=== PATIENT | female | born 1970 | race Caucasian/White ===

== ENCOUNTER 2019-08-27 12:24 | Inpatient (IN) | payer OTHER ==
[2019-08-27] MEDS ORDERED: ASPIRIN 81 MG PO STA (12:53)
[2019-08-27] MEDS ORDERED: IPRATROPIUM-ALBUTEROL 3 ML NEB INHALATION STA (13:04)
[2019-08-27] MEDS ORDERED: methylPREDNISolone SOD SUCCI 125 MG/2 ML VIAL IV STA (13:04)
--- NOTE | 2019-08-27 13:12 | ED ---
Chest Pain HPI - General Source: patient Mode of arrival: ambulatory Limitations: no limitations <Levi Escalante - Last Filed: 08/27/19 17:47> <Sara Perez - Last Filed: 08/30/19 23:26> - General Chief Complaint: Chest Pain Stated Complaint: SOB Time Seen by Provider: 08/27/19 12:46 - History of Present Illness Initial Comments: Patient is a 49-year-old female with history of hypertension, hyperlipidemia and COPD presenting to the emergency department with a chief complaint of shortness of breath and chest pain. She states that she has been gradually out of her inhalers and heart medication over the last week. She does report increased shortness of breath over the last week along with increasing bilateral lower extremity edema. She does report taking a "water pill". Patient reports an onset of squeezing pain on the right side of the chest without any radiation. Denies any diaphoretic episodes, lightheadedness or dizziness. She reports this typically occurs whenever she is out of her steroid inhalers. She is currently a smoker. Does have a family history of cardiovascular disease. Denies coughing or hemoptysis. (Levi Escalante) - Related Data Home Medications Medication Instructions Recorded Confirmed Loratadine [Claritin] 10 mg PO DAILY 01/24/14 08/27/19 Omeprazole [PriLOSEC] 20 mg PO BID 01/24/14 08/27/19 Oxybutynin Chloride [Ditropan] 5 mg PO BID 01/24/14 08/27/19 Verapamil HCl [Verapamil ER] 240 mg PO DAILY 01/24/14 08/27/19 Albuterol Sulfate [Ventolin HFA] 2 puff INHALATION RT-Q4H PRN 08/27/19 08/27/19 Bifidobacterium Infantis [Align] 4 mg PO DAILY 08/27/19 08/27/19 Budesonide/Formoterol Fumarate 2 puff INHALATION RT-BID 08/27/19 08/27/19 [Symbicort 160-4.5 Mcg Inhaler] Chlorthalidone 25 mg PO DAILY 08/27/19 08/27/19 Diclofenac Sodium Gel [Voltaren 2 gm TOPICAL QID 08/27/19 08/27/19 Gel] Gabapentin 1,800 mg PO TID 08/27/19 08/27/19 Ipratropium-Albuterol Nebulize 3 ml INHALATION RT-QID PRN 08/27/19 08/27/19 [Duoneb 0.5 mg-3 mg/3 ml Soln] Levothyroxine Sodium [Synthroid] 75 mcg PO DAILY 08/27/19 08/27/19 Lisinopril 40 mg PO DAILY 08/27/19 08/27/19 Meloxicam [Mobic] 7.5 mg PO BID 08/27/19 08/27/19 Methocarbamol [Robaxin] 750 mg PO TID 08/27/19 08/27/19 PARoxetine HCL [PARoxetine HCL ER] 37.5 mg PO DAILY 08/27/19 08/27/19 Prazosin [Minipress] 1 mg PO QAM 08/27/19 08/27/19 Prazosin [Minipress] 2 mg PO HS 08/27/19 08/27/19 Tiotropium [place] [Spiriva] 1 cap INHALATION RT-DAILY 08/27/19 08/27/19 busPIRone HCL 10 mg PO TID PRN 08/27/19 08/27/19 traZODone HCL 200 mg PO HS 08/27/19 08/27/19 traZODone HCL [Desyrel] 25 mg PO BID@0800,1200 PRN 08/27/19 08/27/19 Previous Rx's Medication Instructions Recorded Fluticasone Propion/Salmeterol 1 inhalation PO BID 30 Days #1 08/30/19 [Wixela 500-50 Inhub] device Allergies Allergy/AdvReac Type Severity Reaction Status Date / Time No Known Allergies Allergy Verified 08/27/19 14:30 Review of Systems ROS Other: All systems not noted in ROS Statement are negative. <Levi Escalante - Last Filed: 08/27/19 17:47> ROS Other: All systems not noted in ROS Statement are negative. <Sara Perez - Last Filed: 08/30/19 23:26> ROS Statement: Those systems with pertinent positive or pertinent negative responses have been documented in the HPI. EKG Findings - EKG Comments: EKG Findings:: Normal sinus rhythm, no ST changes or nonspecific T-wave inversions in lead 3. Ventricular rate 79, MO interval 120, QRS duration 86, QTC 433. <Levi Escalante Last Filed: 08/27/19 17:47> Past Medical History Past Medical History: Asthma, GERD/Reflux, Hypertension, Liver Disease, Osteoarthritis (OA), Thyroid Disorder Additional Past Medical History / Comment(s): CHRONIC BRONCHITIS, HEPATITIS C, CHRONIC BACK PAIN, OVER-ACTIVE BLADDER, FREQUENT LENGTHY MENSTRUAL PERIODS History of Any Multi-Drug Resistant Organisms: None Reported Past Surgical History: Section, Orthopedic Surgery, Tubal Ligation Additional Past Surgical History / Comment(s): ARTHROSCOPY LEFT KNEE, METAL PLATE AND SCREWS RT TIBIA Past Anesthesia/Blood Transfusion Reactions: No Reported Reaction Past Psychological History: Anxiety, Bipolar, Depression, Panic Disorder, PTSD Smoking Status: Current every day smoker Past Alcohol Use History: None Reported Past Drug Use History: None Reported - Past Family History Sister(s) Family Medical History: Cancer <Levi Escalante Last Filed: 08/27/19 17:47> General Exam Limitations: no limitations General appearance: alert, in no apparent distress, obese Head exam: Present: atraumatic, normocephalic, normal inspection Eye exam: Present: normal appearance, PERRL, EOMI Pupils: Present: normal accommodation ENT exam: Present: normal exam, normal oropharynx, mucous membranes moist, normal external ear exam Neck exam: Present: normal inspection Respiratory exam: Present: wheezes (Bilateral wheezing). Absent: respiratory distress Cardiovascular Exam: Present: regular rate, normal rhythm, normal heart sounds Extremities exam: Present: normal inspection, full ROM, normal capillary refill Back exam: Present: normal inspection, full ROM Neurological exam: Present: alert, oriented X3 Psychiatric exam: Present: normal affect, normal mood Skin exam: Present: warm, dry, intact, normal color <Levi Escalante Last Filed: 08/27/19 17:47> Course Vital Signs 08/27/19 08/27/19 08/27/19 12:34 12:37 12:46 Temperature 98.0 F Pulse Rate 78 65 Respiratory 21 20 Rate Blood Pressure 160/82 O2 Sat by Pulse 96 98 Oximetry 08/27/19 08/27/19 08/27/19 12:50 13:00 13:10 Temperature Pulse Rate 78 89 91 Respiratory Rate Blood Pressure 171/93 164/90 O2 Sat by Pulse 96 97 97 Oximetry 08/27/19 08/27/19 08/27/19 13:20 13:30 13:37 Temperature Pulse Rate 86 88 68 Respiratory 20 Rate Blood Pressure 164/90 164/90 155/78 O2 Sat by Pulse 98 97 96 Oximetry 08/27/19 08/27/19 08/27/19 13:40 13:50 14:00 Temperature Pulse Rate 80 72 Respiratory 20 Rate Blood Pressure 153/93 153/93 153/93 O2 Sat by Pulse 98 96 Oximetry 08/27/19 08/27/19 08/27/19 14:10 14:11 14:20 Temperature Pulse Rate 80 65 75 Respiratory Rate Blood Pressure O2 Sat by Pulse 98 99 Oximetry 08/27/19 08/27/19 08/27/19 14:23 14:40 14:50 Temperature Pulse Rate 68 81 Respiratory Rate Blood Pressure 157/98 O2 Sat by Pulse 98 97 Oximetry 08/27/19 08/27/19 08/27/19 15:00 15:10 15:20 Temperature Pulse Rate 75 Respiratory 20 Rate Blood Pressure 157/98 158/97 158/97 O2 Sat by Pulse 98 Oximetry 08/27/19 08/27/19 08/27/19 15:30 15:40 15:50 Temperature Pulse Rate Respiratory Rate Blood Pressure 158/97 158/97 158/97 O2 Sat by Pulse Oximetry 08/27/19 08/27/19 08/27/19 16:00 17:00 18:00 Temperature Pulse Rate 69 65 79 Respiratory 20 20 20 Rate Blood Pressure 148/89 156/97 147/84 O2 Sat by Pulse 98 98 Oximetry 08/27/19 18:48 Temperature Pulse Rate Respiratory 20 Rate Blood Pressure O2 Sat by Pulse Oximetry Chest Pain MDM - Differential Diagnosis ACS, Pleurisy-Other <Levi Escalante - Last Filed: 08/27/19 17:47> <Sara Perez - Last Filed: 08/30/19 23:26> - MDM (-year-old female with history of hypertension hyperlipidemia, COPD presenting to emergency Department with a chief complaint of shortness of breath and chest pain. Patient presented with right-sided chest pain without any radiation. The diaphoretic episode like headedness or dizziness. Patient has not been taking her antihypertensive medication, as well as her inhalers for about a week. Patient reports increased shortness of breath with dyspnea on exertion. On eye exam patient also has a pitting edema bilaterally. Patient reports she has been out of her diuretic which is causing her to be fluid overloaded. On exam patient does have bilateral wheezing. Patient given a breathing treatment and 100 mg of sudden [place] for COPD exacerbation. Patient also given aspirin and morphine for pain. EKG shows a normal sinus rhythm with no ST changes. Patient is d-dimer positive. CT of chest shows no signs for a PE. Patient will be admitted for OR rule out with serial troponins. (Levi Escalante) I was available for consultation in the emergency department. The history and physical exam were done by the midlevel provider. I was consulted for this patients care. I reviewed the case with the midlevel provider and based on their presentation of the patient, I agree with the assessment, medical decision making and plan of care as documented. Chart was dictated using Alek[employer] dictation software. Attempts were made to correct any dictation errors however some typographical errors may persist. (Sara Perez) Disposition Is patient prescribed a controlled substance at d/c from ED?: No Time of Disposition: 17:55 <Levi Escalante - Last Filed: 08/27/19 17:47> <Sara Perez - Last Filed: 08/30/19 23:26> Clinical Impression: Chest pain, COPD exacerbation Disposition: ADMITTED IP TO THIS HOSP Condition: Good
[2019-08-27 13:17] LABS: Basophils # (A) 0.1 k/uL (0-0.2); Basophils % (A) 1 %; Eosinophils # (A) 0.1 k/uL (0-0.7); Eosinophils % (A) 1 %; HCT 35.3 % (34.0-46.0); HGB 11.6 gm/dL (11.4-16.0); Lymphocytes # (A) 1.6 k/uL (1.0-4.8); Lymphocytes % (A) 23 %; MCH 32.5 pg (25.0-35.0); MCV 98.4 fL (80.0-100.0); Mean Platelet Volume 7.2; Monocytes # (A) 0.4 k/uL (0-1.0); Monocytes % (A) 5 %; Neutrophils # (A) 4.6 k/uL (1.3-7.7); Neutrophils % (A) 68 %; Platelet Count 259 k/uL (150-450); RBC 3.58 m/uL (3.80-5.40); RDW 13.9 % (11.5-15.5); WBC 6.8 k/uL (3.8-10.6)
[2019-08-27 13:26] LABS: ALT 13 U/L (4-34); AST 25 U/L (14-36); African American GFR (CKD) >90 (>60 ml/min/1.73 sqM); Albumin 3.7 g/dL (3.5-5.0); Alkaline Phosphatase 28 U/L (38-126); Anion Gap 10 mmol/L; Blood Urea Nitrogen 9 mg/dL (7-17); Carbon Dioxide 24 mmol/L (22-30); Chloride 106 mmol/L (98-107); Glucose 118 mg/dL (74-99); Magnesium 1.8 mg/dL (1.6-2.3); Non-African American GFR(CKD) >90 (>60 ml/min/1.73 sqM); Potassium 3.8 mmol/L (3.5-5.1); Sodium 140 mmol/L (137-145); Total Bilirubin 0.5 mg/dL (0.2-1.3); Total Protein 6.7 g/dL (6.3-8.2)
[2019-08-27 13:33] LABS: INR 0.9 (<1.2); Partial Thromboplastin Time 23.3 sec (22.0-30.0); Prothrombin Time 9.9 sec (9.0-12.0)
--- NOTE | 2019-08-27 14:38 | XR ---
EXAMINATION TYPE: XR chest 2V DATE OF EXAM: 08/27/2019 COMPARISON: None INDICATION: Chest pain TECHNIQUE: Frontal and lateral views of the chest are obtained. FINDINGS: The heart size is normal. The pulmonary vasculature is normal. The lungs are clear. IMPRESSION: 1. No acute pulmonary process.
--- NOTE | 2019-08-27 15:42 | CT ---
CT CHEST FOR PULMONARY EMBOLISM. EXAMINATION TYPE: CT chest angio for PE DATE OF EXAM: 08/27/2019 INDICATION: Shortness of breath and chest pain CT DLP: 673.4 mGycm, Automated exposure control for dose reduction was used. CONTRAST: Patient injected with 100 mL of Isovue 370. COMPARISON: None TECHNIQUE: CT of the chest is performed on a spiral scan at 2 mm thick sections. Study is performed with intravenous contrast timed for evaluation for pulmonary embolism. This will limit additional po rtions of the evaluation. 3-D MIP images reconstructed by the technologist are reviewed on the compu ter in the coronal and sagittal planes. FINDINGS: No persistent filling defects are evident to suggest an acute pulmonary embolism. No mediastinal or hilar adenopathy enlarged by CT criteria is evident. The ascending aorta diameter at the level of the main pulmonary artery is 3.1 cm. The main pulmonary artery diameter at the bifur cation is 2.4 cm. There is a small right pleural effusion. There is some thickening along the lateral right lung base w ith a depth of 1.1 cm. Consider atelectasis. Follow-up is recommended to reevaluate this finding. Limited CT section through the upper abdomen are unremarkable. IMPRESSIONS: 1. No acute pulmonary embolism. 2. Small right pleural effusion. 3. Some pleural-based thickening up to 1.1 cm lateral right lung base. Recommend follow-up of this fi nding with follow-up CT in 3 months.
[2019-08-27] MEDS ORDERED: MORPHINE SULFATE 4 MG/ML SYRINGE IVP STA (15:52)
--- NOTE | 2019-08-27 18:05 | P.HPIM ---
History of Present Illness H&P Date: 08/27/19 The patient is a 49 yo F with a PMH of COPD, HTN, and HLD who presented to the ED with chief complaint of shortness of breath. The patient notes that she has been on her COPD medications for several years though she lost her insurance and was thereby unable to get her medications for the last 4-5 months. She notes that she has not been taking her Symbicort, and has gradually had worsening of her COPD with wheezing and persistent nonproductive cough. She also reports that for the past few weeks to months, she has noticed gradually worsening lower extremity edema which she attributes to not being aware to take her "water pill"over the last 3-4 months as well. She also reports of a pressure-like substernal chest discomfort, nonradiating, possibly with some associated shortness of breath, with no associated diaphoresis, dizziness, palpitations, nausea. She denied fever, chills, recent travel, sick contacts, leg pain. The patient underwent an extensive evaluation in the emergency room with troponin less than 0.012, BNP is 545, d-dimer 1.53, WBC count 6.8, hemoglobin 11.6, platelets 259, sodium 140, potassium 3.8, BUN 9, creatinine 0.75, glucose 118. EKG revealed a normal sinus rhythm at [address]/T-wave changes. Chest CT revealed no acute PE with small right-sided pleural effusion along with some pleural-based thickening up to 1.1 cm lateral right lung base. Review of Systems Pertinent positives and negatives as discussed in HPI, a complete review of systems was performed and all other systems are negative. Past Medical History Past Medical History: Asthma, GERD/Reflux, Hypertension, Liver Disease, Osteoarthritis (OA), Thyroid Disorder Additional Past Medical History / Comment(s): CHRONIC BRONCHITIS, HEPATITIS C, CHRONIC BACK PAIN, OVER-ACTIVE BLADDER, FREQUENT LENGTHY MENSTRUAL PERIODS History of Any Multi-Drug Resistant Organisms: None Reported Past Surgical History: Section, Orthopedic Surgery, Tubal Ligation Additional Past Surgical History / Comment(s): ARTHROSCOPY LEFT KNEE, METAL PLATE AND SCREWS RT TIBIA Past Anesthesia/Blood Transfusion Reactions: No Reported Reaction Past Psychological History: Anxiety, Bipolar, Depression, Panic Disorder, PTSD Smoking Status: Current every day smoker Past Alcohol Use History: None Reported Past Drug Use History: None Reported - Past Family History Sister(s) Family Medical History: Cancer Medications and Allergies Home Medications Medication Instructions Recorded Confirmed Type Loratadine [Claritin] 10 mg PO DAILY 01/24/14 08/27/19 History Omeprazole [PriLOSEC] 20 mg PO BID 01/24/14 08/27/19 History Oxybutynin Chloride [Ditropan] 5 mg PO BID 01/24/14 08/27/19 History Verapamil HCl [Verapamil ER] 240 mg PO DAILY 01/24/14 08/27/19 History Albuterol Sulfate [Ventolin HFA] 2 puff INHALATION RT-Q4H PRN 08/27/19 08/27/19 History Bifidobacterium Infantis [Align] 4 mg PO DAILY 08/27/19 08/27/19 History Budesonide/Formoterol Fumarate 2 puff INHALATION RT-BID 08/27/19 08/27/19 Hist ory [Symbicort 160-4.5 Mcg Inhaler] Chlorthalidone 25 mg PO DAILY 08/27/19 08/27/19 History Diclofenac Sodium Gel [Voltaren 2 gm TOPICAL QID 08/27/19 08/27/19 History Gel] Gabapentin 1,800 mg PO TID 08/27/19 08/27/19 History Ipratropium-Albuterol Nebulize 3 ml INHALATION RT-QID PRN 08/27/19 08/27/19 History [Duoneb 0.5 mg-3 mg/3 ml Soln] Levothyroxine Sodium [Synthroid] 75 mcg PO DAILY 08/27/19 08/27/19 History Lisinopril 40 mg PO DAILY 08/27/19 08/27/19 History Meloxicam [Mobic] 7.5 mg PO BID 08/27/19 08/27/19 History Methocarbamol [Robaxin] 750 mg PO TID 08/27/19 08/27/19 History PARoxetine HCL [PARoxetine HCL ER] 37.5 mg PO DAILY 08/27/19 08/27/19 History Prazosin [Minipress] 1 mg PO QAM 08/27/19 08/27/19 History Prazosin [Minipress] 2 mg PO HS 08/27/19 08/27/19 History Tiotropium [place] [Spiriva] 1 cap INHALATION RT-DAILY 01/10/20 01/10/20 History busPIRone HCL 10 mg PO TID PRN 08/27/19 08/27/19 History traZODone HCL 200 mg PO HS 08/27/19 08/27/19 History traZODone HCL [Desyrel] 25 mg PO BID@0800,1200 PRN 08/27/19 08/27/19 History Allergies Allergy/AdvReac Type Severity Reaction Status Date / Time No Known Allergies Allergy Verified 08/27/19 14:30 Physical Exam Vitals: Vital Signs Temp Pulse Resp BP Pulse Ox 08/27/19 17:00 65 20 156/97 98 08/27/19 16:00 69 20 148/89 08/27/19 15:50 158/97 08/27/19 15:40 158/97 08/27/19 15:30 158/97 08/27/19 15:20 158/97 08/27/19 15:10 158/97 08/27/19 15:00 75 20 157/98 98 08/27/19 14:50 81 157/98 97 08/27/19 14:40 98 08/27/19 14:23 68 08/27/19 14:20 75 99 08/27/19 14:11 65 08/27/19 14:10 80 98 08/27/19 14:00 72 20 153/93 96 08/27/19 13:50 153/93 08/27/19 13:40 80 153/93 98 08/27/19 13:37 68 20 155/78 96 08/27/19 13:30 88 164/90 97 08/27/19 13:20 86 164/90 98 08/27/19 13:10 91 164/90 97 08/27/19 13:00 89 171/93 97 08/27/19 12:50 78 96 08/27/19 12:46 98 08/27/19 12:37 65 20 08/27/19 12:34 98.0 F 78 21 160/82 96 Intake and Output 08/27/19 08/27/19 08/27/19 06:59 14:59 22:59 Other: Weight 88.451 kg General: non toxic, no distress, appears at stated age, morbidly obese Derm: no unusual rashes/lesions no unusual ecchymoses, warm, dry Head: atraumatic, normocephalic, symmetric Eyes: EOMI, no lid lag, anicteric sclera, pupils equal round reactive to light ENT: Nose and ears atraumatic, no thrush, no pharyngeal erythema Neck: No thyromegaly, no cervical lymphadenopathy, trachea midline, supple Mouth: no lip lesion, mucus membranes moist Cardiovascular: S1S2 reg, no murmur, positive posterior tibial pulse bilateral, 1+ bilateral lower extremity edema, capillary refill less than 2 seconds Lungs: Poor air entry bilaterally with expiratory wheezing, minimal bibasilar rales, no rhonchi, no accessory muscle use Abdominal: soft, nontender to palpation, no guarding, no appreciable organomegaly, normal bowel sounds Ext: no gross muscle atrophy, muscle strength 5 out of 5 in all 4 extremities grossly, no contractures, Neuro: CN II-XI grossly intact, light touch intact all 4 extremities, finger to nose within normal limits, Psych: Alert, oriented, appropriate affect Results CBC & Chem 7: 08/27/19 12:57 08/27/19 12:57 Labs: Abnormal Lab Results - Last 24 Hours (Table) 08/27/19 08/27/19 08/27/19 Range/Units 12:57 12:57 12:57 RBC 3.58 L (3.80-5.40) m/uL D-Dimer 1.53 H (<0.60) mg/L FEU Glucose 118 H (74-99) mg/dL Alkaline Phosphatase 28 L (38-126) U/L Assessment and Plan Plan: Acute COPD exacerbation -Continue with DuoNeb's -Continue with Solu-Medrol 60 mg every 6 hourly -Supplemental oxygen -Symbicort Chest pain, rule out ACS -Cardiac monitoring -Trend troponin -Cardiology consult Chronic conditions: HTN, HLD, Depression -C/w home meds DVT prophylaxis -Heparin subq The patient is admitted with an anticipated less than 2 midnight stay for evaluation of acute COPD exacerbation CODE STATUS: Full Code Discussed with: Patient Anticipated discharge date: 1-[address]: Home A total of 40 minutes was spent on the care of this complex patient more than 50% of the time was spent in counseling and care coordination.
[2019-08-27] MEDS: GABAPENTIN 300 MG CAP PO SCH (19:47)
[2019-08-27] MEDS: OXYBUTYNIN CHLORIDE 5 MG TAB PO SCH (19:47)
[2019-08-27] MEDS: NITROGLYCERIN SL TABS 0.4 MG TAB SUBLINGUAL PRN (19:48)
[2019-08-27] MEDS: ACETAMINOPHEN TAB 325 MG TAB PO PRN (20:01)
[2019-08-27 20:19] LABS: Glucose,Whole Blood 185 mg/dL (75-99)
[2019-08-27] MEDS: SYMBICORT 160-4.5 MCG INHALER INHALATION SCH (20:44)
[2019-08-27] MEDS: IPRATROPIUM-ALBUTEROL 3 ML NEB INHALATION SCH (20:44)
[2019-08-27] MEDS: methylPREDNISolone SOD SUCCI 125 MG/2 ML VIAL IV SCH (23:27)
[2019-08-28] MEDS: IPRATROPIUM-ALBUTEROL 3 ML NEB INHALATION PRN (01:13)
[2019-08-28] MEDS: NITROGLYCERIN SL TABS 0.4 MG TAB SUBLINGUAL PRN (01:29)
[2019-08-28] MEDS: ACETAMINOPHEN TAB 325 MG TAB PO PRN ×4 (01:36→18:49)
[2019-08-28 01:44] LABS: Cholesterol 204 mg/dL (<200); HDL Cholesterol 65 mg/dL (40-60); LDL Cholesterol,Calculated 125 mg/dL (0-99); Triglycerides 68 mg/dL (<150)
[2019-08-28] MEDS: busPIRone HCl 10 MG TAB PO PRN ×2 (01:45→20:50)
[2019-08-28] MEDS: LEVOTHYROXINE 75 MCG TAB PO SCH (05:30)
[2019-08-28] MEDS: BENZONATATE 100 MG CAP PO PRN ×3 (05:36→17:16)
[2019-08-28 07:18] LABS: Glucose,Whole Blood 128 mg/dL (75-99)
[2019-08-28] MEDS: IPRATROPIUM-ALBUTEROL 3 ML NEB INHALATION SCH ×4 (07:38→18:57)
[2019-08-28] MEDS: GABAPENTIN 300 MG CAP PO SCH ×3 (07:51→20:51)
[2019-08-28] MEDS: amLODIPine 5 MG TAB PO SCH (07:54)
[2019-08-28] MEDS: LORATADINE 10 MG TAB PO SCH (07:54)
[2019-08-28] MEDS: OXYBUTYNIN CHLORIDE 5 MG TAB PO SCH ×2 (07:54→20:50)
[2019-08-28] MEDS: methylPREDNISolone SOD SUCCI 125 MG/2 ML VIAL IV SCH ×3 (07:55→23:18)
[2019-08-28] MEDS: LISINOPRIL 20 MG TAB PO SCH (07:55)
[2019-08-28] MEDS: METOPROLOL TARTRATE 25 MG TAB PO SCH ×2 (08:07→20:50)
[2019-08-28] MEDS: ASPIRIN 81 MG PO SCH (08:07)
[2019-08-28] MEDS ORDERED: LISINOPRIL 20 MG TAB PO SCH (09:00)
[2019-08-28] MEDS ORDERED: ASPIRIN 325 MG TAB PO SCH (09:00)
[2019-08-28] MEDS: PARoxetine 10 MG TAB PO SCH (09:26)
[2019-08-28] MEDS: CHLORTHALIDONE 25 MG TAB PO SCH (09:26)
--- NOTE | 2019-08-28 10:07 | P.CNPUL ---
History of Present Illness Consult date: 08/28/19 Reason for consult: dyspnea, chest pain, COPD History of present illness: 49-year-old female patient, known history of COPD hypertension hyperlipidemia who came into the ED because of shortness of breath. She was maintained on Symbicort on outpatient basis. Based on lack of coverage, she had with her medications. She has also developed some increased lower extremity edema over the past few months because of inability to take her diuretics. She reported pressure-like chest discomfort in addition to some shortness of breath, palpitations and dizziness. She denied having any fever chills or night sweats. No hemoptysis. No pleurisy. EKG showing a normal sinus rhythm without any acute abnormalities. Patient already had 3 sets of cardiac enzymes that came back negative. D-dimer was at 1.53 and based on that the patient underwent a CT angiogram that showed no evidence of any pulmonary embolism. There is some atelectatic changes in lung bases bilaterally. She has seen a braille teacher in [place] and she was demented on a combination of Spiriva and Symbicort and she has home oxygen and she has a nebulizer at home. Note that her maintenance inhalers are not available and she was mainly relying on her albuterol nebulizer doing it frequently without much help. She became more progressively bronchospastic and wheezy. No fever. No chills. She has obstructive sleep apnea and she does not know where her CPAP machine is. She has gained some weight over the years. She has hypothyroidism and she is on thyroid hormone [facility]. She has been admitted times for COPD exacerbation in [place]. She has also required a lot of redness on burst taper over the years regarding her recurrent COPD exacerbations. Currently she is living with her sister. Her sister is a smoker and there are other family members a total of 6 of them all of them they smoke cigarettes in the house. Most of bronchial asthma. Most of any environmental ALLERGIES. This patient also has the typical features of obstructive sleep apnea. She has lost only with the 70s and chronic hypersomnia and sleepiness. She used to work in a [employer] Constitutional: Reports daytime sleepiness, Reports fatigue, Reports weight gain Eyes: denies as per HPI, denies blurred vision, denies bulging eye, denies decreased vision, denies diplopia, denies discharge, denies dry eye, denies irritation, denies itching, denies pain, denies photophobia, denies loss of peripheral vision, denies loss of vision, denies tunnel vision/blind spots Ears: deny: decreased hearing, ear discharge, earache, tinnitus Ears, nose, mouth and throat: Reports as per HPI Breasts: absent: as per HPI, change in shape, gynecomastia, masses, nipple discharge, pain, skin changes, swelling Cardiovascular: Reports decreased exercise tolerance, Reports dyspnea on exertion Respiratory: Reports cough, Reports dyspnea, Reports sleep apnea, Reports snoring, Reports wheezing Gastrointestinal: Reports as per HPI Genitourinary: Reports as per HPI Menstruation: Reports as per HPI Musculoskeletal: Reports as per HPI Musculoskeletal: bilateral: ankle swelling, absent: ankle pain, ankle stiffness Integumentary: Reports as per HPI Neurological: Reports as per HPI Psychiatric: Reports as per HPI Endocrine: Reports fatigue Hematologic/Lymphatic: Reports as per HPI Allergic/Immunologic: Reports as per HPI Past Medical History Past Medical History: COPD, GERD/Reflux, Hypertension, Liver Disease, Osteoarthritis (OA), Pneumonia, Sleep Apnea/CPAP/BIPAP, Thyroid Disorder Additional Past Medical History / Comment(s): CHRONIC BRONCHITIS, HEPATITIS C- cured, CHRONIC BACK PAIN, OVER-ACTIVE BLADDER History of Any Multi-Drug Resistant Organisms: None Reported Past Surgical History: Section, Orthopedic Surgery, Tubal Ligation Additional Past Surgical History / Comment(s): ARTHROSCOPY LEFT KNEE, METAL PLATE AND SCREWS RT TIBIA, uterine ablation, right shoulder surgery, liver biopsies x2-3, carpel tunnel release x2 Past Anesthesia/Blood Transfusion Reactions: No Reported Reaction Past Psychological History: Anxiety, Bipolar, Depression, Panic Disorder, PTSD Smoking Status: Current every day smoker (since the age of 13) Past Alcohol Use History: None Reported Past Drug Use History: None Reported - Past Family History Sister(s) Family Medical History: Cancer (Grandmothers have skin cancer, uncle has brain cancer and another uncle with COPD) Medications and Allergies Home Medications Medication Instructions Recorded Confirmed Type Loratadine [Claritin] 10 mg PO DAILY 01/24/14 08/27/19 History Omeprazole [PriLOSEC] 20 mg PO BID 01/24/14 08/27/19 History Oxybutynin Chloride [Ditropan] 5 mg PO BID 01/24/14 08/27/19 History Verapamil HCl [Verapamil ER] 240 mg PO DAILY 01/24/14 08/27/19 History Albuterol Sulfate [Ventolin HFA] 2 puff INHALATION RT-Q4H PRN 08/27/19 08/27/19 History Bifidobacterium Infantis [Align] 4 mg PO DAILY 08/27/19 08/27/19 History Budesonide/Formoterol Fumarate 2 puff INHALATION RT-BID 08/27/19 08/27/19 History [Symbicort 160-4.5 Mcg Inhaler] Chlorthalidone 25 mg PO DAILY 08/27/19 08/27/19 History Diclofenac Sodium Gel [Voltaren 2 gm TOPICAL QID 08/27/19 08/27/19 History Gel] Gabapentin 1,800 mg PO TID 08/27/19 08/27/19 History Ipratropium-Albuterol Nebulize 3 ml INHALATION RT-QID PRN 08/27/19 08/27/19 History [Duoneb 0.5 mg-3 mg/3 ml Soln] Levothyroxine Sodium [Synthroid] 75 mcg PO DAILY 08/27/19 08/27/19 History Lisinopril 40 mg PO DAILY 08/27/19 08/27/19 History Meloxicam [Mobic] 7.5 mg PO BID 08/27/19 08/27/19 History Methocarbamol [Robaxin] 750 mg PO TID 08/27/19 08/27/19 History PARoxetine HCL [PARoxetine HCL ER] 37.5 mg PO DAILY 08/27/19 08/27/19 History Prazosin [Minipress] 1 mg PO QAM 08/27/19 08/27/19 History Prazosin [Minipress] 2 mg PO HS 08/27/19 08/27/19 History Tiotropium Ironside [Spiriva] 1 cap INHALATION RT-DAILY 08/27/19 08/27/19 History busPIRone HCL 10 mg PO TID PRN 08/27/19 08/27/19 History traZODone HCL 200 mg PO HS 08/27/19 08/27/19 History traZODone HCL [Desyrel] 25 mg PO BID@0800,1200 PRN 08/27/19 08/27/19 History Allergies Allergy/AdvReac Type Severity Reaction Status Date / Time No Known Allergies Allergy Verified 08/27/19 14:30 Physical Exam Vitals: Vital Signs Temp Pulse Pulse Resp BP BP Pulse Ox 08/28/19 07:46 98.1 F 69 19 170/78 97 08/28/19 05:00 98.0 F 72 18 166/85 97 08/28/19 01:38 80 08/28/19 01:29 80 08/27/19 23:36 98.3 F 85 18 136/91 99 08/27/19 20:57 78 08/27/19 20:46 76 08/27/19 19:14 98.3 F 69 20 168/82 97 08/27/19 18:48 20 08/27/19 18:00 79 20 147/84 98 08/27/19 17:00 65 20 156/97 98 08/27/19 16:00 69 20 148/89 08/27/19 15:50 158/97 08/27/19 15:40 158/97 08/27/19 15:30 158/97 08/27/19 15:20 158/97 08/27/19 15:10 158/97 08/27/19 15:00 75 20 157/98 98 08/27/19 14:50 81 157/98 97 08/27/19 14:40 98 08/27/19 14:23 68 08/27/19 14:20 75 99 08/27/19 14:11 65 08/27/19 14:10 80 98 08/27/19 14:00 72 20 153/93 96 08/27/19 13:50 153/93 08/27/19 13:40 80 153/93 98 08/27/19 13:37 68 20 155/78 96 08/27/19 13:30 88 164/90 97 08/27/19 13:20 86 164/90 98 08/27/19 13:10 91 164/90 97 08/27/19 13:00 89 171/93 97 08/27/19 12:50 78 96 08/27/19 12:46 98 08/27/19 12:37 65 20 08/27/19 12:34 98.0 F 78 21 160/82 96 Intake and Output 08/27/19 08/28/19 08/28/19 22:59 06:59 14:59 Other: # Voids 1 Weight 88.451 kg Calm and comfortable and the patient is in mild degree of respiratory distress at rest. Not using excessive muscle breathing. Head exam was generally normal. There was no scleral icterus or corneal arcus. Mucous membranes were moist. Neck was supple and without jugular venous distension, thyromegaly, or carotid bruits. Carotids were easily palpable bilaterally. There was no adenopathy. The patient has a slight enlargement of the thyroid gland/goiter without evidence of any lesions or masses. She has significant crowding of the posterior oropharynx with a Mallampati class IV and the uvula is not seen. Lungs are diminished and the patient had diffuse expiratory wheezes throughout the lung morel bilaterally and prolongation of expiration phase of breathing Cardiac exam revealed the PMI to be normally situated and sized. The rhythm was regular and no extrasystoles were noted during several minutes of auscultation. The first and second heart sounds were normal and physiologic splitting of the second heart sound was noted. There were no murmurs, rubs, clicks, or gallops. Abdomen is obese soft nontender. Organs cannot be accurately palpated. There is no direct tenderness or rebound tensile guarding. Extremities reveal trace edema and there is no cyanosis or clubbing. Neurologically the patient is awake and alert and is no focal neurological defic it. Examination of the skin revealed no evidence of significant rashes, suspicious appearing nevi or other concerning lesions. Results - Laboratory Findings CBC and BMP: 08/27/19 12:57 08/27/19 12:57 ABG WBC 6.8 k/uL (3.8-10.6) 08/27/19 12:57 RBC 3.58 m/uL (3.80-5.40) L 08/27/19 12:57 Hgb 11.6 gm/dL (11.4-16.0) 08/27/19 12:57 Hct 35.3 % (34.0-46.0) 08/27/19 12:57 MCV 98.4 fL (80.0-100.0) 08/27/19 12:57 MCH 32.5 pg (25.0-35.0) 08/27/19 12:57 MCHC 33.0 g/dL (31.0-37.0) 08/27/19 12:57 RDW 13.9 % (11.5-15.5) 08/27/19 12:57 Plt Count 259 k/uL (150-450) 08/27/19 12:57 Neutrophils % 68 % 08/27/19 12:57 Lymphocytes % 23 % 08/27/19 12:57 Monocytes % 5 % 08/27/19 12:57 Eosinophils % 1 % 08/27/19 12:57 Basophils % 1 % 08/27/19 12:57 Neutrophils # 4.6 k/uL (1.3-7.7) 08/27/19 12:57 Lymphocytes # 1.6 k/uL (1.0-4.8) 08/27/19 12:57 Monocytes # 0.4 k/uL (0-1.0) 08/27/19 12:57 Eosinophils # 0.1 k/uL (0-0.7) 08/27/19 12:57 Basophils # 0.1 k/uL (0-0.2) 08/27/19 12:57 PT 9.9 sec (9.0-12.0) 08/27/19 12:57 INR 0.9 (<1.2) 08/27/19 12:57 APTT 23.3 sec (22.0-30.0) 08/27/19 12:57 D-Dimer 1.53 mg/L FEU (<0.60) H 08/27/19 12:57 Sodium 140 mmol/L (137-145) 08/27/19 12:57 Potassium 3.8 mmol/L (3.5-5.1) 08/27/19 12:57 Chloride 106 mmol/L (98-107) 08/27/19 12:57 Carbon Dioxide 24 mmol/L (22-30) 08/27/19 12:57 Anion Gap 10 mmol/L 08/27/19 12:57 BUN 9 mg/dL (7-17) 08/27/19 12:57 Creatinine 0.75 mg/dL (0.52-1.04) 08/27/19 12:57 Est GFR (CKD-EPI)AfAm >90 (>60 ml/min/1.73 sqM) 08/27/19 12:57 Est GFR (CKD-EPI)NonAf >90 (>60 ml/min/1.73 sqM) 08/27/19 12:57 Glucose 118 mg/dL (74-99) H 08/27/19 12:57 POC Glucose (mg/dL) 128 mg/dL (75-99) H 08/28/19 07:17 POC Glu [employer] V[employer]as Portillo 08/28/19 07:17 Calcium 9.0 mg/dL (8.4-10.2) 08/27/19 12:57 Magnesium 1.8 mg/dL (1.6-2.3) 08/27/19 12:57 Total Bilirubin 0.5 mg/dL (0.2-1.3) 08/27/19 12:57 AST 25 U/L (14-36) 08/27/19 12:57 ALT 13 U/L (4-34) 08/27/19 12:57 Alkaline Phosphatase 28 U/L (38-126) L 08/27/19 12:57 Troponin I <0.012 ng/mL (0.000-0.034) 08/28/19 01:01 NT-Pro-B Natriuret Pep 545 pg/mL 08/27/19 12:57 Total Protein 6.7 g/dL (6.3-8.2) 08/27/19 12:57 Albumin 3.7 g/dL (3.5-5.0) 08/27/19 12:57 Triglycerides 68 mg/dL (<150) 08/28/19 01:01 Cholesterol 204 mg/dL (<200) H 08/28/19 01:01 LDL Cholesterol, Calc 125 mg/dL (0-99) H 08/28/19 01:01 HDL Cholesterol 65 mg/dL (40-60) H 08/28/19 01:01 PT/INR, D-dimer PT 9.9 sec (9.0-12.0) 08/27/19 12:57 INR 0.9 (<1.2) 08/27/19 12:57 D-Dimer 1.53 mg/L FEU (<0.60) H 08/27/19 12:57 Abnormal lab findings: Abnormal Labs 08/27/19 08/27/19 08/27/19 12:57 12:57 12:57 RBC 3.58 L D-Dimer 1.53 H Glucose 118 H POC Glucose (mg/dL) Alkaline Phosphatase 28 L Cholesterol LDL Cholesterol, Calc HDL Cholesterol 08/27/19 08/28/19 08/28/19 20:16 01:01 07:17 RBC D-Dimer Glucose POC Glucose (mg/dL) 185 H 128 H Alkaline Phosphatase Cholesterol 204 H LDL Cholesterol, Calc 125 H HDL Cholesterol 65 H - Diagnostic Findings Chest x-ray: image reviewed Assessment and Plan Plan: 1 acute COPD exacerbation with shortness of breath. CT angiogram was reviewed. No evidence of pneumonia. Limited atelectatic changes in lung bases bilaterally. 2 advanced COPD with chronic hypoxic respiratory failure and the patient has oxygen at home. During her management and another state, the patient was seen by braille teacher and she was placed on a combination of Spiriva and Symbicort and she is off his medications for now. She has also a albuterol nebulizer that she uses [id number] as needed. 3 chronic smoker 4 obesity 5 obstructive sleep apnea currently on no treatment 6 History of hepatitis C, the patient has recovered 7 goiter with a history of hypothyroidism currently on Synthroid 8 hypertension 9 chronic anxiety 10 chronic lower extremity edema Plan We'll treat the patient for her COPD exacerbation. I reviewed the records and review the chest x-ray and a CAT scan of the chest and the patient was also evaluated and examined. She will benefit from a combination of bronchodilators and steroids. Ultimately she will need outpatient follow-up and care regarding her COPD. I like her maintenance inhalational regimen that she was on in the past and this needs to be restarted. Sleep apnea evaluation outpatient. Smoking cessation counseling.. We'll continue to follow. We'll check her TSH free T4 level. Echocardiogram to assess her LV function and pulmonary hypertension.
--- NOTE | 2019-08-28 10:51 | P.PN ---
Subjective Progress Note Date: 08/28/19 The patient is a 49 yo F with a PMH of COPD, HTN, and HLD who presented to the ED with chief complaint of shortness of breath. The patient noted that she had been on her COPD medications for several years though she lost her insurance and was thereby unable to get her medications for 4-5 months. She noted that she had not been taking her Symbicort, and had gradual worsening of her COPD with wheezing and persistent nonproductive cough. She also reported that for the past few weeks to months, she had noticed gradually worsening lower extremity edema which she attributed to not being able to take her "water pill" over for 3-4 months as well. She also reported pressure-like substernal chest discomf ort, nonradiating, possibly with some associated shortness of breath, with no associated diaphoresis, dizziness, palpitations, nausea. She denied fever, chills, recent travel, sick contacts, leg pain. The patient underwent an extensive evaluation in the emergency room with troponin less than 0.012, BNP is 545, d-dimer 1.53, WBC count 6.8, hemoglobin 11.6, platelets 259, sodium 140, potassium 3.8, BUN 9, creatinine 0.75, glucose 118. EKG revealed a normal sinus rhythm at [address]/T-wave changes. Chest CT revealed no acute PE with small right-sided pleural effusion along with some pleural-based thickening up to 1.1 cm lateral right lung base. The patient was admitted for acute COPD exacerbation and was started on IV solumedrol, duonebs, and symbicort along with a cardiology consult for chest pain, to r/o ACS. She was seen and examined at the bedside on 08/28. She reported continued wheezing and SOB with a non-productive cough. Denied fever, chills, dizziness, nausea, vomiting, or abdominal pain. Noted that her LE edema had somewhat improved since admission. Objective - Vital Signs Vital signs: Vital Signs Temp 98.1 F 08/28/19 07:46 Pulse 69 08/28/19 07:46 Resp 19 08/28/19 07:46 BP 170/78 08/28/19 07:46 Pulse Ox 97 08/28/19 07:46 Intake & Output 08/27/19 08/28/19 08/28/19 18:59 06:59 18:59 Weight 88.451 kg 88.451 kg Other: # Voids 1 1 - Exam General: Non-toxic, in no acute distress, appears stated age, obese HEENT: NC/AT, anicteric sclerae, moist conjunctiva, no lid-lag, PERRLA Cardiovascular: S1/S2 wnl, no murmurs, rubs, or gallops Lungs: Poor air entry alicia with diffuse expiratorh wheezing in all lung morel, no ronchi or rales appreciated, normal respiratory effort, no accessory muscle use Abdominal: Soft, non-tender, non-distended, no guarding, rebound, or rigidity Skin: Warm, dry Extremities: Minimal LE edema alicia, no contractures Psychiatric: Alert and oriented to person, place and time, appropriate affect Neuro: CN II-XII grossly intact, Strength 5/5 in all 4 extremities, Speech intact, no focal neuro deficits noted - Labs CBC & Chem 7: 08/27/19 12:57 08/27/19 12:57 Labs: Abnormal Lab Results - Last 24 Hours (Table) 08/27/19 08/27/19 08/27/19 Range/Units 12:57 12:57 12:57 RBC 3.58 L (3.80-5.40) m/uL D-Dimer 1.53 H (<0.60) mg/L FEU Glucose 118 H (74-99) mg/dL POC Glucose (mg/dL) (75-99) mg/dL Alkaline Phosphatase 28 L (38-126) U/L Cholesterol (<200) mg/dL LDL Cholesterol, Calc (0-99) mg/dL HDL Cholesterol (40-60) mg/dL 08/27/19 08/28/19 08/28/19 Range/Units 20:16 01:01 07:17 RBC (3.80-5.40) m/uL D-Dimer (<0.60) mg/L FEU Glucose (74-99) mg/dL POC Glucose (mg/dL) 185 H 128 H (75-99) mg/dL Alkaline Phosphatase (38-126) U/L Cholesterol 204 H (<200) mg/dL LDL Cholesterol, Calc 125 H (0-99) mg/dL HDL Cholesterol 65 H (40-60) mg/dL Assessment and Plan Plan: Acute COPD exacerbation -Continue with DuoNeb's -Continue with Solu-Medrol 60 mg every 8 hourly -Supplemental oxygen -Symbicort -Pulmonary recs appreciated Chronic hypoxic respiratory failure -On home O2 -C/w supplemental oxygen Chest pain, rule out ACS -Cardiac monitoring -Trend troponin -Cardiology consult Trace LE edema alicia, improved -F/u Echo -C/w Chlorthalidone DOROTHY -Patient will need outpatient f/u with sleep/pulm medicine Chronic conditions: HTN, HLD, Depression -C/w home meds DVT prophylaxis -Heparin subq Discussed with: Patient Anticipated discharge date: 1-[address]: Home
[2019-08-28] MEDS: SYMBICORT 160-4.5 MCG INHALER INHALATION SCH ×2 (10:56→18:57)
[2019-08-28 11:31] LABS: Glucose,Whole Blood 133 mg/dL (75-99)
--- NOTE | 2019-08-28 12:30 | CONS ---
CONSULTATION This patient is a 49-year-old lady who smokes about a pack a day and also has moved to this area recently. She carries a diagnosis of hypothyroidism, hypertension, smoking, COPD, bronchial asthma. She came into the hospital complaining of chest discomfort. Apparently she moved here and currently lives with her sister and carries the above diagnoses. She came in complaining of shortness of breath, coughing and discomfort in the chest. Quality of the discomfort seems musculoskeletal. It occurs with coughing and does not occur with physical activity. She stopped taking her medications for 3 days. The patient is insistent that her chest pain is not coming from the heart, and it is all her lung problem, and I explained to her that I agree with her but suggested that she should probably consider quitting smoking. Her 3 sets of troponins are normal. EKG revealed sinus mechanism without acute changes. PAST MEDICAL HISTORY: Past medical history is remarkable for bronchial asthma, COPD, hypertension, hypothyroidism. She is status post some and orthopedic surgery, tubal ligation, left knee arthroscopic surgery. ALLERGIES: NONE. MEDICATIONS: Medications include antihypertensives in the form of lisinopril, prazosin. She takes trazodone. She also takes multiple inhalers, gabapentin and omeprazole. She takes verapamil 240 mg long-acting preparation. PHYSICAL EXAMINATION: Blood pressure is 160/80. Pulse rate is 70 per minute. HEENT unremarkable. Fundus was not examined by me. Neck is short and thick. I cannot appreciate JVD. There is no carotid bruit. Heart exam reveals S1, S2. No significant murmurs. Lungs reveal bilateral scattered rhonchi suggestive of exacerbation of COPD and probably some bronchial asthma. Abdomen is distended, nontender. Lower extremities reveal normal pulses. No edema. Central nervous system is normal. EKG revealed a sinus mechanism without any significant ST-T changes. LABORATORY DATA: Laboratory data revealed that 3 sets of troponins are normal. She had a D-dimer that was 1.53. CT angio revealed no evidence of pulmonary embolism or any aortic pathology. Information regarding aortic pathology was not mentioned, but verbal report from Dr. Santoro suggested that aorta was normal. IMPRESSION: 1. Atypical musculoskeletal chest pain. 2. Exacerbation of bronchial asthma and chronic obstructive pulmonary disease. 3. Hypertension. 4. Hyperlipidemia. 5. Hypothyroidism, on replacement therapy. RECOMMENDATIONS: I am recommending that we will obtain an echocardiogram, consult Pulmonary, decrease the lisinopril to 20 mg daily, add amlodipine 5 mg daily, discontinue verapamil and place her on a small dose of metoprolol tartrate 25 mg daily. When she is stable and her pulmonary issues have resolved, I will see her in the office and consider outpatient stress testing. I discussed this in detail with the patient, but she was upset and a little bit unreasonable and wanted some medication for her pain. Discussed my thoughts in detail with the patient. Thank you very much for the consult. MMODL / IJN: [id number] /
[2019-08-28 16:32] LABS: Glucose,Whole Blood 151 mg/dL (75-99)
--- NOTE | 2019-08-28 16:32 | ECHOF ---
Referral Reason:chest pain MEASUREMENTS -------- HEIGHT: 147.3 cm WEIGHT: 88.5 kg BP: 166/85 RVIDd: 2.9 cm (< 3.3) IVSd: 1.1 cm (0.6 - 1.1) LVIDd: 4.7 cm (3.9 - 5.3) LVPWd: 1.1 cm (0.6 - 1.1) IVSs: 1.6 cm LVIDs: 3.3 cm LVPWs: 1.7 cm LA Diam: 3.2 cm (2.7 - 3.8) LAESV Index (A-L): 26.50 ml/m Ao Diam: 2.8 cm (2.0 - 3.7) AV Cusp: 1.7 cm (1.5 - 2.6) MV EXCURSION: 17.896 mm (> 18.000) MV EF SLOPE: 62 mm/s (70 - 150) EPSS: 0.8 cm MV E Hung: 1.47 m/s MV DecT: 204 ms MV A Hung: 1.23 m/s MV E/A Ratio: 1.19 RAP: 5.00 mmHg RVSP: 35.69 mmHg FINDINGS -------- Sinus rhythm. This was a technically adequate study. The left ventricular size is normal. There is borderline concentric left ventricular hypertrophy. Overall left ventricular systolic function is normal with, an EF between 60 - 65 %. The right ventricle is normal in size. Normal LA size by volume 22+/-6 ml/m2. The right atrium is normal in size. Interatrial and interventricular septum intact. The aortic valve is trileaflet and appears structurally normal. Mild mitral regurgitation is present. Mild tricuspid regurgitation present. There is mild pulmonary hypertension. The right ventricular systolic pressure, as measured by Doppler, is 35.69mmHg. The pulmonic valve was not well visualized. The aortic root size is normal. Normal inferior vena cava with normal inspiratory collapse consistent with estimated right atrial pre ssure of 5 mmHg. There is no pericardial effusion. CONCLUSIONS -------- 1. Sinus rhythm. 2. This was a technically adequate study. 3. The left ventricular size is normal. 4. There is borderline concentric left ventricular hypertrophy. 5. Overall left ventricular systolic function is normal with, an EF between 60 - 65 %. 6. The right ventricle is normal in size. 7. Normal LA size by volume 22+/-6 ml/m2. 8. The right atrium is normal in size. 9. Interatrial and interventricular septum intact. 10. The aortic valve is trileaflet and appears structurally normal. 11. Mild mitral regurgitation is present. 12. Mild tricuspid regurgitation present. 13. There is mild pulmonary hypertension. 14. The right ventricular systolic pressure, as measured by Doppler, is 35.69mmHg. 15. The pulmonic valve was not well visualized. 16. The aortic root size is normal. 17. Normal inferior vena cava with normal inspiratory collapse consistent with estimated right atrial pressure of 5 mmHg. 18. There is no pericardial effusion. [employer] SAL[employer] ASSOCIATE: Rosa Maria Jones RDCS
[2019-08-28 20:36] LABS: Glucose,Whole Blood 126 mg/dL (75-99)
[2019-08-29] MEDS: IPRATROPIUM-ALBUTEROL 3 ML NEB INHALATION PRN (02:30)
[2019-08-29] MEDS: BENZONATATE 100 MG CAP PO PRN ×2 (02:50→17:46)
[2019-08-29] MEDS: busPIRone HCl 10 MG TAB PO PRN (04:07)
[2019-08-29] MEDS: LEVOTHYROXINE 75 MCG TAB PO SCH (05:42)
[2019-08-29 07:01] LABS: Glucose,Whole Blood 142 mg/dL (75-99)
[2019-08-29] MEDS: SYMBICORT 160-4.5 MCG INHALER INHALATION SCH ×2 (07:09→19:25)
[2019-08-29] MEDS: IPRATROPIUM-ALBUTEROL 3 ML NEB INHALATION SCH ×4 (07:09→19:25)
[2019-08-29] MEDS: methylPREDNISolone SOD SUCCI 125 MG/2 ML VIAL IV SCH ×3 (08:21→23:25)
[2019-08-29] MEDS: amLODIPine 5 MG TAB PO SCH (08:21)
[2019-08-29] MEDS: LISINOPRIL 20 MG TAB PO SCH (08:21)
[2019-08-29] MEDS: LORATADINE 10 MG TAB PO SCH (08:21)
[2019-08-29] MEDS: OXYBUTYNIN CHLORIDE 5 MG TAB PO SCH ×2 (08:21→20:23)
[2019-08-29] MEDS: GABAPENTIN 300 MG CAP PO SCH ×3 (08:21→21:22)
[2019-08-29] MEDS: ASPIRIN 81 MG PO SCH (08:22)
[2019-08-29] MEDS: METOPROLOL TARTRATE 25 MG TAB PO SCH ×2 (08:24→20:23)
[2019-08-29] MEDS: PARoxetine 10 MG TAB PO SCH (09:12)
[2019-08-29] MEDS: CHLORTHALIDONE 25 MG TAB PO SCH (09:12)
--- NOTE | 2019-08-29 10:31 | PN ---
PROGRESS NOTE Mrs. Pendleton is comfortable resting. She has no further chest pain. Her breathing has also improved. Vitals signs are stable. There is JVD of 1 cm. No carotid bruit. S1-S2 heard normally. No significant murmurs. Lungs reveal improved air entry. Abdomen and lower extremity exam unchanged. She is doing better from a pulmonary standpoint. No further chest pain. I will see her p.r.n. MMODL / IJN: [id number] /
[2019-08-29 11:46] LABS: Glucose,Whole Blood 113 mg/dL (75-99)
--- NOTE | 2019-08-29 13:29 | P.PN ---
Subjective Progress Note Date: 08/29/19 49-year-old female patient, known history of COPD hypertension hyperlipidemia who came into the ED because of shortness of breath. She was maintained on Symbicort on outpatient basis. Based on lack of coverage, she had with her medications. She has also developed some increased lower extremity edema over the past few months because of inability to take her diuretics. She reported pressure-like chest discomfort in addition to some shortness of breath, palpitations and dizziness. She denied having any fever chills or night sweats. No hemoptysis. No pleurisy. EKG showing a normal sinus rhythm without any acute abnormalities. Patient already had 3 sets of cardiac enzymes that came back negative. D-dimer was at 1.53 and based on that the patient underwent a CT angiogram that showed no evidence of any pulmonary embolism. There is some atelectatic changes in lung bases bilaterally. 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 Note that her maintenance inhalers are not available and she was mainly relying on her albuterol nebulizer doing it frequently without much help. She became more progressively bronchospastic and wheezy. No fever. No chills. She has obstructive sleep apnea and she does not know where her CPAP machine is. She has gained some weight over the years. She has hypothyroidism and she is on thyroid hormone replacement. She has been admitted times for COPD exacerbation in [place]. She has also required a lot of redness on burst taper over the years regarding her recurrent COPD exacerbations. Currently she is living with her sister. Her s ister is a smoker and there are other family members a total of 6 of them all of them they smoke cigarettes in the house. Most of bronchial asthma. Most of any environmental ALLERGIES. This patient also has the typical features of obstructive sleep apnea. She has lost only with the 70s and chronic hypersomnia and sleepiness. She used to work in a [employer] On 08/29/2019 the patient is feeling slightly better compared to yesterday. Less bronchospastic and wheezy. Not fully recovered. She is still struggling with her breathing. No nausea. No vomiting. No abdominal pain. No chest pain . She is resting comfortably in bed. Objective - Vital Signs Vital signs: Vital Signs Temp 98.2 F 08/29/19 07:51 Pulse 86 08/29/19 11:50 Resp 19 08/29/19 11:50 BP 165/93 08/29/19 07:51 Pulse Ox 97 08/29/19 07:51 Intake & Output 08/28/19 08/29/19 08/29/19 18:59 06:59 18:59 Intake Total 300 Balance 300 Intake: Oral 300 Other: Voiding Method Toilet Toilet Toilet # Voids 1 1 2 - Exam Calm and comfortable and the patient is in mild degree of respiratory distress at rest. Not using excessive muscle breathing. Head exam was generally normal. There was no scleral icterus or corneal arcus. Mucous membranes were moist. Neck was supple and without jugular venous distension, thyromegaly, or carotid bruits. Carotids were easily palpable bilaterally. There was no adenopathy. The patient has a slight enlargement of the thyroid gland/goiter without evidence of any lesions or masses. She has significant crowding of the posterior oropharynx with a Mallampati class IV and the uvula is not seen. Lungs are diminished and the patient had diffuse expiratory wheezes throughout the lung morel bilaterally and prolongation of expiration phase of breathing Cardiac exam revealed the PMI to be normally situated and sized. The rhythm was regular and no extrasystoles were noted during several minutes of auscultation. The first and second heart sounds were normal and physiologic splitting of the second heart sound was noted. There were no murmurs, rubs, clicks, or gallops. Abdomen is obese soft nontender. Organs cannot be accurately palpated. There is no direct tenderness or rebound tensile guarding. Extremities reveal trace edema and there is no cyanosis or clubbing. Neurologically the patient is awake and alert and is no focal neurological deficit. Examination of the skin revealed no evidence of significant rashes, suspicious appearing nevi or other concerning lesions. - Labs CBC & Chem 7: 08/27/19 12:57 08/27/19 12:57 Labs: Abnormal Lab Results - Last 24 Hours (Table) 08/28/19 08/28/19 08/29/19 Range/Units 16:31 20:34 07:00 POC Glucose (mg/dL) 151 H 126 H 142 H (75-99) mg/dL 08/29/19 Range/Units 11:44 POC Glucose (mg/dL) 113 H (75-99) mg/dL Assessment and Plan Plan: 1 acute COPD exacerbation with shortness of breath. CT angiogram was reviewed. No evidence of pneumonia. Limited atelectatic changes in lung bases bilaterally. 2 advanced COPD with chronic hypoxic respiratory failure and the patient has oxygen at home. During her management and another state, the patient was seen by computer drafter and she was placed on a combination of Spiriva and Symbicort and she is off his medications for now. She has also a albuterol nebulizer that she uses [id number] as needed. 3 chronic smoker 4 obesity 5 obstructive sleep apnea currently on no treatment 6 History of hepatitis C, the patient has recovered 7 goiter with a history of hypothyroidism currently on Synthroid 8 hypertension 9 chronic anxiety 10 chronic lower extremity edema Plan Improving slowly. Continue same treatment.
--- NOTE | 2019-08-29 14:02 | P.PN ---
Subjective Progress Note Date: 08/29/19 The patient is a 49 yo F with a PMH of COPD, HTN, and HLD who presented to the ED with chief complaint of shortness of breath. The patient noted that she had been on her COPD medications for several years though she lost her insurance and was thereby unable to get her medications for 4-5 months. She noted that she had not been taking her Symbicort, and had gradual worsening of her COPD with wheezing and persistent nonproductive cough. She also reported that for the past few weeks to months, she had noticed gradually worsening lower extremity edema which she attributed to not being able to take her "water pill" over for 3-4 months as well. She also reported pressure-like substernal chest discomf ort, nonradiating, possibly with some associated shortness of breath, with no associated diaphoresis, dizziness, palpitations, nausea. She denied fever, chills, recent travel, sick contacts, leg pain. The patient underwent an extensive evaluation in the emergency room with troponin less than 0.012, BNP is 545, d-dimer 1.53, WBC count 6.8, hemoglobin 11.6, platelets 259, sodium 140, potassium 3.8, BUN 9, creatinine 0.75, glucose 118. EKG revealed a normal sinus rhythm at [address]/T-wave changes. Chest CT revealed no acute PE with small right-sided pleural effusion along with some pleural-based thickening up to 1.1 cm lateral right lung base. The patient was admitted for acute COPD exacerbation and was started on IV solumedrol, duonebs, and symbicort along with a cardiology consult for chest pain, to r/o ACS. Pulmonary evaluated the patient and recommended continuing with her home meds along with IV steroids. Cardiology noted that the patient's chest pain is likely musculoskeletal in origin and recommended a pulmonary consult along with switching her verapamil to metoprolo l. Cardiology further recommended possible outpatient stress testing. She was seen and examined at the bedside on 08/29. The patient reported some improvements in her breathing. Though continues to have wheezing and chest tightness with non-productive coughing. Denied fever, chills, nausea, vomiting, dizziness, or abdominal pain. Objective - Vital Signs Vital signs: Vital Signs Temp 98.2 F 08/29/19 07:51 Pulse 86 08/29/19 11:50 Resp 19 08/29/19 11:50 BP 165/93 08/29/19 07:51 Pulse Ox 97 08/29/19 07:51 Intake & Output 08/28/19 08/29/19 08/29/19 18:59 06:59 18:59 Intake Total 300 Balance 300 Intake: Oral 300 Other: Voiding Method Toilet Toilet Toilet # Voids 1 1 2 - Exam General: Non-toxic, in no acute distress, appears stated age, obese HEENT: NC/AT, anicteric sclerae, moist conjunctiva, no lid-lag, PERRLA Cardiovascular: S1/S2 wnl, no murmurs, rubs, or gallops Lungs:Improved air entry, expiratory wheezing in all lung morel, no ronchi or rales appreciated, normal respiratory effort, no accessory muscle use Abdominal: Soft, non-tender, non-distended, no guarding, rebound, or rigidity Skin: Warm, dry Extremities: Minimal LE edema alicia, no contractures Psychiatric: Alert and oriented to person, place and time, appropriate affect Neuro: CN II-XII grossly intact, Strength 5/5 in all 4 extremities, Speech intact, no focal neuro deficits noted - Labs CBC & Chem 7: 08/27/19 12:57 08/27/19 12:57 Labs: Abnormal Lab Results - Last 24 Hours (Table) 08/28/19 08/28/19 08/29/19 Range/Units 16:31 20:34 07:00 POC Glucose (mg/dL) 151 H 126 H 142 H (75-99) mg/dL 08/29/19 Range/Units 11:44 POC Glucose (mg/dL) 113 H (75-99) mg/dL Assessment and Plan Plan: Acute COPD exacerbation, improving -Continue with DuoNeb's -Continue with Solu-Medrol 60 mg every 8 hourly -Supplemental oxygen -Symbicort -Pulmonary recs appreciated Chronic hypoxic respiratory failure -On home O2 -C/w supplemental oxygen Chest pain -ACS ruled out -Cardiology recs appreciated -Outpatient f/u with Cardio for possible stress test Trace LE edema alicia, improved -Echo reviewed -C/w Chlorthalidone DOROTHY -Patient will need outpatient f/u with sleep/pulm medicine Chronic conditions: HTN, HLD, Depression -C/w home meds DVT prophylaxis -Heparin subq Discussed with: Patient Anticipated discharge date: 08/30/[address]: Home
[2019-08-29] MEDS: guaiFENesin SYRUP 100MG/5ML 200 MG/10 ML CUP PO PRN (16:34)
[2019-08-29 16:44] LABS: Glucose,Whole Blood 116 mg/dL (75-99)
[2019-08-29 20:00] LABS: Glucose,Whole Blood 113 mg/dL (75-99)
[2019-08-30] MEDS: guaiFENesin SYRUP 100MG/5ML 200 MG/10 ML CUP PO PRN ×2 (02:07→09:56)
[2019-08-30] MEDS: BENZONATATE 100 MG CAP PO PRN ×2 (02:44→16:37)
[2019-08-30] MEDS: IPRATROPIUM-ALBUTEROL 3 ML NEB INHALATION PRN (04:23)
[2019-08-30] MEDS: LEVOTHYROXINE 75 MCG TAB PO SCH (05:30)
[2019-08-30 06:33] LABS: Glucose,Whole Blood 157 mg/dL (75-99)
[2019-08-30] MEDS: IPRATROPIUM-ALBUTEROL 3 ML NEB INHALATION SCH ×4 (07:22→19:43)
[2019-08-30] MEDS: SYMBICORT 160-4.5 MCG INHALER INHALATION SCH ×2 (07:22→19:43)
[2019-08-30] MEDS: methylPREDNISolone SOD SUCCI 125 MG/2 ML VIAL IV SCH ×3 (07:53→23:45)
[2019-08-30] MEDS: METOPROLOL TARTRATE 25 MG TAB PO SCH ×2 (07:54→20:22)
[2019-08-30] MEDS: GABAPENTIN 300 MG CAP PO SCH ×3 (07:54→21:34)
[2019-08-30] MEDS: LORATADINE 10 MG TAB PO SCH (07:54)
[2019-08-30] MEDS: ASPIRIN 81 MG PO SCH (07:54)
[2019-08-30] MEDS: LISINOPRIL 20 MG TAB PO SCH (07:54)
[2019-08-30] MEDS: OXYBUTYNIN CHLORIDE 5 MG TAB PO SCH ×2 (07:54→20:22)
[2019-08-30] MEDS: amLODIPine 5 MG TAB PO SCH (07:54)
[2019-08-30] MEDS: PARoxetine 10 MG TAB PO SCH (07:55)
[2019-08-30] MEDS: CHLORTHALIDONE 25 MG TAB PO SCH (07:55)
[2019-08-30] MEDS ORDERED: ALBUTEROL NEBULIZED 2.5 MG/3 ML INHALATION PRN (10:35)
--- NOTE | 2019-08-30 11:16 | P.PN ---
Subjective Progress Note Date: 08/30/19 Principal diagnosis: Acute COPD exacerbation On 08/30/2019 patient seen in follow-up in the observation unit, still quiet bronchospastic, and dyspneic. some improvement, maintained on oxygen, at 2 L, with a pulse ox of 94%, she is afebrile, hemodynamically patient is stable. Continues on IV steroids, nebulized bronchodilators, Symbicort, cough medications. Patient recently moved from [place], and has not applied for [place] health insurance. Patient has been out of her Symbicort and Spiriva for a month. She states that she still has a nebulizer machine and medications for it, she has home oxygen. She still states she has been coughing a lot, not bringing up much phlegm. Chest x-ray was negative for any acute pulmonary process. Objective - Vital Signs Vital signs: Vital Signs Temp 98.3 F 08/30/19 07:23 Pulse 62 08/30/19 11:02 Resp 18 08/30/19 08:00 BP 156/77 08/30/19 07:23 Pulse Ox 98 08/30/19 04:00 Intake & Output 08/29/19 08/30/19 08/30/19 18:59 06:59 18:59 Intake Total 300 240 Balance 300 240 Intake: Oral 300 240 Other: Voiding Method Toilet Toilet Toilet # Voids 1 1 - Exam GENERAL EXAM: Alert, very pleasant, 49-year-old white female, 2 L of oxygen pulse ox of 94% comfortable in no apparent distress. HEAD: Normocephalic/atraumatic. EYES: Normal reaction of pupils, equal size. Conjunctiva pink, sclera white. NOSE: Clear with pink turbinates. THROAT: No erythema or exudates. NECK: No masses, no JVD, no thyroid enlargement, no adenopathy. CHEST: No chest wall deformity. Symmetrical expansion. LUNGS: Equal air entry with diffuse wheezes throughout the lung morel CVS: Regular rate and rhythm, normal S1 and S2, no gallops, no murmurs, no rubs ABDOMEN: Soft, nontender. No hepatosplenomegaly, normal bowel sounds, no guarding or rigidity. EXTREMITIES: No clubbing, no edema, no cyanosis, 2+ pulses and upper and lower extremities. MUSCULOSKELETAL: Muscle strength and tone normal. SPINE: No scoliosis or deformity SKIN: No rashes CENTRAL NERVOUS SYSTEM: Alert and oriented -3. No focal deficits, tone is normal in all 4 extremities. PSYCHIATRIC: Alert and oriented -3. Appropriate affect. Intact judgment and insight. - Labs CBC & Chem 7: 08/27/19 12:57 08/27/19 12:57 Labs: Abnormal Lab Results - Last 24 Hours (Table) 08/29/19 08/29/19 08/29/19 Range/Units 11:44 16:42 19:58 POC Glucose (mg/dL) 113 H 116 H 113 H (75-99) mg/dL 08/30/19 Range/Units 06:32 POC Glucose (mg/dL) 157 H (75-99) mg/dL Assessment and Plan Plan: 1 acute COPD exacerbation with shortness of breath. CT angiogram was reviewed. No evidence of pneumonia. Limited atelectatic changes in lung bases bilaterally. 2 advanced COPD with chronic hypoxic respiratory failure and the patient has oxygen at home. During her management and another state, the patient was seen by manager golf and she was placed on a combination of Spiriva and Symbicort and she is off his medications for now. She has also a albuterol nebulizer that she uses [id number] as needed. 3 chronic smoker 4 obesity 5 obstructive sleep apnea currently on no treatment 6 History of hepatitis C, the patient has recovered 7 goiter with a history of hypothyroidism currently on Synthroid 8 hypertension 9 chronic anxiety 10 chronic lower extremity edema Plan: Continue current medical treatment, continue IV steroids, nebulized bronchodilators. Still dyspneic and bronchospastic, not quite back to baseline. Will speak to discharge planning as the patient currently has no [place] based health insurance. She has been out of her medications for a month, including Symbicort and Spiriva. Does have oxygen and nebulizer machine at home with nebulized medications. Discharge planning is following, will try to apply [employer]ig[employer]oxilizer funds to help her with the first month's medications I performed a history & physical examination of the patient and discussed their management with my nurse practitioner, Thais Neumann. I reviewed the nurse practitioner's note and agree with the documented findings and plan of care. Lung sounds are positive for diffuse wheezes throughout the lung morel. The findings and the impression was discussed with the patient. I attest to the documentation by the nurse practitioner. Time with Patient: Less than 30
[2019-08-30 11:37] LABS: Glucose,Whole Blood 129 mg/dL (75-99)
--- NOTE | 2019-08-30 14:48 | P.PN ---
Subjective Progress Note Date: 08/30/19 Principal diagnosis: COPD exacerbation Patient was seen and examined. No acute events overnight. Patient continues to complain of shortness of breath especially with exertion. States that she has difficulty walking to the washroom due to her breathing. Patient continues to c omplain of cough, unable to bring up sputum. She denies any chest pain or palpitations. No nausea or vomiting. No fever or chills. Objective - Vital Signs Vital signs: Vital Signs Temp 98.3 F 08/30/19 07:23 Pulse 60 08/30/19 12:00 Resp 18 08/30/19 12:00 BP 156/77 08/30/19 07:23 Pulse Ox 98 08/30/19 04:00 Intake & Output 08/29/19 08/30/19 08/30/19 18:59 06:59 18:59 Intake Total 300 240 440 Balance 300 240 440 Intake: Oral 300 240 240 Other 200 Other: Voiding Method Toilet Toilet Toilet # Voids 1 1 - Exam General: [non toxic], [morbid obesity with minimal distress speaking 2-3 word sentences], [appears at stated age] Derm: [warm], [dry] Head: [atraumatic], [normocephalic], [symmetric] Eyes: [EOMI], [no lid lag], [anicteric sclera] Mouth: [no lip lesion], [mucus membranes moist] Cardiovascular: [S1S2 reg], [no murmur], [positive DP pulse bilateral], Lungs: [Diffuse wheezing bilateral], [no rhonchi, no rales] , [no accessory muscle use] Abdominal: [soft], [ nontender to palpation], [no guarding], [no appreciable organomegaly] Ext: [no gross muscle atrophy], [no edema], [no contractures] Neuro: [no focal neuro deficits] Psych: [Alert], [oriented], [appropriate affect] - Labs CBC & Chem 7: 08/27/19 12:57 08/27/19 12:57 Labs: Abnormal Lab Results - Last 24 Hours (Table) 08/29/19 08/29/19 08/30/19 Range/Units 16:42 19:58 06:32 POC Glucose (mg/dL) 116 H 113 H 157 H (75-99) mg/dL 08/30/19 Range/Units 11:36 POC Glucose (mg/dL) 129 H (75-99) mg/dL Assessment and Plan Assessment: Acute COPD exacerbation Chronic hypoxic respiratory failure Chest pain DOROTHY Patient has minimally improved with regard to her breathing since admission. She'll be continued on DuoNeb treatments scheduled and as needed [id number]. We have reordered her Symbicort inhaler. She has Mucinex on board as needed for cough. She is currently on 2 L home O2. Pulmonology is on board. Acute coronary syndrome and PE has been ruled out. Echocardiogram has b een reviewed and patient has normal EF with borderline concentric LVH. Patient will likely be discharged tomorrow, pending improvement.
[2019-08-30 16:27] LABS: Glucose,Whole Blood 127 mg/dL (75-99)
[2019-08-30] MEDS: ACETAMINOPHEN TAB 325 MG TAB PO PRN (16:36)
--- NOTE | 2019-08-30 17:21 | CDI ---
Documentation Clarification Form Date: 08/30/2019 05:03:36 PM From: Gwen Go RN, CCDS Phone: [phone] Admit Date: 08/29/2019 08:49:00 AM Patient Name: Abena Pendleton Visit Number: [id number] Discharge Date: ATTENTION: The Clinical Documentation Specialists (CDI) and [facility] Coding Staff appreciate your assistance in clarifying documentation. Please respond to the clarification below the line at the bottom and electronically sign. The CDI & [facility] Coding staff will review the response and follow-up if needed. Please note: Queries are made part of the Legal Health Record. If you have any questions, please contact the author of this message via ITS. Dr. Diana Floyd Asthma is documented in the past medical history and consult by Dr. Clayton Carpenter on 08/28/19 as exacerbation of bronchial asthma and chronic obstructive pulmonary disease. History/risk factors: COPD, Bronchial asthma, Hypertension, Obstructive sleep apnea, current smoker Clinical Indicators: 49-year-old female present complaining of shortness of breath, cough and discomfort in the chest, palpitations and dizziness. Vital signs on 08/29/19: 165/93 65 19 97 $ 2/L NC EKG: showing a normal sinus rhythm without any cute abnormalities. Lungs: Bronchospastic and wheezy with mild degree of respiratory distress at rest. Not using excessive muscle breathing. Lungs are diminished with diffuse expiratory wheezes throughout the lung morel. Treatment: Spiriva and Symbicort Home oxygen, Monitor O2 sat's (titrate) Nubulizers per orders Benzonatate PO PRN Solu-Medrol IV (taper) In your professional opinion, can you please further specify Asthma the following, if known? With Acute Exacerbation Or ruled out COPD (specify with or without exacerbation) Chronic obstructive bronchitis Other, please specify Unable to determine Severity Mild intermittent Mild persistent Moderate persistent Severe persistent Other, please specify ____ Unable to determine Form or Type Cough variant Childhood Exercise induced bronchospasm Extrinsic allergic Idiosyncratic Intrinsic nonallergic Late-onset Mixed Other, please specify____ Unable to determine (Last Revision: November 2017) Acute Exacerbation of COPD MTDD
[2019-08-30] MEDS: METHOCARBAMOL 750 MG TAB PO SCH ×2 (18:22→21:34)
[2019-08-30 20:11] LABS: Glucose,Whole Blood 213 mg/dL (75-99)
[2019-08-30] MEDS: INSULIN ASPART (NovoLOG) 100 UNIT/ML VIAL SQ SCH (20:37)
[2019-08-31] MEDS: guaiFENesin SYRUP 100MG/5ML 200 MG/10 ML CUP PO PRN (04:48)
[2019-08-31] MEDS: BENZONATATE 100 MG CAP PO PRN (04:48)
[2019-08-31 06:00] VITALS: TEMP 98.4
[2019-08-31] MEDS: LEVOTHYROXINE 75 MCG TAB PO SCH (06:03)
[2019-08-31 07:06] LABS: Glucose,Whole Blood 147 mg/dL (75-99)
[2019-08-31 07:54] VITALS: BP 168/83; RESP 19
[2019-08-31] MEDS: GABAPENTIN 300 MG CAP PO SCH (08:10)
[2019-08-31] MEDS: INSULIN ASPART (NovoLOG) 100 UNIT/ML VIAL SQ SCH ×2 (08:10→11:49)
[2019-08-31] MEDS: methylPREDNISolone SOD SUCCI 125 MG/2 ML VIAL IV SCH (08:10)
[2019-08-31] MEDS: METHOCARBAMOL 750 MG TAB PO SCH (08:11)
[2019-08-31] MEDS: ASPIRIN 81 MG PO SCH (08:11)
[2019-08-31] MEDS: CHLORTHALIDONE 25 MG TAB PO SCH (08:11)
[2019-08-31] MEDS: LISINOPRIL 20 MG TAB PO SCH (08:11)
[2019-08-31] MEDS: amLODIPine 5 MG TAB PO SCH (08:11)
[2019-08-31] MEDS: METOPROLOL TARTRATE 25 MG TAB PO SCH (08:11)
[2019-08-31] MEDS: LORATADINE 10 MG TAB PO SCH (08:11)
[2019-08-31] MEDS: PARoxetine 10 MG TAB PO SCH (08:11)
[2019-08-31] MEDS: OXYBUTYNIN CHLORIDE 5 MG TAB PO SCH (08:11)
[2019-08-31] MEDS: SYMBICORT 160-4.5 MCG INHALER INHALATION SCH (08:56)
[2019-08-31] MEDS: IPRATROPIUM-ALBUTEROL 3 ML NEB INHALATION SCH ×2 (08:56→12:14)
--- NOTE | 2019-08-31 11:35 | P.PN ---
Subjective Progress Note Date: 08/31/19 Principal diagnosis: Acute COPD exacerbation On 08/30/2019 patient seen in follow-up in the observation unit, still quiet bronchospastic, and dyspneic. some improvement, maintained on oxygen, at 2 L, with a pulse ox of 94%, she is afebrile, hemodynamically patient is stable. Continues on IV steroids, nebulized bronchodilators, Symbicort, cough medications. Patient recently moved from [place], and has not applied for [place] [employer] insurance. Patient has been out of her Symbicort and Spiriva for a month. She states that she still has a nebulizer machine and medications for it, she has home oxygen. She still states she has been coughing a lot, not bringing up much phlegm. Chest x-ray was negative for any acute pulmonary process. On 08/31/2019 patient seen in follow-up in the observation unit, she is reading easier, still coughing, but improving, less bronchospastic on today's exam, patient is on 2 L of oxygen per pulse ox of 98%, her vitals are stable, hemo dynamically patient is stable as well. Patient has been treated with a combination of steroids, nebulized bronchodilators and antibiotics, doing better, she is hoping to be able to go home today, discharge planning is following with the patient, and unfortunately we could not cover her maintenance inhalers Symbicort, Spiriva or Wixela due to extremely high cost. At this time patient is clinically improving, she can continue on her home nebulized treatments, does have oxygen at home, and she was advised to have scripts mail to her from [place] she gets at a very low cost. No other acute events overnight, the discharge home today Objective - Vital Signs Vital signs: Vital Signs Temp 98.4 F 08/31/19 07:53 Pulse 68 08/31/19 09:06 Resp 19 08/31/19 08:00 BP 168/83 08/31/19 07:53 Pulse Ox 98 08/31/19 07:53 Intake & Output 08/30/19 08/31/19 08/31/19 18:59 06:59 18:59 Intake Total 680 720 Balance 680 720 Intake: Oral 480 720 Other 200 Other: Voiding Method Toilet Toilet Toilet # Voids 4 1 2 - Exam GENERAL EXAM: Alert, very pleasant, 49-year-old white female, 2 L of oxygen pulse ox of 94% comfortable in no apparent distress. HEAD: Normocephalic/atraumatic. EYES: Normal reaction of pupils, equal size. Conjunctiva pink, sclera white. NOSE: Clear with pink turbinates. THROAT: No erythema or exudates. NECK: No masses, no JVD, no thyroid enlargement, no adenopathy. CHEST: No chest wall deformity. Symmetrical expansion. LUNGS: Equal air entry with diffuse wheezes throughout the lung morel CVS: Regular rate and rhythm, normal S1 and S2, no gallops, no murmurs, no rubs ABDOMEN: Soft, nontender. No hepatosplenomegaly, normal bowel sounds, no guarding or rigidity. EXTREMITIES: No clubbing, no edema, no cyanosis, 2+ pulses and upper and lower extremities. MUSCULOSKELETAL: Muscle strength and tone normal. SPINE: No scoliosis or deformity SKIN: No rashes CENTRAL NERVOUS SYSTEM: Alert and oriented -3. No focal deficits, tone is normal in all 4 extremities. PSYCHIATRIC: Alert and oriented -3. Appropriate affect. Intact judgment and insight. - Labs CBC & Chem 7: 08/27/19 12:57 08/27/19 12:57 Labs: Abnormal Lab Results - Last 24 Hours (Table) 08/30/19 08/30/19 08/30/19 Range/Units 11:36 16:26 20:08 POC Glucose (mg/dL) 129 H 127 H 213 H (75-99) mg/dL 08/31/19 Range/Units 07:05 POC Glucose (mg/dL) 147 H (75-99) mg/dL Assessment and Plan Plan: 1 acute COPD exacerbation with shortness of breath. CT angiogram was reviewed. No evidence of pneumonia. Limited atelectatic changes in lung bases bilaterally. 2 advanced COPD with chronic hypoxic respiratory failure and the patient has oxygen at home. During her management and another state, the patient was seen by chainman and she was placed on a combination of Spiriva and Symbicort and she is off his medications for now. She has also a albuterol nebulizer that she uses [id number] as needed. 3 chronic smoker 4 obesity 5 obstructive sleep apnea currently on no treatment 6 History of hepatitis C, the patient has recovered 7 goiter with a history of hypothyroidism currently on Synthroid 8 hypertension 9 chronic anxiety 10 chronic lower extremity edema Plan: From pulmonary perspective patient is improving, less dyspneic, less bronchospastic, still has a residual cough, which also seems to be improving, increase activity as tolerated, patient can be considered for discharge home today on prednisone taper, she can continue on DuoNeb nebulized treatments, he has oxygen at home, supposed to have her prescription medications including her Symbicort and Spiriva shipped to her from [place] for a low-cost. Indigent funds are being applied to help her with new prescription medications after discharge. She also received assistance with application process for health insurance. She'll need a follow-up appointment in the office with Dr. Chaparro in 1-2 weeks I performed a history & physical examination of the patient and discussed their management with my nurse practitioner, Thais Neumann. I reviewed the nurse practitioner's note and agree with the documented findings and plan of care. Lung sounds are positive for diffuse wheezes throughout the lung morel. The findings and the impression was discussed with the patient. I attest to the documentation by the nurse practitioner. Time with Patient: Less than 30
[2019-08-31 11:48] LABS: Glucose,Whole Blood 110 mg/dL (75-99)
[2019-08-31 12:17] VITALS: PULSE 72
--- NOTE | 2019-08-31 12:35 | P.DS ---
Providers Date of admission: 08/29/19 08:49 Expected date of discharge: 08/31/19 Attending physician: Damaris Ramachandran MD Consults: 08/27/19 17:46 Consult Physician Urgent Consulting Provider: Sudheer De La Torre Consult Reason/Comments: Chest pain, shortness of breath, serial troponins. Do you want consulting provider notified?: Yes 08/28/19 07:05 Consult Physician Urgent Consulting Provider: Diana Floyd Consult Reason/Comments: copd exac Do you want consulting provider notified?: Yes Primary care physician: Stated None Hospital Course: The patient is a 49 yo F with a PMH of COPD, HTN, and HLD who presented to the ED with chief complaint of shortness of breath. The patient noted that she had been on her COPD medications for several years though she lost her insurance and was thereby unable to get her medications for 4-5 months. She noted that she had not been taking her Symbicort, and had gradual worsening of her COPD with wheezing and persistent nonproductive cough. She also reported that for the past few weeks to months, she had noticed gradually worsening lower extremity edema which she attributed to not being able to take her "water pill" over for 3-4 months as well. She also reported pressure-like substernal chest discomfort, nonradiating, possibly with some associated shortness of breath, with no associated diaphoresis, dizziness, palpitations, nausea. She denied fever, chills, recent travel, sick contacts, leg pain. The patient underwent an extensive evaluation in the emergency room with troponin less than 0.012, BNP is 545, d-dimer 1.53, WBC count 6.8, hemoglobin 11.6, platelets 259, sodium 140, potassium 3.8, BUN 9, creatinine 0.75, glucose 118. EKG revealed a normal sinus rhythm at [address]/T-wave changes. Chest CT revealed no acute PE with small right-sided pleural effusion along with some pleural-based thickening up to 1.1 cm lateral right lung base. The patient was admitted for acute COPD exacerbation and was started on IV solumedrol, duonebs, and symbicort along with a cardiology consult for chest pain, to r/o ACS. Pulmonary evaluated the patient and recommended continuing with her home meds along with IV steroids. Cardiology noted that the patient's chest pain is likely musculoskeletal in origin and recommended a pulmonary consult along with switching her verapamil to metoprolol. Cardiology further recommended possible outpatient stress testing. Pulmonology was consulted and recommended DuoNeb's around the clock along with resuming her home COPD medications. Echocardiogram showed EF 60-65% with bor derline concentric LVH. Patient was seen and examined. No acute events overnight. Patient reports considerable improvement in her breathing since admission. States that she is back at baseline. She denies any chest pain, shortness of breath or palpitations. No nausea or vomiting. No fever or chills. General: [non toxic], [morbid obesity with no distress speaking 2-3 word sentences], [appears at stated age] Derm: [warm], [dry] Head: [atraumatic], [normocephalic], [symmetric] Eyes: [EOMI], [no lid lag], [anicteric sclera] Mouth: [no lip lesion], [mucus membranes moist] Cardiovascular: [S1S2 reg], [no murmur], [positive DP pulse bilateral], Lungs: [Decreased breath sounds bilaterally], [no rhonchi, no rales] , [no accessory muscle use] Abdominal: [soft], [ nontender to palpation], [no guarding], [no appreciable organomegaly] Ext: [no gross muscle atrophy], [no edema], [no contractures] Neuro: [no focal neuro deficits] Psych: [Alert], [oriented], [appropriate affect] Acute COPD exacerbation Chronic hypoxic respiratory failure Chest pain DOROTHY Patient is back at baseline. She has a nebulizer machine at home. We will refill her medications prior to discharge. She is on 2 L home O2. Pulmonology has cleared the patient for discharge. Plan is to discharge the patient home today. With regard to her chest pain which is now resolved, echocardiogram was relatively benign without any regional wall motion abnormalities. She will need to follow-up with cardiology for possible outpatient stress test. She will need to follow-up with her PCP within 3 days and pulmonology within 1 week of discharge. This complex discharge took about 35 minutes to complete. Pertinent Studies: Chest x-ray, chest CTA, echocardiogram Patient Condition at Discharge: Good Plan - Discharge Summary Discharge Rx Participant: Yes New Discharge Prescriptions: New Aspirin 81 mg PO DAILY #30 chew Metoprolol Tartrate [Lopressor] 25 mg PO BID #60 tab amLODIPine [Norvasc] 5 mg PO DAILY #30 tab Continue Oxybutynin Chloride [Ditropan] 5 mg PO BID Loratadine [Claritin] 10 mg PO DAILY Omeprazole [PriLOSEC] 20 mg PO BID busPIRone HCL 10 mg PO TID PRN PRN Reason: Anxiety PARoxetine HCL [PARoxetine HCL ER] 37.5 mg PO DAILY Meloxicam [Mobic] 7.5 mg PO BID Gabapentin 1,800 mg PO TID traZODone HCL [Desyrel] 25 mg PO BID@0800,1200 PRN PRN Reason: Anxiety traZODone HCL 200 mg PO HS Chlorthalidone 25 mg PO DAILY Prazosin [Minipress] 2 mg PO HS Lisinopril 40 mg PO DAILY Prazosin [Minipress] 1 mg PO QAM Methocarbamol [Robaxin] 750 mg PO TID Levothyroxine Sodium [Synthroid] 75 mcg PO DAILY Diclofenac Sodium Gel [Voltaren Gel] 2 gm TOPICAL QID Bifidobacterium [place] [Align] 4 mg PO DAILY Ipratropium-Albuterol Nebulize [Duoneb 0.5 mg-3 mg/3 ml Soln] 3 ml INHALATION RT-QID PRN #90 neb PRN Reason: Shortness Of Breath Tiotropium [place] [Spiriva] 1 cap INHALATION RT-DAILY #30 cap Budesonide/Formoterol Fumarate [Symbicort 160-4.5 Mcg Inhaler] 2 puff INHALATION RT-BID #1 inhaler Albuterol Sulfate [Ventolin HFA] 2 puff INHALATION RT-Q4H PRN #1 inhaler PRN Reason: Shortness Of Breath Discontinued Verapamil HCl [Verapamil ER] 240 mg PO DAILY Discharge Medication List Loratadine [Claritin] 10 mg PO DAILY 01/24/14 [History] Omeprazole [PriLOSEC] 20 mg PO BID 01/24/14 [History] Oxybutynin Chloride [Ditropan] 5 mg PO BID 01/24/14 [History] Bifidobacterium [place] [Align] 4 mg PO DAILY 08/27/19 [History] Chlorthalidone 25 mg PO DAILY 08/27/19 [History] Diclofenac Sodium Gel [Voltaren Gel] 2 gm TOPICAL QID 08/27/19 [History] Gabapentin 1,800 mg PO TID 08/27/19 [History] Levothyroxine Sodium [Synthroid] 75 mcg PO DAILY 08/27/19 [History] Lisinopril 40 mg PO DAILY 08/27/19 [History] Meloxicam [Mobic] 7.5 mg PO BID 08/27/19 [History] Methocarbamol [Robaxin] 750 mg PO TID 08/27/19 [History] PARoxetine HCL [PARoxetine HCL ER] 37.5 mg PO DAILY 08/27/19 [History] Prazosin [Minipress] 1 mg PO QAM 08/27/19 [History] Prazosin [Minipress] 2 mg PO HS 08/27/19 [History] busPIRone HCL 10 mg PO TID PRN 08/27/19 [History] traZODone HCL 200 mg PO HS 08/27/19 [History] traZODone HCL [Desyrel] 25 mg PO BID@0800,1200 PRN 08/27/19 [History] Albuterol Sulfate [Ventolin HFA] 2 puff INHALATION RT-Q4H PRN #1 inhaler 08/31/19 [Rx] Aspirin 81 mg PO DAILY #30 chew 08/31/19 [Rx] Budesonide/Formoterol Fumarate [Symbicort 160-4.5 Mcg Inhaler] 2 puff INHALATION RT-BID #1 inhaler 08/31/19 [Rx] Ipratropium-Albuterol Nebulize [Duoneb 0.5 mg-3 mg/3 ml Soln] 3 ml INHALATION RT-QID PRN #90 neb 08/31/19 [Rx] Metoprolol Tartrate [Lopressor] 25 mg PO BID #60 tab 08/31/19 [Rx] Tiotropium [place] [Spiriva] 1 cap INHALATION RT-DAILY #30 cap 08/31/19 [Rx] amLODIPine [Norvasc] 5 mg PO DAILY #30 tab 08/31/19 [Rx] Follow up Appointment(s)/Referral(s): Mario Schultz MD [STAFF PHYSICIAN] - 1 Week None,Stated [Primary Care Provider] - 1-2 days Sudheer De La Torre MD [STAFF PHYSICIAN] - 1 Week Patient Instructions/Handouts: Chest Pain (ED) Activity/Diet/Wound Care/Special Instructions: Diet: Cardiac Follow-up PCP within 3 days of discharge. Follow-up cardiology within 1 week of discharge. Take all medications as advised. Discharge Disposition: HOME SELF-CARE
== END 2019-08-31 14:40 | disposition home or self-care (01) | DRG 191 ==
LOC: EC 12:24 → 1SOBS 17:29 → OBSVTOIN 08-29 08:49
PROVIDERS: ADMIT Internal Medicine; ATTEND Internal Medicine
DX: J44.1 Chronic obstructive pulmonary disease with (acute) exacerbation (principal); J96.11 Chronic respiratory failure with hypoxia; J45.901 Unspecified asthma with (acute) exacerbation; Z68.41 Body mass index [BMI] 40.0-44.9, adult; E03.9 Hypothyroidism, unspecified; E78.5 Hyperlipidemia, unspecified; Z71.6 Tobacco abuse counseling; F17.210 Nicotine dependence, cigarettes, uncomplicated; F31.9 Bipolar disorder, unspecified; F41.0 Panic disorder [episodic paroxysmal anxiety]; F43.10 Post-traumatic stress disorder, unspecified; G47.10 Hypersomnia, unspecified; G47.33 Obstructive sleep apnea (adult) (pediatric); Z99.89 Dependence on other enabling machines and devices; I10 Essential (primary) hypertension; N32.81 Overactive bladder; M54.9 Dorsalgia, unspecified; G89.29 Other chronic pain; Z79.1 Long term (current) use of non-steroidal anti-inflammatories (NSAID); Z79.51 Long term (current) use of inhaled steroids; Z79.890 Hormone replacement therapy; E04.9 Nontoxic goiter, unspecified; Z79.899 Other long term (current) drug therapy; Z80.8 Family history of malignant neoplasm of other organs or systems; Z82.49 Family history of ischemic heart disease and other diseases of the circulatory system; Z82.5 Family history of asthma and other chronic lower respiratory diseases; Z99.81 Dependence on supplemental oxygen; Z86.19 Personal history of other infectious and parasitic diseases; Z98.51 Tubal ligation status; E66.01 Morbid (severe) obesity due to excess calories
CPT/HCPCS: 36415; 71046; 71275; 80053; 80061; 83735; 83880; 84443; 84484; 85025; 85379; 85610; 85730; 93005; 93306; 94640; 94760; 96374; 96375; 99285

== ENCOUNTER → 2020-03-07 | Outpatient (CLI) | payer OTHER ==
--- NOTE | 2020-03-07 16:46 | CT ---
CT left hip with and without contrast HISTORY: Left hip pain, abnormal MRI Helical acquisition obtained pre and postcontrast to the left hip, patient received 100 cc Isovue-300 IV. Automated exposure control for dose reduction, DLP 1429.9 mGycm centimeters. Osteoarthritic changes are present. There is vacuum phenomenon at the left hip joint. Subchondral flaco de formation, remodeling of the femoral head and acetabulum present with marginal spurring and joint space loss. Bone mineralization is maintained. Possible chronic labral tear, ossific density present lateral to the acetabulum. No evident fracture or dislocation. No abnormal enhancement following cont rast administration. Ossific densities at the level of the origin of the hamstring musculature is likely due to remote el or trauma. impression: Severe osteoarthritis.
== END | disposition home or self-care (01) ==
LOC: RADCTMAIN 15:17
PROVIDERS: ATTEND Psychiatry & Neurology Neurology
DX: M16.12 Unilateral primary osteoarthritis, left hip (principal)
CPT/HCPCS: 73702; Q9967

== ENCOUNTER → 2020-05-03 | Outpatient (CLI) | payer OTHER ==
[2020-05-03 11:50] LABS: Appearance,Urine Clear (Clear); Bilirubin,Urine Negative (Negative); Blood,Urine Negative (Negative); Color,Urine Colorless; Glucose,Urine (UA) Negative (Negative); Ketones,Urine Negative (Negative); Leukocyte Esterase,Urine Negative (Negative); Nitrite,Urine Negative (Negative); Protein,Urine Negative (Negative); Specific Gravity,Urine 1.005 (1.001-1.035); Urobilinogen,Urine <2.0 mg/dL (<2.0)
[2020-05-03 12:01] LABS: ALT 11 U/L (4-34); AST 17 U/L (14-36); African American GFR (CKD) >90 (>60 ml/min/1.73 sqM); Albumin 4.1 g/dL (3.5-5.0); Alkaline Phosphatase 32 U/L (38-126); Anion Gap 6 mmol/L; Blood Urea Nitrogen 9 mg/dL (7-17); Calcium 9.2 mg/dL (8.4-10.2); Carbon Dioxide 25 mmol/L (22-30); Chloride 105 mmol/L (98-107); Glucose 100 mg/dL (74-99); Non-African American GFR(CKD) >90 (>60 ml/min/1.73 sqM); Potassium 4.2 mmol/L (3.5-5.1); Sodium 136 mmol/L (137-145); Total Bilirubin 0.2 mg/dL (0.2-1.3); Total Protein 6.8 g/dL (6.3-8.2)
[2020-05-03 12:08] LABS: HCT 40.7 % (34.0-46.0); HGB 12.7 gm/dL (11.4-16.0); MCH 31.4 pg (25.0-35.0); MCHC 31.3 g/dL (31.0-37.0); MCV 100.5 fL (80.0-100.0); Mean Platelet Volume 7.2; Platelet Count 287 k/uL (150-450); RBC 4.05 m/uL (3.80-5.40); RDW 13.2 % (11.5-15.5); WBC 9.4 k/uL (3.8-10.6)
[2020-05-03 12:25] LABS: INR 0.9 (<1.2); Partial Thromboplastin Time 22.9 sec (22.0-30.0); Prothrombin Time 9.5 sec (9.0-12.0)
== END | disposition home or self-care (01) ==
LOC: LABPAT 10:13
PROVIDERS: ATTEND Orthopaedic Surgery
DX: Z01.818 Encounter for other preprocedural examination (principal); Z01.812 Encounter for preprocedural laboratory examination
CPT/HCPCS: 80053; 81003; 85027; 85610; 85730; 87070

== ENCOUNTER → 2020-05-03 | Outpatient (CLI) | payer OTHER ==
[2020-05-03 22:23] LABS: Hepatitis A Antibody IgM Non-Reactive (Non-Reactive); Hepatitis B Core IgM Non-Reactive (Non-Reactive); Hepatitis B Surface Antigen Non-Reactive (Non-Reactive); Hepatitis C IgG Antibody Reactive (Non-Reactive)
== END | disposition home or self-care (01) ==
LOC: LABWHC1 10:16
PROVIDERS: ATTEND Internal Medicine
DX: B18.2 Chronic viral hepatitis C (principal)
CPT/HCPCS: 36415; 80074

== ENCOUNTER → 2020-05-05 | Outpatient (CLI) | payer OTHER | END | disposition home or self-care (01) | LOC: LABPAT 15:15 | PROVIDERS: ATTEND Orthopaedic Surgery | DX: Z01.818 Encounter for other preprocedural examination (principal) | CPT/HCPCS: 36415; 86850; 86900; 86901 ==

== ENCOUNTER 2020-05-16 05:44 | Observation (INO) | payer OTHER ==
[2020-05-15 13:15] VITALS: BMI 43.7
[~2020-05-16 05:44] MED LIST: ACETAMINOPHEN TAB 500 MG TAB PO ONE; DEXAMETHASONE SOD PHOSPHATE 10 MG/ML 1 ML VIAL IV ONE; GABAPENTIN 300 MG CAP PO ONE; HYDROmorphone 0.5 MG/0.5 ML SYRINGE IVP PRN; LIDOCAINE 1% (10MG/ML) FOR IV START INTRADERMA PRN; MELOXICAM 7.5 MG TAB PO ONE; MIDAZOLAM 2 MG/2 ML VIAL IV PRN; ONDANSETRON 4 MG/2 ML VIAL IVP ONE; TRANEXAMIC ACID 1,000 MG in SODIUM CHLORIDE 0.9% 100 ML IVPB ONE
[2020-05-16] MEDS ORDERED: ROPIVACAINE 246.25 MG, EPINEPHrine 0.5 MG, KETOROLAC 30 MG, cloNIDine HCL/PF 80 MCG, WA... MISCELLANE ONE ×5 (06:00)
[2020-05-16 06:17] LABS: Glucose,Whole Blood 125 mg/dL (75-99)
[2020-05-16] MEDS: LACTATED RINGERS 1,000 ML IV SCH (06:20)
[2020-05-16] MEDS ORDERED: MIDAZOLAM 2 MG/2 ML VIAL ONE (07:11)
[2020-05-16] MEDS ORDERED: MIDAZOLAM 2 MG/2 ML VIAL IVP ONE (07:11)
[2020-05-16] MEDS ORDERED: diphenhydrAMINE 50 MG/ML 1 ML VIAL IVP ONE (07:11)
[2020-05-16] MEDS ORDERED: diphenhydrAMINE 50 MG/ML 1 ML VIAL ONE (07:11)
[2020-05-16] MEDS ORDERED: HEPARIN SODIUM,PORCINE 10,000 UNIT/ML 1 ML VIAL ONE (07:11)
[2020-05-16] MEDS ORDERED: TRANEXAMIC ACID 1,000 MG/10 ML VIAL ONE (07:11)
[2020-05-16] MEDS ORDERED: GLYCOPYRROLATE 0.2 MG/ML 2 ML VIAL ONE (07:11)
[2020-05-16] MEDS ORDERED: SODIUM CHLORIDE 0.9% 250 ML BAG ONE (07:11)
[2020-05-16] MEDS ORDERED: SODIUM CHLORIDE 0.9% IRRIG 1,000 ML BTL IRRIGATION ONE (07:11)
[2020-05-16] MEDS ORDERED: KETAMINE 10 MG/ML 20 ML VIAL ONE (07:11)
[2020-05-16] MEDS ORDERED: hydrOXYzine pamoate 25 MG CAP PO PRN (07:12)
[2020-05-16] MEDS ORDERED: HYDROmorphone 0.5 MG/0.5 ML SYRINGE IVP PRN ×2 (07:12)
[2020-05-16] MEDS ORDERED: ONDANSETRON 4 MG/2 ML VIAL IVP PRN (07:12)
[2020-05-16] MEDS ORDERED: NALOXONE 0.4 MG/ML 1 ML VIAL IV PRN (07:12)
[2020-05-16] MEDS ORDERED: diazePAM 5 MG TAB PO PRN (07:12)
[2020-05-16] MEDS ORDERED: HYDROmorphone 1 MG/ML 1 ML SYRINGE IVP PRN (07:12)
[2020-05-16] MEDS ORDERED: MAGNESIUM HYDROXIDE 2,400 MG/10 ML CUP PO PRN (07:12)
[2020-05-16] MEDS ORDERED: HYDROcodone/APAP 5-325MG 1 EACH TAB PO PRN ×2 (07:12)
[2020-05-16] MEDS ORDERED: ceFAZolin 3,000 MG in SODIUM CHLORIDE 0.9% IRRIGATIO 3,000 ML IRRIGATION ONE (07:13)
[2020-05-16] MEDS ORDERED: HYDROcodone/APAP 7.5-325MG 1 EACH TAB PO PRN (07:15)
--- NOTE | 2020-05-16 08:35 | P.OP ---
Date of Procedure: 05/16/20 Preoperative Diagnosis: Severe osteoarthritis left hip Postoperative Diagnosis: Severe osteoarthritis left hip Procedure(s) Performed: Left total hip arthroplasty with a direct anterior approach Implants: Mclean [employer] nephew Polarstem size 1 standard Mclean [employer]hew R3, 3 hole acetabular shell, 48 mm [employer]cl[employer]en [employer]hew reflection 6.5 mm cancellus screw, 20 mm 2 [employer]clean [employer]hew R3, XLPE 20 acetabular liner [employer]clean [employer]hew Oxinium femoral head 32 m, +0 All components were press-fit. The articulation is Oxinium on polyethylene. Anesthesia: spinal Surgeon: Rock Miles Vessel Specialist #1: Marian Casey Estimated Blood Loss (ml): 200 Pathology: other (Femoral head) Condition: stable Disposition: PACU Indications for Procedure: After failure of conservative treatment we discussed the surgical and nonsurgical treatment options at length. Patient wishes to proceed with a total hip arthroplasty with a direct anterior approach. Complications specific to this procedure were discussed at length, including but not limited to infection, leg length discrepancy, dislocation, and nerve injury. Covid-19 was also discussed at length with the patient, and they are aware of the current policies and procedures. The patient was given the option of delaying surgery, but they elect to proceed knowing these risks. Patient is aware of all these complications and informed consent was obtained Operative Findings: The operative findings are consistent with severe osteoarthritis the left hip Description of Procedure: Patient was seen and evaluated in the preoperative area, consent was reviewed, and the surgical site was marked with a skin marker. Patient was then brought to the operating room and given prophylactic antibiotics intravenously. 1 g of Tranexamic acid was also given. A spinal anesthetic was administered by the anesthesia department. The patient was then placed on the [place] table with the bony prominences well-padded. The hip area was then prepped and draped in usual sterile fashion. A universal timeout was then performed, which confirmed the patient's name, surgical site, ALLERGIES, and procedure being performed. Next the incision site was located at 1 cm distal and 1 cm lateral to the anterior superior iliac spine. The skin and subcutaneous tissues were sharply incised. Incision was carefully dissected down to the fascia overlying the tensor fascia pelon muscle. This fascia was then incised in line with the incision. Next, using blunt finger dissection, the tensor fascia pelon muscle was dissected off its investing fascia. The muscle was then carefully retracted laterally with a cobra retractor over the lateral neck of the femur. Next, the circumflex vessels were identified and cauterized using the AquaMantis device. The anterior hip capsule was then exposed. The capsule was then opened and an inverted T fashion. Cobra retractors were then placed intracapsularly. The proximal femur was then visualized. The femoral neck was then osteotomized appropriate level above the lesser trochanter. Small amount of traction was placed with the [place] table. A small wedge of bone was then removed from the remaining femoral head. Next, using a corkscrew femoral head was easily removed from the acetabulum. On gross visual inspection, the femoral head had complete loss of articular cartilage in multiple periarticular osteophytes. Attention was then turned to the acetabulum. the acetabulum was exposed and any remaining labrum was excised. Sequential reaming of the acetabulum was performed using fluoroscopic guidance. When the appropriate size was reached, a trial was then placed. The position and fit of the trial was checked with fluoroscopy. The trial was then removed. Then, using fluoroscopic guidance, the final implant was impacted at 20 of anteversion and 40 of abduction, and fully seated in the acetabulum. 2 screws were then placed in the acetabulum. Again fluoroscopy was used to check positi on of the screws. Next, the liner was then impacted, with a 20 elevated liner located in the anterior superior quadrant. Component locking was confirmed. Attention was then directed to the femur. With the aid of the [place] table, the femur was externally rotated to approximately 130, extended, and abducted under the opposite leg. A side hook was then placed under the proximal femur, and the side hook elevator was used to elevate the proximal femur. Retractors were then placed. A capsular release was performed, as well as a release of the conjoined tendon, which afforded excellent visualization of the proximal femur. Next, a box osteotome was used to lateralize the proximal femur. A press hand was then used to locate the femoral canal. Sequential broaching was then performed with appropriate size which afforded excellent fixation in the proximal femur. A trial was then placed with appropriate head and neck, and the hip was gently reduced with the aid of the [place] table. Fluoroscopy was then used to check position of the components, as well as to ensure equal leg lengths. The hip was then gently dislocated and the trials were then removed. Final implants were then impacted and the hip was again reduced. Final fluoroscopic x-rays confirmed that the components were in anatomic position, as well as equal leg lengths. The hip was also taken through range of motion, and found to be stable. The hip was then copiously irrigated with antibiotic solution with pulsatile lavage. The hip was then irrigated with Irrisept solution. The soft tissues were then injected with a ropivacaine solution, which consisted of 246.25 mg of ropivacaine, 0.5 mg of epinephrine, 30 mg of Toradol, 80 g of clonidine, and 48.45 mL of sterile water, for a total of 100 mL of fluid injected. A second dose of 1 g of Tranexamic acid was also given. the fascia was then closed with 2-0 strata fix suture. The subcutaneous tissue was closed with 3-0 Vicryl. The subcuticular tissue was closed with 3-0 strata fix suture. The skin was then closed with Dermabond glue and a sterile silver dressing. The patient was then transferred to the recovery room in stable condition. The assistant community director TAMELA Islas was required due to the complexity of surgery, and the need for skilled hand frame surgical elastic knitter for positioning, draping, exposure, retraction, and closure of the wound.
--- NOTE | 2020-05-16 08:41 | FL ---
Fluoroscopy HISTORY: Anterior hip replacement 35 seconds fluoroscopy time supplied to the referring clinician. 2 intraoperative C-arm images docum ent the procedure. See dictated report from orthopedic surgery.
--- NOTE | 2020-05-16 08:41 | XR ---
Left hip Limited HISTORY: Anterior hip replacement 2 intraoperative C-arm images document the procedure.
--- NOTE | 2020-05-16 09:14 | XR ---
EXAMINATION TYPE: XR Hip Limited LT DATE OF EXAM: 05/16/2020 COMPARISON: None HISTORY: Post left hip replacement TECHNIQUE: AP left hip FINDINGS: Femoral and acetabular components of in place. No acute fractures are evident. Mild soft ti ssue postsurgical changes noted. IMPRESSION: 1. No acute fractures post left hip replacement
[2020-05-16] MEDS: SODIUM CHLORIDE 0.9% 1,000 ML IV SCH ×2 (11:17→20:44)
[2020-05-16] MEDS ORDERED: ALBUTEROL HFA INHALER INHALATION PRN (13:35)
[2020-05-16] MEDS ORDERED: TEMAZEPAM 15 MG CAP PO PRN (13:36)
[2020-05-16] MEDS: HYDROcodone/APAP 7.5-325MG 1 EACH TAB PO PRN (15:29)
[2020-05-16] MEDS: IPRATROPIUM-ALBUTEROL 3 ML NEB INHALATION PRN (15:33)
[2020-05-16] MEDS: busPIRone HCl 10 MG TAB PO SCH ×2 (16:04→20:26)
[2020-05-16] MEDS: GABAPENTIN 300 MG CAP PO SCH ×2 (16:04→20:26)
[2020-05-16] MEDS: NICOTINE 14MG/24HR PATCH TRANSDERM SCH (16:04)
--- NOTE | 2020-05-16 19:02 | CONS ---
CONSULTATION REASON FOR CONSULTATION: Advice regarding COPD, asthma and multiple medical issues, requested by Dr. Miles. HISTORY OF PRESENT ILLNESS: This 49-year-old woman with a past medical history of asthma, COPD, GERD, hypertension, liver disease, DJD, pneumonia, sleep apnea, chronic bronchitis, being followed by Dr. Feldman in the outpatient setting, was admitted after left hip arthroplasty. There is no history of any fever, rigor or chills. No history of headache, loss of consciousness, seizures. No chest pain or palpitations at this time. PAST MEDICAL HISTORY: History of asthma, COPD, GERD, hypertension, chronic liver disease. HOME MEDICATIONS: Gabapentin, Verapamil, montelukast, [place], Lasix, fluticasone, trazodone, Robaxin, Ditropan, Prilosec, lisinopril, Claritin, Synthroid, DuoNeb, buspirone, albuterol p.r.n. ALLERGIES: NONE. FAMILY HISTORY: History of cancer. SOCIAL HISTORY: History of smoking, ongoing. History of THC. REVIEW OF SYSTEMS: ENT: No diminished hearing. No diminished vision. CARDIOVASCULAR SYSTEM: No angina, palpitations. RESPIRATORY SYSTEM: As mentioned earlier. GI: No nausea, vomiting. : No dysuria or retention. NERVOUS SYSTEM: No numbness, weakness. ALLERGY/IMMUNOLOGY: As mentioned earlier. HEMATOLOGY/ONCOLOGY: No history of anemia. ENDOCRINE: As mentioned earlier. CONSTITUTIONAL: As mentioned earlier. DERMATOLOGY: Negative. RHEUMATOLOGY: Negative. PSYCHIATRY: As mentioned earlier. PHYSICAL EXAMINATION: Patient alert and oriented x3. Pulse 73, blood pressure is 115/60, respirations 16, temperature normal, pulse ox 99% on 2 L. HEENT: Conjunctivae normal. NECK: No jugular venous distention. CARDIOVASCULAR SYSTEM: S1, S2 muffled. RESPIRATORY SYSTEM: Breath sounds diminished at the bases. A few scattered rhonchi and crackles. ABDOMEN: Soft, obese, non-tender. LEGS: Status post surgery. NERVOUS SYSTEM: No focal deficit. LABS: Glucose 125. Coags are within normal limits. Preop labs showed MCV 100.5. Chemistry within normal limits. ASSESSMENT: 1. Status post left hip total arthroplasty. 2. History of asthma, chronic obstructive pulmonary disease. 3. History of gastroesophageal reflux disease. 4. Hypertension. 5. History of chronic liver disease. 6. History of degenerative joint disease. 7. History of pneumonia. 8. Sleep apnea. 9. Hypothyroidism. 10.History of chronic bronchitis. 11.History of overactive bladder. 12.History of fungal pneumonia several years ago. 13.Chronic hypoxic respiratory failure. 14.Sleep apnea. 15.Anxiety, bipolar depression, panic disorder, post-traumatic stress disorder. 16.Continued ongoing dependence. 17.History of tetrahydrocannabinol. 18.Obesity with body mass index of 44.1. 19.FULL CODE. RECOMMENDATIONS AND DISCUSSION: In this 49-year-old woman who presented with multiple medical issues, at this time I recommend to continue the current medications, continue with symptomatic treatment. I recommend resuming the home medications. Monitor blood sugars closely. I would also recommend incentive spirometry, DVT prophylaxis. Will follow the patient closely. Patient may be asked to follow up with Dr. Feldman closely after discharge. Thank you, Dr. Miles, for letting us participate in the care of this patient. MMVINNYL / MARTITAN: [id number] /
[2020-05-16] MEDS: traZODone HCL 100 MG TAB PO SCH (20:25)
[2020-05-16] MEDS: VERAPAMIL SR 240 MG TABLET.ER PO SCH (20:25)
[2020-05-16] MEDS: methocarbamoL 750 MG TAB PO SCH (20:26)
[2020-05-16] MEDS: MONTELUKAST 10 MG TAB PO SCH (20:27)
[2020-05-16] MEDS: PANTOPRAZOLE 40 MG TABLET PO SCH (20:27)
[2020-05-16] MEDS: SYMBICORT 80-4.5 MCG INHALER INHALATION SCH (20:27)
[2020-05-16] MEDS: SENNOSIDES-DOCUSATE SODIUM 1 EACH TAB PO SCH (20:27)
[2020-05-17] MEDS: HYDROcodone/APAP 7.5-325MG 1 EACH TAB PO PRN ×4 (02:47→20:10)
[2020-05-17] MEDS: LACTATED RINGERS 1,000 ML IV SCH (04:13)
[2020-05-17] MEDS ORDERED: LEVOTHYROXINE 75 MCG TAB PO SCH (06:30)
[2020-05-17 07:15] LABS: Basophils % (A) 0 %; Eosinophils # (A) 0.1 k/uL (0-0.7); Eosinophils % (A) 1 %; HCT 32.7 % (34.0-46.0); HGB 10.5 gm/dL (11.4-16.0); Lymphocytes # (A) 1.9 k/uL (1.0-4.8); Lymphocytes % (A) 11 %; MCHC 32.1 g/dL (31.0-37.0); MCV 99.5 fL (80.0-100.0); Mean Platelet Volume 7.4; Monocytes # (A) 0.9 k/uL (0-1.0); Monocytes % (A) 6 %; Neutrophils # (A) 13.2 k/uL (1.3-7.7); Neutrophils % (A) 81 %; Platelet Count 237 k/uL (150-450); RBC 3.29 m/uL (3.80-5.40); WBC 16.3 k/uL (3.8-10.6)
[2020-05-17] MEDS ORDERED: PANTOPRAZOLE 40 MG TABLET PO SCH (07:30)
[2020-05-17] MEDS: methocarbamoL 750 MG TAB PO SCH ×2 (08:20→20:10)
[2020-05-17] MEDS: GABAPENTIN 300 MG CAP PO SCH ×3 (08:21→20:09)
[2020-05-17] MEDS: NICOTINE 14MG/24HR PATCH TRANSDERM SCH (08:21)
[2020-05-17] MEDS: PANTOPRAZOLE 40 MG TABLET PO SCH ×2 (08:21→20:09)
[2020-05-17] MEDS: busPIRone HCl 10 MG TAB PO SCH ×3 (08:21→20:09)
--- NOTE | 2020-05-17 08:26 | P.DS ---
Providers Date of admission: 05/17/20 05:52 Expected date of discharge: 05/17/20 Attending physician: Rock Miles Consults: 05/16/20 07:12 Consult Physician Routine Consulting Provider: Kaia Martinez Consult Reason/Comments: medical management Do you want consulting provider notified?: Yes Primary care physician: Gaston Carpio Charbal - Discharge Diagnosis(es) (1) S/P total hip arthroplasty Current Visit: Yes Status: Acute (2) Osteoarthritis of left hip Current Visit: Yes Status: Acute Hospital Course: This is a 49-year-old female with known history of degenerative arthritis of the left hip. The patient presents for evaluation. After discussion and consideration patient elects to proceed with total hip arthroplasty. The patient is seen preoperatively by Dr. Miles and medically cleared for surgery by their primary care physician. Patient is admitted to [facility] on 05/16/2020 for total hip arthroplasty. The procedures performed without complication or sequelae. The patient is doing well postoperatively. Labs and vital signs are stable on day of discharge. On day of discharge patient's hip incision is healing well. There is minimal erythema. There is no drainage noted at this time. There is minimal soft tissue swelling to the hip and thigh. Patient has full foot and ankle motion without difficulty or pain. Calf is soft and nontender to palpation. Neurovascular status to the left lower extremity is intact. Patient is discharged home in good condition. Patient is prescribed pain medication from another physician who will manage postoperative pain medication. Please see [facility] rec for accurate list of home medications. Plan - Discharge Summary Discharge Rx Participant: Yes New Discharge Prescriptions: New Apixaban [Eliquis] 2.5 mg PO BID 35 Days #70 tab No Action Oxybutynin Chloride [Ditropan] 5 mg PO DAILY Loratadine [Claritin] 10 mg PO DAILY Omeprazole [PriLOSEC] 20 mg PO BID busPIRone HCL 10 mg PO TID Gabapentin 300 mg PO TID traZODone HCL 300 mg PO HS lisinopriL 40 mg PO DAILY methocarbamoL [Robaxin] 500 mg PO BID Levothyroxine Sodium [Synthroid] 75 mcg PO DAILY Ipratropium-Albuterol Nebulize [Duoneb 0.5 mg-3 mg/3 ml Soln] 3 ml INHALATION RT-QID PRN #90 neb PRN Reason: Shortness Of Breath Montelukast [Singulair] 10 mg PO HS HYDROcodone/APAP 10-325MG [[place] 10-325] 1 tab PO TID Verapamil HCl [Verapamil ER] 240 mg PO HS Furosemide [Lasix] 20 mg PO DAILY Albuterol Sulfate [Ventolin HFA] 2 puff INHALATION Q6H PRN PRN Reason: Shortness Of Breath Fluticasone Propion/Salmeterol [[place] 100-50 [place]] 1 inhalation PO BID Discharge Medication List Loratadine [Claritin] 10 mg PO DAILY 01/24/14 [History] Omeprazole [PriLOSEC] 20 mg PO BID 01/24/14 [History] Oxybutynin Chloride [Ditropan] 5 mg PO DAILY 01/24/14 [History] Gabapentin 300 mg PO TID 08/27/19 [History] Levothyroxine Sodium [Synthroid] 75 mcg PO DAILY 08/27/19 [History] busPIRone HCL 10 mg PO TID 08/27/19 [History] lisinopriL 40 mg PO DAILY 08/27/19 [History] methocarbamoL [Robaxin] 500 mg PO BID 08/27/19 [History] traZODone HCL 300 mg PO HS 08/27/19 [History] Ipratropium-Albuterol Nebulize [Duoneb 0.5 mg-3 mg/3 ml Soln] 3 ml INHALATION RT-QID PRN #90 neb 08/31/19 [Rx] Albuterol Sulfate [Ventolin HFA] 2 puff INHALATION Q6H PRN 05/15/20 [History] Fluticasone Propion/Salmeterol [[place] 100-50 Inhub] 1 inhalation PO BID 05/15/20 [History] Furosemide [Lasix] 20 mg PO DAILY 05/15/20 [History] HYDROcodone/APAP 10-325MG [[place] 10-325] 1 tab PO TID 05/15/20 [History] Montelukast [Singulair] 10 mg PO HS 05/15/20 [History] Verapamil HCl [Verapamil ER] 240 mg PO HS 05/15/20 [History] Apixaban [Eliquis] 2.5 mg PO BID 35 Days #70 tab 05/17/20 [Rx] Follow up Appointment(s)/Referral(s): Rock Miles DO [Doctor of Osteopathic Medicine] - 2 Weeks Activity/Diet/Wound Care/Special Instructions: Weightbearing as tolerated with walker. Leave dressing intact. Dressing may be removed by home care nurse or by patient in 10 days. May shower with dressing on. Please take Eliquis twice daily for 35 days to prevent blood clots. Recommend use of compression stockings daily until follow up to help prevent swelling and blood clots. May remove at night before sleeping. Please follow-up with [facility] in 2 weeks and call with any questions or concerns, . Discharge Disposition: HOME WITH HOME HEALTH SERVICES
[2020-05-17] MEDS: APIXABAN 2.5 MG TABLET PO SCH ×2 (08:30→20:10)
[2020-05-17] MEDS: IPRATROPIUM-ALBUTEROL 3 ML NEB INHALATION PRN ×2 (08:46→15:41)
[2020-05-17] MEDS ORDERED: LORATADINE 10 MG TAB PO SCH (09:00)
[2020-05-17] MEDS ORDERED: lisinopriL 20 MG TAB PO SCH (09:00)
[2020-05-17] MEDS ORDERED: RIVAROXABAN 10 MG TAB PO SCH (09:00)
[2020-05-17] MEDS: SYMBICORT 80-4.5 MCG INHALER INHALATION SCH ×2 (09:00→21:06)
[2020-05-17] MEDS ORDERED: OXYBUTYNIN CHLORIDE 5 MG TAB PO SCH (09:00)
[2020-05-17] MEDS ORDERED: FUROSEMIDE 20 MG TAB PO SCH (09:00)
[2020-05-17 11:57] LABS: Appearance,Urine Clear (Clear); Bilirubin,Urine Negative (Negative); Blood,Urine Negative (Negative); Color,Urine Light Yellow; Glucose,Urine (UA) Negative (Negative); Ketones,Urine Negative (Negative); Leukocyte Esterase,Urine Negative (Negative); Nitrite,Urine Negative (Negative); PH, Urine 5.5 (5.0-8.0); Protein,Urine Negative (Negative); Specific Gravity,Urine 1.015 (1.001-1.035); Urobilinogen,Urine <2.0 mg/dL (<2.0)
[2020-05-17] MEDS: SODIUM CHLORIDE 0.9% 1,000 ML IV SCH (12:00)
[2020-05-17] MEDS: MONTELUKAST 10 MG TAB PO SCH (20:09)
[2020-05-17] MEDS: traZODone HCL 100 MG TAB PO SCH (20:09)
[2020-05-17] MEDS: VERAPAMIL SR 240 MG TABLET.ER PO SCH (20:10)
[2020-05-17] MEDS: SENNOSIDES-DOCUSATE SODIUM 1 EACH TAB PO SCH (20:11)
[2020-05-17 20:51] VITALS: BP 144/87; PULSE 89; RESP 17; TEMP 98.1
--- NOTE | 2020-05-17 22:50 | PN ---
PROGRESS NOTE DATE OF SERVICE: 05/17/2020 This 49-year-old woman who was admitted after left hip arthroplasty is being closely monitored. The patient is still complaining of some persistent pain. The patient has slightly elevated WBC, but UA appears to be benign. No chest pain. No palpitations. No fever. PHYSICAL EXAMINATION: Alert and oriented x3. Pulse 75, blood pressure 120/80, respiration 18, temperature 98.4, pulse ox 97% on room air. HEENT: Conjunctivae normal. NECK: No jugular venous distention. CARDIOVASCULAR SYSTEM: S1, S2 muffled. RESPIRATORY SYSTEM: Breath sounds diminished at the bases. No rhonchi. No crackles. ABDOMEN: Soft, non-tender. LEGS: Status post surgery. NERVOUS SYSTEM: No focal deficit. LABS: WBC 15.3, hemoglobin 13.5. UA noted. ASSESSMENT: 1. Status post left total hip joint arthroplasty. 2. History of asthma, chronic obstructive pulmonary disease. 3. History of gastroesophageal reflux disease. 4. Hypertension. 5. Chronic liver disease. 6. Degenerative joint disease. 7. History of pneumonia. 8. History of sleep apnea. 9. Hypothyroidism. 10.History of chronic bronchitis. 11.History of overactive bladder. 12.History of fungal pneumonia several years ago. 13.History of chronic hypoxic respiratory failure. 14.Sleep apnea. 15.Anxiety, bipolar, depression, panic disorder, post-traumatic stress disorder. 16.Continued ongoing nicotine dependence. 17.History of tetrahydrocannabinol. 18.Obesity with body mass index of 44.1. 19.FULL CODE. RECOMMENDATIONS AND DISCUSSION: I recommend to continue current medications, continue with the monitoring, symptomatic treatment. Otherwise, as mentioned earlier, WBC is slightly elevated, possibly reactive. I recommend repeat CBC in the morning. Otherwise, UA is unremarkable. Continue the pain management. Closely follow with Orthopedic Surgery. DVT prophylaxis. Incentive spirometry. Further recommendations to follow. MMODL / IJN: [id number] /
== END 2020-05-17 22:13 | disposition home health service (06) ==
LOC: OR 05:44 → 4SSUR 08:43 → OR 05-17 05:52 → 4SSUR 05-17 05:52
PROVIDERS: ADMIT Orthopaedic Surgery; ATTEND Orthopaedic Surgery
DX: M16.12 Unilateral primary osteoarthritis, left hip (principal); M25.752 Osteophyte, left hip; G56.00 Carpal tunnel syndrome, unspecified upper limb; F41.9 Anxiety disorder, unspecified; I10 Essential (primary) hypertension; E78.5 Hyperlipidemia, unspecified; E03.9 Hypothyroidism, unspecified; K21.9 Gastro-esophageal reflux disease without esophagitis; J44.9 Chronic obstructive pulmonary disease, unspecified; K76.9 Liver disease, unspecified; N32.81 Overactive bladder; J96.11 Chronic respiratory failure with hypoxia; F31.9 Bipolar disorder, unspecified; F41.0 Panic disorder [episodic paroxysmal anxiety]; F43.10 Post-traumatic stress disorder, unspecified; E66.9 Obesity, unspecified; D72.829 Elevated white blood cell count, unspecified; K04.8 Radicular cyst; G47.33 Obstructive sleep apnea (adult) (pediatric); M25.559 Pain in unspecified hip; M25.519 Pain in unspecified shoulder; M54.9 Dorsalgia, unspecified; F17.200 Nicotine dependence, unspecified, uncomplicated; Z79.891 Long term (current) use of opiate analgesic; Z79.899 Other long term (current) drug therapy; Z79.51 Long term (current) use of inhaled steroids; Z79.890 Hormone replacement therapy; Z86.19 Personal history of other infectious and parasitic diseases; Z97.3 Presence of spectacles and contact lenses; Z87.11 Personal history of peptic ulcer disease; Z86.718 Personal history of other venous thrombosis and embolism; Z98.890 Other specified postprocedural states; Z79.1 Long term (current) use of non-steroidal anti-inflammatories (NSAID); Z87.01 Personal history of pneumonia (recurrent); Z68.41 Body mass index [BMI] 40.0-44.9, adult; Z97.2 Presence of dental prosthetic device (complete) (partial); Z80.9 Family history of malignant neoplasm, unspecified
CPT/HCPCS: 27130; 94640 ×4; 97116; 97110; 97161; 97535; 97165; 86891; 81025; 86900; 86901; 85025; 86850; 81003; 88300; 73501; 36415; G0378; C1776; S4990 ×2; J0171; J1644; J1100; J0690 ×2; J2405; J1885; J1170 ×3; J2795; J0735

== ENCOUNTER 2020-05-24 18:52 | Inpatient (IN) | payer OTHER ==
[2020-05-24] MEDS ORDERED: ACETAMINOPHEN TAB 500 MG TAB PO STA (19:31)
--- NOTE | 2020-05-24 19:32 | ED ---
Fever HPI - General Chief Complaint: Shortness of Breath Stated Complaint: SOB, poss blood clot in lung Time Seen by Provider: 05/24/20 19:31 Source: patient, RN notes reviewed, old records reviewed Mode of arrival: wheelchair Limitations: no limitations - History of Present Illness Initial Comments: This is a 41-year-old female DF for evaluation patient coming in for severe shortness with fever not feeling well weakness, severe left hip pain. Persis tent left hip pain. Mild nausea no vomiting recent postop of left hip replacement. Symptoms of been progressively worsening patient is also having chest pressure and shortness of breath MD Complaint: fever, weakness -: days(s) Temperature Source: subjective Context: sick contacts, multiple patients with similar symptoms Associated Symptoms: chills, rigors, myalgias, sore throat, cough, chest pain, shortness of breath Treatments Prior to Arrival: none - Related Data Home Medications Medication Instructions Recorded Confirmed Loratadine [Claritin] 10 mg PO DAILY 01/24/14 05/24/20 Oxybutynin Chloride [Ditropan] 5 mg PO DAILY 01/24/14 05/24/20 Gabapentin 300 mg PO TID 08/27/19 05/24/20 Levothyroxine Sodium [Synthroid] 75 mcg PO DAILY 08/27/19 05/24/20 lisinopriL 40 mg PO DAILY 08/27/19 05/24/20 methocarbamoL [Robaxin] 500 mg PO BID 08/27/19 05/24/20 traZODone HCL 300 mg PO HS 08/27/19 05/24/20 Albuterol Sulfate [Ventolin HFA] 2 puff INHALATION RT-QID PRN 05/15/20 05/24/20 HYDROcodone/APAP 10-325MG [[place] 1 tab PO TID 05/15/20 05/24/20 10-325] Montelukast [Singulair] 10 mg PO HS 05/15/20 05/24/20 Verapamil HCl [Verapamil ER] 240 mg PO HS 05/15/20 05/24/20 Albuterol Nebulized (Conc) 2.5 mg INHALATION RT-QID PRN 05/24/20 05/24/20 [Ventolin Nebulized (Conc)] Fluticasone Propion/Salmeterol 1 puff INHALATION RT-BID 05/24/20 05/24/20 [Wixela 250-50 Inhub] Montelukast [Singulair] 10 mg PO HS 05/24/20 05/24/20 Omeprazole 40 mg PO DAILY 05/24/20 05/24/20 Previous Rx's Medication Instructions Recorded Ipratropium-Albuterol Nebulize 3 ml INHALATION RT-QID PRN #90 neb 08/31/19 [Duoneb 0.5 mg-3 mg/3 ml Soln] Apixaban [Eliquis] 2.5 mg PO BID 35 Days #70 tab 05/17/20 Allergies Allergy/AdvReac Type Severity Reaction Status Date / Time No Known Allergies Allergy Verified 05/24/20 20:37 Review of Systems ROS Statement: Those systems with pertinent positive or pertinent negative responses have been documented in the HPI. ROS Other: All systems not noted in ROS Statement are negative. Past Medical History Past Medical History: Asthma, COPD, GERD/Reflux, Hypertension, Liver Disease, Osteoarthritis (OA), Pneumonia, Sleep Apnea/CPAP/BIPAP, Thyroid Disorder Additional Past Medical History / Comment(s): CHRONIC BRONCHITIS, HEPATITIS C-in remission currently, CHRONIC BACK PAIN & NECK PAIN-painful to turn head to right, OVER-ACTIVE BLADDER, fungal pneumonia 10 yrs. ago, oxygen @[facility] 2l, unable to use CPAP, blood clot 6 yrs. ago in arm related to having PICC line-was on blood thinner for a while, steroid dose pack last week, leg & ankle swelling History of Any Multi-Drug Resistant Organisms: None Reported Past Surgical History: Section, Orthopedic Surgery, Tubal Ligation, Uterine Ablation Additional Past Surgical History / Comment(s): ARTHROSCOPY LEFT KNEE, METAL PLATE AND SCREWS RT TIBIA, liver biopsies, right rotator cuff repair, pain procedures Past Anesthesia/Blood Transfusion Reactions: No Reported Reaction Past Psychological History: Anxiety, Bipolar, Depression, Panic Disorder, PTSD Smoking Status: Current every day smoker Past Alcohol Use History: None Reported Past Drug Use History: Marijuana - Past Family History Sister(s) Family Medical History: Cancer General Exam Limitations: no limitations General appearance: alert, in no apparent distress, anxious, in distress Head exam: Present: atraumatic, normocephalic, normal inspection Eye exam: Present: normal appearance, PERRL, EOMI. Absent: scleral icterus, conjunctival injection, periorbital swelling ENT exam: Present: normal exam, mucous membranes moist Neck exam: Present: normal inspection. Absent: tenderness, meningismus, lymphadenopathy Respiratory exam: Present: respiratory distress, wheezes, rhonchi, accessory muscle use, decreased breath sounds, prolonged expiratory. Absent: rales, stridor Cardiovascular Exam: Present: normal rhythm, tachycardia, normal heart sounds. Absent: systolic murmur, diastolic murmur, rubs, gallop, clicks GI/Abdominal exam: Present: soft, normal bowel sounds. Absent: distended, tenderness, guarding, rebound, rigid Rectal exam: Present: deferred Extremities exam: Present: normal inspection, full ROM, normal capillary refill. Absent: tenderness, pedal edema, joint swelling, calf tenderness Back exam: Present: normal inspection Neurological exam: Present: alert, altered, oriented X3, CN II-XII intact Psychiatric exam: Present: normal affect, normal mood Skin exam: Present: warm, dry, intact, normal color. Absent: rash Course Vital Signs 05/24/20 05/24/20 05/24/20 19:13 20:00 20:07 Temperature 102.3 F H Pulse Rate 121 H 103 H 73 Respiratory 28 H 24 16 Rate Blood Pressure 129/74 134/85 O2 Sat by Pulse 86 L 97 Oximetry 05/24/20 05/24/20 05/24/20 20:22 20:30 21:00 Temperature 101.3 F H Pulse Rate 76 107 H Respiratory 16 24 24 Rate Blood Pressure 138/80 O2 Sat by Pulse 97 Oximetry Medical Decision Making - Medical Decision Making 49 female DEL with fever shortness of breath COPD exacerbation hypoxia pulmonary embolism, this is postop as well as diagnosis of coronavirus highly likely. Patient is tested for Crohn and will be admitted to the hospital - Lab Data Result diagrams: 05/24/20 19:37 05/24/20 19:37 Lab Results 05/24/20 05/24/20 05/24/20 Range/Units 19:37 19:37 19:37 WBC 12.1 H (3.8-10.6) k/uL RBC 3.09 L (3.80-5.40) m/uL Hgb 9.8 L (11.4-16.0) gm/dL Hct 29.7 L (34.0-46.0) % MCV 96.2 (80.0-100.0) fL MCH 31.6 (25.0-35.0) pg MCHC 32.8 (31.0-37.0) g/dL RDW 12.8 (11.5-15.5) % Plt Count 396 (150-450) k/uL Neutrophils % 81 % Lymphocytes % 11 % Monocytes % 5 % Eosinophils % 2 % Basophils % 0 % Neutrophils # 9.8 H (1.3-7.7) k/uL Lymphocytes # 1.3 (1.0-4.8) k/uL Monocytes # 0.6 (0-1.0) k/uL Eosinophils # 0.2 (0-0.7) k/uL Basophils # 0.0 (0-0.2) k/uL PT 10.1 (9.0-12.0) sec INR 1.0 (<1.2) APTT 23.7 (22.0-30.0) sec D-Dimer 3.07 H (<0.60) mg/L FEU Sodium 135 L (137-145) mmol/L Potassium 4.0 (3.5-5.1) mmol/L Chloride 104 (98-107) mmol/L Carbon Dioxide 25 (22-30) mmol/L Anion Gap 6 mmol/L BUN 10 (7-17) mg/dL Creatinine 0.74 (0.52-1.04) mg/dL Est GFR (CKD-EPI)AfAm >90 (>60 ml/min/1.73 sqM) Est GFR (CKD-EPI)NonAf >90 (>60 ml/min/1.73 sqM) Glucose 112 H (74-99) mg/dL Plasma Lactic Acid Tobin (0.7-2.0) mmol/L Calcium 8.6 (8.4-10.2) mg/dL Magnesium 2.1 (1.6-2.3) mg/dL Total Bilirubin 0.5 (0.2-1.3) mg/dL AST 28 (14-36) U/L ALT 11 (4-34) U/L Alkaline Phosphatase 33 L (38-126) U/L Lactate Dehydrogenase 1296 H (313-618) U/L C-Reactive Protein 225.5 H (<10.0) mg/L Total Protein 6.2 L (6.3-8.2) g/dL Albumin 3.3 L (3.5-5.0) g/dL Urine Color Urine Appearance (Clear) Urine pH (5.0-8.0) Ur Specific [place] (1.001-1.035) Urine Protein (Negative) Urine Glucose (UA) (Negative) Urine Ketones (Negative) Urine Blood (Negative) Urine Nitrite (Negative) Urine Bilirubin (Negative) Urine Urobilinogen (<2.0) mg/dL Ur Leukocyte Esterase (Negative) Influenza Type A RNA (Not Detectd) Influenza Type B (PCR) (Not Detectd) 05/24/20 05/24/20 05/24/20 Range/Units 19:37 19:37 21:50 WBC (3.8-10.6) k/uL RBC (3.80-5.40) m/uL Hgb (11.4-16.0) gm/dL Hct (34.0-46.0) % MCV (80.0-100.0) fL MCH (25.0-35.0) pg MCHC (31.0-37.0) g/dL RDW (11.5-15.5) % Plt Count (150-450) k/uL Neutrophils % % Lymphocytes % % Monocytes % % Eosinophils % % Basophils % % Neutrophils # (1.3-7.7) k/uL Lymphocytes # (1.0-4.8) k/uL Monocytes # (0-1.0) k/uL Eosinophils # (0-0.7) k/uL Basophils # (0-0.2) k/uL PT (9.0-12.0) sec INR (<1.2) APTT (22.0-30.0) sec D-Dimer (<0.60) mg/L FEU Sodium (137-145) mmol/L Potassium (3.5-5.1) mmol/L Chloride (98-107) mmol/L Carbon Dioxide (22-30) mmol/L Anion Gap mmol/L BUN (7-17) mg/dL Creatinine (0.52-1.04) mg/dL Est GFR (CKD-EPI)AfAm (>60 ml/min/1.73 sqM) Est GFR (CKD-EPI)NonAf (>60 ml/min/1.73 sqM) Glucose (74-99) mg/dL Plasma Lactic Acid Tobin 1.6 (0.7-2.0) mmol/L Calcium (8.4-10.2) mg/dL Magnesium (1.6-2.3) mg/dL Total Bilirubin (0.2-1.3) mg/dL AST (14-36) U/L ALT (4-34) U/L Alkaline Phosphatase (38-126) U/L Lactate Dehydrogenase (313-618) U/L C-Reactive Protein (<10.0) mg/L Total Protein (6.3-8.2) g/dL Albumin (3.5-5.0) g/dL Urine Color Yellow Urine Appearance Clear (Clear) Urine pH 6.5 (5.0-8.0) Ur Specific [place] >1.050 H (1.001-1.035) Urine Protein Trace H (Negative) Urine Glucose (UA) Negative (Negative) Urine Ketones 1+ H (Negative) Urine Blood Negative (Negative) Urine Nitrite Negative (Negative) Urine Bilirubin Negative (Negative) Urine Urobilinogen 3.0 (<2.0) mg/dL Ur Leukocyte Esterase Negative (Negative) Influenza Type A RNA Not Detected (Not Detectd) Influenza Type B (PCR) Not Detected (Not Detectd) - EKG Data -: EKG Interpreted by Me (EKG is tachycardia 104 HI 124 QRS 84 QTC 418) Critical Care Time Critical Care Time: Yes Total Critical Care Time: 31 Disposition Clinical Impression: COPD exacerbation, Community acquired pneumonia, S/P total hip arthroplasty, Fever, Hypoxia, Pulmonary embolism Narrative: ro COVID Disposition: ADMITTED IP TO THIS HOSP Condition: Fair Is patient prescribed a controlled substance at d/c from ED?: No Referrals: Jamee Feldman MD [Primary Care Provider] - 1-2 days
[2020-05-24] MEDS ORDERED: ALBUTEROL NEBULIZED 2.5 MG/3 ML INHALATION STA (19:43)
[2020-05-24] MEDS ORDERED: SODIUM CHLORIDE 0.9% 500 ML 500 ML IV STA ×2 (19:43→20:29)
[2020-05-24] MEDS ORDERED: SODIUM CHLORIDE 0.9% 1,000 ML IV STA ×2 (19:43)
[2020-05-24 19:54] LABS: Basophils % (A) 0 %; Eosinophils # (A) 0.2 k/uL (0-0.7); Eosinophils % (A) 2 %; HCT 29.7 % (34.0-46.0); HGB 9.8 gm/dL (11.4-16.0); Lymphocytes # (A) 1.3 k/uL (1.0-4.8); Lymphocytes % (A) 11 %; MCH 31.6 pg (25.0-35.0); MCHC 32.8 g/dL (31.0-37.0); MCV 96.2 fL (80.0-100.0); Mean Platelet Volume 6.9; Monocytes # (A) 0.6 k/uL (0-1.0); Monocytes % (A) 5 %; Neutrophils # (A) 9.8 k/uL (1.3-7.7); Neutrophils % (A) 81 %; Platelet Count 396 k/uL (150-450); RBC 3.09 m/uL (3.80-5.40); RDW 12.8 % (11.5-15.5); WBC 12.1 k/uL (3.8-10.6)
[2020-05-24] MEDS: IPRATROPIUM 0.5 MG/2.5 ML NEBU INHALATION STA (20:04)
[2020-05-24 20:08] LABS: ALT 11 U/L (4-34); AST 28 U/L (14-36); African American GFR (CKD) >90 (>60 ml/min/1.73 sqM); Albumin 3.3 g/dL (3.5-5.0); Alkaline Phosphatase 33 U/L (38-126); Anion Gap 6 mmol/L; Blood Urea Nitrogen 10 mg/dL (7-17); Calcium 8.6 mg/dL (8.4-10.2); Carbon Dioxide 25 mmol/L (22-30); Chloride 104 mmol/L (98-107); Glucose 112 mg/dL (74-99); LDH 1296 U/L (313-618); Magnesium 2.1 mg/dL (1.6-2.3); Non-African American GFR(CKD) >90 (>60 ml/min/1.73 sqM); Sodium 135 mmol/L (137-145); Total Bilirubin 0.5 mg/dL (0.2-1.3); Total Protein 6.2 g/dL (6.3-8.2)
[2020-05-24 20:20] LABS: C Reactive Protein 225.5 mg/L (<10.0)
[2020-05-24 20:26] LABS: Partial Thromboplastin Time 23.7 sec (22.0-30.0); Prothrombin Time 10.1 sec (9.0-12.0)
[2020-05-24] MEDS ORDERED: KETOROLAC 15 MG/ML 1 ML VIAL IVP STA (20:29)
[2020-05-24] MEDS ORDERED: HYDROmorphone 1 MG/ML 1 ML SYRINGE IVP STA (20:29)
[2020-05-24 20:33] LABS: D-Dimer 3.07 mg/L FEU (<0.60)
--- NOTE | 2020-05-24 20:47 | XR ---
EXAMINATION TYPE: XR chest 1V portable DATE OF EXAM: 05/24/2020 CLINICAL HISTORY: Cough, fever, shortness of breath. Concern for Covid 19 pneumonia. TECHNIQUE: Portable upright view of the chest obtained COMPARISON: 08/27/2019 chest radiograph FINDINGS: The cardiomediastinal silhouette is within normal limits for size. Pulmonary vasculature i s normal. Opacities over the lung bases may be due to overlapping soft tissue. No pneumothorax or ple ural effusion. The osseous structures are intact. IMPRESSION: Opacities of the lung bases may be due to significant overlapping soft tissue. If there i s continued clinical concern, consider lateral radiograph or CT examination of the chest.
--- NOTE | 2020-05-24 22:07 | CT ---
EXAMINATION TYPE: CT angio chest DATE OF EXAM: 05/24/2020 9:22 PM COMPARISON: Chest radiograph 05/24/2020 HISTORY: Shortness of breath possible clot CT DLP: 687 mGycm Automated exposure control for dose reduction was used. CONTRAST: CTA scan of the thorax is performed with IV Contrast, patient injected with 100 mL of Isovue 370, pul monary embolism protocol. MIP images are created and reviewed. FINDINGS: LUNGS: There are patchy multifocal, multilobar groundglass airspace opacities bilaterally, predominan tly with subpleural sparing. Trace bilateral pleural effusions. No pneumothorax. The tracheobronchial tree is patent. MEDIASTINUM: There is somewhat suboptimal enhancement of the pulmonary artery and its branches. There are filling defects of the left lower lobe subsegmental pulmonary arteries. Questionable filling def ects of the left upper lobe subsegmental pulmonary arteries. 11 mm right hilar lymphadenopathy. Cardi ac size normal. No pericardial effusion is seen. No thoracic aortic aneurysm. OTHER: Degenerative changes of the spine. IMPRESSION: 1. Somewhat suboptimal enhancement of the pulmonary arteries, likely with subsegmental pulmonary embo li of the left lower and left upper lobes. 2. Multifocal groundglass opacities bilaterally and trace bilateral pleural effusions. Differential i ncludes infectious pneumonitis including Covid [address] Angela Quijano discussed findings with Dr. Serjio Young via the phone on today at 10:00 P M, and results were acknowledged.
--- NOTE | 2020-05-24 22:08 | XR ---
EXAMINATION TYPE: XR Hip Complete LT DATE OF EXAM: 05/24/2020 COMPARISON: 05/16/2020 HISTORY: Hip pain TECHNIQUE: 2 views FINDINGS: There is a left hip prosthesis. Components appear in anatomic position. There is contrast i n the urinary bladder. There is no evidence of a fracture. IMPRESSION: Negative exam. No change compared to old exam.
[2020-05-24 22:14] LABS: Appearance,Urine Clear (Clear); Bilirubin,Urine Negative (Negative); Blood,Urine Negative (Negative); Color,Urine Yellow; Glucose,Urine (UA) Negative (Negative); Ketones,Urine 1+ (Negative); Leukocyte Esterase,Urine Negative (Negative); Nitrite,Urine Negative (Negative); PH, Urine 6.5 (5.0-8.0); Protein,Urine Trace (Negative)
[2020-05-24 22:15] LABS: Specific Gravity,Urine >1.050 (1.001-1.035)
[2020-05-24] MEDS ORDERED: HEPARIN SODIUM,PORCINE 5,000 UNIT/ML 1 ML VIAL IV PRN (22:21)
[2020-05-24] MEDS ORDERED: MORPHINE SULFATE 4 MG/ML SYRINGE IV PRN (22:21)
[2020-05-24] MEDS ORDERED: AZITHROMYCIN 500 MG in SODIUM CHLORIDE 0.9% 250 ML IVPB STA (22:21)
[2020-05-24] MEDS ORDERED: IPRATROPIUM-ALBUTEROL 3 ML NEB INHALATION STA (22:21)
[2020-05-24] MEDS ORDERED: PNEUMONIA PROTOCOL UTILIZED 1 EACH MISC PO PRN (22:21)
[2020-05-24] MEDS ORDERED: HEPARIN SODIUM,PORCINE 10,000 UNIT/ML 1 ML VIAL IV ONE (22:21)
[2020-05-24] MEDS ORDERED: NITROGLYCERIN SL TABS 0.4 MG TAB SUBLINGUAL PRN (22:21)
[2020-05-24] MEDS ORDERED: HEPARIN SOD,PORK IN 0.45% NACL 25,000 UNIT in 0.45% NACL 1 250ML.BAG IV SCH (22:30)
[2020-05-25] MEDS: HYDROmorphone 1 MG/ML 1 ML SYRINGE IVP PRN ×3 (00:31→20:31)
[2020-05-25 05:06] LABS: Basophils % (A) 0 %; Eosinophils # (A) 0.3 k/uL (0-0.7); Eosinophils % (A) 3 %; HCT 27.8 % (34.0-46.0); HGB 8.7 gm/dL (11.4-16.0); Lymphocytes # (A) 2.5 k/uL (1.0-4.8); Lymphocytes % (A) 26 %; MCH 31.2 pg (25.0-35.0); MCHC 31.4 g/dL (31.0-37.0); MCV 99.5 fL (80.0-100.0); Mean Platelet Volume 6.8; Monocytes # (A) 0.5 k/uL (0-1.0); Monocytes % (A) 5 %; Neutrophils # (A) 6.4 k/uL (1.3-7.7); Neutrophils % (A) 65 %; Platelet Count 365 k/uL (150-450); RBC 2.79 m/uL (3.80-5.40); RDW 13.1 % (11.5-15.5); WBC 9.8 k/uL (3.8-10.6)
[2020-05-25 05:30] LABS: Partial Thromboplastin Time 74.8 sec (22.0-30.0); Prothrombin Time 10.7 sec (9.0-12.0)
[2020-05-25 05:42] LABS: Cholesterol 140 mg/dL (<200); HDL Cholesterol 27 mg/dL (40-60); LDL Cholesterol,Calculated 89 mg/dL (0-99); Triglycerides 119 mg/dL (<150)
[2020-05-25 07:22] LABS: Ferritin 139.9 ng/mL (10.0-291.0)
[2020-05-25] MEDS ORDERED: IPRATROPIUM-ALBUTEROL 3 ML NEB INHALATION PRN (07:40)
[2020-05-25] MEDS ORDERED: ALBUTEROL NEBULIZED 2.5 MG/3 ML INHALATION SCH (08:00)
[2020-05-25] MEDS: IPRATROPIUM-ALBUTEROL 3 ML NEB INHALATION SCH ×4 (08:13→19:21)
--- NOTE | 2020-05-25 08:34 | P.HPIM ---
History of Present Illness pleasant 43-year-old female came in with compensative fever shortness of breath generalized weakness body aches and a severe left hip pain. Patient had a recent hip replacement. Patient did have fever, patient has all the lab abnor malities consistent with Covid 19. Patient has elevated LDH lymphopenia mildly elevated pro calcitonin and elevated d-dimer patient had a CT angios the chest chest CT in your the chest is findings are consistent with the diffuse groundglass a paced is an interstitial infiltrates consistent with the Covid 19 pneumonitis. Patient was started on antibiotics for the committee acquired pneumonia with Rocephin and azithromycin which will be continued for now probably these can be discontinue once we get the Covid 19 test if it's positive. Patient is comparing of shortness but does have history of COPD uses 2 L of Cardizem presently on [address] of angios the chest was read as possibility of for subsegmental PE. Pulmonary was consulted patient is already on Eliquis 2.5 mg twice a day which will be changed to 5 mg twice a day patient was started on IV heparin which will be discontinued. Patient is presently in COPD exacerbation as well with significant wheezing on exam. Review of Systems REVIEW OF SYSTEMS: CONSTITUTIONAL: No fever, no malaise, no fatigue. HEENT: No recent visual problems or hearing problems. Denied any sore throat. CARDIOVASCULAR: No chest pain, orthopnea, PND, no palpitations, no syncope. PULMONARY:, no hemoptysis. GASTROINTESTINAL: No diarrhea, no nausea, no vomiting, no abdominal pain. NEUROLOGICAL: No headaches, no weakness, no numbness. HEMATOLOGICAL: Denies any bleeding or petechiae. GENITOURINARY: Denies any burning micturition, frequency, or urgency. MUSCULOSKELETAL/RHEUMATOLOGICAL: Denies any joint pain, swelling, or any muscle pain. ENDOCRINE: Denies any polyuria or polydipsia. The rest of the 14-point review of systems is negative. Past Medical History Past Medical History: Asthma, COPD, GERD/Reflux, Hypertension, Liver Disease, Osteoarthritis (OA), Pneumonia, Sleep Apnea/CPAP/BIPAP, Thyroid Disorder Additional Past Medical History / Comment(s): CHRONIC BRONCHITIS, HEPATITIS C-in remission currently, CHRONIC BACK PAIN & NECK PAIN-painful to turn head to right, OVER-ACTIVE BLADDER, fungal pneumonia 10 yrs. ago, oxygen @[facility] 2l, unable to use CPAP, blood clot 6 yrs. ago in arm related to having PICC line-was on blood thinner for a while, steroid dose pack last week, leg & ankle swelling History of Any Multi-Drug Resistant Organisms: None Reported Past Surgical History: Section, Orthopedic Surgery, Tubal Ligation, Uterine Ablation Additional Past Surgical History / Comment(s): ARTHROSCOPY LEFT KNEE, METAL PLATE AND SCREWS RT TIBIA, liver biopsies, right rotator cuff repair, pain procedures, LEFT HIP Past Anesthesia/Blood Transfusion Reactions: No Reported Reaction Past Psychological History: Anxiety, Bipolar, Depression, Panic Disorder, PTSD Smoking Status: Current every day smoker Past Alcohol Use History: None Reported Additional Past Alcohol Use History / Comment(s): 1/2ppd since age of 14 Past Drug Use History: Marijuana Additional Drug Use History / Comment(s): uses @HS to help sleep - Past Family History Sister(s) Family Medical History: Cancer Medications and Allergies Home Medications Medication Instructions Recorded Confirmed Type Loratadine [Claritin] 10 mg PO DAILY 01/24/14 05/24/20 History Oxybutynin Chloride [Ditropan] 5 mg PO DAILY 01/24/14 05/24/20 History Gabapentin 300 mg PO TID 08/27/19 05/24/20 History Levothyroxine Sodium [Synthroid] 75 mcg PO DAILY 08/27/19 05/24/20 History lisinopriL 40 mg PO DAILY 08/27/19 05/24/20 History methocarbamoL [Robaxin] 500 mg PO BID 08/27/19 05/24/20 History traZODone HCL 300 mg PO HS 08/27/19 05/24/20 History Ipratropium-Albuterol Nebulize 3 ml INHALATION RT-QID PRN #90 neb 08/31/19 05/24/20 Rx [Duoneb 0.5 mg-3 mg/3 ml Soln] Albuterol Sulfate [Ventolin HFA] 2 puff INHALATION RT-QID PRN 05/15/20 05/24/20 History HYDROcodone/APAP 10-325MG [[place] 1 tab PO TID 05/15/20 05/24/20 History 10-325] Montelukast [Singulair] 10 mg PO HS 05/15/20 05/24/20 History Verapamil HCl [Verapamil ER] 240 mg PO HS 05/15/20 05/24/20 History Apixaban [Eliquis] 2.5 mg PO BID 35 Days #70 tab 05/17/20 05/24/20 Rx Albuterol Nebulized (Conc) 2.5 mg INHALATION RT-QID PRN 05/24/20 05/24/20 History [Ventolin Nebulized (Conc)] Fluticasone Propion/Salmeterol 1 puff INHALATION RT-BID 05/24/20 05/24/20 History [Wixela 250-50 Inhub] Montelukast [Singulair] 10 mg PO HS 05/24/20 05/24/20 History Omeprazole 40 mg PO DAILY 05/24/20 05/24/20 History Allergies Allergy/AdvReac Type Severity Reaction Status Date / Time No Known Allergies Allergy Verified 05/24/20 20:37 Physical Exam Vitals: Vital Signs Temp Pulse Pulse Resp BP BP Pulse Ox 05/25/20 08:13 80 05/25/20 04:00 98.0 F 67 22 149/69 96 05/25/20 00:00 88 18 05/24/20 23:23 99.9 F H 88 24 114/71 97 05/24/20 23:16 98.0 F 88 18 109/55 97 05/24/20 21:00 24 05/24/20 20:30 101.3 F H 107 H 24 138/80 97 05/24/20 20:22 76 16 05/24/20 20:07 73 16 05/24/20 20:00 103 H 24 134/85 97 05/24/20 19:13 102.3 F H 121 H 28 H 129/74 86 L Intake and Output 05/24/20 05/25/20 05/25/20 22:59 06:59 14:59 Intake Total 106.154 Balance 106.154 Intake: Intake, IV Titration 106.154 Amount Heparin Sod,Pork in 0.45% 106.154 NaCl 25,000 unit In 0.45 % NaCl 1 250ml.bag @ 18 UNITS/KG/HR 16.084 mls/hr IV .[id number] [facility] Rx#: [id number] Other: Voiding Method Toilet # Voids 2 1 Weight 89.358 kg 91.6 kg PHYSICAL EXAMINATION: GENERAL: The patient is alert and oriented x3, patient is in mild respiratory distress. Well developed, well nourished. HEENT: Pupils are round and equally reacting to light. EOMI. No scleral icterus. No conjunctival pallor. Normocephalic, atraumatic. No pharyngeal erythema. No thyromegaly. CARDIOVASCULAR: S1 and S2 present. No murmurs, rubs, or gallops. PULMONARY: Significant expiratory wheezing but presented bilateral lung morel. ABDOMEN: Soft, nontender, nondistended, normoactive bowel sounds. No palpable organomegaly. MUSCULOSKELETAL: No joint swelling or deformity. EXTREMITIES: No cyanosis, clubbing, or pedal edema. NEUROLOGICAL: Gross neurological examination did not reveal any focal deficits. SKIN: No rashes. Results CBC & Chem 7: 05/25/20 04:30 05/24/20 19:37 Labs: Abnormal Lab Results - Last 24 Hours (Table) 05/24/20 05/24/20 05/24/20 Range/Units 19:37 19:37 19:37 WBC 12.1 H (3.8-10.6) k/uL RBC 3.09 L (3.80-5.40) m/uL Hgb 9.8 L (11.4-16.0) gm/dL Hct 29.7 L (34.0-46.0) % Neutrophils # 9.8 H (1.3-7.7) k/uL APTT (22.0-30.0) sec D-Dimer 3.07 H (<0.60) mg/L FEU Sodium 135 L (137-145) mmol/L Glucose 112 H (74-99) mg/dL Alkaline Phosphatase 33 L (38-126) U/L Lactate Dehydrogenase 1296 H (313-618) U/L C-Reactive Protein 225.5 H (<10.0) mg/L Total Protein 6.2 L (6.3-8.2) g/dL Albumin 3.3 L (3.5-5.0) g/dL HDL Cholesterol (40-60) mg/dL Procalcitonin (0.02-0.09) ng/mL Ur Specific [place] (1.001-1.035) Urine Protein (Negative) Urine Ketones (Negative) 05/24/20 05/24/20 05/25/20 Range/Units 19:37 21:50 04:30 WBC (3.8-10.6) k/uL RBC 2.79 L (3.80-5.40) m/uL Hgb 8.7 L (11.4-16.0) gm/dL Hct 27.8 L (34.0-46.0) % Neutrophils # (1.3-7.7) k/uL APTT (22.0-30.0) sec D-Dimer (<0.60) mg/L FEU Sodium (137-145) mmol/L Glucose (74-99) mg/dL Alkaline Phosphatase (38-126) U/L Lactate Dehydrogenase (313-618) U/L C-Reactive Protein (<10.0) mg/L Total Protein (6.3-8.2) g/dL Albumin (3.5-5.0) g/dL HDL Cholesterol (40-60) mg/dL Procalcitonin 0.13 H (0.02-0.09) ng/mL Ur Specific [place] >1.050 H (1.001-1.035) Urine Protein Trace H (Negative) Urine Ketones 1+ H (Negative) 05/25/20 05/25/20 Range/Units 04:37 04:37 WBC (3.8-10.6) k/uL RBC (3.80-5.40) m/uL Hgb (11.4-16.0) gm/dL Hct (34.0-46.0) % Neutrophils # (1.3-7.7) k/uL APTT 74.8 H (22.0-30.0) sec D-Dimer (<0.60) mg/L FEU Sodium (137-145) mmol/L Glucose (74-99) mg/dL Alkaline Phosphatase (38-126) U/L Lactate Dehydrogenase (313-618) U/L C-Reactive Protein (<10.0) mg/L Total Protein (6.3-8.2) g/dL Albumin (3.5-5.0) g/dL HDL Cholesterol 27 L (40-60) mg/dL Procalcitonin (0.02-0.09) ng/mL Ur Specific [place] (1.001-1.035) Urine Protein (Negative) Urine Ketones (Negative) Thrombosis Risk Factor Assmnt - Choose All That Apply Each Factor Represents 1 point: Abnormal pulmonary function (COPD), Age 41-60 years Thrombosis Risk Factor Assessment Total Risk Factor Score: 2 Thrombosis Risk Factor Assessment Level: Low Risk Assessment and Plan Plan: -Sepsis most probably secondary to Covid 19 pneumonitis for now the patient will be continued on present antibiotics until we get the Covid 19 testing. We'll repeat LDH magnesium in the d-dimer tomorrow patient's d-dimer is elevated to -Acute on chronic hypercapnic and hypoxic respiratory failure secondary to COPD exacerbation and severe interstitial pneumonia from Covid 19. Continue with the breathing treatments patient will be started on Decadron 4 mg twice a day. Patient may be a candidate for Remdesevir -Subsegmental PE cannot be ruled out: Patient is factors include recent hip surgery and Covid 19 pneumonia. Patient's anti-correlation will be changed to 5 mg twice a day of Eliquis. I do not believe patient will need a loading dose she is already on Eliquis 2.5 mg twice a day at home. -Gastroesophageal reflux disease -Osteoarthritis -Sleep apnea -Hypothyroidism -Depression DVT prophylaxis: Patient is already in anticoagulation GI prophylaxis Pepcid
[2020-05-25] MEDS ORDERED: APIXABAN 5 MG TAB PO SCH (09:00)
[2020-05-25] MEDS ORDERED: ASPIRIN 325 MG TAB PO SCH (09:00)
[2020-05-25] MEDS ORDERED: APIXABAN 2.5 MG TABLET PO SCH (09:00)
[2020-05-25] MEDS: LEVOTHYROXINE 75 MCG TAB PO SCH (10:05)
[2020-05-25] MEDS: HYDROcodone/APAP 10-325MG 1 EACH TAB PO SCH ×3 (10:10→16:57)
[2020-05-25] MEDS: GABAPENTIN 300 MG CAP PO SCH ×3 (10:10→20:28)
[2020-05-25] MEDS: OXYBUTYNIN CHLORIDE 5 MG TAB PO SCH (10:10)
[2020-05-25] MEDS: PANTOPRAZOLE 40 MG TABLET PO SCH (10:11)
[2020-05-25] MEDS: dexAMETHasone 4 MG TAB PO SCH ×2 (10:11→20:28)
[2020-05-25] MEDS: methocarbamoL 500 MG TAB PO SCH ×2 (10:11→20:28)
[2020-05-25] MEDS: APIXABAN 5 MG TAB PO SCH ×2 (10:14→20:28)
--- NOTE | 2020-05-25 11:00 | ECHOF ---
Referral Reason:PE MEASUREMENTS -------- HEIGHT: 147.3 cm WEIGHT: 91.2 kg BP: 149/69 RVIDd: 2.5 cm (< 3.3) IVSd: 1.5 cm (0.6 - 1.1) LVIDd: 3.7 cm (3.9 - 5.3) LVPWd: 1.3 cm (0.6 - 1.1) IVSs: 1.8 cm LVIDs: 3.0 cm LVPWs: 1.8 cm LA Diam: 3.2 cm (2.7 - 3.8) LAESV Index (A-L): 21.14 ml/m Ao Diam: 2.8 cm (2.0 - 3.7) AV Cusp: 2.2 cm (1.5 - 2.6) MV EXCURSION: 14.967 mm (> 18.000) MV EF SLOPE: 112 mm/s (70 - 150) EPSS: 0.8 cm MV E Hung: 1.65 m/s MV DecT: 275 ms MV A Hung: 1.14 m/s MV E/A Ratio: 1.44 AV maxP.55 mmHg AV meanP.88 mmHg RAP: 5.00 mmHg RVSP: 49.45 mmHg FINDINGS -------- Sinus rhythm. This was a technically adequate study. The left ventricular size is normal. There is moderate concentric left ventricular hypertrophy. O verall left ventricular systolic function is low-normal with, an EF between 50 - 55 %. The right ventricle is normal in size. Normal LA size by volume 22+/-6 ml/m2. The right atrium is normal in size. Interatrial and interventricular septum intact. There is mild aortic valve sclerosis. There is mild aortic stenosis present. Peak/mean gradient a cross the Aortic Valve is 16.55mmHg / 7.88mmHg. Mild mitral annular calcification present. Mild mitral regurgitation is present. Mild tricuspid regurgitation present. There is moderate pulmonary hypertension. The right ventric ular systolic pressure, as measured by Doppler, is 49.45mmHg. The pulmonic valve was not well visualized. The aortic root size is normal. IVC Not well visulized. There is no pericardial effusion. CONCLUSIONS -------- 1. The left ventricular size is normal. 2. There is moderate concentric left ventricular hypertrophy. 3. Overall left ventricular systolic function is low-normal with, an EF between 50 - 55 %. 4. There is mild aortic valve sclerosis. 5. There is mild aortic stenosis present. 6. Peak/mean gradient across the Aortic Valve is 16.55mmHg / 7.88mmHg. 7. Mild mitral annular calcification present. 8. Mild mitral regurgitation is present. 9. Mild tricuspid regurgitation present. 10. There is moderate pulmonary hypertension. 11. The right ventricular systolic pressure, as measured by Doppler, is 49.45mmHg. 12. There is no pericardial effusion. NEUROPHYSIOLOGICAL TECHNICIAN: Rosa Maria Jones RDCS
[2020-05-25] MEDS: SYMBICORT 80-4.5 MCG INHALER INHALATION SCH ×2 (11:28→19:21)
--- NOTE | 2020-05-25 11:59 | P.CRDCN ---
History of Present Illness Consult date: 05/25/20 History of present illness: CHIEF COMPLAINT: PE HISTORY OF PRESENT ILLNESS: This is a 49-year old female with a past medical h istory significant for COPD, hypertension, hypothyroidism, and recent left total hip replacement. Patient does not follow up outpatient with the mask inspector. We have been asked to see the patient in consultation for PE. Patient examined this morning at the bedside. Patient reports she has been feeling weak, short of breath, feverish, and having body aches for the past few days. She reports swelling in her legs and states she usually takes a water pill that was prescribed by her PCP. She reports orthopnea and states she sleeps with 2-3 pillows. Patient reports she feels like she is unable to take a deep breath and feels chest discomfort with deep inspiration. DIAGNOSTICS: EKG reveals sinus tachycardia Chest xray opacities of the lung bases may be significant overlapping soft tissue. Pulmonary vasculature is normal. Laboratory data: WBC 9.8. Hemoglobin 8.7. Platelet count 365. D-dimer 3.07. Sodium 135. Potassium 4.0. BUN 10. Creatinine 0.70. LDH 1296. C-reactive protein to 25. Pro-calcitonin 0.13. Troponins negative 2. CTA: Likely PE left lower and upper lobe. Current home cardiac medications include verapamil 240 mg daily, Eliquis 2.5 mg twice a day, and lisinopril 40 mg daily. Patient reports that she takes a diuretic at home however this is not listed on her home medication list. REVIEW OF SYSTEMS: At the time of my exam: CONSTITUTIONAL: Denies fever or chills. HEENT: Denies blurred vision, vision changes, or eye pain. Denies hemoptysis CARDIOVASCULAR: Denies chest pain, orthopnea, PND or palpitations RESPIRATORY: Reports shortness of breath. GASTROINTESTINAL: Denies abdominal pain. Denies nausea or vomiting. HEMATOLOGIC: Denies bleeding disorders. GENITOURINARY: Denies any blood in urine. SKIN: Denies pruitis. Denies rash. PHYSICAL EXAM: VITAL SIGNS: Reviewed. GENERAL: Well-developed in no acute distress. HEENT: Head is normocephalic. Pupils are equal, round. Sclerae anicteric. Mucous membranes of the mouth are moist. Neck supple. No JVD or thyromegaly LUNGS: Respirations even and unlabored. Lungs with expiratory wheezing and fine rales to the bases. HEART: Regular rate and rhythm. S1 and S2 heard. ABDOMEN: Soft. Nondistended. Nontender. EXTREMITIES: Normal range of motion. No clubbing or cyanosis. Peripheral pulses intact. Trace bilateral lower extremity edema NEUROLOGIC: Awake and alert. Oriented x 3. ASSESSMENT: Sepsis, likely secondary to COVID 19 pneumonitis Acute left pulmonary embolus Possible mild diastolic heart failure, EF 50-55% Acute exacerbation of COPD Moderate pulmonary hypertension Hypertension Obesity: BMI 45.3 Nicotine Dependence PLAN: Await results of covid testing. Further management per internal medicine Increase Eliquis to 10mg BID secondary to acute PE Begin small dose of oral lasix 20mg PO daily Smoking cessation encouraged Further recommendations pending patient course Nurse practitioner note has been reviewed by physician. Signing provider agrees with the documented findings, assessment, and plan of care. Past Medical History Past Medical History: Asthma, COPD, GERD/Reflux, Hypertension, Liver Disease, Osteoarthritis (OA), Pneumonia, Sleep Apnea/CPAP/BIPAP, Thyroid Disorder Additional Past Medical History / Comment(s): CHRONIC BRONCHITIS, HEPATITIS C-in remission currently, CHRONIC BACK PAIN & NECK PAIN-painful to turn head to right, OVER-ACTIVE BLADDER, fungal pneumonia 10 yrs. ago, oxygen @[facility] 2l, unable to use CPAP, blood clot 6 yrs. ago in arm related to having PICC line-was on blood thinner for a while, steroid dose pack last week, leg & ankle swelling History of Any Multi-Drug Resistant Organisms: None Reported Past Surgical History: Section, Orthopedic Surgery, Tubal Ligation, Uterine Ablation Additional Past Surgical History / Comment(s): ARTHROSCOPY LEFT KNEE, METAL PLATE AND SCREWS RT TIBIA, liver biopsies, right rotator cuff repair, pain procedures, LEFT HIP Past Anesthesia/Blood Transfusion Reactions: No Reported Reaction Past Psychological History: Anxiety, Bipolar, Depression, Panic Disorder, PTSD Smoking Status: Current every day smoker Past Alcohol Use History: None Reported Additional Past Alcohol Use History / Comment(s): 1/2ppd since age of 14 Past Drug Use History: Marijuana Additional Drug Use History / Comment(s): uses @[facility] to help sleep - Past Family History Sister(s) Family Medical History: Cancer Medications and Allergies Home Medications Medication Instructions Recorded Confirmed Type Loratadine [Claritin] 10 mg PO DAILY 01/24/14 05/24/20 History Oxybutynin Chloride [Ditropan] 5 mg PO DAILY 01/24/14 05/24/20 History Gabapentin 300 mg PO TID 08/27/19 05/24/20 History Levothyroxine Sodium [Synthroid] 75 mcg PO DAILY 08/27/19 05/24/20 History lisinopriL 40 mg PO DAILY 08/27/19 05/24/20 History methocarbamoL [Robaxin] 500 mg PO BID 08/27/19 05/24/20 History traZODone HCL 300 mg PO HS 08/27/19 05/24/20 History Ipratropium-Albuterol Nebulize 3 ml INHALATION RT-QID PRN #90 neb 08/31/19 05/24/20 Rx [Duoneb 0.5 mg-3 mg/3 ml Soln] Albuterol Sulfate [Ventolin HFA] 2 puff INHALATION RT-QID PRN 05/15/20 05/24/20 History HYDROcodone/APAP 10-325MG [Irving 1 tab PO TID 05/15/20 05/24/20 History 10-325] Montelukast [Singulair] 10 mg PO HS 05/15/20 05/24/20 History Verapamil HCl [Verapamil ER] 240 mg PO HS 05/15/20 05/24/20 History Apixaban [Eliquis] 2.5 mg PO BID 35 Days #70 tab 05/17/20 05/24/20 Rx Albuterol Nebulized (Conc) 2.5 mg INHALATION RT-QID PRN 05/24/20 05/24/20 History [Ventolin Nebulized (Conc)] Fluticasone Propion/Salmeterol 1 puff INHALATION RT-BID 05/24/20 05/24/20 History [Wixela 250-50 Inhub] Montelukast [Singulair] 10 mg PO HS 05/24/20 05/24/20 History Omeprazole 40 mg PO DAILY 05/24/20 05/24/20 History Allergies Allergy/AdvReac Type Severity Reaction Status Date / Time No Known Allergies Allergy Verified 05/24/20 20:37 Physical Exam Vitals: Vital Signs Temp Pulse Pulse Resp BP BP Pulse Ox 05/25/20 11:42 88 05/25/20 11:29 84 05/25/20 08:29 84 05/25/20 08:13 80 05/25/20 08:00 98.2 F 81 22 142/72 97 05/25/20 04:00 98.0 F 67 22 149/69 96 05/25/20 00:00 88 18 05/24/20 23:23 99.9 F H 88 24 114/71 97 05/24/20 23:16 98.0 F 88 18 109/55 97 05/24/20 21:00 24 05/24/20 20:30 101.3 F H 107 H 24 138/80 97 05/24/20 20:22 76 16 05/24/20 20:07 73 16 05/24/20 20:00 103 H 24 134/85 97 05/24/20 19:13 102.3 F H 121 H 28 H 129/74 86 L Intake and Output 05/24/20 05/25/20 05/25/20 22:59 06:59 14:59 Intake Total 106.154 Balance 106.154 Intake: Intake, IV Titration 106.154 Amount Heparin Sod,Pork in 0.45% 106.154 NaCl 25,000 unit In 0.45 % NaCl 1 250ml.bag @ 18 UNITS/KG/HR 16.084 mls/hr IV .[id number] [facility] Rx#: [id number] Other: Voiding Method Toilet # Voids 2 1 Weight 89.358 kg 91.6 kg Results 05/25/20 04:30 05/24/20 19:37 Cardiac Enzymes 05/24/20 05/24/20 05/25/20 Range/Units 19:37 23:32 02:33 AST 28 (14-36) U/L Lactate Dehydrogenase 1296 H (313-618) U/L Troponin I <0.012 <0.012 (0.000-0.034) ng/mL Coagulation 05/24/20 05/25/20 Range/Units 19:37 04:37 PT 10.1 10.7 (9.0-12.0) sec APTT 23.7 74.8 H (22.0-30.0) sec Lipids 05/25/20 Range/Units 04:37 Triglycerides 119 (<150) mg/dL Cholesterol 140 (<200) mg/dL HDL Cholesterol 27 L (40-60) mg/dL CBC 05/24/20 05/25/20 Range/Units 19:37 04:30 WBC 12.1 H 9.8 (3.8-10.6) k/uL RBC 3.09 L 2.79 L (3.80-5.40) m/uL Hgb 9.8 L 8.7 L (11.4-16.0) gm/dL Hct 29.7 L 27.8 L (34.0-46.0) % Plt Count 396 365 (150-450) k/uL Comprehensive Metabolic Panel 05/24/20 Range/Units 19:37 Sodium 135 L (137-145) mmol/L Potassium 4.0 (3.5-5.1) mmol/L Chloride 104 (98-107) mmol/L Carbon Dioxide 25 (22-30) mmol/L BUN 10 (7-17) mg/dL Creatinine 0.74 (0.52-1.04) mg/dL Glucose 112 H (74-99) mg/dL Calcium 8.6 (8.4-10.2) mg/dL AST 28 (14-36) U/L ALT 11 (4-34) U/L Alkaline Phosphatase 33 L (38-126) U/L Total Protein 6.2 L (6.3-8.2) g/dL Albumin 3.3 L (3.5-5.0) g/dL Current Medications Generic Name Dose Route Start Last Admin Trade Name Freq PRN Reason Stop Dose Admin Hydrocodone Bitart/Acetaminophen 1 each 05/25/20 09:00 05/25/20 10:10 Hydrocodone/Apap 10-325mg 1 Each Tab PO 1 each TID AMINATA Administration Albuterol/Ipratropium 3 ml 05/25/20 07:40 Ipratropium-Albuterol 3 Ml Neb INHALATION RT-QID PRN Shortness Of Breath Or Wheezing Albuterol/Ipratropium 3 ml 05/25/20 08:00 05/25/20 11:28 Ipratropium-Albuterol 3 Ml Neb INHALATION 3 ml RT-QID AMINATA Administration Apixaban 10 mg 05/25/20 10:00 05/25/20 10:14 Apixaban 5 Mg Tab PO 10 mg BID AMINATA Administration Azithromycin 500 mg 05/25/20 22:25 Azithromycin 500 Mg Tab PO Q24H [facility] Budesonide/Formoterol Fumarate 2 puff 05/25/20 08:00 05/25/20 11:28 Symbicort 80-4.5 Mcg Inhaler INHALATION 2 puff RT-BID AMINATA Administration Dexamethasone 4 mg 05/25/20 09:00 05/25/20 10:11 Dexamethasone 4 Mg Tab PO 4 mg BID AMINATA Administration Gabapentin 300 mg 05/25/20 09:00 05/25/20 10:10 Gabapentin 300 Mg Cap PO 300 mg TID AMINATA Administration Hydromorphone HCl 1 mg 05/24/20 20:29 05/25/20 05:02 Hydromorphone 1 Mg/Ml 1 Ml Syringe IVP 1 mg Q4HR PRN Administration Pain Ceftriaxone Sodium 2 gm/ 50 mls @ 100 mls/hr 05/25/20 22:25 Sodium Chloride IVPB Q24H AMINATA Levothyroxine Sodium 75 mcg 05/25/20 08:00 05/25/20 10:05 Levothyroxine 75 Mcg Tab PO Not Given 0630 AMINATA Methocarbamol 500 mg 05/25/20 09:00 05/25/20 10:11 Methocarbamol 500 Mg Tab PO 500 mg BID AMINATA Administration Miscellaneous Information 1 each 05/24/20 22:21 Pneumonia Protocol Utilized 1 Each Misc PO ONCE PRN Per Protocol Montelukast Sodium 10 mg 05/25/20 21:00 Montelukast 10 Mg Tab PO HS AMINATA Morphine Sulfate 4 mg 05/24/20 22:21 Morphine Sulfate 4 Mg/Ml Syringe IV Q4HR PRN Chest Pain Nitroglycerin 0.4 mg 05/24/20 22:21 Nitroglycerin Sl Tabs 0.4 Mg Tab SUBLINGUAL Q5M PRN Chest Pain Oxybutynin Chloride 5 mg 05/25/20 09:00 05/25/20 10:10 Oxybutynin Chloride 5 Mg Tab PO 5 mg DAILY AMINATA Administration Pantoprazole Sodium 40 mg 05/25/20 09:00 05/25/20 10:11 Pantoprazole 40 Mg Tablet PO 40 mg DAILY AMINATA Administration Trazodone HCl 300 mg 05/25/20 21:00 Trazodone Hcl 100 Mg Tab PO HS AMINATA Verapamil HCl 240 mg 05/25/20 21:00 Verapamil Sr 240 Mg Tablet.Er PO HS AMINATA Intake and Output 05/24/20 05/25/20 05/25/20 22:59 06:59 14:59 Intake Total 106.154 Balance 106.154 Intake: Intake, IV Titration 106.154 Amount Heparin Sod,Pork in 0.45% 106.154 NaCl 25,000 unit In 0.45 % NaCl 1 250ml.bag @ 18 UNITS/KG/HR 16.084 mls/hr IV .[id number] [facility] Rx#: [id number] Other: Voiding Method Toilet # Voids 2 1 Weight 89.358 kg 91.6 kg 05/25/20 04:30 05/24/20 19:37
[2020-05-25 13:12] LABS: Appearance,Urine Cloudy (Clear); Bilirubin,Urine Negative (Negative); Blood,Urine Small (Negative); Color,Urine Yellow; Glucose,Urine (UA) Negative (Negative); Ketones,Urine 1+ (Negative); Leukocyte Esterase,Urine Negative (Negative); Mucus,Urine Rare /hpf; Nitrite,Urine Negative (Negative); Protein,Urine Trace (Negative); RBC,Urine 15 /hpf (0-5); Specific Gravity,Urine 1.041 (1.001-1.035); Squamous Epithelial Cell,Urine 3 /hpf (0-4); WBC,Urine 1 /hpf (0-5)
--- NOTE | 2020-05-25 14:06 | P.CNPUL ---
History of Present Illness Consult date: 05/25/20 Reason for consult: dyspnea Chief complaint: Dyspnea, weakness, chills History of present illness: This is a 49-year-old with past medical history of COPD on home oxygen at 2 L/min, hypertension, hyperlipidemia, history of hepatitis C treated, osteoarthritis, sleep apnea on CPAP, hypothyroidism, anxiety, depression, ex tensive history of smoking, who presented to emergency department on 05/24/2020 for evaluation of severe shortness of breath, fever, not feeling well, weakness, severe left hip pain. Patient had a recent history of left hip replacement about a week ago. In addition patient was experiencing mild nausea, but no vomiting. Her symptoms have been progressively worsening, over period of the last 4 days. She was experiencing some chest pain and shortness of breath. Chest x-ray shows opacities at the lung bases, and due to significant overlapping of soft tissue CT chest was recommended. CTA chest showed somewhat suboptimal enhancement in the pulmonary arteries, likely subsegmental pulmonary emboli of the left lower and left upper lobe, and multifocal ground glass opacities bilaterally and trace bilateral pleural effusions, suspicious for COVID 19 pneumonia. Hip x-ray showed left hip prosthesis, no evidence of a fracture. Patient was febrile on presentation with temp of 102.3F. She was only satting 86% on presentation on 3 L of oxygen, was tachycardic with a rate of 121, EKG showed sinus tachycardia. Labs showed a white blood cell count of 12.1, hemoglobin of 9.8, d-dimer was 3.07, sodium was 135, the rest of electrolytes and renal profile were within normal limits, plasma lactic acid was 1.6, LDH was 1296, CRP was 225, 2 sets of troponins were less than 0.012, pro calcitonin level was in intermediate range at 0.13, urinalysis showed trace protein and ketones, but negative for signs of infection, influenza screen was negative. COVID 19 PCR is pending. Patient was started on azithromycin and Rocephin, she is on oral Decadron 4 mg twice daily, patient is on Eliquis for a nticoagulation. Patient is being seen by cardiology for evaluation of chest pain Review of Systems All systems: negative Constitutional: Reports malaise, Reports weakness, Denies chills, Denies fever Eyes: denies blurred vision, denies pain Ears, nose, mouth and throat: Denies headache, Denies sore throat Cardiovascular: Reports chest pain, Reports shortness of breath Respiratory: Reports congestion, Reports dyspnea, Reports home oxygen, Denies cough Gastrointestinal: Denies abdominal pain, Denies diarrhea, Denies nausea, Denies vomiting Genitourinary: Denies dysuria, Denies hematuria Musculoskeletal: Denies myalgias Integumentary: Denies pruritus, Denies rash Neurological: Denies numbness, Denies weakness Psychiatric: Denies anxiety, Denies depression Endocrine: Denies fatigue, Denies weight change Past Medical History Past Medical History: Asthma, COPD, GERD/Reflux, Hypertension, Liver Disease, Osteoarthritis (OA), Pneumonia, Sleep Apnea/CPAP/BIPAP, Thyroid Disorder Additional Past Medical History / Comment(s): CHRONIC BRONCHITIS, HEPATITIS C-in remission currently, CHRONIC BACK PAIN & NECK PAIN-painful to turn head to right, OVER-ACTIVE BLADDER, fungal pneumonia 10 yrs. ago, oxygen @[facility] 2l, unable to use CPAP, blood clot 6 yrs. ago in arm related to having PICC line-was on blood thinner for a while, steroid dose pack last week, leg & ankle swelling History of Any Multi-Drug Resistant Organisms: None Reported Past Surgical History: Section, Orthopedic Surgery, Tubal Ligation, Uterine Ablation Additional Past Surgical History / Comment(s): ARTHROSCOPY LEFT KNEE, METAL PLATE AND SCREWS RT TIBIA, liver biopsies, right rotator cuff repair, pain procedures, LEFT HIP Past Anesthesia/Blood Transfusion Reactions: No Reported Reaction Past Psychological History: Anxiety, Bipolar, Depression, Panic Disorder, PTSD Smoking Status: Current every day smoker Past Alcohol Use History: None Reported Additional Past Alcohol Use History / Comment(s): 1/2ppd since age of 14 Past Drug Use History: Marijuana Additional Drug Use History / Comment(s): uses @[facility] to help sleep - Past Family History Sister(s) Family Medical History: Cancer Medications and Allergies Home Medications Medication Instructions Recorded Confirmed Type Loratadine [Claritin] 10 mg PO DAILY 01/24/14 05/24/20 History Oxybutynin Chloride [Ditropan] 5 mg PO DAILY 01/24/14 05/24/20 History Gabapentin 300 mg PO TID 08/27/19 05/24/20 History Levothyroxine Sodium [Synthroid] 75 mcg PO DAILY 08/27/19 05/24/20 History lisinopriL 40 mg PO DAILY 08/27/19 05/24/20 History methocarbamoL [Robaxin] 500 mg PO BID 08/27/19 05/24/20 History traZODone HCL 300 mg PO HS 08/27/19 05/24/20 History Ipratropium-Albuterol Nebulize 3 ml INHALATION RT-QID PRN #90 neb 08/31/19 05/24/20 Rx [Duoneb 0.5 mg-3 mg/3 ml Soln] Albuterol Sulfate [Ventolin HFA] 2 puff INHALATION RT-QID PRN 05/15/20 05/24/20 History HYDROcodone/APAP 10-325MG [[place] 1 tab PO TID 05/15/20 05/24/20 History 10-325] Montelukast [Singulair] 10 mg PO HS 05/15/20 05/24/20 History Verapamil HCl [Verapamil ER] 240 mg PO HS 05/15/20 05/24/20 History Apixaban [Eliquis] 2.5 mg PO BID 35 Days #70 tab 05/17/20 05/24/20 Rx Albuterol Nebulized (Conc) 2.5 mg INHALATION RT-QID PRN 05/24/20 05/24/20 History [Ventolin Nebulized (Conc)] Fluticasone Propion/Salmeterol 1 puff INHALATION RT-BID 05/24/20 05/24/20 History [Wixela 250-50 Inhub] Montelukast [Singulair] 10 mg PO HS 05/24/20 05/24/20 History Omeprazole 40 mg PO DAILY 05/24/20 05/24/20 History Allergies Allergy/AdvReac Type Severity Reaction Status Date / Time No Known Allergies Allergy Verified 05/24/20 20:37 Physical Exam Vitals: Vital Signs Temp Pulse Pulse Resp BP BP Pulse Ox 05/25/20 11:42 88 05/25/20 11:29 84 05/25/20 08:29 84 05/25/20 08:13 80 05/25/20 08:00 98.2 F 81 22 142/72 97 05/25/20 04:00 98.0 F 67 22 149/69 96 05/25/20 00:00 88 18 05/24/20 23:23 99.9 F H 88 24 114/71 97 05/24/20 23:16 98.0 F 88 18 109/55 97 05/24/20 21:00 24 05/24/20 20:30 101.3 F H 107 H 24 138/80 97 05/24/20 20:22 76 16 05/24/20 20:07 73 16 05/24/20 20:00 103 H 24 134/85 97 05/24/20 19:13 102.3 F H 121 H 28 H 129/74 86 L Intake and Output 05/24/20 05/25/20 05/25/20 22:59 06:59 14:59 Intake Total 106.154 Balance 106.154 Intake: Intake, IV Titration 106.154 Amount Heparin Sod,Pork in 0.45% 106.154 NaCl 25,000 unit In 0.45 % NaCl 1 250ml.bag @ 18 UNITS/KG/HR 16.084 mls/hr IV .[id number] [facility] Rx#: [id number] Other: Voiding Method Toilet # Voids 2 1 Weight 89.358 kg 91.6 kg GENERAL EXAM: Alert, very pleasant, 49-year-old obese white female, resting comfortably in bed, on 3 L of oxygen pulse ox of 96-97%, comfortable in no apparent distress. HEAD: Normocephalic/atraumatic. EYES: Normal reaction of pupils, equal size. Conjunctiva pink, sclera white. NOSE: Clear with pink turbinates. THROAT: No erythema or exudates. NECK: No masses, no JVD, no thyroid enlargement, no adenopathy. CHEST: No chest wall deformity. Symmetrical expansion. LUNGS: Equal air entry with scattered wheezes CVS: Regular rate and rhythm, normal S1 and S2, no gallops, no murmurs, no rubs ABDOMEN: Soft, nontender. No hepatosplenomegaly, normal bowel sounds, no guarding or rigidity. EXTREMITIES: No clubbing, no edema, no cyanosis, 2+ pulses and upper and lower extremities. MUSCULOSKELETAL: Muscle strength and tone normal. SPINE: No scoliosis or deformity SKIN: No rashes CENTRAL NERVOUS SYSTEM: Alert and oriented -3. No focal deficits, tone is normal in all 4 extremities. PSYCHIATRIC: Alert and oriented -3. Appropriate affect. Intact judgment and insight. Results - Laboratory Findings CBC and BMP: 05/25/20 04:30 05/24/20 19:37 PT/INR, D-dimer PT 10.7 sec (9.0-12.0) 05/25/20 04:37 INR 1.0 (<1.2) 05/25/20 04:37 D-Dimer 3.07 mg/L FEU (<0.60) H 05/24/20 19:37 Abnormal lab findings: Abnormal Labs 05/24/20 05/24/20 05/24/20 19:37 19:37 19:37 WBC 12.1 H RBC 3.09 L Hgb 9.8 L Hct 29.7 L Neutrophils # 9.8 H APTT D-Dimer 3.07 H Sodium 135 L Glucose 112 H Alkaline Phosphatase 33 L Lactate Dehydrogenase 1296 H C-Reactive Protein 225.5 H Total Protein 6.2 L Albumin 3.3 L HDL Cholesterol Procalcitonin Urine Appearance Ur Specific [place] Urine Protein Urine Ketones Urine Blood Urine RBC Urine Mucus 05/24/20 05/24/20 05/25/20 19:37 21:50 04:30 WBC RBC 2.79 L Hgb 8.7 L Hct 27.8 L Neutrophils # APTT D-Dimer Sodium Glucose Alkaline Phosphatase Lactate Dehydrogenase C-Reactive Protein Total Protein Albumin HDL Cholesterol Procalcitonin 0.13 H Urine Appearance Ur Specific [place] >1.050 H Urine Protein Trace H Urine Ketones 1+ H Urine Blood Urine RBC Urine Mucus 05/25/20 05/25/20 05/25/20 04:37 04:37 12:12 WBC RBC Hgb Hct Neutrophils # APTT 74.8 H D-Dimer Sodium Glucose Alkaline Phosphatase Lactate Dehydrogenase C-Reactive Protein Total Protein Albumin HDL Cholesterol 27 L Procalcitonin Urine Appearance Cloudy H Ur Specific [place] 1.041 H Urine Protein Trace H Urine Ketones 1+ H Urine Blood Small H Urine RBC 15 H Urine Mucus Rare H - Diagnostic Findings Chest x-ray: report reviewed, image reviewed CT scan - chest: report reviewed, image reviewed Additional studies: EKG reviewed, echocardiogram reviewed Assessment and Plan Plan: Assessment: #1. Acute on chronic hypoxic respiratory failure related to possibility of COVID 19 related pneumonia, or community acquired pneumonia, and possibility of subsegmental PEs in the left lung, influenza screen was negative. CTA chest showed possible subsegmental pulmonary emboli in the left lower and left upper l obes, and multifocal groundglass opacities bilaterally and trace bilateral pleural effusions, suspicious for COVID 19 pneumonitis #2. Fever, malaise, shortness of breath, chills, with onset of symptoms 4 days ago #3. Elevated inflammatory markers possibly related to Covid 19 pneumonitis #4. Chest discomfort with 2 sets of negative troponins, EKG showing sinus tachycardia, no acute ischemic changes, cardiology is following, echocardiogram showed moderate concentric LVH, preserved LV function with an EF of 50-55%, mild aortic stenosis, mild mitral regurg, mild tricuspid regurg, moderate pulmonary hypertension with PA pressure 49.4 mmHg #5. Chronic hypoxic respiratory failure related to COPD, patient usually wears 2 L of oxygen #6. Hypothyroidism #7. Hypertension #8. Past medical history of hepatitis C, treated, currently in remission #9. Chronic back pain #10. History of overactive bladder #11. GERD/reflux #12. Osteoarthritis #13. Sleep apnea on CPAP Plan: Continue current medical treatment, awaiting results of the COVID 19 PCR, continue with oral anticoagulation, echocardiogram reviewed, continue managing febrile pattern, continue current antibiotic coverage. We'll follow inflammatory markers, We'll continue to follow I performed a history & physical examination of the patient and discussed their management with my nurse practitioner, Thais Neumann. I reviewed the nurse practitioner's note and agree with the documented findings and plan of care. Lung sounds are positive for diminished, with a few scattered wheezes The findings and the impression was discussed with the patient. I attest to the documentation by the nurse practitioner. Time with Patient: Greater than 30
[2020-05-25] MEDS: MONTELUKAST 10 MG TAB PO SCH (20:28)
[2020-05-25] MEDS: traZODone HCL 100 MG TAB PO SCH (20:28)
[2020-05-25] MEDS: VERAPAMIL SR 240 MG TABLET.ER PO SCH (20:28)
[2020-05-25] MEDS ORDERED: AZITHROMYCIN 500 MG TAB PO SCH (22:25)
--- NOTE | 2020-05-25 22:43 | P.CONS ---
History of Present Illness - Reason for Consult Consult date: 05/25/20 Fever Requesting physician: Naresh Nieto - Chief Complaint Fever and shortness of breath x few days - History of Present Illness Patient is 49 year female with past medical history significant for COPD on home oxygen 2 L nasal cannula and history of sleep apnea recent left hip replacement presenting to the ER at [facility] with increasing shortness of breath cough and not feeling well for some of his going on for the last few days before presentation to the hospital patient also complaining of cough which has been motivated density mostly dry in nature denies any pruritic chest pain and nausea but no vomiting denies any abdominal pain and no diarrhea with the symptoms the patient was evaluated at the ER physician on arrival to the ER the patient did have a fever of 102F the patient was tachycardic did have normal kidney function white count was elevated at 12,000 with a left shift patient had did have normal liver enzymes and the CRP elevated as well as pro- calcitonin patient did have a chest x-ray which was suggestive opacity is of the lung bases may be due to significant overlapping soft tissue patient did have subsequently CT angiogram of the chest, we did show some marked some abnormal enhancement of the pulmonary arteries was suspicious for subsegmental pulmonary emboli and evidence of multifocal groundglass opacities and sulfa possible covid 19, patient has been admitted to the hospital patient was started on Rocephin 200 condition to the Zithromax steroids and bronchodilator infectious disease was consulted for further management of fever and antibiotic therapy Review of Systems Positive point has been mentioned in the HPI rest of the systems are negative Past Medical History Past Medical History: Asthma, COPD, GERD/Reflux, Hypertension, Liver Disease, Osteoarthritis (OA), Pneumonia, Sleep Apnea/CPAP/BIPAP, Thyroid Disorder Additional Past Medical History / Comment(s): CHRONIC BRONCHITIS, HEPATITIS C-in remission currently, CHRONIC BACK PAIN & NECK PAIN-painful to turn head to right, OVER-ACTIVE BLADDER, fungal pneumonia 10 yrs. ago, oxygen @[facility] 2l, unable to use CPAP, blood clot 6 yrs. ago in arm related to having PICC line-was on blood thinner for a while, steroid dose pack last week, leg & ankle swelling History of Any Multi-Drug Resistant Organisms: None Reported Past Surgical History: Section, Orthopedic Surgery, Tubal Ligation, Uterine Ablation Additional Past Surgical History / Comment(s): ARTHROSCOPY LEFT KNEE, METAL PLATE AND SCREWS RT TIBIA, liver biopsies, right rotator cuff repair, pain procedures, LEFT HIP Past Anesthesia/Blood Transfusion Reactions: No Reported Reaction Past Psychological History: Anxiety, Bipolar, Depression, Panic Disorder, PTSD Smoking Status: Current every day smoker Past Alcohol Use History: None Reported Additional Past Alcohol Use History / Comment(s): 1/2ppd since age of 14 Past Drug Use History: Marijuana Additional Drug Use History / Comment(s): uses @[facility] to help sleep - Past Family History Sister(s) Family Medical History: Cancer Medications and Allergies Home Medications Medication Instructions Recorded Confirmed Type Loratadine [Claritin] 10 mg PO DAILY 01/24/14 05/24/20 History Oxybutynin Chloride [Ditropan] 5 mg PO DAILY 01/24/14 05/24/20 History Gabapentin 300 mg PO TID 08/27/19 05/24/20 History Levothyroxine Sodium [Synthroid] 75 mcg PO DAILY 08/27/19 05/24/20 History lisinopriL 40 mg PO DAILY 08/27/19 05/24/20 History methocarbamoL [Robaxin] 500 mg PO BID 08/27/19 05/24/20 History traZODone HCL 300 mg PO HS 08/27/19 05/24/20 History Ipratropium-Albuterol Nebulize 3 ml INHALATION RT-QID PRN #90 neb 08/31/19 05/24/20 Rx [Duoneb 0.5 mg-3 mg/3 ml Soln] Albuterol Sulfate [Ventolin HFA] 2 puff INHALATION RT-QID PRN 05/15/20 05/24/20 History HYDROcodone/APAP 10-325MG [[place] 1 tab PO TID 05/15/20 05/24/20 History 10-325] Montelukast [Singulair] 10 mg PO HS 05/15/20 05/24/20 History Verapamil HCl [Verapamil ER] 240 mg PO HS 05/15/20 05/24/20 History Apixaban [Eliquis] 2.5 mg PO BID 35 Days #70 tab 05/17/20 05/24/20 Rx Albuterol Nebulized (Conc) 2.5 mg INHALATION RT-QID PRN 05/24/20 05/24/20 History [Ventolin Nebulized (Conc)] Fluticasone Propion/Salmeterol 1 puff INHALATION RT-BID 05/24/20 05/24/20 History [Wixela 250-50 Inhub] Montelukast [Singulair] 10 mg PO HS 05/24/20 05/24/20 History Omeprazole 40 mg PO DAILY 05/24/20 05/24/20 History Allergies Allergy/AdvReac Type Severity Reaction Status Date / Time No Known Allergies Allergy Verified 05/24/20 20:37 Physical Exam Vitals: Vital Signs Temp Pulse Pulse Resp BP BP Pulse Ox 05/25/20 15:15 76 05/25/20 15:04 72 05/25/20 12:00 98.2 F 82 18 120/68 97 05/25/20 11:42 88 05/25/20 11:29 84 05/25/20 08:29 84 05/25/20 08:13 80 05/25/20 08:00 98.2 F 81 22 142/72 97 05/25/20 04:00 98.0 F 67 22 149/69 96 05/25/20 00:00 88 18 05/24/20 23:23 99.9 F H 88 24 114/71 97 05/24/20 23:16 98.0 F 88 18 109/55 97 05/24/20 21:00 24 05/24/20 20:30 101.3 F H 107 H 24 138/80 97 05/24/20 20:22 76 16 05/24/20 20:07 73 16 05/24/20 20:00 103 H 24 134/85 97 05/24/20 19:13 102.3 F H 121 H 28 H 129/74 86 L Intake and Output 05/25/20 05/25/20 05/25/20 06:59 14:59 22:59 Intake Total 106.154 0 Output Total 200 Balance 106.154 0 -200 Intake: Intake, IV Titration 106.154 Amount Heparin Sod,Pork in 0.45% 106.154 NaCl 25,000 unit In 0.45 % NaCl 1 250ml.bag @ 18 UNITS/KG/HR 16.084 mls/hr IV .[id number] [facility] Rx#: [id number] Oral 0 Output: Urine 200 Other: Voiding Method Toilet # Voids 2 1 1 # Bowel Movements 1 Weight 91.6 kg GENERAL DESCRIPTION: Middle-aged female lying in bed, no distress. No tachypnea or accessory muscle of respiration use. HEENT: Shows Pallor , no scleral icterus. Oral mucous membrane is dry. No pharyngeal erythema or thrush NECK: Trachea central, no thyromegaly. LUNGS: Unlabored breathing. Coarse breath sounds bilaterally. No wheeze or crackle. HEART: S1, S2, regular rate and rhythm. No loud murmur ABDOMEN: Soft, no tenderness , guarding or rigidity, no organomegaly EXTREMITIES: No edema of feet. SKIN: No rash, no masses palpable. NEUROLOGICAL: The patient is awake, alert, oriented x3, mood and affect normal. Results CBC & Chem 7: 05/25/20 04:30 05/24/20 19:37 Labs: Abnormal Lab Results - Last 24 Hours (Table) 05/24/20 05/24/20 05/24/20 Range/Units 19:37 19:37 19:37 WBC 12.1 H (3.8-10.6) k/uL RBC 3.09 L (3.80-5.40) m/uL Hgb 9.8 L (11.4-16.0) gm/dL Hct 29.7 L (34.0-46.0) % Neutrophils # 9.8 H (1.3-7.7) k/uL APTT (22.0-30.0) sec D-Dimer 3.07 H (<0.60) mg/L FEU Sodium 135 L (137-145) mmol/L Glucose 112 H (74-99) mg/dL Alkaline Phosphatase 33 L (38-126) U/L Lactate Dehydrogenase 1296 H (313-618) U/L C-Reactive Protein 225.5 H (<10.0) mg/L Total Protein 6.2 L (6.3-8.2) g/dL Albumin 3.3 L (3.5-5.0) g/dL HDL Cholesterol (40-60) mg/dL Procalcitonin (0.02-0.09) ng/mL Urine Appearance (Clear) Ur Specific [place] (1.001-1.035) Urine Protein (Negative) Urine Ketones (Negative) Urine Blood (Negative) Urine RBC (0-5) /hpf Urine Mucus (None) /hpf 05/24/20 05/24/20 05/25/20 Range/Units 19:37 21:50 04:30 WBC (3.8-10.6) k/uL RBC 2.79 L (3.80-5.40) m/uL Hgb 8.7 L (11.4-16.0) gm/dL Hct 27.8 L (34.0-46.0) % Neutrophils # (1.3-7.7) k/uL APTT (22.0-30.0) sec D-Dimer (<0.60) mg/L FEU Sodium (137-145) mmol/L Glucose (74-99) mg/dL Alkaline Phosphatase (38-126) U/L Lactate Dehydrogenase (313-618) U/L C-Reactive Protein (<10.0) mg/L Total Protein (6.3-8.2) g/dL Albumin (3.5-5.0) g/dL HDL Cholesterol (40-60) mg/dL Procalcitonin 0.13 H (0.02-0.09) ng/mL Urine Appearance (Clear) Ur Specific [place] >1.050 H (1.001-1.035) Urine Protein Trace H (Negative) Urine Ketones 1+ H (Negative) Urine Blood (Negative) Urine RBC (0-5) /hpf Urine Mucus (None) /hpf 05/25/20 05/25/20 05/25/20 Range/Units 04:37 04:37 12:12 WBC (3.8-10.6) k/uL RBC (3.80-5.40) m/uL Hgb (11.4-16.0) gm/dL Hct (34.0-46.0) % Neutrophils # (1.3-7.7) k/uL APTT 74.8 H (22.0-30.0) sec D-Dimer (<0.60) mg/L FEU Sodium (137-145) mmol/L Glucose (74-99) mg/dL Alkaline Phosphatase (38-126) U/L Lactate Dehydrogenase (313-618) U/L C-Reactive Protein (<10.0) mg/L Total Protein (6.3-8.2) g/dL Albumin (3.5-5.0) g/dL HDL Cholesterol 27 L (40-60) mg/dL Procalcitonin (0.02-0.09) ng/mL Urine Appearance Cloudy H (Clear) Ur Specific [place] 1.041 H (1.001-1.035) Urine Protein Trace H (Negative) Urine Ketones 1+ H (Negative) Urine Blood Small H (Negative) Urine RBC 15 H (0-5) /hpf Urine Mucus Rare H (None) /hpf Assessment and Plan Assessment: 1-patient presented to the hospital with sepsis in this patient who did have a fever these are elevated white count with evidence of pneumonia concern for possible atypical viral or bacterial pneumonia, which is mostly of a bacterial pneumonia than a viral pneumonia such as covid 19 (1) Sepsis Current Visit: Yes Status: Acute Code(s): A41.9 - SEPSIS, UNSPECIFIED ORGANISM SNOMED Code(s): 24198724 (2) Pneumonia Current Visit: Yes Status: Acute Code(s): J18.9 - PNEUMONIA, UNSPECIFIED ORGANISM SNOMED Code(s): 643131109 Plan: 1-we will try to obtain sputum for Gram stain and culture 2-check urine for Legionella antigen 3- Rocephin 2 g daily and Zithromax to continue We will follow on clinical condition and cultures to further adjust medication if needed Thank you for this consultation will follow this patient with you Time with Patient: Greater than 30
[2020-05-26] MEDS: HYDROcodone/APAP 10-325MG 1 EACH TAB PO SCH ×4 (00:11→20:31)
[2020-05-26] MEDS: HYDROmorphone 1 MG/ML 1 ML SYRINGE IVP PRN (03:53)
[2020-05-26] MEDS: ALBUTEROL HFA INHALER INHALATION PRN (04:29)
[2020-05-26] MEDS: LEVOTHYROXINE 75 MCG TAB PO SCH (06:39)
[2020-05-26] MEDS ORDERED: ALBUTEROL HFA INHALER INHALATION STA (07:00)
[2020-05-26] MEDS: SYMBICORT 80-4.5 MCG INHALER INHALATION SCH (07:10)
[2020-05-26 07:56] LABS: Basophils % (A) 0 %; Eosinophils % (A) 0 %; HCT 28.6 % (34.0-46.0); HGB 8.8 gm/dL (11.4-16.0); Hypochromasia Slight; Lymphocytes % (A) 10 %; MCH 30.6 pg (25.0-35.0); MCHC 30.7 g/dL (31.0-37.0); MCV 99.8 fL (80.0-100.0); Mean Platelet Volume 7.5; Monocytes # (A) 0.2 k/uL (0-1.0); Monocytes % (A) 2 %; Neutrophils # (A) 8.7 k/uL (1.3-7.7); Neutrophils % (A) 88 %; Platelet Count 407 k/uL (150-450); RBC 2.87 m/uL (3.80-5.40)
[2020-05-26] MEDS ORDERED: ALBUTEROL HFA INHALER INHALATION SCH (08:00)
[2020-05-26 08:15] LABS: African American GFR (CKD) >90 (>60 ml/min/1.73 sqM); Anion Gap 7 mmol/L; Blood Urea Nitrogen 12 mg/dL (7-17); Calcium 8.9 mg/dL (8.4-10.2); Carbon Dioxide 23 mmol/L (22-30); Chloride 106 mmol/L (98-107); D-Dimer 1.63 mg/L FEU (<0.60); Glucose 154 mg/dL (74-99); LDH 961 U/L (313-618); Magnesium 2.2 mg/dL (1.6-2.3); Non-African American GFR(CKD) >90 (>60 ml/min/1.73 sqM); Potassium 4.8 mmol/L (3.5-5.1); Prothrombin Time 10.4 sec (9.0-12.0); Sodium 136 mmol/L (137-145)
[2020-05-26] MEDS: PANTOPRAZOLE 40 MG TABLET PO SCH (08:19)
[2020-05-26] MEDS: methocarbamoL 500 MG TAB PO SCH ×2 (08:19→20:31)
[2020-05-26] MEDS: OXYBUTYNIN CHLORIDE 5 MG TAB PO SCH (08:19)
[2020-05-26] MEDS: APIXABAN 5 MG TAB PO SCH ×2 (08:19→20:32)
[2020-05-26] MEDS: dexAMETHasone 4 MG TAB PO SCH (08:21)
[2020-05-26] MEDS: GABAPENTIN 300 MG CAP PO SCH ×3 (08:22→20:30)
[2020-05-26] MEDS ORDERED: FUROSEMIDE 20 MG TAB PO SCH (09:00)
--- NOTE | 2020-05-26 10:10 | P.PN ---
Subjective 43-year-old female came in with compensative fever shortness of breath generalized weakness body aches and a severe left hip pain. Patient had a re cent hip replacement. Patient did have fever, patient has all the lab abnormalities consistent with Covid 19. Patient has elevated LDH lymphopenia mildly elevated pro calcitonin and elevated d-dimer patient had a CT angios the chest chest CT in your the chest is findings are consistent with the diffuse groundglass a paced is an interstitial infiltrates consistent with the Covid 19 pneumonitis. Patient was started on antibiotics for the committee acquired pneumonia with Rocephin and azithromycin which will be continued for now probably these can be discontinue once we get the Covid 19 test if it's positive. Patient is comparing of shortness but does have history of COPD uses 2 L of Cardizem presently on [address] of angios the chest was read as possibility of for subsegmental PE. Pulmonary was consulted patient is already on Eliquis 2.5 mg twice a day which will be changed to 5 mg twice a day patient was started on IV heparin which will be discontinued. Patient is presently in COPD exacerbation as well with significant wheezing on exam. 05/26/2020 Patient's Covid 19 is negative. Patient probably has Legionella pneumonia Legionella urinary antigen is pending patient will be switched to levofloxacin at this can you Rocephin and azithromycin. Patient is still wheezing patient feels she is the same and she is requesting nebulization treatments rather than inhaled albuterol. Patient the wheezing is bit better in my opinion compared to yesterday. Not sure why patient was started on Lasix as will be discontinued. Constitutional: Denied any fatigue denied any fever. Cardio vascular: denied any chest pain, palpitations Gastrointestinal denied any nausea vomiting Pulmonary: Continuous to have shortness of breath Neurologic denied any new focal deficits All inpatient medications were reviewed and appropriate changes in these medications as dictated in the interval history and assessment and plan. Objective - Vital Signs Vital signs: Vital Signs Temp 97.5 F L 05/26/20 08:00 Pulse 58 L 05/26/20 08:00 Resp 18 05/26/20 08:00 BP 119/57 05/26/20 08:00 Pulse Ox 98 05/26/20 08:00 Intake & Output 05/25/20 05/26/20 05/26/20 18:59 06:59 18:59 Intake Total 240 Output Total 200 200 Balance 40 -200 Weight 90.5 kg Intake: Oral 240 Output: Urine 200 200 Other: Voiding Method Toilet # Voids 1 2 2 # Bowel Movements 1 - Exam PHYSICAL EXAMINATION: GENERAL: The patient is alert and oriented x3, patient is in mild respiratory distress. Well developed, well nourished. HEENT: Pupils are round and equally reacting to light. EOMI. No scleral icterus. No conjunctival pallor. Normocephalic, atraumatic. No pharyngeal erythema. No thyromegaly. CARDIOVASCULAR: S1 and S2 present. No murmurs, rubs, or gallops. PULMONARY: Significant expiratory wheezing but presented bilateral lung morel. ABDOMEN: Soft, nontender, nondistended, normoactive bowel sounds. No palpable organomegaly. MUSCULOSKELETAL: No joint swelling or deformity. EXTREMITIES: No cyanosis, clubbing, or pedal edema. NEUROLOGICAL: Gross neurological examination did not reveal any focal deficits. SKIN: No rashes. - Labs CBC & Chem 7: 05/26/20 07:42 05/26/20 07:42 Labs: Abnormal Lab Results - Last 24 Hours (Table) 05/25/20 05/26/20 05/26/20 Range/Units 12:12 07:42 07:42 RBC 2.87 L (3.80-5.40) m/uL Hgb 8.8 L (11.4-16.0) gm/dL Hct 28.6 L (34.0-46.0) % MCHC 30.7 L (31.0-37.0) g/dL Neutrophils # 8.7 H (1.3-7.7) k/uL D-Dimer 1.63 H (<0.60) mg/L FEU Sodium (137-145) mmol/L Glucose (74-99) mg/dL Lactate Dehydrogenase (313-618) U/L Urine Appearance Cloudy H (Clear) Ur Specific [place] 1.041 H (1.001-1.035) Urine Protein Trace H (Negative) Urine Ketones 1+ H (Negative) Urine Blood Small H (Negative) Urine RBC 15 H (0-5) /hpf Urine Mucus Rare H (None) /hpf 05/26/20 Range/Units 07:42 RBC (3.80-5.40) m/uL Hgb (11.4-16.0) gm/dL Hct (34.0-46.0) % MCHC (31.0-37.0) g/dL Neutrophils # (1.3-7.7) k/uL D-Dimer (<0.60) mg/L FEU Sodium 136 L (137-145) mmol/L Glucose 154 H (74-99) mg/dL Lactate Dehydrogenase 961 H (313-618) U/L Urine Appearance (Clear) Ur Specific [place] (1.001-1.035) Urine Protein (Negative) Urine Ketones (Negative) Urine Blood (Negative) Urine RBC (0-5) /hpf Urine Mucus (None) /hpf Microbiology - Last 24 Hours (Table) 05/25/20 04:37 Blood Culture - Preliminary Blood No Growth after 24 hours 05/25/20 04:45 Blood Culture - Preliminary Blood No Growth after 24 hours 05/24/20 19:37 Blood Culture - Preliminary Blood No Growth after 24 hours Assessment and Plan Plan: -Sepsis most Covid 19 pneumonitis was ruled out patient most probably has Legionella pneumonia, antibiotic in the form of Levaquin -Acute on chronic hypercapnic and hypoxic respiratory failure secondary to COPD exacerbation and severe interstitial pneumonia from Covid 19. Continue with the breathing treatments patient will be started on Decadron 4 mg twice a day. Patient may be a candidate for Remdesevir -Subsegmental PE possible, patient the is on Eliquis at this time. Patient probably will not need 10 mg twice a day as patient was already on Eliquis in that scenario we don't use loading doses. I'll switch her to 5 mg twice a day from tomorrow -Gastroesophageal reflux disease -Osteoarthritis -Sleep apnea -Hypothyroidism -Depression -History of hepatitis C follow-up as an outpatient. DVT prophylaxis: Patient is already in anticoagulation GI prophylaxis Pepcid
[2020-05-26] MEDS: IPRATROPIUM-ALBUTEROL 3 ML NEB INHALATION SCH ×3 (10:57→20:47)
[2020-05-26] MEDS: NICOTINE 14MG/24HR PATCH TRANSDERM SCH (11:15)
[2020-05-26] MEDS: LEVOFLOXACIN 500MG-D5W PMX 500 MG in DEXTROSE/WATER 1 100ML.BAG IVPB SCH (11:15)
[2020-05-26] MEDS: methylPREDNISolone SOD SUCCI 125 MG/2 ML VIAL IV SCH ×3 (11:15→23:58)
--- NOTE | 2020-05-26 12:54 | P.PN ---
Subjective Progress Note Date: 05/26/20 Principal diagnosis: Dyspnea, weakness, chills This is a 49-year-old with past medical history of COPD on home oxygen at 2 L/min, hypertension, hyperlipidemia, history of hepatitis C treated, osteoarthritis, sleep apnea on CPAP, hypothyroidism, anxiety, depression, extensive history of smoking, who presented to emergency department on 05/24/2020 for evaluation of severe shortness of breath, fever, not feeling well, weakness, severe left hip pain. Patient had a recent history of left hip replacement about a week ago. In addition patient was experiencing mild nausea, but no vomiting. Her symptoms have been progressively worsening, over period of the last 4 days. She was experiencing some chest pain and shortness of breath. Chest x-ray shows opacities at the lung bases, and due to significant overlapping of soft tissue CT chest was recommended. CTA chest showed somewhat suboptimal enhancement in the pulmonary arteries, likely subsegmental pulmonary emboli of the left lower and left upper lobe, and multifocal ground glass opacities bilaterally and trace bilateral pleural effusions, suspicious for COVID 19 pneumonia. Hip x-ray showed left hip prosthesis, no evidence of a fracture. Patient was febrile on presentation with temp of 102.3F. She was only satting 86% on presentation on 3 L of oxygen, was tachycardic with a rate of 121, EKG showed sinus tachycardia. Labs showed a white blood cell count of 12.1, hemoglobin of 9.8, d-dimer was 3.07, sodium was 135, the rest of electrolytes and renal profile were within normal limits, plasma lactic acid was 1.6, LDH was 1296, CRP was 225, 2 sets of troponins were less than 0.012, pro calcitonin level was in intermediate range at 0.13, urinalysis showed trace protein and ketones, but negative for signs of infection, influenza screen was negative. COVID 19 PCR is pending. Patient was started on azithromycin and Rocephin, she is on oral Decadron 4 mg twice daily, patient is on Eliquis for anticoagulation. Patient is being seen by cardiology for evaluation of chest pain On 05/26/20 patient seen in follow-up on selective care unit, last night she had episodes of increased dyspnea, and coughing, patient is on 2 L of oxygen per pulse ox of 99%, this morning she is very dyspneic with any exertion but she has been able to ambulate to the bathroom, recovers somewhat with rest, medicines have been stable, she has been afebrile, COVID 19 was ruled out, influenza was ruled out. Febrile pattern has improved. Blood and sputum cultures have shown no growth. Today's labs have been reviewed, with blood cell count is 10.0, hemoglobin is 8.8, INR is 1.0, d-dimer is 1.63, electrolytes and renal profile were unremarkable, troponins were less than 0.012, urinalysis was without any sign of infection. Objective - Vital Signs Vital signs: Vital Signs Temp 97.5 F L 05/26/20 08:00 Pulse 70 05/26/20 12:32 Resp 17 05/26/20 12:32 BP 121/71 05/26/20 12:32 Pulse Ox 99 05/26/20 12:32 Intake & Output 05/25/20 05/26/20 05/26/20 18:59 06:59 18:59 Intake Total 240 Output Total 200 200 Balance 40 -200 Weight 90.5 kg Intake: Oral 240 Output: Urine 200 200 Other: Voiding Method Toilet # Voids 1 2 2 # Bowel Movements 1 - Exam GENERAL EXAM: Alert, very pleasant, 41-year-old obese white female, on 2 L of oxygen with pulse ox 99% comfortable in no apparent distress. HEAD: Normocephalic/atraumatic. EYES: Normal reaction of pupils, equal size. Conjunctiva pink, sclera white. NOSE: Clear with pink turbinates. THROAT: No erythema or exudates. NECK: No masses, no JVD, no thyroid enlargement, no adenopathy. CHEST: No chest wall deformity. Symmetrical expansion. LUNGS: Equal air entry with scattered wheezes CVS: Regular rate and rhythm, normal S1 and S2, no gallops, no murmurs, no rubs ABDOMEN: Soft, nontender. No hepatosplenomegaly, normal bowel sounds, no guarding or rigidity. EXTREMITIES: No clubbing, no edema, no cyanosis, 2+ pulses and upper and lower extremities. MUSCULOSKELETAL: Muscle strength and tone normal. SPINE: No scoliosis or deformity SKIN: No rashes CENTRAL NERVOUS SYSTEM: Alert and oriented -3. No focal deficits, tone is normal in all 4 extremities. PSYCHIATRIC: Alert and oriented -3. Appropriate affect. Intact judgment and insight. - Labs CBC & Chem 7: 10/09/20 07:42 05/26/20 07:42 Labs: Abnormal Lab Results - Last 24 Hours (Table) 05/25/20 05/26/20 05/26/20 Range/Units 12:12 07:42 07:42 RBC 2.87 L (3.80-5.40) m/uL Hgb 8.8 L (11.4-16.0) gm/dL Hct 28.6 L (34.0-46.0) % MCHC 30.7 L (31.0-37.0) g/dL Neutrophils # 8.7 H (1.3-7.7) k/uL D-Dimer 1.63 H (<0.60) mg/L FEU Sodium (137-145) mmol/L Glucose (74-99) mg/dL Lactate Dehydrogenase (313-618) U/L Urine Appearance Cloudy H (Clear) Ur Specific [place] 1.041 H (1.001-1.035) Urine Protein Trace H (Negative) Urine Ketones 1+ H (Negative) Urine Blood Small H (Negative) Urine RBC 15 H (0-5) /hpf Urine Mucus Rare H (None) /hpf 05/26/20 Range/Units 07:42 RBC (3.80-5.40) m/uL Hgb (11.4-16.0) gm/dL Hct (34.0-46.0) % MCHC (31.0-37.0) g/dL Neutrophils # (1.3-7.7) k/uL D-Dimer (<0.60) mg/L FEU Sodium 136 L (137-145) mmol/L Glucose 154 H (74-99) mg/dL Lactate Dehydrogenase 961 H (313-618) U/L Urine Appearance (Clear) Ur Specific [place] (1.001-1.035) Urine Protein (Negative) Urine Ketones (Negative) Urine Blood (Negative) Urine RBC (0-5) /hpf Urine Mucus (None) /hpf Microbiology - Last 24 Hours (Table) 05/25/20 23:51 Sputum Culture - Preliminary Sputum 05/25/20 04:37 Blood Culture - Preliminary Blood No Growth after 24 hours 05/25/20 04:45 Blood Culture - Preliminary Blood No Growth after 24 hours 05/24/20 19:37 Blood Culture - Preliminary Blood No Growth after 24 hours Assessment and Plan Plan: Assessment: #1. Acute on chronic hypoxic respiratory failure related to possibility of COVID 19 related pneumonia, or community acquired pneumonia, and possibility of subsegmental PEs in the left lung, influenza screen was negative. CTA chest showed possible subsegmental pulmonary emboli in the left lower and left upper lobes, and multifocal groundglass opacities bilaterally and trace bilateral pleural effusions, COVID 19 negative #2. Fever, malaise, shortness of breath, chills, with onset of symptoms 4 days ago, febrile pattern has improved #3. Elevated inflammatory markers possibly related to Covid 19 pneumonitis #4. Chest discomfort with 2 sets of negative troponins, EKG showing sinus tachycardia, no acute ischemic changes, cardiology is following, echocardiogram showed moderate concentric LVH, preserved LV function with an EF of 50-55%, mild aortic stenosis, mild mitral regurg, mild tricuspid regurg, moderate pulmonary hypertension with PA pressure 49.4 mmHg #5. Chronic hypoxic respiratory failure related to COPD, patient usually wears 2 L of oxygen #6. Hypothyroidism #7. Hypertension #8. Past medical history of hepatitis C, treated, currently in remission #9. Chronic back pain #10. History of overactive bladder #11. GERD/reflux #12. Osteoarthritis #13. Sleep apnea on CPAP Plan: Continue with current medical treatment, nebulized bronchodilators, antibiotics, will switch to oral Decadron to IV Solu-Medrol, continue with cough syrup. I performed a history & physical examination of the patient and discussed their management with my nurse practitioner, Thais Neumann. I reviewed the nurse practitioner's note and agree with the documented findings and plan of care. Lung sounds are positive for diminished, with a few scattered wheezes The findings and the impression was discussed with the patient. I attest to the documentation by the nurse practitioner. Time with Patient: Less than 30
--- NOTE | 2020-05-26 17:24 | PN ---
PROGRESS NOTE DATE OF SERVICE: 05/26/2020 REASON FOR FOLLOWUP: Pneumonia. INTERVAL HISTORY: The patient is currently afebrile, patient is breathing comfortably. The patient denies having any chest pain. Her breathing has improved. No nausea, vomiting. Did have more cough. No sputum. No nausea, no vomiting. No abdominal pain no diarrhea. PHYSICAL EXAMINATION: Blood pressure 152/62 with a pulse of 82, temperature 97.5. She is 98% on 2 L nasal cannula. General description is a middle-aged female, lying in bed in no distress. RESPIRATORY SYSTEM: Unlabored breathing. Occasional wheeze. HEART: S1, S2. Regular rate and rhythm. ABDOMEN: Soft, no tenderness. LABS: Hemoglobin 8.1, white count 10.0, creatinine 0.68. Urine for Legionella antigen is negative. Sputum culture currently pending, blood culture so far negative. IMPRESSION/PLAN: Patient admitted to the hospital with shortness of breath and cough with concern for pneumonia, likely community-acquired. Patient seemed to have shown improvement to current antibiotic therapy, has been switched to Levaquin. Continue follow sputum culture and adjust antibiotic further if needed. Continue supportive care. MMODL / IJN: [id number] /
[2020-05-26] MEDS: VERAPAMIL SR 240 MG TABLET.ER PO SCH (20:30)
[2020-05-26] MEDS: MONTELUKAST 10 MG TAB PO SCH (20:32)
[2020-05-26] MEDS: traZODone HCL 100 MG TAB PO SCH (20:32)
[2020-05-26] MEDS: BUDESONIDE 1 MG/2 ML NEBU INHALATION SCH (20:47)
[2020-05-26] MEDS: FORMOTEROL FUMARATE 20 MCG/2 ML NEBU INHALATION SCH (20:47)
[2020-05-27] MEDS: ALBUTEROL HFA INHALER INHALATION PRN (05:50)
[2020-05-27] MEDS: LEVOTHYROXINE 75 MCG TAB PO SCH (06:43)
[2020-05-27] MEDS: methylPREDNISolone SOD SUCCI 125 MG/2 ML VIAL IV SCH ×3 (06:43→17:33)
--- NOTE | 2020-05-27 07:48 | XR ---
EXAMINATION TYPE: XR chest 1V portable DATE OF EXAM: 05/27/2020 COMPARISON: [id number] HISTORY: Pneumonia TECHNIQUE: Single frontal view of the chest is obtained. FINDINGS: Diffuse interstitial pattern with more patchy infiltrate in the upper lobe. Joint. Heart e nlarged. No obvious pleural effusion. No pneumothorax. Findings are stable given differences in techn ique. IMPRESSION: 1. Interstitial pneumonitis versus venous congestion suspected left upper lobe. Perihilar patchy infi ltrate similar in appearance to the prior exam given differences in technique. Infectious etiology fa vored over venous congestion.
[2020-05-27] MEDS: IPRATROPIUM-ALBUTEROL 3 ML NEB INHALATION SCH ×4 (08:23→20:08)
[2020-05-27] MEDS: FORMOTEROL FUMARATE 20 MCG/2 ML NEBU INHALATION SCH ×2 (08:23→20:08)
[2020-05-27] MEDS: BUDESONIDE 1 MG/2 ML NEBU INHALATION SCH ×2 (08:23→20:08)
[2020-05-27 08:31] LABS: African American GFR (CKD) >90 (>60 ml/min/1.73 sqM); Anion Gap 5 mmol/L; Blood Urea Nitrogen 17 mg/dL (7-17); Calcium 9.1 mg/dL (8.4-10.2); Carbon Dioxide 27 mmol/L (22-30); Chloride 106 mmol/L (98-107); Glucose 193 mg/dL (74-99); Non-African American GFR(CKD) >90 (>60 ml/min/1.73 sqM); Potassium 4.7 mmol/L (3.5-5.1); Sodium 138 mmol/L (137-145)
[2020-05-27 08:32] LABS: INR 1.1 (<1.2); Prothrombin Time 10.9 sec (9.0-12.0)
[2020-05-27 08:39] LABS: Basophils % (A) 0 %; Eosinophils % (A) 0 %; HCT 28.1 % (34.0-46.0); HGB 9.1 gm/dL (11.4-16.0); Hypochromasia Slight; Lymphocytes # (A) 0.8 k/uL (1.0-4.8); Lymphocytes % (A) 6 %; MCH 32.7 pg (25.0-35.0); MCHC 32.4 g/dL (31.0-37.0); MCV 100.8 fL (80.0-100.0); Mean Platelet Volume 7.3; Monocytes # (A) 0.4 k/uL (0-1.0); Monocytes % (A) 3 %; Neutrophils # (A) 11.7 k/uL (1.3-7.7); Neutrophils % (A) 90 %; Platelet Count 454 k/uL (150-450); RBC 2.79 m/uL (3.80-5.40); RDW 12.9 % (11.5-15.5)
[2020-05-27] MEDS: PANTOPRAZOLE 40 MG TABLET PO SCH (09:43)
[2020-05-27] MEDS: HYDROcodone/APAP 10-325MG 1 EACH TAB PO SCH ×3 (09:43→21:11)
[2020-05-27] MEDS: GABAPENTIN 300 MG CAP PO SCH ×3 (09:43→21:11)
[2020-05-27] MEDS: OXYBUTYNIN CHLORIDE 5 MG TAB PO SCH (09:43)
[2020-05-27] MEDS: APIXABAN 5 MG TAB PO SCH ×2 (09:44→21:12)
[2020-05-27] MEDS: LEVOFLOXACIN 500MG-D5W PMX 500 MG in DEXTROSE/WATER 1 100ML.BAG IVPB SCH (09:44)
[2020-05-27] MEDS: methocarbamoL 500 MG TAB PO SCH ×2 (09:44→21:11)
[2020-05-27] MEDS: NICOTINE 14MG/24HR PATCH TRANSDERM SCH ×2 (09:44→21:12)
--- NOTE | 2020-05-27 11:53 | P.PN ---
Subjective 43-year-old female came in with compensative fever shortness of breath generalized weakness body aches and a severe left hip pain. Patient had a re cent hip replacement. Patient did have fever, patient has all the lab abnormalities consistent with Covid 19. Patient has elevated LDH lymphopenia mildly elevated pro calcitonin and elevated d-dimer patient had a CT angios the chest chest CT in your the chest is findings are consistent with the diffuse groundglass a paced is an interstitial infiltrates consistent with the Covid 19 pneumonitis. Patient was started on antibiotics for the committee acquired pneumonia with Rocephin and azithromycin which will be continued for now probably these can be discontinue once we get the Covid 19 test if it's positive. Patient is comparing of shortness but does have history of COPD uses 2 L of Cardizem presently on [address] of angios the chest was read as possibility of for subsegmental PE. Pulmonary was consulted patient is already on Eliquis 2.5 mg twice a day which will be changed to 5 mg twice a day patient was started on IV heparin which will be discontinued. Patient is presently in COPD exacerbation as well with significant wheezing on exam. 05/26/2020 Patient's Covid 19 is negative. Patient probably has Legionella pneumonia Legionella urinary antigen is pending patient will be switched to levofloxacin at this can you Rocephin and azithromycin. Patient is still wheezing patient feels she is the same and she is requesting nebulization treatments rather than inhaled albuterol. Patient the wheezing is bit better in my opinion compared to yesterday. Not sure why patient was started on Lasix as will be discontinued. 05/27/2020 Patient is feeling much better today patienthas significant improvement in wheezing patient clinically appears to have atypical pneumonia although her urinary Legionella antigen is negative patient will be continued on levofloxacin. Constitutional: Denied any fatigue denied any fever. Cardio vascular: denied any chest pain, palpitations Gastrointestinal denied any nausea vomiting Pulmonary: Continuous to have shortness of breath Neurologic denied any new focal deficits All inpatient medications were reviewed and appropriate changes in these medications as dictated in the interval history and assessment and plan. Objective - Vital Signs Vital signs: Vital Signs Temp 97.8 F 05/27/20 09:38 Pulse 72 05/27/20 11:31 Resp 18 05/27/20 09:38 BP 119/58 10/10/20 09:38 Pulse Ox 98 05/27/20 09:38 Intake & Output 05/26/20 05/27/20 05/27/20 18:59 06:59 18:59 Intake Total 240 200 90 Balance 240 200 90 Weight 91.4 kg Intake: Oral 240 200 90 Other: Voiding Method Toilet Toilet # Voids 2 3 - Exam PHYSICAL EXAMINATION: GENERAL: The patient is alert and oriented x3, patient is in mild respiratory distress. Well developed, well nourished. HEENT: Pupils are round and equally reacting to light. EOMI. No scleral icterus. No conjunctival pallor. Normocephalic, atraumatic. No pharyngeal erythema. No thyromegaly. CARDIOVASCULAR: S1 and S2 present. No murmurs, rubs, or gallops. PULMONARY: significant improvement in wheezing but presented bilateral lung morel ABDOMEN: Soft, nontender, nondistended, normoactive bowel sounds. No palpable organomegaly. MUSCULOSKELETAL: No joint swelling or deformity. EXTREMITIES: No cyanosis, clubbing, or pedal edema. NEUROLOGICAL: Gross neurological examination did not reveal any focal deficits. SKIN: No rashes. - Labs CBC & Chem 7: 05/27/20 08:01 05/27/20 08:01 Labs: Abnormal Lab Results - Last 24 Hours (Table) 05/27/20 05/27/20 Range/Units 08:01 08:01 WBC 13.0 H (3.8-10.6) k/uL RBC 2.79 L (3.80-5.40) m/uL Hgb 9.1 L (11.4-16.0) gm/dL Hct 28.1 L (34.0-46.0) % MCV 100.8 H (80.0-100.0) fL Plt Count 454 H (150-450) k/uL Neutrophils # 11.7 H (1.3-7.7) k/uL Lymphocytes # 0.8 L (1.0-4.8) k/uL Glucose 193 H (74-99) mg/dL Microbiology - Last 24 Hours (Table) 05/25/20 04:45 Blood Culture - Preliminary Blood No Growth after 48 hours 05/25/20 04:37 Blood Culture - Preliminary Blood No Growth after 48 hours 05/24/20 19:37 Blood Culture - Preliminary Blood No Growth after 48 hours 05/25/20 23:51 Gram Stain - Preliminary Sputum Sputum Culture - Preliminary 05/25/20 23:51 Legionella Culture - Preliminary Sputum Assessment and Plan Plan: -Sepsis most Covid 19 pneumonitis was ruled out urinaryLegionella region is negative although patient appears to have atypical pneumonia, antibiotic in the form of Levaquin -Acute on chronic hypercapnic and hypoxic respiratory failure secondary to COPD exacerbation and severe interstitial pneumonia from Covid 19. Continue with the breathing treatments steroids -Subsegmental PE possible, patient the is on Eliquis at this time. Patient probably will not need 10 mg twice a day as patient was already on Eliquis in that scenario we don't use loading doses. -Gastroesophageal reflux disease -Osteoarthritis -Sleep apnea -Hypothyroidism -Depression -History of hepatitis C follow-up as an outpatient. DVT prophylaxis: Patient is already in anticoagulation GI prophylaxis Pepcid
--- NOTE | 2020-05-27 12:49 | P.PN ---
Subjective Progress Note Date: 05/27/20 Principal diagnosis: Dyspnea, weakness, chills This is a 49-year-old with past medical history of COPD on home oxygen at 2 L/min, hypertension, hyperlipidemia, history of hepatitis C treated, osteoarthritis, sleep apnea on CPAP, hypothyroidism, anxiety, depression, extensive history of smoking, who presented to emergency department on 05/24/2020 for evaluation of severe shortness of breath, fever, not feeling well, weakness, severe left hip pain. Patient had a recent history of left hip replacement about a week ago. In addition patient was experiencing mild nausea, but no vomiting. Her symptoms have been progressively worsening, over period of the last 4 days. She was experiencing some chest pain and shortness of breath. Chest x-ray shows opacities at the lung bases, and due to significant overlapping of soft tissue CT chest was recommended. CTA chest showed somewhat suboptimal enhancement in the pulmonary arteries, likely subsegmental pulmonary emboli of the left lower and left upper lobe, and multifocal ground glass opacities bilaterally and trace bilateral pleural effusions, suspicious for COVID 19 pneumonia. Hip x-ray showed left hip prosthesis, no evidence of a fracture. Patient was febrile on presentation with temp of 102.3F. She was only satting 86% on presentation on 3 L of oxygen, was tachycardic with a rate of 121, EKG showed sinus tachycardia. Labs showed a white blood cell count of 12.1, hemoglobin of 9.8, d-dimer was 3.07, sodium was 135, the rest of electrolytes and renal profile were within normal limits, plasma lactic acid was 1.6, LDH was 1296, CRP was 225, 2 sets of troponins were less than 0.012, pro calcitonin level was in intermediate range at 0.13, urinalysis showed trace protein and ketones, but negative for signs of infection, influenza screen was negative. COVID 19 PCR is pending. Patient was started on azithromycin and Rocephin, she is on oral Decadron 4 mg twice daily, patient is on Eliquis for anticoagulation. Patient is being seen by cardiology for evaluation of chest pain On 05/26/20 patient seen in follow-up on selective care unit, last night she had episodes of increased dyspnea, and coughing, patient is on 2 L of oxygen per pulse ox of 99%, this morning she is very dyspneic with any exertion but she has been able to ambulate to the bathroom, recovers somewhat with rest, medicines have been stable, she has been afebrile, COVID 19 was ruled out, influenza was ruled out. Febrile pattern has improved. Blood and sputum cultures have shown no growth. Today's labs have been reviewed, with blood cell count is 10.0, hemoglobin is 8.8, INR is 1.0, d-dimer is 1.63, electrolytes and renal profile were unremarkable, troponins were less than 0.012, urinalysis was without any sign of infection. The patient is seen today 05/27/2020 follow-up on the selective care unit. She is doing quite a bit better. Less short of breath. Less cough and congestion. Covid screen was negative. She is currently on 2 L/m per nasal cannula. She does have home oxygen. She's been afebrile. Hemodynamically stable. Sputum culture reveals no growth to date. Blood cultures reveal no growth. White count 13.0. Hemoglobin 9.1. Sodium 138. Potassium 4.7. Creatinine 0.70. Urine legionella antigen negative. Remains on DuoNeb inhalations, Pulmicort and Perforomist inhalations, Singulair, IV Solu-Medrol. Antibiotics in the form of Levaquin. Anticoagulated with Eliquis. NicoDerm patch in place. Objective - Vital Signs Vital signs: Vital Signs Temp 98.8 F 05/27/20 12:15 Pulse 64 05/27/20 12:15 Resp 18 05/27/20 12:15 BP 155/81 05/27/20 12:15 Pulse Ox 97 05/27/20 12:15 Intake & Output 05/26/20 05/27/20 05/27/20 18:59 06:59 18:59 Intake Total 240 200 90 Balance 240 200 90 Weight 91.4 kg Intake: Oral 240 200 90 Other: Voiding Method Toilet Toilet # Voids 2 3 - Exam GENERAL EXAM: Alert, very pleasant, 41-year-old obese white female, on 2 L of oxygen with pulse ox 97% comfortable in no apparent distress. HEAD: Normocephalic/atraumatic. EYES: Normal reaction of pupils, equal size. Conjunctiva pink, sclera white. NOSE: Clear with pink turbinates. THROAT: No erythema or exudates. NECK: No masses, no JVD, no thyroid enlargement, no adenopathy. CHEST: No chest wall deformity. Symmetrical expansion. LUNGS: Equal air entry with scattered wheezes CVS: Regular rate and rhythm, normal S1 and S2, no gallops, no murmurs, no rubs ABDOMEN: Soft, nontender. No hepatosplenomegaly, normal bowel sounds, no guarding or rigidity. EXTREMITIES: No clubbing, no edema, no cyanosis, 2+ pulses and upper and lower extremities. MUSCULOSKELETAL: Muscle strength and tone normal. SPINE: No scoliosis or deformity SKIN: No rashes CENTRAL NERVOUS SYSTEM: Alert and oriented -3. No focal deficits, tone is normal in all 4 extremities. PSYCHIATRIC: Alert and oriented -3. Appropriate affect. Intact judgment and insight. - Labs CBC & Chem 7: 05/27/20 08:01 05/27/20 08:01 Labs: Abnormal Lab Results - Last 24 Hours (Table) 05/27/20 05/27/20 Range/Units 08:01 08:01 WBC 13.0 H (3.8-10.6) k/uL RBC 2.79 L (3.80-5.40) m/uL Hgb 9.1 L (11.4-16.0) gm/dL Hct 28.1 L (34.0-46.0) % MCV 100.8 H (80.0-100.0) fL Plt Count 454 H (150-450) k/uL Neutrophils # 11.7 H (1.3-7.7) k/uL Lymphocytes # 0.8 L (1.0-4.8) k/uL Glucose 193 H (74-99) mg/dL Microbiology - Last 24 Hours (Table) 05/25/20 04:45 Blood Culture - Preliminary Blood No Growth after 48 hours 05/25/20 04:37 Blood Culture - Preliminary Blood No Growth after 48 hours 05/24/20 19:37 Blood Culture - Preliminary Blood No Growth after 48 hours 05/25/20 23:51 Gram Stain - Preliminary Sputum Sputum Culture - Preliminary 05/25/20 23:51 Legionella Culture - Preliminary Sputum Assessment and Plan Assessment: #1. Acute on chronic hypoxic respiratory failure related to community acquired pneumonia, and possibility of subsegmental PEs in the left lung, influenza screen was negative. CTA chest showed possible subsegmental pulmonary emboli in the left lower and left upper lobes, and multifocal groundglass opacities bilaterally and trace bilateral pleural effusions, COVID 19 negative , legionella screen negative #2. Fever, malaise, shortness of breath, chills, with onset of symptoms 4 days ago, febrile pattern has improved #3. Elevated inflammatory markers possibly related to Covid 19 pneumonitis #4. Chest discomfort with 2 sets of negative troponins, EKG showing sinus tachycardia, no acute ischemic changes, cardiology is following, echocardiogram showed moderate concentric LVH, preserved LV function with an EF of 50-55%, mild aortic stenosis, mild mitral regurg, mild tricuspid regurg, moderate pulmonary hypertension with PA pressure 49.4 mmHg #5. Chronic hypoxic respiratory failure related to COPD, patient usually wears 2 L of oxygen #6. Hypothyroidism #7. Hypertension #8. Past medical history of hepatitis C, treated, currently in remission #9. Chronic back pain #10. History of overactive bladder #11. GERD/reflux #12. Osteoarthritis #13. Sleep apnea on CPAP Plan: The patient was seen and evaluated by Dr. Mariel Cain from the pulmonary standpoint Transitioned to oral prednisone To her home pulmonary medications. Complete course of antibiotics follow up in the office in 1-2 weeks' time I, the cosigning physician, performed a history & physical examination of the patient. Lungs sounds with faint bilateral end expiratory wheeze, diminished. Maintaining good O2 saturations in the 90s on 2 L/m per nasal cannula. I discussed the assessment and plan of care with my nurse practitioner, Zeynep Grier. I attest to the above note as dictated by her.
[2020-05-27] MEDS ORDERED: VANCOMYCIN IV PER PHARMACY 1 EACH MISC MISCELLANE PRN (19:37)
[2020-05-27] MEDS ORDERED: VANCOMYCIN 1,500 MG in SODIUM CHLORIDE 0.9% 250 ML IVPB ONE (20:30)
--- NOTE | 2020-05-27 20:43 | PN ---
PROGRESS NOTE DATE OF SERVICE: 05/27/2020 REASON FOR FOLLOWUP: Pneumonia. INTERVAL HISTORY: Patient is currently afebrile. The patient is breathing more comfortably. The patient did have a cough and is bringing up some sputum. No hemoptysis. No chest pain. No abdominal pain. No diarrhea. PHYSICAL EXAMINATION: Blood pressure 140/78 with a pulse of 73, temperature 98.4. She is 93% on 2 L nasal cannula. General description is a middle-aged female up in the bed in no distress. Respiratory system: Unlabored breathing. Occasional wheeze. Heart S1, S2. Regular rate and rhythm. ABDOMEN: Soft, no tenderness. LABS: Hemoglobin 9.1. White count 13,000. BUN of 13, creatinine 0.70. Sputum now showing presumptive Staph aureus. DIAGNOSTIC IMPRESSION AND PLAN: Patient admitted to the hospital with acute pneumonia. Sputum is showing Staph aureus with question of possible MRSA. We will add vancomycin while waiting for the culture to finalize and continue supportive care. MMODL / IJN: [id number] /
[2020-05-27] MEDS: traZODone HCL 100 MG TAB PO SCH (21:11)
[2020-05-27] MEDS: VERAPAMIL SR 240 MG TABLET.ER PO SCH (21:11)
[2020-05-27] MEDS: MONTELUKAST 10 MG TAB PO SCH (21:11)
[2020-05-28] MEDS: methylPREDNISolone SOD SUCCI 125 MG/2 ML VIAL IV SCH ×5 (01:04→23:16)
[2020-05-28] MEDS: IPRATROPIUM-ALBUTEROL 3 ML NEB INHALATION PRN (02:02)
[2020-05-28] MEDS: LEVOTHYROXINE 75 MCG TAB PO SCH (06:02)
[2020-05-28] MEDS ORDERED: VANCOMYCIN 1,500 MG in SODIUM CHLORIDE 0.9% 250 ML IVPB SCH (07:00)
[2020-05-28] MEDS: IPRATROPIUM-ALBUTEROL 3 ML NEB INHALATION SCH ×4 (07:18→19:53)
[2020-05-28] MEDS: FORMOTEROL FUMARATE 20 MCG/2 ML NEBU INHALATION SCH ×2 (07:18→19:53)
[2020-05-28] MEDS: BUDESONIDE 1 MG/2 ML NEBU INHALATION SCH ×2 (07:18→19:53)
[2020-05-28] MEDS: GABAPENTIN 300 MG CAP PO SCH ×3 (08:24→21:50)
[2020-05-28] MEDS: NICOTINE 14MG/24HR PATCH TRANSDERM SCH (08:24)
[2020-05-28] MEDS: HYDROcodone/APAP 10-325MG 1 EACH TAB PO SCH ×3 (08:24→21:49)
[2020-05-28] MEDS: OXYBUTYNIN CHLORIDE 5 MG TAB PO SCH (08:24)
[2020-05-28] MEDS: APIXABAN 5 MG TAB PO SCH ×2 (08:24→21:49)
[2020-05-28] MEDS: methocarbamoL 500 MG TAB PO SCH ×2 (08:24→21:48)
[2020-05-28] MEDS: PANTOPRAZOLE 40 MG TABLET PO SCH (08:24)
[2020-05-28] MEDS: LEVOFLOXACIN 500MG-D5W PMX 500 MG in DEXTROSE/WATER 1 100ML.BAG IVPB SCH (09:22)
[2020-05-28 09:29] LABS: Non-African American GFR(CKD) 87.2 (60.0-200.0)
--- NOTE | 2020-05-28 11:09 | P.PN ---
Subjective Progress Note Date: 05/28/20 Principal diagnosis: Dyspnea, weakness, chills This is a 49-year-old with past medical history of COPD on home oxygen at 2 L/min, hypertension, hyperlipidemia, history of hepatitis C treated, osteoarthritis, sleep apnea on CPAP, hypothyroidism, anxiety, depression, extensive history of smoking, who presented to emergency department on 05/24/2020 for evaluation of severe shortness of breath, fever, not feeling well, weakness, severe left hip pain. Patient had a recent history of left hip replacement about a week ago. In addition patient was experiencing mild nausea, but no vomiting. Her symptoms have been progressively worsening, over period of the last 4 days. She was experiencing some chest pain and shortness of breath. Chest x-ray shows opacities at the lung bases, and due to significant overlapping of soft tissue CT chest was recommended. CTA chest showed somewhat suboptimal enhancement in the pulmonary arteries, likely subsegmental pulmonary emboli of the left lower and left upper lobe, and multifocal ground glass opacities bilaterally and trace bilateral pleural effusions, suspicious for COVID 19 pneumonia. Hip x-ray showed left hip prosthesis, no evidence of a fracture. Patient was febrile on presentation with temp of 102.3F. She was only satting 86% on presentation on 3 L of oxygen, was tachycardic with a rate of 121, EKG showed sinus tachycardia. Labs showed a white blood cell count of 12.1, hemoglobin of 9.8, d-dimer was 3.07, sodium was 135, the rest of electrolytes and renal profile were within normal limits, plasma lactic acid was 1.6, LDH was 1296, CRP was 225, 2 sets of troponins were less than 0.012, pro calcitonin level was in intermediate range at 0.13, urinalysis showed trace protein and ketones, but negative for signs of infection, influenza screen was negative. COVID 19 PCR is pending. Patient was started on azithromycin and Rocephin, she is on oral Decadron 4 mg twice daily, patient is on Eliquis for anticoagulation. Patient is being seen by cardiology for evaluation of chest pain On 05/26/20 patient seen in follow-up on selective care unit, last night she had episodes of increased dyspnea, and coughing, patient is on 2 L of oxygen per pulse ox of 99%, this morning she is very dyspneic with any exertion but she has been able to ambulate to the bathroom, recovers somewhat with rest, medicines have been stable, she has been afebrile, COVID 19 was ruled out, influenza was ruled out. Febrile pattern has improved. Blood and sputum cultures have shown no growth. Today's labs have been reviewed, with blood cell count is 10.0, hemoglobin is 8.8, INR is 1.0, d-dimer is 1.63, electrolytes and renal profile were unremarkable, troponins were less than 0.012, urinalysis was without any sign of infection. The patient is seen today 05/27/2020 follow-up on the selective care unit. She is doing quite a bit better. Less short of breath. Less cough and congestion. Covid screen was negative. She is currently on 2 L/m per nasal cannula. She does have home oxygen. She's been afebrile. Hemodynamically stable. Sputum culture reveals no growth to date. Blood cultures reveal no growth. White count 13.0. Hemoglobin 9.1. Sodium 138. Potassium 4.7. Creatinine 0.70. Urine legionella antigen negative. Remains on DuoNeb inhalations, Pulmicort and Perforomist inhalations, Singulair, IV Solu-Medrol. Antibiotics in the form of Levaquin. Anticoagulated with Eliquis. NicoDerm patch in place. The patient is seen today 05/28/2020 follow-up on the regular medical floor. She is awake and alert in no acute distress. Resting comfortably in bed. Continues with a loose nonproductive cough. No fever chills or night sweats. Continue good O2 saturations in the 90s on 2 L/m per nasal cannula. Sputum culture positive for presumptive staph aureus. Legionella culture pending, Legionella urine antigen negative. Creatinine 0.8. Initiated on vancomycin. Continued on Levaquin. Remains on bronchodilators and IV Solu-Medrol. NicoDerm patch is in place. Objective - Vital Signs Vital signs: Vital Signs Temp 98.2 F 05/28/20 06:51 Pulse 72 05/28/20 07:40 Resp 16 05/28/20 06:51 BP 143/77 05/28/20 06:51 Pulse Ox 97 05/28/20 06:51 Intake & Output 05/27/20 05/28/20 05/28/20 18:59 06:59 18:59 Intake Total 1170 Balance 1170 Intake: Oral 1170 Other: Voiding Method Toilet Toilet # Voids 1 3 - Exam GENERAL EXAM: Alert, very pleasant, 41-year-old obese white female, on 2 L of oxygen with pulse ox 97% comfortable in no apparent distress. HEAD: Normocephalic/atraumatic. EYES: Normal reaction of pupils, equal size. Conjunctiva pink, sclera white. NOSE: Clear with pink turbinates. THROAT: No erythema or exudates. NECK: No masses, no JVD, no thyroid enlargement, no adenopathy. CHEST: No chest wall deformity. Symmetrical expansion. LUNGS: Equal air entry with scattered wheezes CVS: Regular rate and rhythm, normal S1 and S2, no gallops, no murmurs, no rubs ABDOMEN: Soft, nontender. No hepatosplenomegaly, normal bowel sounds, no guarding or rigidity. EXTREMITIES: No clubbing, no edema, no cyanosis, 2+ pulses and upper and lower extremities. MUSCULOSKELETAL: Muscle strength and tone normal. SPINE: No scoliosis or deformity SKIN: No rashes CENTRAL NERVOUS SYSTEM: Alert and oriented -3. No focal deficits, tone is nor mal in all 4 extremities. PSYCHIATRIC: Alert and oriented -3. Appropriate affect. Intact judgment and insight. - Labs CBC & Chem 7: 05/27/20 08:01 05/28/20 05:36 Labs: Microbiology - Last 24 Hours (Table) 05/25/20 04:37 Blood Culture - Preliminary Blood No Growth after 72 hours 05/25/20 04:45 Blood Culture - Preliminary Blood No Growth after 72 hours 05/24/20 19:37 Blood Culture - Preliminary Blood No Growth after 72 hours 05/25/20 23:51 Gram Stain - Preliminary Sputum Sputum Culture - Preliminary Presumptive Staph aureus Assessment and Plan Assessment: #1. Acute on chronic hypoxic respiratory failure related to community acquired pneumonia, and possibility of subsegmental PEs in the left lung, influenza screen was negative. CTA chest showed possible subsegmental pulmonary emboli in the left lower and left upper lobes, and multifocal groundglass opacities bilaterally and trace bilateral pleural effusions, COVID 19 negative , legion murali screen negative. Sputum culture with presumptive staph aureus. Vancomycin initiated #2. Fever, malaise, shortness of breath, chills, with onset of symptoms 4 days ago, febrile pattern has improved #3. Elevated inflammatory markers possibly related to Covid 19 pneumonitis #4. Chest discomfort with 2 sets of negative troponins, EKG showing sinus tachycardia, no acute ischemic changes, cardiology is following, echocardiogram showed moderate concentric LVH, preserved LV function with an EF of 50-55%, mild aortic stenosis, mild mitral regurg, mild tricuspid regurg, moderate pulmonary h ypertension with PA pressure 49.4 mmHg #5. Chronic hypoxic respiratory failure related to COPD, patient usually wears 2 L of oxygen #6. Hypothyroidism #7. Hypertension #8. Past medical history of hepatitis C, treated, currently in remission #9. Chronic back pain #10. History of overactive bladder #11. GERD/reflux #12. Osteoarthritis #13. Sleep apnea on CPAP Plan: The patient was seen and evaluated by Dr. Floyd Sputum culture positive for presumptive staph aureus Initiated on vancomycin, continued on Levaquin Continue bronchodilators and Solu-Medrol Repeat chest x-ray in a.m. Continue to follow I, the cosigning physician, performed a history & physical examination of the patient. Lungs sounds with faint bilateral end expiratory wheeze, diminished. Maintaining good O2 saturations in the 90s on 2 L/m per nasal cannula. I discussed the assessment and plan of care with my nurse practitioner, Zeynep Grier. I attest to the above note as dictated by her.
--- NOTE | 2020-05-28 13:26 | P.PN ---
Subjective Progress Note Date: 05/28/20 43-year-old female came in with compensative fever shortness of breath generalized weakness body aches and a severe left hip pain. Patient had a recent hip replacement. Patient did have fever, patient has all the lab abnormalities consistent with Covid 19. Patient has elevated LDH lymphopenia mildly elevated pro calcitonin and elevated d-dimer patient had a CT angios the chest chest CT in your the chest is findings are consistent with the diffuse groundglass a paced is an interstitial infiltrates consistent with the Covid 19 pneumonitis. Patient was started on antibiotics for the committee acquired pneumonia with Rocephin and azithromycin which will be continued for now probably these can be discontinue once we get the Covid 19 test if it's positive. Patient is comparing of shortness but does have history of COPD uses 2 L of Cardizem presently on [address] of angios the chest was read as possibility of for subsegmental PE. Pulmonary was consulted patient is already on Eliquis 2.5 mg twice a day which will be changed to 5 mg twice a day patient was started on IV heparin which will be discontinued. Patient is presently in COPD exacerbation as well with significant wheezing on exam. 05/26/2020 Patient's Covid 19 is negative. Patient probably has Legionella pneumonia Legio jany urinary antigen is pending patient will be switched to levofloxacin at this can you Rocephin and azithromycin. Patient is still wheezing patient feels she is the same and she is requesting nebulization treatments rather than inhaled albuterol. Patient the wheezing is bit better in my opinion compared to yesterday. Not sure why patient was started on Lasix as will be discontinued. 05/27/2020 Patient is feeling much better today patienthas significant improvement in wheezing patient clinically appears to have atypical pneumonia although her urinary Legionella antigen is negative patient will be continued on levofloxacin. 05/28/20 Testing Covid 19 negative, sputum culture is positive for presumptive MRSA, Legionella is negative. Receiving antimicrobial therapy with vancomycin and Levaquin. Currently on 2 L nasal cannula saturating above 90%. She is continued on bronchodilators and IV Solu-Medrol, improved air entry physical exam. Patient is requesting to be on regular diet rather than cardiac. Constitutional: Denied any fatigue denied any fever. Cardio vascular: denied any chest pain, palpitations Gastrointestinal denied any nausea vomiting Pulmonary: Continuous to have shortness of breath Neurologic denied any new focal deficits Objective - Vital Signs Vital signs: Vital Signs Temp 98.2 F 05/28/20 06:51 Pulse 76 05/28/20 11:06 Resp 16 05/28/20 06:51 BP 143/77 05/28/20 06:51 Pulse Ox 97 05/28/20 06:51 Intake & Output 05/27/20 05/28/20 05/28/20 18:59 06:59 18:59 Intake Total 1170 Balance 1170 Intake: Oral 1170 Other: Voiding Method Toilet Toilet # Voids 1 3 - Exam GENERAL: The patient is alert and oriented x3, patient is in mild respiratory distress. Well developed, well nourished. HEENT: Pupils are round and equally reacting to light. EOMI. No scleral icterus. No conjunctival pallor. Normocephalic, atraumatic. No pharyngeal erythema. No thyromegaly. CARDIOVASCULAR: S1 and S2 present. No murmurs, rubs, or gallops. PULMONARY: Improved air entry, expiratory wheezing bilaterally ABDOMEN: Soft, nontender, nondistended, normoactive bowel sounds. No palpable organomegaly. MUSCULOSKELETAL: No joint swelling or deformity. EXTREMITIES: No cyanosis, clubbing, or pedal edema. NEUROLOGICAL: Gross neurological examination did not reveal any focal deficits. SKIN: No rashes. - Labs CBC & Chem 7: 05/27/20 08:01 05/28/20 05:36 Labs: Microbiology - Last 24 Hours (Table) 05/25/20 23:51 Gram Stain - Final Sputum Sputum Culture - Final Methicillin resist S. aureus 05/25/20 04:37 Blood Culture - Preliminary Blood No Growth after 72 hours 05/25/20 04:45 Blood Culture - Preliminary Blood No Growth after 72 hours 05/24/20 19:37 Blood Culture - Preliminary Blood No Growth after 72 hours Assessment and Plan Assessment: -Sepsis most most probably due to MRSA pneumonia: Testicular Covid 19 negative, Legionella antigen negative. Continued on antimicrobial therapy with vancomycin, and also Levaquin. -Acute on chronic hypercapnic and hypoxic respiratory failure secondary to COPD exacerbation and MRSA pneumonia Continue with the breathing treatments, antibiotics, and steroids -Subsegmental PE possible, patient the is on Eliquis at this time. Patient probably will not need 10 mg twice a day as patient was already on Eliquis in that scenario we don't use loading doses. -Gastroesophageal reflux disease -Osteoarthritis -Sleep apnea -Hypothyroidism -Depression -History of hepatitis C follow-up as an outpatient. DVT prophylaxis: Patient is already in anticoagulation GI prophylaxis Pepcid
[2020-05-28] MEDS: VANCOMYCIN 1,750 MG in SODIUM CHLORIDE 0.9% 500 ML 500 ML IVPB SCH (19:40)
[2020-05-28] MEDS: VERAPAMIL SR 240 MG TABLET.ER PO SCH (21:49)
[2020-05-28] MEDS: traZODone HCL 100 MG TAB PO SCH (21:49)
[2020-05-28] MEDS: MONTELUKAST 10 MG TAB PO SCH (21:49)
--- NOTE | 2020-05-29 02:38 | PN ---
PROGRESS NOTE DATE OF SERVICE: 05/28/2020 REASON FOR FOLLOWUP: MRSA Pneumonia. INTERVAL HISTORY: The patient is currently afebrile. The patient is breathing more comfortably. The patient denies having any chest pain or shortness of breath. She is having more cough and is bringing up sputum. No nausea, no vomiting. No abdominal pain or diarrhea. PHYSICAL EXAMINATION: Blood pressure 158/89 with a pulse of 62, temperature 98.5. She is 98% on 2 L nasal cannula. General description is a middle-aged female up in the bed in no distress. RESPIRATORY SYSTEM: Unlabored breathing, coarse breath sounds bilaterally. No wheeze. HEART: S1, S2. Regular rate and rhythm. ABDOMEN: Soft, no tenderness. LABS: Creatinine 0.8. Sputum with MRSA. Blood culture has been negative. DIAGNOSTIC IMPRESSION AND PLAN: Patient with methicillin-resistant Staphylococcus aureus pneumonia, currently covered with vancomycin to continue. Will check it for coverage for Zyvox as may be the ideal antibiotic for her on discharge and to continue supportive care. MMODL / IJN: [id number] /
[2020-05-29 04:07] LABS: Mycoplasma IgG Antibody (EIA) 1.46 INDEX (<=0.90); Mycoplasma IgM Antibody 0.2 INDEX (<=0.90)
[2020-05-29] MEDS: IPRATROPIUM-ALBUTEROL 3 ML NEB INHALATION PRN (05:12)
[2020-05-29] MEDS: LEVOTHYROXINE 75 MCG TAB PO SCH (05:45)
[2020-05-29] MEDS: methylPREDNISolone SOD SUCCI 125 MG/2 ML VIAL IV SCH ×3 (05:45→17:01)
--- NOTE | 2020-05-29 07:55 | XR ---
EXAMINATION TYPE: XR chest 2V DATE OF EXAM: 05/29/2020 COMPARISON: 05/27/2020 TECHNIQUE: PA and lateral views submitted. HISTORY: Follow-up pneumonia FINDINGS: Coarsened interstitium with patchy perihilar infiltrate greater in the left upper lobe. Heart is enla rged. No sizable pleural effusion or pneumothorax. Osseous structures are stable. IMPRESSION: 1. Persistent interstitial prominence with patchy perihilar infiltrate correlate for pneumonia..
[2020-05-29] MEDS: HYDROcodone/APAP 10-325MG 1 EACH TAB PO SCH ×3 (08:12→20:51)
[2020-05-29] MEDS: APIXABAN 5 MG TAB PO SCH ×2 (08:12→20:51)
[2020-05-29] MEDS: GABAPENTIN 300 MG CAP PO SCH ×3 (08:12→20:51)
[2020-05-29] MEDS: methocarbamoL 500 MG TAB PO SCH ×2 (08:12→20:51)
[2020-05-29] MEDS: PANTOPRAZOLE 40 MG TABLET PO SCH (08:12)
[2020-05-29] MEDS: NICOTINE 14MG/24HR PATCH TRANSDERM SCH (08:12)
[2020-05-29] MEDS: OXYBUTYNIN CHLORIDE 5 MG TAB PO SCH (08:13)
[2020-05-29] MEDS: VANCOMYCIN 1,750 MG in SODIUM CHLORIDE 0.9% 500 ML 500 ML IVPB SCH ×2 (08:17→20:52)
[2020-05-29] MEDS: IPRATROPIUM-ALBUTEROL 3 ML NEB INHALATION SCH ×5 (08:46→19:39)
[2020-05-29] MEDS: BUDESONIDE 1 MG/2 ML NEBU INHALATION SCH ×2 (08:46→19:38)
[2020-05-29] MEDS: FORMOTEROL FUMARATE 20 MCG/2 ML NEBU INHALATION SCH ×2 (08:46→19:39)
[2020-05-29] MEDS ORDERED: LEVOFLOXACIN 500 MG TAB PO SCH (09:00)
[2020-05-29 09:36] LABS: Non-African American GFR(CKD) 87.2 (60.0-200.0)
[2020-05-29] MEDS: FUROSEMIDE 10 MG/ML 4 ML VIAL IV SCH ×2 (12:02→22:26)
--- NOTE | 2020-05-29 12:43 | US ---
EXAMINATION TYPE: US venous doppler duplex LE BI DATE OF EXAM: 05/29/2020 12:31 PM COMPARISON: NONE CLINICAL HISTORY: 49-year-old female lower extremity swelling. Hx of PE. SIDE PERFORMED: Bilateral TECHNIQUE: The lower extremity deep venous system is examined utilizing real time linear array sonog georgina with graded compression, doppler sonography and color-flow sonography. 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 Some mild scattered subcutaneous soft tissue swelling natalie ecially in the popliteal region. IMPRESSION: No evidence for DVT within the bilateral lower extremities imaged from the groin to the upper calves.
--- NOTE | 2020-05-29 12:53 | P.PN ---
Subjective Progress Note Date: 05/29/20 Principal diagnosis: Dyspnea, weakness, chills This is a 49-year-old with past medical history of COPD on home oxygen at 2 L/min, hypertension, hyperlipidemia, history of hepatitis C treated, osteoarthritis, sleep apnea on CPAP, hypothyroidism, anxiety, depression, extensive history of smoking, who presented to emergency department on 05/24/2020 for evaluation of severe shortness of breath, fever, not feeling well, weakness, severe left hip pain. Patient had a recent history of left hip replacement about a week ago. In addition patient was experiencing mild nausea, but no vomiting. Her symptoms have been progressively worsening, over period of the last 4 days. She was experiencing some chest pain and shortness of breath. Chest x-ray shows opacities at the lung bases, and due to significant overlapping of soft tissue CT chest was recommended. CTA chest showed somewhat suboptimal enhancement in the pulmonary arteries, likely subsegmental pulmonary emboli of the left lower and left upper lobe, and multifocal ground glass opacities bilaterally and trace bilateral pleural effusions, suspicious for COVID 19 pneumonia. Hip x-ray showed left hip prosthesis, no evidence of a fracture. Patient was febrile on presentation with temp of 102.3F. She was only satting 86% on presentation on 3 L of oxygen, was tachycardic with a rate of 121, EKG showed sinus tachycardia. Labs showed a white blood cell count of 12.1, hemoglobin of 9.8, d-dimer was 3.07, sodium was 135, the rest of electrolytes and renal profile were within normal limits, plasma lactic acid was 1.6, LDH was 1296, CRP was 225, 2 sets of troponins were less than 0.012, pro calcitonin level was in intermediate range at 0.13, urinalysis showed trace protein and ketones, but negative for signs of infection, influenza screen was negative. COVID 19 PCR is pending. Patient was started on azithromycin and Rocephin, she is on oral Decadron 4 mg twice daily, patient is on Eliquis for anticoagulation. Patient is being seen by cardiology for evaluation of chest pain On 05/26/20 patient seen in follow-up on selective care unit, last night she had episodes of increased dyspnea, and coughing, patient is on 2 L of oxygen per pulse ox of 99%, this morning she is very dyspneic with any exertion but she has been able to ambulate to the bathroom, recovers somewhat with rest, medicines have been stable, she has been afebrile, COVID 19 was ruled out, influenza was ruled out. Febrile pattern has improved. Blood and sputum cultures have shown no growth. Today's labs have been reviewed, with blood cell count is 10.0, hemoglobin is 8.8, INR is 1.0, d-dimer is 1.63, electrolytes and renal profile were unremarkable, troponins were less than 0.012, urinalysis was without any sign of infection. On 05/29/2020 patient seen in follow-up on medical surgical floor, she is resting quietly in bed, her chest x-ray today shows persistent interstitial edema, she has some swelling in her lower extremities, left leg is greater than right leg, patient has been on oral anticoagulation in the form of Eliquis, she has had no fever, lung sounds reveal diffuse wheezes, and patient appears to be mildly dyspneic at rest. Patient is on vancomycin for evidence of MRSA in the sputum, she is on IV steroids, and nebulized bronchodilators. Doppler study of the lower extremities showed no evidence of DVT. There was some mild scattered subcutaneous soft tissue swelling in the popliteal region of the left leg. Objective - Vital Signs Vital signs: Vital Signs Temp 98.2 F 05/29/20 07:00 Pulse 68 05/29/20 12:14 Resp 16 05/29/20 07:00 BP 138/71 05/29/20 07:00 Pulse Ox 97 05/29/20 07:00 Intake & Output 05/28/20 05/29/20 05/29/20 18:59 06:59 18:59 Intake Total 540 296 Balance 540 296 Intake: Oral 540 296 Other: Voiding Method Toilet Toilet # Voids 3 3 # Bowel Movements 1 - Exam GENERAL EXAM: Alert, very pleasant, 41-year-old obese white female, on 2 L of oxygen with pulse ox 97% comfortable in no apparent distress. HEAD: Normocephalic/atraumatic. EYES: Normal reaction of pupils, equal size. Conjunctiva pink, sclera white. NOSE: Clear with pink turbinates. THROAT: No erythema or exudates. NECK: No masses, no JVD, no thyroid enlargement, no adenopathy. CHEST: No chest wall deformity. Symmetrical expansion. LUNGS: Equal air entry with scattered wheezes CVS: Regular rate and rhythm, normal S1 and S2, no gallops, no murmurs, no rubs ABDOMEN: Soft, nontender. No hepatosplenomegaly, normal bowel sounds, no guarding or rigidity. EXTREMITIES: No clubbing, bilateral lower extremity edema, left greater than right, no cyanosis, 2+ pulses and upper and lower extremities. MUSCULOSKELETAL: Muscle strength and tone normal. SPINE: No scoliosis or deformity SKIN: No rashes CENTRAL NERVOUS SYSTEM: Alert and oriented -3. No focal deficits, tone is normal in all 4 extremities. PSYCHIATRIC: Alert and oriented -3. Appropriate affect. Intact judgment and insight. - Labs CBC & Chem 7: 05/27/20 08:01 05/29/20 05:49 Labs: Abnormal Lab Results - Last 24 Hours (Table) 05/26/20 Range/Units 07:42 Mycoplasma pneumon IgG 1.46 H (<=0.90) INDEX Microbiology - Last 24 Hours (Table) 05/25/20 04:37 Blood Culture - Preliminary Blood No Growth after 96 hours 05/25/20 04:45 Blood Culture - Preliminary Blood No Growth after 96 hours 05/24/20 19:37 Blood Culture - Preliminary Blood No Growth after 96 hours 05/25/20 23:51 Gram Stain - Final Sputum Sputum Culture - Final Methicillin resist S. aureus Assessment and Plan Plan: Assessment: #1. Acute on chronic hypoxic respiratory failure related to pneumonia with sputum cultures positive for MRSA, possibility of COVID 19 has been ruled out, Legionella has been ruled out, influenza screen was negative. In addition there is a possibility of subsegmental PEs in the left lung, influenza screen was negative. CTA chest showed possible subsegmental pulmonary emboli in the left lower and left upper lobes, and multifocal groundglass opacities bilaterally and trace bilateral pleural effusions, COVID 19 negative. Patient has been on chronic anticoagulation in the form of Eliquis #2. Fever, malaise, shortness of breath, chills, with onset of symptoms 4 days ago, likely related to MRSA pneumonia #3. Elevated inflammatory markers #4. Chest discomfort with 2 sets of negative troponins, EKG showing sinus tachycardia, no acute ischemic changes, cardiology is following, echocardiogram showed moderate concentric LVH, preserved LV function with an EF of 50-55%, mild aortic stenosis, mild mitral regurg, mild tricuspid regurg, moderate pulmonary hypertension with PA pressure 49.4 mmHg #5. Chronic hypoxic respiratory failure related to COPD, patient usually wears 2 L of oxygen #6. Hypothyroidism #7. Hypertension #8. Past medical history of hepatitis C, treated, currently in remission #9. Chronic back pain #10. History of overactive bladder #11. GERD/reflux #12. Osteoarthritis #13. Sleep apnea on CPAP #14. Bilateral lower extremity swelling, interstitial pattern on chest x-ray, fluid overload, we'll start diuretics today, lower extremity Dopplers were nega tive for DVT Plan: Continue with current medical treatment, continue IV steroids, patient is [facility] and dyspneic on today's exam, in addition she seems to be fluid overloaded, lower extremity Dopplers were reviewed and are negative for DVT, continue with oral anticoagulation, we will add Lasix 40 mg every 12 hours, continue bronchodilators, we'll continue to follow obtain follow-up chest x-ray in the morning. I performed a history & physical examination of the patient and discussed their management with my nurse practitioner, Thais Neumann. I reviewed the nurse practitioner's note and agree with the documented findings and plan of care. Lung sounds are positive for diminished, with a few scattered wheezes The findings and the impression was discussed with the patient. I attest to the documentation by the nurse practitioner. Time with Patient: Less than 30
--- NOTE | 2020-05-29 16:18 | P.PN ---
Subjective Progress Note Date: 05/29/20 43-year-old female came in with compensative fever shortness of breath generalized weakness body aches and a severe left hip pain. Patient had a recent hip replacement. Patient did have fever, patient has all the lab abnormalities consistent with Covid 19. Patient has elevated LDH lymphopenia mildly elevated pro calcitonin and elevated d-dimer patient had a CT angios the chest chest CT in your the chest is findings are consistent with the diffuse groundglass a paced is an interstitial infiltrates consistent with the Covid 19 pneumonitis. Patient was started on antibiotics for the committee acquired pneumonia with Rocephin and azithromycin which will be continued for now probably these can be discontinue once we get the Covid 19 test if it's positive. Patient is comparing of shortness but does have history of COPD uses 2 L of Cardizem presently on [address] of angios the chest was read as possibility of for subsegmental PE. Pulmonary was consulted patient is already on Eliquis 2.5 mg twice a day which will be changed to 5 mg twice a day patient was started on IV heparin which will be discontinued. Patient is presently in COPD exacerbation as well with significant wheezing on exam. 05/26/2020 Patient's Covid 19 is negative. Patient probably has Legionella pneumonia Legio jany urinary antigen is pending patient will be switched to levofloxacin at this can you Rocephin and azithromycin. Patient is still wheezing patient feels she is the same and she is requesting nebulization treatments rather than inhaled albuterol. Patient the wheezing is bit better in my opinion compared to yesterday. Not sure why patient was started on Lasix as will be discontinued. 05/27/2020 Patient is feeling much better today patienthas significant improvement in wheezing patient clinically appears to have atypical pneumonia although her urinary Legionella antigen is negative patient will be continued on levofloxacin. 05/28/20 Testing Covid 19 negative, sputum culture is positive for presumptive MRSA, Legionella is negative. Receiving antimicrobial therapy with vancomycin and Levaquin. Currently on 2 L nasal cannula saturating above 90%. She is continued on bronchodilators and IV Solu-Medrol, improved air entry physical exam. Patient is requesting to be on regular diet rather than cardiac. 05/29/2020 pleasant 43-year-old female with MRSA pneumonia receiving antimicrobial therapy with vancomycin. Lungs sound remained tight and wheezy today, she continues treatment with systemic steroids and bronchodilators, remains on 2 L nasal cannula.vital signs are stable, she has had no fever. Constitutional: Denied any fatigue denied any fever. Cardio vascular: denied any chest pain, palpitations Gastrointestinal denied any nausea vomiting Pulmonary: Continuous to have shortness of breath Neurologic denied any new focal deficits Objective - Vital Signs Vital signs: Vital Signs Temp 98.1 F 05/29/20 14:41 Pulse 70 05/29/20 15:17 Resp 16 05/29/20 14:41 BP 143/78 05/29/20 14:41 Pulse Ox 98 05/29/20 14:41 Intake & Output 05/28/20 05/29/20 05/29/20 18:59 06:59 18:59 Intake Total 540 992 Balance 540 992 Intake: Oral 540 992 Other: Voiding Method Toilet Toilet # Voids 3 3 # Bowel Movements 1 - Exam GENERAL: The patient is alert and oriented x3, patient is in mild respiratory distress. Well developed, well nourished. HEENT: Pupils are round and equally reacting to light. EOMI. No scleral icterus. No conjunctival pallor. Normocephalic, atraumatic. No pharyngeal erythema. No thyromegaly. CARDIOVASCULAR: S1 and S2 present. No murmurs, rubs, or gallops. PULMONARY: expiratory wheeze to auscultation bilaterally. ABDOMEN: Soft, nontender, nondistended, normoactive bowel sounds. No palpable organomegaly. MUSCULOSKELETAL: No joint swelling or deformity. EXTREMITIES: No cyanosis, clubbing, or pedal edema. NEUROLOGICAL: Gross neurological examination did not reveal any focal deficits. SKIN: No rashes. - Labs CBC & Chem 7: 05/27/20 08:01 05/29/20 05:49 Labs: Abnormal Lab Results - Last 24 Hours (Table) 05/26/20 Range/Units 07:42 Mycoplasma pneumon IgG 1.46 H (<=0.90) INDEX Microbiology - Last 24 Hours (Table) 05/25/20 23:51 Legionella Culture - Preliminary Sputum 05/25/20 04:37 Blood Culture - Preliminary Blood No Growth after 96 hours 05/25/20 04:45 Blood Culture - Preliminary Blood No Growth after 96 hours 05/24/20 19:37 Blood Culture - Preliminary Blood No Growth after 96 hours 05/25/20 23:51 Gram Stain - Final Sputum Sputum Culture - Final Methicillin resist S. aureus Assessment and Plan Assessment: -Sepsis most most probably due to MRSA pneumonia: Testicular Covid 19 negative, Legionella antigen negative. Continued on antimicrobial therapy with vancomycin, and also Levaquin. -Acute on chronic hypercapnic and hypoxic respiratory failure secondary to COPD exacerbation and MRSA pneumonia Continue with the breathing treatments, antibiotics, and systemic steroids -Subsegmental PE possible, patient the is on Eliquis at this time. Patient probably will not need 10 mg twice a day as patient was already on Eliquis in that scenario we don't use loading doses. -Gastroesophageal reflux disease -Osteoarthritis -Sleep apnea -Hypothyroidism -Depression -History of hepatitis C follow-up as an outpatient. DVT prophylaxis: Patient is already in anticoagulation GI prophylaxis Pepcid
[2020-05-29] MEDS: MONTELUKAST 10 MG TAB PO SCH (20:50)
[2020-05-29] MEDS: VERAPAMIL SR 240 MG TABLET.ER PO SCH (20:50)
[2020-05-29] MEDS: traZODone HCL 100 MG TAB PO SCH (20:51)
[2020-05-30] MEDS: methylPREDNISolone SOD SUCCI 125 MG/2 ML VIAL IV SCH ×4 (00:59→18:02)
--- NOTE | 2020-05-30 02:30 | PN ---
PROGRESS NOTE DATE OF SERVICE: 05/29/2020 REASON FOR FOLLOWUP: MRSA pneumonia. INTERVAL HISTORY: The patient is currently afebrile. The patient is breathing slightly comfortably. Still complaining of increased cough and is bringing up sputum. No nausea, no vomiting. No abdominal pain or diarrhea. PHYSICAL EXAMINATION: Her blood pressure is 153/78 with a pulse of 65, temperature 98.4. She is 97% on 2 L nasal cannula. General description is a middle-aged female up in the bed in no distress. RESPIRATORY SYSTEM: Unlabored breathing, decreased breath sounds at the bases. No wheeze. HEART: S1, S2. Regular rate and rhythm. ABDOMEN: Soft, no tenderness. LABS: No new labs have been obtained today. DIAGNOSTIC IMPRESSION AND PLAN: Patient with MRSA pneumonia for which the patient is currently covered with vancomycin to continue possible transition to Zyvox on discharge to finish a course of therapy. Continue supportive care. MMODL / IJN: [id number] /
[2020-05-30] MEDS: IPRATROPIUM-ALBUTEROL 3 ML NEB INHALATION PRN (04:52)
[2020-05-30] MEDS: LEVOTHYROXINE 75 MCG TAB PO SCH (05:33)
[2020-05-30] MEDS ORDERED: VANCOMYCIN TROUGH DUE 1 EACH MISC MISCELLANE ONE (06:00)
[2020-05-30] MEDS: VANCOMYCIN 1,750 MG in SODIUM CHLORIDE 0.9% 500 ML 500 ML IVPB SCH ×2 (07:43→19:39)
[2020-05-30] MEDS: OXYBUTYNIN CHLORIDE 5 MG TAB PO SCH (07:44)
[2020-05-30] MEDS: NICOTINE 14MG/24HR PATCH TRANSDERM SCH (07:44)
[2020-05-30] MEDS: PANTOPRAZOLE 40 MG TABLET PO SCH (07:44)
[2020-05-30] MEDS: APIXABAN 5 MG TAB PO SCH ×2 (07:44→20:55)
[2020-05-30] MEDS: FUROSEMIDE 10 MG/ML 4 ML VIAL IV SCH ×2 (07:44→15:33)
[2020-05-30] MEDS: methocarbamoL 500 MG TAB PO SCH ×2 (07:45→20:56)
[2020-05-30] MEDS: GABAPENTIN 300 MG CAP PO SCH ×3 (08:00→20:56)
[2020-05-30] MEDS: HYDROcodone/APAP 10-325MG 1 EACH TAB PO SCH ×3 (08:00→20:55)
--- NOTE | 2020-05-30 08:56 | XR ---
EXAMINATION TYPE: XR chest 1V portable DATE OF EXAM: 05/30/2020 COMPARISON: 05/29/2020 INDICATION: Follow-up interstitial density TECHNIQUE: Single frontal view of the chest is obtained. FINDINGS: The heart size is normal. The pulmonary vasculature is normal. There is improving infiltrate throughout the bilateral lungs. Some subtle underlying residual remains present. Continued follow-up is recommended. IMPRESSION: 1. Improvement of the bilateral lung infiltrates. Continued follow-up is recommended.
[2020-05-30] MEDS: BUDESONIDE 1 MG/2 ML NEBU INHALATION SCH ×2 (09:05→21:45)
[2020-05-30] MEDS: FORMOTEROL FUMARATE 20 MCG/2 ML NEBU INHALATION SCH ×2 (09:06→21:43)
[2020-05-30] MEDS: IPRATROPIUM-ALBUTEROL 3 ML NEB INHALATION SCH ×4 (09:06→21:43)
--- NOTE | 2020-05-30 12:18 | P.PN ---
Subjective Progress Note Date: 05/30/20 Principal diagnosis: Dyspnea, weakness, chills This is a 49-year-old with past medical history of COPD on home oxygen at 2 L/min, hypertension, hyperlipidemia, history of hepatitis C treated, osteoarthritis, sleep apnea on CPAP, hypothyroidism, anxiety, depression, extensive history of smoking, who presented to emergency department on 05/24/2020 for evaluation of severe shortness of breath, fever, not feeling well, weakness, severe left hip pain. Patient had a recent history of left hip replacement about a week ago. In addition patient was experiencing mild nausea, but no vomiting. Her symptoms have been progressively worsening, over period of the last 4 days. She was experiencing some chest pain and shortness of breath. Chest x-ray shows opacities at the lung bases, and due to significant overlapping of soft tissue CT chest was recommended. CTA chest showed somewhat suboptimal enhancement in the pulmonary arteries, likely subsegmental pulmonary emboli of the left lower and left upper lobe, and multifocal ground glass opacities bilaterally and trace bilateral pleural effusions, suspicious for COVID 19 pneumonia. Hip x-ray showed left hip prosthesis, no evidence of a fracture. Patient was febrile on presentation with temp of 102.3F. She was only satting 86% on presentation on 3 L of oxygen, was tachycardic with a rate of 121, EKG showed sinus tachycardia. Labs showed a white blood cell count of 12.1, hemoglobin of 9.8, d-dimer was 3.07, sodium was 135, the rest of electrolytes and renal profile were within normal limits, plasma lactic acid was 1.6, LDH was 1296, CRP was 225, 2 sets of troponins were less than 0.012, pro calcitonin level was in intermediate range at 0.13, urinalysis showed trace protein and ketones, but negative for signs of infection, influenza screen was negative. COVID 19 PCR is pending. Patient was started on azithromycin and Rocephin, she is on oral Decadron 4 mg twice daily, patient is on Eliquis for anticoagulation. Patient is being seen by cardiology for evaluation of chest pain On 05/26/20 patient seen in follow-up on selective care unit, last night she had episodes of increased dyspnea, and coughing, patient is on 2 L of oxygen per pulse ox of 99%, this morning she is very dyspneic with any exertion but she has been able to ambulate to the bathroom, recovers somewhat with rest, medicines have been stable, she has been afebrile, COVID 19 was ruled out, influenza was ruled out. Febrile pattern has improved. Blood and sputum cultures have shown no growth. Today's labs have been reviewed, with blood cell count is 10.0, hemoglobin is 8.8, INR is 1.0, d-dimer is 1.63, electrolytes and renal profile were unremarkable, troponins were less than 0.012, urinalysis was without any sign of infection. On 05/29/2020 patient seen in follow-up on medical surgical floor, she is resting quietly in bed, her chest x-ray today shows persistent interstitial edema, she has some swelling in her lower extremities, left leg is greater than right leg, patient has been on oral anticoagulation in the form of Eliquis, she has had no fever, lung sounds reveal diffuse wheezes, and patient appears to be mildly dyspneic at rest. Patient is on vancomycin for evidence of MRSA in the sputum, she is on IV steroids, and nebulized bronchodilators. Doppler study of the lower extremities showed no evidence of DVT. There was some mild scattered subcutaneous soft tissue swelling in the popliteal region of the left leg. On 05/30/2020 patient seen in follow-up on general medical surgical floor. We started her on IV Lasix 40 mg twice daily yesterday, is still significantly fluid overloaded, with the lower extremity edema with lower extremity Dopplers negative for any evidence of DVT, her weight is up by 7 kg since admission, net fluid balance is difficult to estimate patient does not have a Lima. Patient h is wheezy on today's exam, still requiring oxygen, 2 L, pulse ox 97%, no couplets chest pain, does have significant exertional dyspnea, occasional cough, nonproductive, she ruled out for COVID 19, Legionella, and influenza. pro- calcitonin was negative at 0.02, we ordered a proBNP which came back at 2200 confirming fluid volume overload. patient is on vancomycin for sputum positive for MRSA, however patient does not have a active pneumonia, and will think at this is likely colonization or patient is a MRSA carrier Objective - Vital Signs Vital signs: Vital Signs Temp 98.2 F 05/30/20 07:00 Pulse 60 05/30/20 09:30 Resp 20 05/30/20 04:34 BP 145/74 05/30/20 07:00 Pulse Ox 97 05/30/20 07:00 Intake & Output 05/29/20 05/30/20 05/30/20 18:59 06:59 18:59 Intake Total 1436 1300 Balance 1436 1300 Weight 96.6 kg Intake: Oral 1436 1300 Other: Voiding Method Toilet Toilet Toilet # Voids 1 - Exam GENERAL EXAM: Alert, very pleasant, 41-year-old obese white female, on 2 L of oxygen with pulse ox 97% comfortable in no apparent distress. HEAD: Normocephalic/atraumatic. EYES: Normal reaction of pupils, equal size. Conjunctiva pink, sclera white. NOSE: Clear with pink turbinates. THROAT: No erythema or exudates. NECK: No masses, no JVD, no thyroid enlargement, no adenopathy. CHEST: No chest wall deformity. Symmetrical expansion. LUNGS: Equal air entry with scattered wheezes CVS: Regular rate and rhythm, normal S1 and S2, no gallops, no murmurs, no rubs ABDOMEN: Soft, nontender. No hepatosplenomegaly, normal bowel sounds, no guarding or rigidity. EXTREMITIES: No clubbing, bilateral lower extremity edema, left greater than right, no cyanosis, 2+ pulses and upper and lower extremities. MUSCULOSKELETAL: Muscle strength and tone normal. SPINE: No scoliosis or deformity SKIN: No rashes CENTRAL NERVOUS SYSTEM: Alert and oriented -3. No focal deficits, tone is normal in all 4 extremities. PSYCHIATRIC: Alert and oriented -3. Appropriate affect. Intact judgment and insight. - Labs CBC & Chem 7: 05/27/20 08:01 05/29/20 05:49 Labs: Microbiology - Last 24 Hours (Table) 05/25/20 04:37 Blood Culture - Preliminary Blood No Growth after 120 hours 05/25/20 04:45 Blood Culture - Preliminary Blood No Growth after 120 hours 05/24/20 19:37 Blood Culture - Preliminary Blood No Growth after 120 hours 05/25/20 23:51 Legionella Culture - Preliminary Sputum Assessment and Plan Plan: Assessment: #1. Acute on chronic hypoxic respiratory failure related fluid volume overload, possibility of COVID 19 has been ruled out, Legionella has been ruled out, influenza screen was negative. In addition there is a possibility of subsegmental PEs in the left lung, influenza screen was negative. CTA chest showed possible subsegmental pulmonary emboli in the left lower and left upper l obes, and multifocal groundglass opacities bilaterally and trace bilateral pleural effusions, COVID 19 negative. Patient has been on chronic anticoagulation in the form of Eliquis #2. Fever, malaise, shortness of breath, chills, with onset of symptoms 4 days ago #3. MRSA in the sputum, however pro-calcitonin level was negative, doubt possibility of active MRSA pneumonia, likely patient is just A MRSA carrier covered with vancomycin #4. Elevated inflammatory markers #5. Chest discomfort with 2 sets of negative troponins, EKG showing sinus tachycardia, no acute ischemic changes, cardiology is following, echocardiogram showed moderate concentric LVH, preserved LV function with an EF of 50-55%, mild aortic stenosis, mild mitral regurg, mild tricuspid regurg, moderate pulmonary hypertension with PA pressure 49.4 mmHg #6. Chronic hypoxic respiratory failure related to COPD, patient usually wears 2 L of oxygen #7. Hypothyroidism #8. Hypertension #9. Past medical history of hepatitis C, treated, currently in remission #10. Chronic back pain #11. History of overactive bladder #12. GERD/reflux #13. Osteoarthritis #14. Sleep apnea on CPAP #15. Bilateral lower extremity swelling, interstitial pattern on chest x-ray, fluid overload, we'll start diuretics today, lower extremity Dopplers were negative for DVT Plan: CONTINUE CURRENT MEDICAL TREATMENT, INCREASE lASIX TO 40 MG EVERY 8 HOURS, INSERT Lima, FOLLOW-UP ELECTROLYTES AND RENAL PROFILE. WILL CONTINUE TO FOLLOW I performed a history & physical examination of the patient and discussed their management with my nurse practitioner, Thais Neumann. I reviewed the nurse practitioner's note and agree with the documented findings and plan of care. Lung sounds are positive for diminished, with a few scattered wheezes The findings and the impression was discussed with the patient. I attest to the doc umentation by the nurse practitioner. Time with Patient: Less than 30
--- NOTE | 2020-05-30 15:35 | P.PN ---
Subjective Progress Note Date: 05/29/20 43-year-old female came in with compensative fever shortness of breath generalized weakness body aches and a severe left hip pain. Patient had a recent hip replacement. Patient did have fever, patient has all the lab abnormalities consistent with Covid 19. Patient has elevated LDH lymphopenia mildly elevated pro calcitonin and elevated d-dimer patient had a CT angios the chest chest CT in your the chest is findings are consistent with the diffuse groundglass a paced is an interstitial infiltrates consistent with the Covid 19 pneumonitis. Patient was started on antibiotics for the committee acquired pneumonia with Rocephin and azithromycin which will be continued for now probably these can be discontinue once we get the Covid 19 test if it's positive. Patient is comparing of shortness but does have history of COPD uses 2 L of Cardizem presently on [address] of angios the chest was read as possibility of for subsegmental PE. Pulmonary was consulted patient is already on Eliquis 2.5 mg twice a day which will be changed to 5 mg twice a day patient was started on IV heparin which will be discontinued. Patient is presently in COPD exacerbation as well with significant wheezing on exam. 05/26/2020 Patient's Covid 19 is negative. Patient probably has Legionella pneumonia Legio jany urinary antigen is pending patient will be switched to levofloxacin at this can you Rocephin and azithromycin. Patient is still wheezing patient feels she is the same and she is requesting nebulization treatments rather than inhaled albuterol. Patient the wheezing is bit better in my opinion compared to yesterday. Not sure why patient was started on Lasix as will be discontinued. 05/27/2020 Patient is feeling much better today patienthas significant improvement in wheezing patient clinically appears to have atypical pneumonia although her urinary Legionella antigen is negative patient will be continued on levofloxacin. 05/28/20 Testing Covid 19 negative, sputum culture is positive for presumptive MRSA, Legionella is negative. Receiving antimicrobial therapy with vancomycin and Levaquin. Currently on 2 L nasal cannula saturating above 90%. She is continued on bronchodilators and IV Solu-Medrol, improved air entry physical exam. Patient is requesting to be on regular diet rather than cardiac. 05/29/2020 pleasant 43-year-old female with MRSA pneumonia receiving antimicrobial therapy with vancomycin. Lungs sound remained tight and wheezy today, she continues treatment with systemic steroids and bronchodilators, remains on 2 L nasal cannula.vital signs are stable, she has had no fever. 05/30/2020 Patient does look better today. Wheezing significantly improved. Patient has MRSA pneumonia receiving vancomycin. Patient probably can be discharged tomorrow. Constitutional: Denied any fatigue denied any fever. Cardio vascular: denied any chest pain, palpitations Gastrointestinal denied any nausea vomiting Pulmonary: still complaining of shortness of breath Neurologic denied any new focal deficits All inpatient medications were reviewed and appropriate changes in these medications as dictated in the interval history and assessment and plan. Objective - Vital Signs Vital signs: Vital Signs Temp 98.2 F 05/30/20 07:00 Pulse 64 05/30/20 12:42 Resp 20 05/30/20 04:34 BP 145/74 05/30/20 07:00 Pulse Ox 97 05/30/20 07:00 Intake & Output 05/29/20 05/30/20 05/30/20 18:59 06:59 18:59 Intake Total 1436 1300 Balance 1436 1300 Weight 96.6 kg Intake: Oral 1436 1300 Other: Voiding Method Toilet Toilet Indwelling Catheter # Voids 1 - Exam GENERAL: The patient is alert and oriented x3, patient is in mild respiratory distress. Well developed, well nourished. HEENT: Pupils are round and equally reacting to light. EOMI. No scleral icterus. No conjunctival pallor. Normocephalic, atraumatic. No pharyngeal erythema. No thyromegaly. CARDIOVASCULAR: S1 and S2 present. No murmurs, rubs, or gallops. PULMONARY: expiratory wheeze to auscultation bilaterallysignificantly improved. ABDOMEN: Soft, nontender, nondistended, normoactive bowel sounds. No palpable organomegaly. MUSCULOSKELETAL: No joint swelling or deformity. EXTREMITIES: No cyanosis, clubbing, or pedal edema. NEUROLOGICAL: Gross neurological examination did not reveal any focal deficits. SKIN: No rash - Labs CBC & Chem 7: 05/27/20 08:01 05/29/20 05:49 Labs: Microbiology - Last 24 Hours (Table) 05/25/20 04:37 Blood Culture - Preliminary Blood No Growth after 120 hours 05/25/20 04:45 Blood Culture - Preliminary Blood No Growth after 120 hours 05/24/20 19:37 Blood Culture - Preliminary Blood No Growth after 120 hours 05/25/20 23:51 Legionella Culture - Preliminary Sputum Assessment and Plan Plan: -Sepsis due to MRSA pneumonia: Covid 19 negative, Legionella antigen negative. Continued on antimicrobial therapy with vancomycin. -Acute on chronic hypercapnic and hypoxic respiratory failure secondary to COPD exacerbation and MRSA pneumonia Continue with the breathing treatments, antibiotics, and systemic steroids -Subsegmental PE possible, patient the is on Eliquis at this time. Patient probably will not need 10 mg twice a day as patient was already on Eliquis in that scenario we don't use loading doses. -Gastroesophageal reflux disease -Osteoarthritis -Sleep apnea -Hypothyroidism -Depression -History of hepatitis C follow-up as an outpatient. DVT prophylaxis: Patient is already in anticoagulation GI prophylaxis Pepcid
[2020-05-30] MEDS: MONTELUKAST 10 MG TAB PO SCH (20:55)
[2020-05-30] MEDS: VERAPAMIL SR 240 MG TABLET.ER PO SCH (20:56)
[2020-05-30] MEDS: traZODone HCL 100 MG TAB PO SCH (20:56)
--- NOTE | 2020-05-31 00:51 | PN ---
PROGRESS NOTE DATE OF SERVICE: 05/30/2020 REASON FOR FOLLOWUP: MRSA pneumonia. INTERVAL HISTORY: The patient is currently afebrile. The patient is breathing comfortably. The patient denies having any chest pain. She continued to have a cough, not bringing up sputum. No nausea, no vomiting. No abdominal pain, no diarrhea. PHYSICAL EXAMINATION: Blood pressure 138/84 with a pulse of 70, temperature 98.4. She is 97% on 2 L nasal cannula. General description is a middle-aged female lying in bed in no distress. RESPIRATORY SYSTEM: Unlabored breathing, decreased breath sounds in the bases. No wheeze. HEART: S1, S2. Regular rate and rhythm. ABDOMEN: Soft, no tenderness. LABS: Vancomycin trough was 18.5. DIAGNOSTIC IMPRESSION AND PLAN: Patient with acute pneumonia. Sputum has been finalized with MRSA. Patient is covered with vancomycin to finish therapy with oral Zyvox 600 mg twice a day for about 10 to 12 days and close outpatient followup. MMODL / IJN: [id number] /
[2020-05-31] MEDS: FUROSEMIDE 10 MG/ML 4 ML VIAL IV SCH ×4 (00:55→20:22)
[2020-05-31] MEDS: methylPREDNISolone SOD SUCCI 125 MG/2 ML VIAL IV SCH ×5 (00:55→23:18)
[2020-05-31] MEDS: LEVOTHYROXINE 75 MCG TAB PO SCH (05:21)
[2020-05-31] MEDS: BUDESONIDE 1 MG/2 ML NEBU INHALATION SCH ×2 (05:30→20:01)
[2020-05-31] MEDS: IPRATROPIUM-ALBUTEROL 3 ML NEB INHALATION SCH ×4 (05:30→20:01)
[2020-05-31] MEDS: FORMOTEROL FUMARATE 20 MCG/2 ML NEBU INHALATION SCH ×2 (05:30→20:01)
[2020-05-31 06:36] LABS: HCT 32.5 % (34.0-46.0); HGB 10.4 gm/dL (11.4-16.0); Hypochromasia Slight; Platelet Count 532 k/uL (150-450); RBC 3.25 m/uL (3.80-5.40); RDW 13.2 % (11.5-15.5); WBC 14.8 k/uL (3.8-10.6)
[2020-05-31] MEDS: VANCOMYCIN 1,750 MG in SODIUM CHLORIDE 0.9% 500 ML 500 ML IVPB SCH ×2 (07:29→20:22)
[2020-05-31] MEDS: OXYBUTYNIN CHLORIDE 5 MG TAB PO SCH (09:14)
[2020-05-31] MEDS: PANTOPRAZOLE 40 MG TABLET PO SCH (09:14)
[2020-05-31] MEDS: NICOTINE 14MG/24HR PATCH TRANSDERM SCH (09:14)
[2020-05-31] MEDS: GABAPENTIN 300 MG CAP PO SCH ×3 (09:15→20:23)
[2020-05-31] MEDS: APIXABAN 5 MG TAB PO SCH ×2 (09:15→20:22)
[2020-05-31] MEDS: HYDROcodone/APAP 10-325MG 1 EACH TAB PO SCH ×3 (09:15→20:23)
[2020-05-31] MEDS: IPRATROPIUM-ALBUTEROL 3 ML NEB INHALATION PRN (09:18)
[2020-05-31] MEDS: methocarbamoL 500 MG TAB PO SCH ×2 (09:20→20:23)
--- NOTE | 2020-05-31 09:42 | P.PN ---
Subjective Progress Note Date: 05/29/20 43-year-old female came in with compensative fever shortness of breath generalized weakness body aches and a severe left hip pain. Patient had a recent hip replacement. Patient did have fever, patient has all the lab abnormalities consistent with Covid 19. Patient has elevated LDH lymphopenia mildly elevated pro calcitonin and elevated d-dimer patient had a CT angios the chest chest CT in your the chest is findings are consistent with the diffuse groundglass a paced is an interstitial infiltrates consistent with the Covid 19 pneumonitis. Patient was started on antibiotics for the committee acquired pneumonia with Rocephin and azithromycin which will be continued for now probably these can be discontinue once we get the Covid 19 test if it's positive. Patient is comparing of shortness but does have history of COPD uses 2 L of Cardizem presently on [address] of angios the chest was read as possibility of for subsegmental PE. Pulmonary was consulted patient is already on Eliquis 2.5 mg twice a day which will be changed to 5 mg twice a day patient was started on IV heparin which will be discontinued. Patient is presently in COPD exacerbation as well with significant wheezing on exam. 05/26/2020 Patient's Covid 19 is negative. Patient probably has Legionella pneumonia Legio jany urinary antigen is pending patient will be switched to levofloxacin at this can you Rocephin and azithromycin. Patient is still wheezing patient feels she is the same and she is requesting nebulization treatments rather than inhaled albuterol. Patient the wheezing is bit better in my opinion compared to yesterday. Not sure why patient was started on Lasix as will be discontinued. 05/27/2020 Patient is feeling much better today patienthas significant improvement in wheezing patient clinically appears to have atypical pneumonia although her urinary Legionella antigen is negative patient will be continued on levofloxacin. 05/28/20 Testing Covid 19 negative, sputum culture is positive for presumptive MRSA, Legionella is negative. Receiving antimicrobial therapy with vancomycin and Levaquin. Currently on 2 L nasal cannula saturating above 90%. She is continued on bronchodilators and IV Solu-Medrol, improved air entry physical exam. Patient is requesting to be on regular diet rather than cardiac. 05/29/2020 pleasant 43-year-old female with MRSA pneumonia receiving antimicrobial therapy with vancomycin. Lungs sound remained tight and wheezy today, she continues treatment with systemic steroids and bronchodilators, remains on 2 L nasal cannula.vital signs are stable, she has had no fever. 05/30/2020 Patient does look better today. Wheezing significantly improved. Patient has MRSA pneumonia receiving vancomycin. Patient probably can be discharged tomorrow. 05/31/2020 Patient still has significant wheezing on exam. Possibly of discharge tomorrow.patient had significant urine output. IV Lasix will be switched to 40 twice a day Constitutional: Denied any fatigue denied any fever. Cardio vascular: denied any chest pain, palpitations Gastrointestinal denied any nausea vomiting Pulmonary: still complaining of shortness of breath Neurologic denied any new focal deficits All inpatient medications were reviewed and appropriate changes in these medications as dictated in the interval history and assessment and plan. Objective - Vital Signs Vital signs: Vital Signs Temp 98.2 F 05/31/20 07:00 Pulse 68 05/31/20 09:33 Resp 18 05/31/20 04:52 BP 130/74 05/31/20 07:00 Pulse Ox 94 L 05/31/20 07:00 Intake & Output 05/30/20 05/31/20 05/31/20 18:59 06:59 18:59 Intake Total 300 Output Total 1100 3000 2500 Balance -1100 -2700 -2500 Weight 94.4 kg Intake: Oral 300 Output: Urine 1100 3000 2500 Uretheral (Fuller) 500 Other: Voiding Method Indwelling Catheter Indwelling Catheter - Exam GENERAL: The patient is alert and oriented x3, patient is in mild respiratory distress. Well developed, well nourished. HEENT: Pupils are round and equally reacting to light. EOMI. No scleral icterus. No conjunctival pallor. Normocephalic, atraumatic. No pharyngeal erythema. No thyromegaly. CARDIOVASCULAR: S1 and S2 present. No murmurs, rubs, or gallops. PULMONARY: expiratory wheeze to auscultation bilaterallysignificantly improved. ABDOMEN: Soft, nontender, nondistended, normoactive bowel sounds. No palpable organomegaly. MUSCULOSKELETAL: No joint swelling or deformity. EXTREMITIES: No cyanosis, clubbing, or pedal edema. NEUROLOGICAL: Gross neurological examination did not reveal any focal deficits. SKIN: No rash - Labs CBC & Chem 7: 05/31/20 06:10 05/29/20 05:49 Labs: Abnormal Lab Results - Last 24 Hours (Table) 05/31/20 Range/Units 06:10 WBC 14.8 H (3.8-10.6) k/uL RBC 3.25 L (3.80-5.40) m/uL Hgb 10.4 L (11.4-16.0) gm/dL Hct 32.5 L (34.0-46.0) % Plt Count 532 H (150-450) k/uL Microbiology - Last 24 Hours (Table) 05/25/20 04:37 Blood Culture - Final Blood No Growth after 144 hours 05/25/20 04:45 Blood Culture - Final Blood No Growth after 144 hours 05/24/20 19:37 Blood Culture - Final Blood No Growth after 144 hours Assessment and Plan Plan: -Sepsis due to MRSA pneumonia: Covid 19 negative, Legionella antigen negative. Continued on antimicrobial therapy with vancomycin. -Acute on chronic hypercapnic and hypoxic respiratory failure secondary to COPD exacerbation and MRSA pneumonia Continue with the breathing treatments, antibiotics, and systemic steroids -volume overload, pulmonary edema secondary to IV fluids she received no evidence of heart failure at this time patient IV Lasix will be switched to twice a day. -Subsegmental PE possible, patient the is on Eliquis at this time. -Gastroesophageal reflux disease -Osteoarthritis -Sleep apnea -Hypothyroidism -Depression -History of hepatitis C follow-up as an outpatient. DVT prophylaxis: Patient is already in anticoagulation GI prophylaxis Pepcid
[2020-05-31 09:52] LABS: Anion Gap 12.3 mmol/L (4.00-12.00); BUN/Creat Ratio 38.75 Ratio (12.00-20.00); Calcium 8.6 mg/dL (8.7-10.3); Carbon Dioxide 32.7 mmol/L (21.6-31.8); Non-African American GFR(CKD) 87.2 (60.0-200.0); Potassium 3.9 mmol/L (3.5-5.5)
--- NOTE | 2020-05-31 11:45 | XR ---
EXAMINATION TYPE: XR chest 1V portable DATE OF EXAM: 05/31/2020 COMPARISON: 05/30/2020 HISTORY: Chest pain TECHNIQUE: Single frontal view of the chest is obtained. FINDINGS: There is no focal air space opacity, pleural effusion, or pneumothorax seen. The cardiac silhouette size is enlarged The osseous structures are intact. IMPRESSION: 1. No acute process.
--- NOTE | 2020-05-31 12:38 | P.PN ---
Subjective Progress Note Date: 05/31/20 Principal diagnosis: Dyspnea, weakness, chills This is a 49-year-old with past medical history of COPD on home oxygen at 2 L/min, hypertension, hyperlipidemia, history of hepatitis C treated, osteoarthritis, sleep apnea on CPAP, hypothyroidism, anxiety, depression, extensive history of smoking, who presented to emergency department on 05/24/2020 for evaluation of severe shortness of breath, fever, not feeling well, weakness, severe left hip pain. Patient had a recent history of left hip replacement about a week ago. In addition patient was experiencing mild nausea, but no vomiting. Her symptoms have been progressively worsening, over period of the last 4 days. She was experiencing some chest pain and shortness of breath. Chest x-ray shows opacities at the lung bases, and due to significant overlapping of soft tissue CT chest was recommended. CTA chest showed somewhat suboptimal enhancement in the pulmonary arteries, likely subsegmental pulmonary emboli of the left lower and left upper lobe, and multifocal ground glass opacities bilaterally and trace bilateral pleural effusions, suspicious for COVID 19 pneumonia. Hip x-ray showed left hip prosthesis, no evidence of a fracture. Patient was febrile on presentation with temp of 102.3F. She was only satting 86% on presentation on 3 L of oxygen, was tachycardic with a rate of 121, EKG showed sinus tachycardia. Labs showed a white blood cell count of 12.1, hemoglobin of 9.8, d-dimer was 3.07, sodium was 135, the rest of electrolytes and renal profile were within normal limits, plasma lactic acid was 1.6, LDH was 1296, CRP was 225, 2 sets of troponins were less than 0.012, pro calcitonin level was in intermediate range at 0.13, urinalysis showed trace protein and ketones, but negative for signs of infection, influenza screen was negative. COVID 19 PCR is pending. Patient was started on azithromycin and Rocephin, she is on oral Decadron 4 mg twice daily, patient is on Eliquis for anticoagulation. Patient is being seen by cardiology for evaluation of chest pain On 05/26/20 patient seen in follow-up on selective care unit, last night she had episodes of increased dyspnea, and coughing, patient is on 2 L of oxygen per pulse ox of 99%, this morning she is very dyspneic with any exertion but she has been able to ambulate to the bathroom, recovers somewhat with rest, medicines have been stable, she has been afebrile, COVID 19 was ruled out, influenza was ruled out. Febrile pattern has improved. Blood and sputum cultures have shown no growth. Today's labs have been reviewed, with blood cell count is 10.0, hemoglobin is 8.8, INR is 1.0, d-dimer is 1.63, electrolytes and renal profile were unremarkable, troponins were less than 0.012, urinalysis was without any sign of infection. On 05/29/2020 patient seen in follow-up on medical surgical floor, she is resting quietly in bed, her chest x-ray today shows persistent interstitial edema, she has some swelling in her lower extremities, left leg is greater than right leg, patient has been on oral anticoagulation in the form of Eliquis, she has had no fever, lung sounds reveal diffuse wheezes, and patient appears to be mildly dyspneic at rest. Patient is on vancomycin for evidence of MRSA in the sputum, she is on IV steroids, and nebulized bronchodilators. Doppler study of the lower extremities showed no evidence of DVT. There was some mild scattered subcutaneous soft tissue swelling in the popliteal region of the left leg. On 05/30/2020 patient seen in follow-up on general medical surgical floor. We started her on IV Lasix 40 mg twice daily yesterday, is still significantly fluid overloaded, with the lower extremity edema with lower extremity Dopplers negative for any evidence of DVT, her weight is up by 7 kg since admission, net fluid balance is difficult to estimate patient does not have a Fuller. Patient h is wheezy on today's exam, still requiring oxygen, 2 L, pulse ox 97%, no couplets chest pain, does have significant exertional dyspnea, occasional cough, nonproductive, she ruled out for COVID 19, Legionella, and influenza. pro- calcitonin was negative at 0.02, we ordered a proBNP which came back at 2200 confirming fluid volume overload. patient is on vancomycin for sputum positive for MRSA, however patient does not have a active pneumonia, and will think at this is likely colonization or patient is a MRSA carrier On 05/31/2020 patient seen in follow-up on general medical surgical floor. She is resting comfortably in bed, she denies any specific complaints, she has been diuresing well, she is in -3.8 L net fluid balance over the last 24 hours, lower extremity edema is improving, patient is less wheezy and less dyspneic on today's exam, she's been afebrile, she remains on antibiotics in the form of vancomycin for evidence of MRSA in the sputum which is thought to be a colonizer. Today's chest x-ray has been reviewed showing no acute process. She is on 2 L of oxygen per pulse ox of 94%, she's been afebrile. Objective - Vital Signs Vital signs: Vital Signs Temp 98.2 F 05/31/20 07:00 Pulse 64 05/31/20 12:29 Resp 18 05/31/20 04:52 BP 130/74 05/31/20 07:00 Pulse Ox 94 L 05/31/20 07:00 Intake & Output 05/30/20 05/31/20 05/31/20 18:59 06:59 18:59 Intake Total 300 Output Total 1100 3000 2500 Balance -1100 -2700 -2500 Weight 94.4 kg Intake: Oral 300 Output: Urine 1100 3000 2500 Uretheral (Fluler) 500 Other: Voiding Method Indwelling Catheter Indwelling Catheter Indwelling Catheter - Exam GENERAL EXAM: Alert, very pleasant, 41-year-old obese white female, on 2 L of oxygen with pulse ox 94% comfortable in no apparent distress. HEAD: Normocephalic/atraumatic. EYES: Normal reaction of pupils, equal size. Conjunctiva pink, sclera white. NOSE: Clear with pink turbinates. THROAT: No erythema or exudates. NECK: No masses, no JVD, no thyroid enlargement, no adenopathy. CHEST: No chest wall deformity. Symmetrical expansion. LUNGS: Equal air entry with scattered wheezes CVS: Regular rate and rhythm, normal S1 and S2, no gallops, no murmurs, no rubs ABDOMEN: Soft, nontender. No hepatosplenomegaly, normal bowel sounds, no guarding or rigidity. EXTREMITIES: No clubbing, bilateral lower extremity edema, left greater than right, no cyanosis, 2+ pulses and upper and lower extremities. MUSCULOSKELETAL: Muscle strength and tone normal. SPINE: No scoliosis or deformity SKIN: No rashes CENTRAL NERVOUS SYSTEM: Alert and oriented -3. No focal deficits, tone is normal in all 4 extremities. PSYCHIATRIC: Alert and oriented -3. Appropriate affect. Intact judgment and insight. - Labs CBC & Chem 7: 05/31/20 06:10 05/31/20 06:10 Labs: Abnormal Lab Results - Last 24 Hours (Table) 05/31/20 05/31/20 Range/Units 06:10 06:10 WBC 14.8 H (3.8-10.6) k/uL RBC 3.25 L (3.80-5.40) m/uL Hgb 10.4 L (11.4-16.0) gm/dL Hct 32.5 L (34.0-46.0) % Plt Count 532 H (150-450) k/uL Chloride 94 L (96-109) mmol/L Carbon Dioxide 32.7 H (21.6-31.8) mmol/L Anion Gap 12.30 H (4.00-12.00) mmol/L BUN 31.0 H (9.0-27.0) mg/dL BUN/Creatinine Ratio 38.75 H (12.00-20.00) Ratio Glucose 160 H (70-110) mg/dL Calcium 8.6 L (8.7-10.3) mg/dL Microbiology - Last 24 Hours (Table) 05/25/20 04:37 Blood Culture - Final Blood No Growth after 144 hours 05/25/20 04:45 Blood Culture - Final Blood No Growth after 144 hours 05/24/20 19:37 Blood Culture - Final Blood No Growth after 144 hours Assessment and Plan Plan: Assessment: #1. Acute on chronic hypoxic respiratory failure related fluid volume overload, possibility of COVID 19 has been ruled out, Legionella has been ruled out, influenza screen was negative. In addition there is a possibility of subsegmental PEs in the left lung, influenza screen was negative. CTA chest showed possible subsegmental pulmonary emboli in the left lower and left upper lobes, and multifocal groundglass opacities bilaterally and trace bilateral pleural effusions, COVID 19 negative. Patient has been on chronic anticoagulation in the form of Eliquis #2. Fever, malaise, shortness of breath, chills, with onset of symptoms 4 days ago, resolved #3. MRSA in the sputum, however pro-calcitonin level was negative, doubt possibility of active MRSA pneumonia, likely patient is just A MRSA carrier covered with vancomycin #4. Elevated inflammatory markers #5. Chest discomfort with 2 sets of negative troponins, EKG showing sinus tachycardia, no acute ischemic changes, cardiology is following, echocardiogram showed moderate concentric LVH, preserved LV function with an EF of 50-55%, mild aortic stenosis, mild mitral regurg, mild tricuspid regurg, moderate pulmonary hypertension with PA pressure 49.4 mmHg #6. Chronic hypoxic respiratory failure related to COPD, patient usually wears 2 L of oxygen #7. Hypothyroidism #8. Hypertension #9. Past medical history of hepatitis C, treated, currently in remission #10. Chronic back pain #11. History of overactive bladder #12. GERD/reflux #13. Osteoarthritis #14. Sleep apnea on CPAP #15. Bilateral lower extremity swelling, interstitial pattern on chest x-ray, fluid overload, we'll start diuretics today, lower extremity Dopplers were negative for DVT Plan: We'll continue with current medical treatment, continue with diuresis for another 24 hours, today's chest x-ray has been reviewed showing improvement in the appearance of interstitial prominence on the chest x-ray, breathing easier, less wheezy, lower extremity edema is improving. We'll continue to follow, follow-up electrolytes and renal profile in the morning, possibly transition over to oral diuretics in the morning. I performed a history & physical examination of the patient and discussed their management with my nurse practitioner, Thais Neumann. I reviewed the nurse practitioner's note and agree with the documented findings and plan of care. Lung sounds are positive for diminished, with a few scattered wheezes The findings and the impression was discussed with the patient. I attest to the documentation by the nurse practitioner. Time with Patient: Less than 30
[2020-05-31 15:31] VITALS: BMI 46.6
[2020-05-31] MEDS: VERAPAMIL SR 240 MG TABLET.ER PO SCH (20:24)
[2020-05-31] MEDS: MONTELUKAST 10 MG TAB PO SCH (20:24)
[2020-05-31] MEDS: traZODone HCL 100 MG TAB PO SCH (20:24)
[2020-05-31 20:58] VITALS: RESP 16
--- NOTE | 2020-06-01 02:39 | PN ---
PROGRESS NOTE DATE OF SERVICE: 05/31/2020 REASON FOR FOLLOWUP: MRSA pneumonia. INTERVAL HISTORY: The patient is currently afebrile. She is breathing slightly comfortably. The patient denies having any chest pain. Did have a cough, less sputum production. No hemoptysis. No nausea, no vomiting. No abdominal pain,no diarrhea. PHYSICAL EXAMINATION: Blood pressure 139/69 with a pulse of 66, temperature 98.3. She is 96% on 2 L nasal cannula. General description is a middle-aged female up in the bed in no distress. RESPIRATORY SYSTEM: Unlabored breathing, coarse breath sounds bilaterally. No wheeze. HEART: S1, S2. Regular rate and rhythm. ABDOMEN: Soft, no tenderness. LABS: Hemoglobin is 10.4, white count 14.8, creatinine 0.8. DIAGNOSTIC IMPRESSION AND PLAN: Patient with MRSA pneumonia, currently treated with vancomycin. Overall, chest x-ray seemed to have shown improvement. Finishing therapy with short course of oral Zyvox. Prescription was provided to the pillowcase maker. Continue with supportive care. MMODL / IJN: [id number] /
[2020-06-01] MEDS: VANCOMYCIN 1,750 MG in SODIUM CHLORIDE 0.9% 500 ML 500 ML IVPB SCH (05:44)
[2020-06-01] MEDS: LEVOTHYROXINE 75 MCG TAB PO SCH (05:44)
[2020-06-01] MEDS: methylPREDNISolone SOD SUCCI 125 MG/2 ML VIAL IV SCH (05:44)
[2020-06-01] MEDS: ALBUTEROL HFA INHALER INHALATION PRN (05:58)
[2020-06-01 06:33] LABS: HCT 32.9 % (34.0-46.0); HGB 10.2 gm/dL (11.4-16.0); Hypochromasia Slight; MCH 31.4 pg (25.0-35.0); MCHC 30.9 g/dL (31.0-37.0); MCV 101.5 fL (80.0-100.0); Macrocytosis Slight; Platelet Count 477 k/uL (150-450); RBC 3.24 m/uL (3.80-5.40); RDW 13.5 % (11.5-15.5); WBC 15.6 k/uL (3.8-10.6)
[2020-06-01] MEDS: IPRATROPIUM-ALBUTEROL 3 ML NEB INHALATION SCH ×3 (07:56→15:20)
[2020-06-01] MEDS: FORMOTEROL FUMARATE 20 MCG/2 ML NEBU INHALATION SCH (07:56)
[2020-06-01] MEDS: BUDESONIDE 1 MG/2 ML NEBU INHALATION SCH (07:57)
[2020-06-01 08:10] VITALS: BP 152/77; TEMP 98.1
[2020-06-01] MEDS: methocarbamoL 500 MG TAB PO SCH (08:34)
[2020-06-01] MEDS: PANTOPRAZOLE 40 MG TABLET PO SCH (08:34)
[2020-06-01] MEDS: OXYBUTYNIN CHLORIDE 5 MG TAB PO SCH (08:34)
[2020-06-01] MEDS: HYDROcodone/APAP 10-325MG 1 EACH TAB PO SCH (08:34)
[2020-06-01] MEDS: GABAPENTIN 300 MG CAP PO SCH (08:35)
[2020-06-01] MEDS: FUROSEMIDE 10 MG/ML 4 ML VIAL IV SCH (08:35)
[2020-06-01] MEDS: NICOTINE 14MG/24HR PATCH TRANSDERM SCH (08:35)
[2020-06-01] MEDS: APIXABAN 5 MG TAB PO SCH (08:35)
[2020-06-01 09:34] LABS: Anion Gap 10.5 mmol/L (4.00-12.00); Carbon Dioxide 36.5 mmol/L (21.6-31.8); Non-African American GFR(CKD) 87.2 (60.0-200.0); Potassium 3.9 mmol/L (3.5-5.5)
--- NOTE | 2020-06-01 11:07 | P.DS ---
Providers Date of admission: 05/24/20 22:22 Attending physician: Kaia Martinez Consults: 05/24/20 22:21 Consult Physician Routine Consulting Provider: Rock Miles Consult Reason/Comments: postOp Do you want consulting provider notified?: Yes Consult Physician Routine Consulting Provider: Phoenix Oroczo Consult Reason/Comments: fever Do you want consulting provider notified?: Yes Consult Physician Urgent Consulting Provider: Diana Floyd Consult Reason/Comments: roCOVID Do you want consulting provider notified?: Yes Primary care physician: Gaston Mancuso [facility] Course: 43-year-old female came in with compensative fever shortness of breath generalized weakness body aches and a severe left hip pain. Patient had a recent hip replacement. Patient did have fever, patient has all the lab abnormalities consistent with Covid 19. Patient has elevated LDH lymphopenia mildly elevated pro calcitonin and elevated d-dimer patient had a CT angios the chest chest CT in your the chest is findings are consistent with the diffuse groundglass a paced is an interstitial infiltrates consistent with the Covid 19 pneumonitis. Patient was started on antibiotics for the committee acquired pneumonia with Rocephin and azithromycin which will be continued for now probably these can be discontinue once we get the Covid 19 test if it's positive. Patient is comparing of shortness but does have history of COPD uses 2 L of Cardizem presently on [address] of angios the chest was read as possibility of for subsegmental PE. Pulmonary was consulted patient is already on Eliquis 2.5 mg twice a day which will be changed to 5 mg twice a day patient was started on IV heparin which will be discontinued. Patient is presently in COPD exacerbation as well with significant wheezing on exam. 05/26/2020 Patient's Covid 19 is negative. Patient probably has Legionella pneumonia Legionella urinary antigen is pending patient will be switched to levofloxacin at this can you Rocephin and azithromycin. Patient is still wheezing patient feels she is the same and she is requesting nebulization treatments rather than inhaled albuterol. Patient the wheezing is bit better in my opinion compared to yesterday. Not sure why patient was started on Lasix as will be discontinued. 05/27/2020 Patient is feeling much better today patienthas significant improvement in wheezing patient clinically appears to have atypical pneumonia although her urinary Legionella antigen is negative patient will be continued on levofloxacin. 05/28/20 Testing Covid 19 negative, sputum culture is positive for presumptive MRSA, Legionella is negative. Receiving antimicrobial therapy with vancomycin and Levaquin. Currently on 2 L nasal cannula saturating above 90%. She is continued on bronchodilators and IV Solu-Medrol, improved air entry physical exam. Patient is requesting to be on regular diet rather than cardiac. 05/29/2020 pleasant 43-year-old female with MRSA pneumonia receiving antimicrobial therapy with vancomycin. Lungs sound remained tight and wheezy today, she continues treatment with systemic steroids and bronchodilators, remains on 2 L nasal cannula.vital signs are stable, she has had no fever. 05/30/2020 Patient does look better today. Wheezing significantly improved. Patient has MRSA pneumonia receiving vancomycin. Patient probably can be discharged tomorrow. 05/31/2020 Patient still has significant wheezing on exam. Possibly of discharge tomorrow.patient had significant urine output. IV Lasix will be switched to 40 twice a day 06/01/2020 Patient is feeling much better today patient wheezing significant improved still has some expiratory wheeze patient doesn't have any crackles patient doesn't appear to be volume overloaded at this time patient will not require any additional diuretic patient says she does take a diuretic at home although it's not documented on her home medications. Patient can continue the same dose of diuretic without any change. Patient will be discharged on Zyvox for MRSA pneumonia. Patient was discharged on weaning dose of steroids. PHYSICAL EXAMINATION: GENERAL: The patient is alert and oriented x3, not in any acute distress. Well developed, well nourished. HEENT: Pupils are round and equally reacting to light. EOMI. No scleral icterus. No conjunctival pallor. Normocephalic, atraumatic. No pharyngeal erythema. No thyromegaly. CARDIOVASCULAR: S1 and S2 present. No murmurs, rubs, or gallops. PULMONARY: Mild expiratory wheezing no crackles were appreciated fairly good air entry into bilateral lung morel. ABDOMEN: Soft, nontender, nondistended, normoactive bowel sounds. No palpable organomegaly. MUSCULOSKELETAL: No joint swelling or deformity. EXTREMITIES: No cyanosis, clubbing, or pedal edema. NEUROLOGICAL: Gross neurological examination did not reveal any focal deficits. SKIN: No rashes. Assessment and Plan Plan: -Sepsis due to MRSA pneumonia: Covid 19 negative, Legionella antigen negative. Continued on antimicrobial therapy with Zyvox for 10 more days -Acute on chronic hypercapnic and hypoxic respiratory failure secondary to COPD exacerbation and MRSA pneumonia Continue with the breathing treatments, antibiotics, and systemic steroids -volume overload, pulmonary edema secondary to IV fluids she received no evidence of heart failure . -Subsegmental PE possible, patient the is on Eliquis at this time. -Gastroesophageal reflux disease -Osteoarthritis -Sleep apnea -Hypothyroidism -Depression -History of hepatitis C follow-up as an outpatient. Patient Condition at Discharge: Fair Plan - Discharge Summary Discharge Rx Participant: No New Discharge Prescriptions: New predniSONE 10 mg PO DAILY #30 tab Linezolid [Zyvox] 600 mg PO Q12H #30 tab Ipratropium-Albuterol Nebulize [Duoneb 0.5 mg-3 mg/3 ml Soln] 3 ml INHALATION RT-Q4H PRN #120 ml PRN Reason: Shortness Of Breath Or Wheezing Nicotine 14Mg/24Hr Patch [Habitrol] 1 patch TRANSDERM DAILY #7 patch Continue Oxybutynin Chloride [Ditropan] 5 mg PO DAILY Loratadine [Claritin] 10 mg PO DAILY Gabapentin 300 mg PO TID traZODone HCL 300 mg PO HS methocarbamoL [Robaxin] 500 mg PO BID Levothyroxine Sodium [Synthroid] 75 mcg PO DAILY Montelukast [Singulair] 10 mg PO HS HYDROcodone/APAP 10-325MG [[place] 10-325] 1 tab PO TID Verapamil HCl [Verapamil ER] 240 mg PO HS Apixaban [Eliquis] 2.5 mg PO BID 35 Days #70 tab Montelukast [Singulair] 10 mg PO HS Omeprazole 40 mg PO DAILY Fluticasone Propion/Salmeterol [Wixela 250-50 Inhub] 1 puff INHALATION RT-BID Changed lisinopriL 10 mg PO DAILY #0 Discontinued Ipratropium-Albuterol Nebulize [Duoneb 0.5 mg-3 mg/3 ml Soln] 3 ml INHALATION RT-QID PRN #90 neb PRN Reason: Shortness Of Breath Albuterol Sulfate [Ventolin HFA] 2 puff INHALATION RT-QID PRN PRN Reason: Shortness Of Breath Albuterol Nebulized (Conc) [Ventolin Nebulized (Conc)] 2.5 mg INHALATION RT- QID PRN PRN Reason: Shortness Of Breath Discharge Medication List Loratadine [Claritin] 10 mg PO DAILY 01/24/14 [History] Oxybutynin Chloride [Ditropan] 5 mg PO DAILY 01/24/14 [History] Gabapentin 300 mg PO TID 08/27/19 [History] Levothyroxine Sodium [Synthroid] 75 mcg PO DAILY 08/27/19 [History] methocarbamoL [Robaxin] 500 mg PO BID 08/27/19 [History] traZODone HCL 300 mg PO HS 08/27/19 [History] HYDROcodone/APAP 10-325MG [[place] 10-325] 1 tab PO TID 05/15/20 [History] Montelukast [Singulair] 10 mg PO HS 05/15/20 [History] Verapamil HCl [Verapamil ER] 240 mg PO HS 05/15/20 [History] Apixaban [Eliquis] 2.5 mg PO BID 35 Days #70 tab 05/17/20 [Rx] Fluticasone Propion/Salmeterol [Wixela 250-50 Inhub] 1 puff INHALATION RT-BID 05/24/20 [History] Montelukast [Singulair] 10 mg PO HS 05/24/20 [History] Omeprazole 40 mg PO DAILY 05/24/20 [History] Ipratropium-Albuterol Nebulize [Duoneb 0.5 mg-3 mg/3 ml Soln] 3 ml INHALATION RT-Q4H PRN #120 ml 06/01/20 [Rx] Linezolid [Zyvox] 600 mg PO Q12H #30 tab 06/01/20 [Rx] Nicotine 14Mg/24Hr Patch [Habitrol] 1 patch TRANSDERM DAILY #7 patch 06/01/20 [Rx] lisinopriL 10 mg PO DAILY #0 06/01/20 [Rx] predniSONE 10 mg PO DAILY #30 tab 06/01/20 [Rx] Follow up Appointment(s)/Referral(s): [facility], [NON-STAFF] - Jamee Feldman MD [Primary Care Provider] - 3 Days Discharge Disposition: HOME SELF-CARE
[2020-06-01 11:34] VITALS: PULSE 68
--- NOTE | 2020-06-01 12:57 | P.PN ---
Subjective Progress Note Date: 06/01/20 Principal diagnosis: Dyspnea, weakness, chills This is a 49-year-old with past medical history of COPD on home oxygen at 2 L/min, hypertension, hyperlipidemia, history of hepatitis C treated, osteoarthritis, sleep apnea on CPAP, hypothyroidism, anxiety, depression, extensive history of smoking, who presented to emergency department on 05/24/2020 for evaluation of severe shortness of breath, fever, not feeling well, weakness, severe left hip pain. Patient had a recent history of left hip replacement about a week ago. In addition patient was experiencing mild nausea, but no vomiting. Her symptoms have been progressively worsening, over period of the last 4 days. She was experiencing some chest pain and shortness of breath. Chest x-ray shows opacities at the lung bases, and due to significant overlapping of soft tissue CT chest was recommended. CTA chest showed somewhat suboptimal enhancement in the pulmonary arteries, likely subsegmental pulmonary emboli of the left lower and left upper lobe, and multifocal ground glass opacities bilaterally and trace bilateral pleural effusions, suspicious for COVID 19 pneumonia. Hip x-ray showed left hip prosthesis, no evidence of a fracture. Patient was febrile on presentation with temp of 102.3F. She was only satting 86% on presentation on 3 L of oxygen, was tachycardic with a rate of 121, EKG showed sinus tachycardia. Labs showed a white blood cell count of 12.1, hemoglobin of 9.8, d-dimer was 3.07, sodium was 135, the rest of electrolytes and renal profile were within normal limits, plasma lactic acid was 1.6, LDH was 1296, CRP was 225, 2 sets of troponins were less than 0.012, pro calcitonin level was in intermediate range at 0.13, urinalysis showed trace protein and ketones, but negative for signs of infection, influenza screen was negative. COVID 19 PCR is pending. Patient was started on azithromycin and Rocephin, she is on oral Decadron 4 mg twice daily, patient is on Eliquis for anticoagulation. Patient is being seen by cardiology for evaluation of chest pain On 05/26/20 patient seen in follow-up on selective care unit, last night she had episodes of increased dyspnea, and coughing, patient is on 2 L of oxygen per pulse ox of 99%, this morning she is very dyspneic with any exertion but she has been able to ambulate to the bathroom, recovers somewhat with rest, medicines have been stable, she has been afebrile, COVID 19 was ruled out, influenza was ruled out. Febrile pattern has improved. Blood and sputum cultures have shown no growth. Today's labs have been reviewed, with blood cell count is 10.0, hemoglobin is 8.8, INR is 1.0, d-dimer is 1.63, electrolytes and renal profile were unremarkable, troponins were less than 0.012, urinalysis was without any sign of infection. On 05/29/2020 patient seen in follow-up on medical surgical floor, she is resting quietly in bed, her chest x-ray today shows persistent interstitial edema, she has some swelling in her lower extremities, left leg is greater than right leg, patient has been on oral anticoagulation in the form of Eliquis, she has had no fever, lung sounds reveal diffuse wheezes, and patient appears to be mildly dyspneic at rest. Patient is on vancomycin for evidence of MRSA in the sputum, she is on IV steroids, and nebulized bronchodilators. Doppler study of the lower extremities showed no evidence of DVT. There was some mild scattered subcutaneous soft tissue swelling in the popliteal region of the left leg. On 05/30/2020 patient seen in follow-up on general medical surgical floor. We started her on IV Lasix 40 mg twice daily yesterday, is still significantly fluid overloaded, with the lower extremity edema with lower extremity Dopplers negative for any evidence of DVT, her weight is up by 7 kg since admission, net fluid balance is difficult to estimate patient does not have a Fuller. Patient h is wheezy on today's exam, still requiring oxygen, 2 L, pulse ox 97%, no couplets chest pain, does have significant exertional dyspnea, occasional cough, nonproductive, she ruled out for COVID 19, Legionella, and influenza. pro- calcitonin was negative at 0.02, we ordered a proBNP which came back at 2200 confirming fluid volume overload. patient is on vancomycin for sputum positive for MRSA, however patient does not have a active pneumonia, and will think at this is likely colonization or patient is a MRSA carrier On 05/31/2020 patient seen in follow-up on general medical surgical floor. She is resting comfortably in bed, she denies any specific complaints, she has been diuresing well, she is in -3.8 L net fluid balance over the last 24 hours, lower extremity edema is improving, patient is less wheezy and less dyspneic on today's exam, she's been afebrile, she remains on antibiotics in the form of vancomycin for evidence of MRSA in the sputum which is thought to be a colonizer. Today's chest x-ray has been reviewed showing no acute process. She is on 2 L of oxygen per pulse ox of 94%, she's been afebrile. On 06/01/2020 patient seen in follow-up on general medical surgical floor. She is resting comfortably in bed, she is on 2 L of oxygen a pulse ox of 94%, she is breathing much easier, lung sounds are clear on today's exam, no wheezing no rhonchi, she's been afebrile, lower extremity swelling has significantly decreased. She is in -4.6 L fluid balance over the last 24 hours. Yesterday chest x-ray shows a significant improvement in the appearance of interstitial edema. Patient currently does take chronic diuretic on the regular basis at home, she will need a maintenance dose of diuretics after discharge. Today's labs have been noted. She remains on vancomycin for evidence of MRSA in the sputum however we do not think she is actively infected, and this is likely just a colonizer Objective - Vital Signs Vital signs: Vital Signs Temp 98.1 F 06/01/20 07:00 Pulse 68 06/01/20 11:42 Resp 16 06/01/20 07:00 BP 152/77 06/01/20 07:00 Pulse Ox 94 L 06/01/20 07:00 Intake & Output 05/31/20 06/01/20 06/01/20 18:59 06:59 18:59 Intake Total 944 200 Output Total 3300 2250 Balance -3300 -1306 200 Weight 94.4 kg 94.8 kg Intake: Intake, IV Titration 500 Amount Vancomycin 1,750 mg In 500 Sodium Chloride 0.9% 500 ml 500 ml @ 166.667 mls/ hr IVPB Q12H [facility] Rx#: [id number] Oral 444 200 Output: Urine 3300 2250 Other: Voiding Method Indwelling Catheter Indwelling Catheter - Exam GENERAL EXAM: Alert, very pleasant, 41-year-old obese white female, on 2 L of oxygen with pulse ox 94% comfortable in no apparent distress. HEAD: Normocephalic/atraumatic. EYES: Normal reaction of pupils, equal size. Conjunctiva pink, sclera white. NOSE: Clear with pink turbinates. THROAT: No erythema or exudates. NECK: No masses, no JVD, no thyroid enlargement, no adenopathy. CHEST: No chest wall deformity. Symmetrical expansion. LUNGS: Equal air entry with scattered wheezes CVS: Regular rate and rhythm, normal S1 and S2, no gallops, no murmurs, no rubs ABDOMEN: Soft, nontender. No hepatosplenomegaly, normal bowel sounds, no guarding or rigidity. EXTREMITIES: No clubbing, bilateral lower extremity edema, significantly improved no cyanosis, 2+ pulses and upper and lower extremities. MUSCULOSKELETAL: Muscle strength and tone normal. SPINE: No scoliosis or deformity SKIN: No rashes CENTRAL NERVOUS SYSTEM: Alert and oriented -3. No focal deficits, tone is normal in all 4 extremities. PSYCHIATRIC: Alert and oriented -3. Appropriate affect. Intact judgment and insight. - Labs CBC & Chem 7: 06/01/20 06:06 06/01/20 06:06 Labs: Abnormal Lab Results - Last 24 Hours (Table) 06/01/20 06/01/20 Range/Units 06:06 06:06 WBC 15.6 H (3.8-10.6) k/uL RBC 3.24 L (3.80-5.40) m/uL Hgb 10.2 L (11.4-16.0) gm/dL Hct 32.9 L (34.0-46.0) % MCV 101.5 H (80.0-100.0) fL MCHC 30.9 L (31.0-37.0) g/dL Plt Count 477 H (150-450) k/uL Chloride 93 L (96-109) mmol/L Carbon Dioxide 36.5 H (21.6-31.8) mmol/L BUN 28.0 H (9.0-27.0) mg/dL BUN/Creatinine Ratio 35.00 H (12.00-20.00) Ratio Glucose 125 H (70-110) mg/dL Assessment and Plan Plan: Assessment: #1. Acute on chronic hypoxic respiratory failure related fluid volume overload, possibility of COVID 19 has been ruled out, Legionella has been ruled out, influenza screen was negative. In addition there is a possibility of subsegmental PEs in the left lung, influenza screen was negative. CTA chest showed possible subsegmental pulmonary emboli in the left lower and left upper lobes, and multifocal groundglass opacities bilaterally and trace bilateral pleural effusions, COVID 19 negative. Patient has been on chronic anticoagulation in the form of Eliquis #2. Fever, malaise, shortness of breath, chills, with onset of symptoms 4 days ago, resolved #3. MRSA in the sputum, however pro-calcitonin level was negative, doubt possibility of active MRSA pneumonia, likely patient is just A MRSA carrier covered with vancomycin #4. Elevated inflammatory markers #5. Chest discomfort with 2 sets of negative troponins, EKG showing sinus tachycardia, no acute ischemic changes, cardiology is following, echocardiogram showed moderate concentric LVH, preserved LV function with an EF of 50-55%, mild aortic stenosis, mild mitral regurg, mild tricuspid regurg, moderate pulmonary hypertension with PA pressure 49.4 mmHg #6. Chronic hypoxic respiratory failure related to COPD, patient usually wears 2 L of oxygen #7. Hypothyroidism #8. Hypertension #9. Past medical history of hepatitis C, treated, currently in remission #10. Chronic back pain #11. History of overactive bladder #12. GERD/reflux #13. Osteoarthritis #14. Sleep apnea on CPAP #15. Bilateral lower extremity swelling, interstitial pattern on chest x-ray, fluid overload, we'll start diuretics today, lower extremity Dopplers were ne gative for DVT Plan: Patient is doing well, maintaining negative fluid balance, lower extremity edema has significantly improved, breathing has significantly improved, yesterday chest x-ray showed resolution of interstitial edema. She has been afebrile, from pulmonary perspective she can be considered for discharge home today on the maintenance dose of diuretics, and she can finish outpatient course of Zyvox. Follow-up with Dr. Chaparro in the office in 7-10 days. I performed a history & physical examination of the patient and discussed their management with my nurse practitioner, Thais Neumann. I reviewed the nurse practitioner's note and agree with the documented findings and plan of care. Lung sounds are positive for diminished, with a few scattered wheezes The findings and the impression was discussed with the patient. I attest to the documentation by the nurse practitioner. Time with Patient: Less than 30
[2020-06-01] MEDS ORDERED: NYSTATIN 100,000 UNIT/ML SUSP 500,000 UNIT/5 ML CUP PO SCH (13:00)
--- NOTE | 2020-06-01 15:19 | PN ---
PROGRESS NOTE DATE OF SERVICE: 06/01/2020 REASON FOR FOLLOWUP: 1. MRSA pneumonia. 2. Oral thrush. INTERVAL HISTORY: The patient is currently afebrile. The patient is complaining of burning pain in her mouth. The patient denies having any chest pain. She did have a cough, which is mostly dry in nature now. No nausea, no vomiting. No abdominal pain or diarrhea. PHYSICAL EXAMINATION: Her blood pressure is 152/77 with a pulse of 64, temperature 98.1. She is 94% on 2 L nasal cannula. General description is a middle-aged female up in the bed in no distress. RESPIRATORY SYSTEM: Unlabored breathing with decreased intensity of breath sounds. No wheeze. HEART: S1, S2. Regular rate and rhythm. ABDOMEN: Soft. No tenderness. LABS: Hemoglobin is 10.9, white count 15.6, creatinine 0.8. DIAGNOSTIC IMPRESSION AND PLAN: 1. Patient with methicillin-resistant Staphylococcus aeruginosa pneumonia, clinically responding to vancomycin. Finish therapy with oral Zyvox for about a week. 2. Patient with oral thrush. Nystatin swish and swallow for about a week. MMODL / IJN: [id number] /
[2020-06-02] MEDS ORDERED: VANCOMYCIN TROUGH DUE 1 EACH MISC MISCELLANE ONE (06:00)
== END 2020-06-01 13:57 | disposition home health service (06) | DRG 871 ==
LOC: EC 18:52 → 3SCARD 22:22 → 4SSUR 05-27 12:09
PROVIDERS: ADMIT Hospitalist; ATTEND Hospitalist
DX: A41.02 Sepsis due to Methicillin resistant Staphylococcus aureus (principal); J96.21 Acute and chronic respiratory failure with hypoxia; J96.22 Acute and chronic respiratory failure with hypercapnia; J15.212 Pneumonia due to Methicillin resistant Staphylococcus aureus; I26.93 Single subsegmental thrombotic pulmonary embolism without acute cor pulmonale; J84.9 Interstitial pulmonary disease, unspecified; Z68.42 Body mass index [BMI] 45.0-49.9, adult; J44.1 Chronic obstructive pulmonary disease with (acute) exacerbation; J44.0 Chronic obstructive pulmonary disease with (acute) lower respiratory infection; B37.0 Candidal stomatitis; E03.9 Hypothyroidism, unspecified; Z20.828 Contact with and (suspected) exposure to other viral communicable diseases; D72.810 Lymphocytopenia; E66.9 Obesity, unspecified; E78.5 Hyperlipidemia, unspecified; F17.200 Nicotine dependence, unspecified, uncomplicated; F31.9 Bipolar disorder, unspecified; F41.0 Panic disorder [episodic paroxysmal anxiety]; F43.10 Post-traumatic stress disorder, unspecified; G47.30 Sleep apnea, unspecified; G89.29 Other chronic pain; I10 Essential (primary) hypertension; I27.20 Pulmonary hypertension, unspecified; K21.9 Gastro-esophageal reflux disease without esophagitis; M19.90 Unspecified osteoarthritis, unspecified site; Z96.642 Presence of left artificial hip joint; E87.70 Fluid overload, unspecified; B19.20 Unspecified viral hepatitis C without hepatic coma; I08.3 Combined rheumatic disorders of mitral, aortic and tricuspid valves; M54.9 Dorsalgia, unspecified; Z79.01 Long term (current) use of anticoagulants; Z79.890 Hormone replacement therapy; Z79.899 Other long term (current) drug therapy; Z87.01 Personal history of pneumonia (recurrent); Z98.891 History of uterine scar from previous surgery; Z98.51 Tubal ligation status; Z98.890 Other specified postprocedural states; Z80.9 Family history of malignant neoplasm, unspecified; Z99.81 Dependence on supplemental oxygen
CPT/HCPCS: 36415; 71045; 71046; 71275; 73502; 80048; 80053; 80061; 80202; 81001; 81003; 82565; 82728; 83605; 83615; 83735; 83880; 84145; 84484; 85025; 85027; 85379; 85610; 85730; 86140; 86738; 87040; 87070; 87077; 87186; 87205; 87449; 87502; 93005; 93306; 93970; 94640; 96361; 96374; 96375; 99291

== ENCOUNTER 2020-11-02 13:09 | Emergency (ER) | payer OTHER ==
[2020-11-02 14:42] VITALS: RESP 18
[2020-11-02] MEDS ORDERED: MORPHINE SULFATE 2 MG/ML SYRINGE IM STA (14:53)
--- NOTE | 2020-11-02 14:53 | ED ---
Wound/Laceration HPI - General Chief Complaint: Wound/Laceration Stated Complaint: cut by eye Time Seen by Provider: 11/02/20 14:36 Source: patient Mode of arrival: ambulatory Limitations: no limitations - History of Present Illness Initial Comments: 50-year-old female with history of liver disease, recent PE from pre left total hip arthroplasty on eliquis presenting today for chief complaint of fall, right cheek laceration and low back pain. Patient states that she is currently out of her gabapentin causing her to have restless and jumpy legs. Patient states that this caused her to fall. She denies any leg weakness sensation deficits prior to or after the fall. Patient denied this being syncope she denied chest pain shortness of breath diaphoresis nausea vomiting. Patient states that she had her cheek but her sister had her car so she is unable to present to the ER for laceration repair. Patient states that the fall did occur at around 12:30-1PM yesterday. Patient denied headaches, visual changes, weakness of the UE and LE b/l, denies urinary retention of new loss of bowel or bladder control> Patient denies injury to her chest, or abdomen. Denies extremity injuries. Patient has no additional complaints. Upon arrival she appear nontoxic in no acute distress. - Related Data Home Medications Medication Instructions Recorded Confirmed Loratadine [Claritin] 10 mg PO DAILY 01/24/14 11/02/20 Oxybutynin Chloride [Ditropan] 5 mg PO DAILY 01/24/14 11/02/20 Levothyroxine Sodium [Synthroid] 75 mcg PO DAILY 08/27/19 11/02/20 traZODone HCL 300 mg PO HS 08/27/19 11/02/20 HYDROcodone/APAP 10-325MG [[place] 1 tab PO TID PRN 05/15/20 11/02/20 10-325] Verapamil HCl [Verapamil ER] 240 mg PO DAILY 05/15/20 11/02/20 Montelukast [Singulair] 10 mg PO HS 05/24/20 11/02/20 Omeprazole 40 mg PO DAILY 05/24/20 11/02/20 ARIPiprazole [Abilify] 10 mg PO HS 11/02/20 11/02/20 Albuterol Sulfate [Proair Hfa] 2 puff INHALATION RT-Q6H PRN 11/02/20 11/02/20 Fluticasone/Salmeterol [Advair 1 puff INHALATION RT-BID 11/02/20 11/02/20 250-50 Diskus] Furosemide [Lasix] 20 mg PO DAILY PRN 11/02/20 11/02/20 Gabapentin [Neurontin] 300 mg PO TID 11/02/20 11/02/20 PARoxetine HCL [Paxil] 60 mg PO DAILY 11/02/20 11/02/20 Polyethylene Glycol 3350 [Miralax] 17 gm PO HS 11/02/20 11/02/20 Prazosin [Minipress] 5 mg PO HS 11/02/20 11/02/20 busPIRone HCL 15 mg PO TID 11/02/20 11/02/20 lisinopriL 40 mg PO DAILY 11/02/20 11/02/20 methocarbamoL [Robaxin] 500 mg PO BID 11/02/20 11/02/20 Previous Rx's Medication Instructions Recorded Apixaban [Eliquis] 2.5 mg PO BID 35 Days #70 tab 05/17/20 Cephalexin [Keflex] 500 mg PO Q8HR 5 Days #15 cap 11/02/20 Allergies Allergy/AdvReac Type Severity Reaction Status Date / Time No Known Allergies Allergy Verified 11/02/20 15:36 Review of Systems ROS Statement: Those systems with pertinent positive or pertinent negative responses have been documented in the HPI. ROS Other: All systems not noted in ROS Statement are negative. Past Medical History Past Medical History: Asthma, COPD, GERD/Reflux, Hypertension, Liver Disease, Osteoarthritis (OA), Pneumonia, Sleep Apnea/CPAP/BIPAP, Thyroid Disorder Additional Past Medical History / Comment(s): CHRONIC BRONCHITIS, HEPATITIS C-in remission currently, CHRONIC BACK PAIN & NECK PAIN-painful to turn head to right, OVER-ACTIVE BLADDER, fungal pneumonia 10 yrs. ago, oxygen @[facility] 2l, unable to use CPAP, blood clot 6 yrs. ago in arm related to having PICC line-was on blood thinner for a while, steroid dose pack last week, leg & ankle swelling History of Any Multi-Drug Resistant Organisms: MRSA Date of last positivie culture/infection: 05/25/20 MDRO Source:: Sputum Past Surgical History: Section, Orthopedic Surgery, Tubal Ligation, Uterine Ablation Additional Past Surgical History / Comment(s): ARTHROSCOPY LEFT KNEE, METAL PLATE AND SCREWS RT TIBIA, liver biopsies, right rotator cuff repair, pain procedures, LEFT HIP Past Anesthesia/Blood Transfusion Reactions: No Reported Reaction Past Psychological History: Anxiety, Bipolar, Depression, Panic Disorder, PTSD Smoking Status: Current every day smoker Past Alcohol Use History: None Reported Past Drug Use History: Marijuana - Past Family History Sister(s) Family Medical History: Cancer General Exam - General Exam Comments Initial Comments: General: The patient is awake and alert, in no distress, and does not appear acutely ill. Eye: Pupils are equal, round and reactive to light, extra-ocular movements are intact. No nystagmus. There is normal conjunctiva bilaterally. No signs of icterus. Ears, nose, mouth and throat: There are moist mucous membranes and no oral lesions. No racoon no mccormack sign, slight ecchymosis below the right eye no left eye swelling or ecchymosis Neck: The neck is supple, there is no tenderness or JVD. No midline tenderness to palpation of the cervical spine. Cardiovascular: There is a regular rate and rhythm. No murmur, rub or gallop is appreciated. Respiratory: Lungs are clear to auscultation, respirations are non-labored, breath sounds are equal. No wheezes, stridor, rales, or rhonchi. Gastrointestinal: Soft, non-distended, non-tender abdomen without masses or organomegaly noted. There is no rebound or guarding present. No CVA tenderness. Musculoskeletal: There is normal inspection of the thoracic and lumbar spine, there is no bruising or swelling noted. there is pain paraspine not mildine of the right lumbar spine. Normal ROM, no tenderness of the LE b/l. Strength 5/5 of the LE b/l. Sensation intact of the LE b/l including the saddle region. Radial and PT pulses equal bilaterally 2+. Neurological: A&O x 3. CN II-XII intact, There are no obvious motor or sensory deficits. Coordination appears grossly intact. Speech is normal. Skin: Skin is warm and dry and no rashes Irregular v shaped laceration that appears to be healing on the right cheek about 3-4 cm below the right eye Psychiatric: Cooperative, appropriate mood & affect, normal judgment. Limitations: no limitations Course Vital Signs 11/02/20 11/02/20 11/02/20 14:16 15:20 16:00 Temperature 99.0 F Pulse Rate 82 80 72 Respiratory 18 18 18 Rate Blood Pressure 159/92 152/60 151/91 O2 Sat by Pulse 96 96 96 Oximetry 11/02/20 16:35 Temperature 98.8 F Pulse Rate 72 Respiratory 18 Rate Blood Pressure 151/91 O2 Sat by Pulse 96 Oximetry - Reevaluation(s) Reevaluation #1: Consulted Dr Pack he states there is NO acute fracture of cervical spine. 11/02/20 16:00 Medical Decision Making - Medical Decision Making 50yo female presenting for cc of fall. low back pain. facial laceration. pt on eliquis. CT brain (-). Facial bones old fracture. no physical examination findings concerning for new fracture. No raccoon or Mccormack sign. No orbital ecchymosis. No entrapment limitations and extraocular eye movement. Patient XR of lumbar spine revealed no acute fractures, pt denies symptoms consistent wtih cauda equina. As laceration > 24 hours old, appears to be healing, she will be placed on ppx abx and is to do local wound care. Patient is agreeable to care plan and discharge. Discussed case wtih attending Dr. Perez Disposition Clinical Impression: Facial laceration, Fall, Low back strain, Low back pain Disposition: HOME SELF-CARE Condition: Good Instructions (If sedation given, give patient instructions): Fall Prevention (ED), Facial Laceration (ED) Additional Instructions: Please use medication as discussed. Please follow-up with family doctor in the next 2 days. Please return to emergency room if the symptoms increase or worsen or for any other concerns. Prescriptions: Cephalexin [Keflex] 500 mg PO Q8HR 5 Days #15 cap Is patient prescribed a controlled substance at d/c from ED?: No Referrals: Jamee Feldman MD [Primary Care Provider] - 1-2 days Time of Disposition: 16:01
--- NOTE | 2020-11-02 15:29 | CT ---
EXAMINATION TYPE: CT brain bassem wo con DATE OF EXAM: 11/02/2020 COMPARISON: None HISTORY: 50-year-old female with pain after fall, Right infraorbital injury yesterday. CT DLP: 1139.6 mGycm Automated exposure control for dose reduction was used. Technique: Examination of the head was done in axial plane without intravenous contrast. Coronal and sagittal reconstructions performed. CT of the cervical spine was obtained in axial plane without intravenous injection of contrast mater ial. Coronal and sagittal reformatted images were obtained from the axial views for evaluation of f ractures, spinal alignment and canal. FINDINGS: Head: There is no evidence of acute intracranial hemorrhage, acute ischemic changes, mass, mass-effect, or extra-axial fluid collection. There is no effacement of cerebral sulci or basal subarachnoid cister ns. There is no hydrocephalus. There is no midline shift. Ayala-white matter distinction is preserv ed. No calvarial fracture. Mastoid air cells well pneumatized. Facial bones reported separately. Cervical spine: Moderate to severe degenerative change right TMJ. No craniocervical junction anomaly, predental space widening, or prevertebral soft tissue swelling. Degenerative changes of the C1 dens articulation. Reversal of the normal cervical lordosis. Grade 1 anterolisthesis C5-C6 secondary to facet and uncove rtebral joint arthropathy. Disc osteophyte complex C5-C6 may contribute to a mild to moderate spinal canal stenosis. Motion artifacts. No definite acute fracture of the cervical spine. Moderate right neural foraminal stenosis at C3-C4, mild on the left at C4-C5. Sagittal and coronal reformatted images confirm above findings. COMBINED IMPRESSION: 1. No acute intracranial abnormality seen. 2. The acute fracture of the cervical spine. Mild to moderate spondylotic change with degenerative gr gabriela 1 anterolisthesis at C5-C6. Reversal of the normal cervical lordosis could be positional or due t o muscle spasm. 3. Facial bones reported separately.
--- NOTE | 2020-11-02 15:33 | CT ---
EXAMINATION TYPE: CT facial bones wo con DATE OF EXAM: 11/02/2020 COMPARISON: None HISTORY: 50-year-old female fall and pain, Right infraorbital injury yesterday. TECHNIQUE: Contiguous axial scanning of the facial bones without IV contrast. Coronal reconstructions performed. CT DLP: 1139.6 mGycm Automated exposure control for dose reduction was used. FINDINGS: Mandible appears intact. Moderate to severe degenerative change right TMJ. A single right-sided maxil analilia tooth is present. Otherwise, the patient is edentulous. Zygomatic arches and pterygoid plates appear intact. Nasal bone and facial bones appear intact. There is an old blowout fracture of the left orbital floor. Otherwise, orbits and globes appear inta ct. A divot within the skin contour along the right infraorbital region could reflect the patient's i njury. Rightward nasal septal deviation. No air-fluid levels in the paranasal sinuses. IMPRESSION: 1. OLD BLOWOUT FRACTURE OF THE LEFT ORBITAL FLOOR. NO ACUTE FACIAL BONE FRACTURE SEEN. 2. SUBTLE SOFT TISSUE INJURY SUGGESTED ALONG THE RIGHT PREMAXILLARY/INFRAORBITAL REGION. 3. RIGHTWARD NASAL SEPTAL DEVIATION. MODERATE TO SEVERE RIGHT TMJ OA.
--- NOTE | 2020-11-02 15:42 | XR ---
EXAMINATION TYPE: XR lumbar spine 2 or 3V DATE OF EXAM: 11/02/2020 Comparison: None Clinical History: 50-year-old female with pain after fall Findings: 5 lumbar type vertebral bodies. Reversal of the normal lumbar lordosis. Mild multilevel degenerative disc disease. Facet arthropathy mid to lower lumbar spine. Vertebral body heights are preserved and a lignment is maintained. Partially visualized left hip arthroplasty. Impression: Mild multilevel degenerative disc disease. Facet arthropathy mid to lower lumbar spine. No vertebral compression collapse or malalignment.
[2020-11-02] MEDS ORDERED: DIPH,PERTUS(ACELL)TETVAC-LF 0.5 ML VIAL IM ONE (15:59)
[2020-11-02 16:43] VITALS: BP 151/91; PULSE 72
[2020-11-02 16:44] VITALS: TEMP 98.8
== END 2020-11-02 16:37 | disposition home or self-care (01) ==
LOC: EC 13:09
DX: S01.411A Laceration without foreign body of right cheek and temporomandibular area, initial encounter (principal); S39.012A Strain of muscle, fascia and tendon of lower back, initial encounter; J44.9 Chronic obstructive pulmonary disease, unspecified; I10 Essential (primary) hypertension; M19.90 Unspecified osteoarthritis, unspecified site; K21.9 Gastro-esophageal reflux disease without esophagitis; F32.9 Major depressive disorder, single episode, unspecified; F41.0 Panic disorder [episodic paroxysmal anxiety]; F17.200 Nicotine dependence, unspecified, uncomplicated; F12.90 Cannabis use, unspecified, uncomplicated; Z98.51 Tubal ligation status; W19.XXXA Unspecified fall, initial encounter; Z23 Encounter for immunization
CPT/HCPCS: 72100; 72125; 70486; 70450; 90715; 99283; 96372; 90471; J2270

== ENCOUNTER 2020-12-18 15:55 | Inpatient (IN) | payer OTHER ==
[2020-12-18] MEDS ORDERED: methylPREDNISolone SOD SUCCI 125 MG/2 ML VIAL IV STA (16:19)
[2020-12-18] MEDS ORDERED: ALBUTEROL NEBULIZED 2.5 MG/3 ML INHALATION STA (16:19)
[2020-12-18] MEDS ORDERED: IPRATROPIUM 0.5 MG/2.5 ML NEBU INHALATION STA (16:19)
[2020-12-18] MEDS ORDERED: ACETAMINOPHEN TAB 500 MG TAB PO STA (16:21)
[2020-12-18] MEDS ORDERED: IBUPROFEN 600 MG TAB PO STA (16:22)
--- NOTE | 2020-12-18 16:25 | ED ---
General Adult HPI - General Chief complaint: Chest Pain Stated complaint: YAHAIRA Source: patient, EMS, RN notes reviewed, old records reviewed Mode of arrival: EMS Limitations: no limitations - History of Present Illness Initial comments: This is a 50-year-old female comes emergency Department with a history of COPD. Patient has not been vaccinated and states she has not got covert. Patient states she's been having 3 days of difficulty breathing which has progressively worse. Patient states she's also some left-sided chest pain. Patient states the chest pain is worse with deep breathing. Patient states is also worse with coughing. Patient states she's been coughing quite a bit but no sputum production. Patient states she doesn't believe she has a fever she denies any chills per patient denies lightheadedness or dizziness. Patient denies any abdominal pain patient denies nausea vomiting diarrhea. - Related Data Home Medications Medication Instructions Recorded Confirmed Loratadine [Claritin] 10 mg PO DAILY 01/24/14 12/18/20 Oxybutynin Chloride [Ditropan] 5 mg PO DAILY 01/24/14 12/18/20 Levothyroxine Sodium [Synthroid] 75 mcg PO DAILY 08/27/19 12/18/20 traZODone HCL 300 mg PO HS 08/27/19 12/18/20 HYDROcodone/APAP 10-325MG [Charlo 1 tab PO TID PRN 05/15/20 12/18/20 10-325] Verapamil HCl [Verapamil ER] 240 mg PO DAILY 05/15/20 12/18/20 Montelukast [Singulair] 10 mg PO HS 05/24/20 12/18/20 Omeprazole 40 mg PO DAILY 05/24/20 12/18/20 ARIPiprazole [Abilify] 10 mg PO HS 11/02/20 12/18/20 Albuterol Sulfate [Proair Hfa] 2 puff INHALATION RT-Q6H PRN 11/02/20 12/18/20 Fluticasone/Salmeterol [Advair 1 puff INHALATION RT-BID 11/02/20 12/18/20 250-50 Diskus] Furosemide [Lasix] 20 mg PO DAILY PRN 11/02/20 12/18/20 Gabapentin [Neurontin] 300 mg PO TID 11/02/20 12/18/20 PARoxetine HCL [Paxil] 60 mg PO DAILY 11/02/20 12/18/20 Prazosin [Minipress] 5 mg PO HS 11/02/20 12/18/20 busPIRone HCL 15 mg PO TID 11/02/20 12/18/20 lisinopriL 40 mg PO DAILY 11/02/20 12/18/20 methocarbamoL [Robaxin] 500 mg PO HS 11/02/20 12/18/20 Diclofenac Sodium Gel [Voltaren 2 gm TOPICAL BID PRN 12/18/20 12/18/20 Gel] Ipratropium-Albuterol Nebulize 3 ml INHALATION RT-QID PRN 12/18/20 12/18/20 [Duoneb 0.5 mg-3 mg/3 ml Soln] Meloxicam [Mobic] 7.5 mg PO DAILY 12/18/20 12/18/20 Allergies Allergy/AdvReac Type Severity Reaction Status Date / Time No Known Allergies Allergy Verified 12/18/20 16:46 Review of Systems ROS Statement: Those systems with pertinent positive or pertinent negative responses have been documented in the HPI. ROS Other: All systems not noted in ROS Statement are negative. Past Medical History Past Medical History: Asthma, COPD, GERD/Reflux, Hypertension, Liver Disease, Osteoarthritis (OA), Pneumonia, Sleep Apnea/CPAP/BIPAP, Thyroid Disorder Additional Past Medical History / Comment(s): CHRONIC BRONCHITIS, HEPATITIS C-in remission currently, CHRONIC BACK PAIN & NECK PAIN-painful to turn head to right, OVER-ACTIVE BLADDER, fungal pneumonia 10 yrs. ago, oxygen @HS 2l, unable to use CPAP, blood clot 6 yrs. ago in arm related to having PICC line-was on blood thinner for a while, steroid dose pack last week, leg & ankle swelling History of Any Multi-Drug Resistant Organisms: MRSA Date of last positivie culture/infection: 05/25/20 MDRO Source:: Sputum Past Surgical History: Section, Orthopedic Surgery, Tubal Ligation, Uterine Ablation Additional Past Surgical History / Comment(s): ARTHROSCOPY LEFT KNEE, METAL PLATE AND SCREWS RT TIBIA, liver biopsies, right rotator cuff repair, pain procedures, LEFT HIP Past Anesthesia/Blood Transfusion Reactions: No Reported Reaction Past Psychological History: Anxiety, Bipolar, Depression, Panic Disorder, PTSD Smoking Status: Current every day smoker Past Alcohol Use History: None Reported Past Drug Use History: Marijuana - Past Family History Sister(s) Family Medical History: Cancer General Exam - General Exam Comments Initial Comments: GENERAL: Patient is well-developed and well-nourished. Patient is nontoxic and well- hydrated and is in no acute distress. Patient's temperatures was 100.1. Patient's pulse ox was 80% on room air ENT: Neck is soft and supple. No significant lymphadenopathy is noted. Oropharynx is clear. Moist mucous membranes. Neck has full range of motion without eliciting any pain. There is no thyroid enlargement and no masses were felt. EYES: The sclera were anicteric and conjunctiva were pink and moist. Extraocular movements were intact and pupils were equal round and reactive to light. Eyelids were unremarkable. PULMONARY: Unlabored respirations. Good breath sounds bilaterally. No audible rales rhonchi or wheezing was noted. CARDIOVASCULAR: There is a regular rate and rhythm without any murmurs gallops or rubs. ABDOMEN: Soft and nontender with normal bowel sounds. SKIN: Skin is clear with no lesions or rashes and otherwise unremarkable. NEUROLOGIC: Patient is alert and oriented x3. Cranial nerves II through XII are grossly intact. Motor and sensory are also intact. Normal speech, volume and content. Symmetrical smile. MUSCULOSKELETAL: Normal extremities with adequate strength and full range of motion. LYMPHATICS: No significant lymphadenopathy is noted PSYCHIATRIC: Normal psychiatric evaluation. Limitations: no limitations Course Vital Signs 12/18/20 12/18/20 12/18/20 16:13 16:15 17:12 Temperature 99.9 F H 100.1 F H Pulse Rate 88 70 Respiratory 16 26 H Rate Blood Pressure 149/83 O2 Sat by Pulse 95 Oximetry 12/18/20 12/18/20 17:23 20:57 Temperature Pulse Rate 76 69 Respiratory 16 Rate Blood Pressure 164/87 O2 Sat by Pulse 97 Oximetry Medical Decision Making - Medical Decision Making EKG shows sinus rhythm at 89 bpm NH interval is 100 QRS is under 4 QT interval 396 QTC is 481. Patient's EKG shows no ST segment elevation or depression. Chest x-ray shows viral pneumonia. I spoke with Dr. palacios he agreed to admit the patient with the patient I continue breathing treatments on the floor as well as steroids. I consult pulmonology. - Lab Data Result diagrams: 12/18/20 16:41 12/18/20 16:41 Lab Results 12/18/20 12/18/20 12/18/20 Range/Units 16:41 16:41 16:41 WBC 10.4 (3.8-10.6) k/uL RBC 3.62 L (3.80-5.40) m/uL Hgb 11.3 L (11.4-16.0) gm/dL Hct 33.3 L (34.0-46.0) % MCV 92.0 (80.0-100.0) fL MCH 31.3 (25.0-35.0) pg MCHC 34.0 (31.0-37.0) g/dL RDW 15.2 (11.5-15.5) % Plt Count 326 (150-450) k/uL MPV 7.6 Neutrophils % 77 % Lymphocytes % 16 % Monocytes % 6 % Eosinophils % 1 % Basophils % 0 % Neutrophils # 7.9 H (1.3-7.7) k/uL Lymphocytes # 1.7 (1.0-4.8) k/uL Monocytes # 0.6 (0-1.0) k/uL Eosinophils # 0.1 (0-0.7) k/uL Basophils # 0.0 (0-0.2) k/uL PT 9.8 (9.0-12.0) sec INR 0.9 (<1.2) APTT 21.7 L (22.0-30.0) sec Sodium 138 (137-145) mmol/L Potassium 2.9 L (3.5-5.1) mmol/L Chloride 98 (98-107) mmol/L Carbon Dioxide 29 (22-30) mmol/L Anion Gap 11 mmol/L BUN 8 (7-17) mg/dL Creatinine 0.60 (0.52-1.04) mg/dL Est GFR (CKD-EPI)AfAm >90 (>60 ml/min/1.73 sqM) Est GFR (CKD-EPI)NonAf >90 (>60 ml/min/1.73 sqM) Glucose 139 H (74-99) mg/dL Lactic Ac Sepsis Rflx Plasma Lactic Acid Tobin (0.7-2.0) mmol/L Calcium 8.7 (8.4-10.2) mg/dL Total Bilirubin 0.4 (0.2-1.3) mg/dL AST 21 (14-36) U/L ALT 9 (4-34) U/L Alkaline Phosphatase 32 L (38-126) U/L Troponin I (0.000-0.034) ng/mL NT-Pro-B Natriuret Pep pg/mL Total Protein 6.1 L (6.3-8.2) g/dL Albumin 3.4 L (3.5-5.0) g/dL Influenza Type A (PCR) (Not Detectd) Influenza Type B (PCR) (Not Detectd) RSV (PCR) (Not Detectd) SARS-CoV-2 (PCR) (Not Detectd) 12/18/20 12/18/20 12/18/20 Range/Units 16:41 16:41 16:41 WBC (3.8-10.6) k/uL RBC (3.80-5.40) m/uL Hgb (11.4-16.0) gm/dL Hct (34.0-46.0) % MCV (80.0-100.0) fL MCH (25.0-35.0) pg MCHC (31.0-37.0) g/dL RDW (11.5-15.5) % Plt Count (150-450) k/uL MPV Neutrophils % % Lymphocytes % % Monocytes % % Eosinophils % % Basophils % % Neutrophils # (1.3-7.7) k/uL Lymphocytes # (1.0-4.8) k/uL Monocytes # (0-1.0) k/uL Eosinophils # (0-0.7) k/uL Basophils # (0-0.2) k/uL PT (9.0-12.0) sec INR (<1.2) APTT (22.0-30.0) sec Sodium (137-145) mmol/L Potassium (3.5-5.1) mmol/L Chloride (98-107) mmol/L Carbon Dioxide (22-30) mmol/L Anion Gap mmol/L BUN (7-17) mg/dL Creatinine (0.52-1.04) mg/dL Est GFR (CKD-EPI)AfAm (>60 ml/min/1.73 sqM) Est GFR (CKD-EPI)NonAf (>60 ml/min/1.73 sqM) Glucose (74-99) mg/dL Lactic Ac Sepsis Rflx Plasma Lactic Acid Tobin 2.5 H* (0.7-2.0) mmol/L Calcium (8.4-10.2) mg/dL Total Bilirubin (0.2-1.3) mg/dL AST (14-36) U/L ALT (4-34) U/L Alkaline Phosphatase (38-126) U/L Troponin I <0.012 (0.000-0.034) ng/mL NT-Pro-B Natriuret Pep 884 pg/mL Total Protein (6.3-8.2) g/dL Albumin (3.5-5.0) g/dL Influenza Type A (PCR) (Not Detectd) Influenza Type B (PCR) (Not Detectd) RSV (PCR) (Not Detectd) SARS-CoV-2 (PCR) (Not Detectd) 12/18/20 12/18/20 12/18/20 Range/Units 16:48 17:17 18:09 WBC (3.8-10.6) k/uL RBC (3.80-5.40) m/uL Hgb (11.4-16.0) gm/dL Hct (34.0-46.0) % MCV (80.0-100.0) fL MCH (25.0-35.0) pg MCHC (31.0-37.0) g/dL RDW (11.5-15.5) % Plt Count (150-450) k/uL MPV Neutrophils % % Lymphocytes % % Monocytes % % Eosinophils % % Basophils % % Neutrophils # (1.3-7.7) k/uL Lymphocytes # (1.0-4.8) k/uL Monocytes # (0-1.0) k/uL Eosinophils # (0-0.7) k/uL Basophils # (0-0.2) k/uL PT (9.0-12.0) sec INR (<1.2) APTT (22.0-30.0) sec Sodium (137-145) mmol/L Potassium (3.5-5.1) mmol/L Chloride (98-107) mmol/L Carbon Dioxide (22-30) mmol/L Anion Gap mmol/L BUN (7-17) mg/dL Creatinine (0.52-1.04) mg/dL Est GFR (CKD-EPI)AfAm (>60 ml/min/1.73 sqM) Est GFR (CKD-EPI)NonAf (>60 ml/min/1.73 sqM) Glucose (74-99) mg/dL Lactic Ac Sepsis Rflx Y Plasma Lactic Acid Tobin (0.7-2.0) mmol/L Calcium (8.4-10.2) mg/dL Total Bilirubin (0.2-1.3) mg/dL AST (14-36) U/L ALT (4-34) U/L Alkaline Phosphatase (38-126) U/L Troponin I (0.000-0.034) ng/mL NT-Pro-B Natriuret Pep pg/mL Total Protein (6.3-8.2) g/dL Albumin (3.5-5.0) g/dL Influenza Type A (PCR) Not Detected Not Detected (Not Detectd) Influenza Type B (PCR) Not Detected Not Detected (Not Detectd) RSV (PCR) Not Detected Not Detected (Not Detectd) SARS-CoV-2 (PCR) Not Detected Not Detected (Not Detectd) 12/18/20 Range/Units 19:47 WBC (3.8-10.6) k/uL RBC (3.80-5.40) m/uL Hgb (11.4-16.0) gm/dL Hct (34.0-46.0) % MCV (80.0-100.0) fL MCH (25.0-35.0) pg MCHC (31.0-37.0) g/dL RDW (11.5-15.5) % Plt Count (150-450) k/uL MPV Neutrophils % % Lymphocytes % % Monocytes % % Eosinophils % % Basophils % % Neutrophils # (1.3-7.7) k/uL Lymphocytes # (1.0-4.8) k/uL Monocytes # (0-1.0) k/uL Eosinophils # (0-0.7) k/uL Basophils # (0-0.2) k/uL PT (9.0-12.0) sec INR (<1.2) APTT (22.0-30.0) sec Sodium (137-145) mmol/L Potassium (3.5-5.1) mmol/L Chloride (98-107) mmol/L Carbon Dioxide (22-30) mmol/L Anion Gap mmol/L BUN (7-17) mg/dL Creatinine (0.52-1.04) mg/dL Est GFR (CKD-EPI)AfAm (>60 ml/min/1.73 sqM) Est GFR (CKD-EPI)NonAf (>60 ml/min/1.73 sqM) Glucose (74-99) mg/dL Lactic Ac Sepsis Rflx Plasma Lactic Acid Tobin 1.0 (0.7-2.0) mmol/L Calcium (8.4-10.2) mg/dL Total Bilirubin (0.2-1.3) mg/dL AST (14-36) U/L ALT (4-34) U/L Alkaline Phosphatase (38-126) U/L Troponin I (0.000-0.034) ng/mL NT-Pro-B Natriuret Pep pg/mL Total Protein (6.3-8.2) g/dL Albumin (3.5-5.0) g/dL Influenza Type A (PCR) (Not Detectd) Influenza Type B (PCR) (Not Detectd) RSV (PCR) (Not Detectd) SARS-CoV-2 (PCR) (Not Detectd) Critical Care Time Critical Care Time: Yes Total Critical Care Time: 35 Disposition Clinical Impression: Viral pneumonia, COPD exacerbation Disposition: ADMITTED IP TO THIS HOSP Referrals: Jamee Feldman MD [Primary Care Provider] - 1-2 days Time of Disposition: 21:09
[2020-12-18 16:55] LABS: Basophils % (A) 0 %; Eosinophils # (A) 0.1 k/uL (0-0.7); Eosinophils % (A) 1 %; HCT 33.3 % (34.0-46.0); HGB 11.3 gm/dL (11.4-16.0); Lymphocytes # (A) 1.7 k/uL (1.0-4.8); Lymphocytes % (A) 16 %; MCH 31.3 pg (25.0-35.0); Mean Platelet Volume 7.6; Monocytes # (A) 0.6 k/uL (0-1.0); Monocytes % (A) 6 %; Neutrophils # (A) 7.9 k/uL (1.3-7.7); Neutrophils % (A) 77 %; Platelet Count 326 k/uL (150-450); RBC 3.62 m/uL (3.80-5.40); RDW 15.2 % (11.5-15.5); WBC 10.4 k/uL (3.8-10.6)
[2020-12-18 17:04] LABS: ALT 9 U/L (4-34); AST 21 U/L (14-36); African American GFR (CKD) >90 (>60 ml/min/1.73 sqM); Albumin 3.4 g/dL (3.5-5.0); Alkaline Phosphatase 32 U/L (38-126); Anion Gap 11 mmol/L; Blood Urea Nitrogen 8 mg/dL (7-17); Calcium 8.7 mg/dL (8.4-10.2); Carbon Dioxide 29 mmol/L (22-30); Chloride 98 mmol/L (98-107); Glucose 139 mg/dL (74-99); Non-African American GFR(CKD) >90 (>60 ml/min/1.73 sqM); Potassium 2.9 mmol/L (3.5-5.1); Sodium 138 mmol/L (137-145); Total Bilirubin 0.4 mg/dL (0.2-1.3); Total Protein 6.1 g/dL (6.3-8.2)
[2020-12-18 17:13] LABS: INR 0.9 (<1.2); Prothrombin Time 9.8 sec (9.0-12.0)
[2020-12-18 17:31] LABS: Partial Thromboplastin Time 21.7 sec (22.0-30.0)
[2020-12-18] MEDS ORDERED: POTASSIUM CHLORIDE ER 20 MEQ TAB.ER PO STA (17:58)
[2020-12-18] MEDS ORDERED: POTASSIUM CHLORIDE 20 MEQ in WATER FOR INJECTION 1 100ML.BAG IVPB STA (17:58)
--- NOTE | 2020-12-18 19:32 | XR ---
EXAMINATION TYPE: XR chest 2V DATE OF EXAM: 12/18/2020 COMPARISON: 06/07/2020. HISTORY: 06/07/2020. TECHNIQUE: Frontal and lateral views of the chest are obtained. FINDINGS: There is diffuse moderate bilateral opacities with component of edema. No pleural effusion , or pneumothorax seen. Adamantly. The osseous structures are intact. IMPRESSION: Pulmonary edema with superimposed infiltrates in the appropriate clinical setting.
[2020-12-18] MEDS ORDERED: IPRATROPIUM-ALBUTEROL 3 ML NEB INHALATION PRN (21:10)
[2020-12-18] MEDS ORDERED: cefTRIAXone IN SWFI 1,000 MG/10 ML SYRINGE IVP STA (21:11)
[2020-12-18] MEDS ORDERED: FUROSEMIDE 20 MG TAB PO PRN (22:53)
[2020-12-18] MEDS ORDERED: SODIUM CHLORIDE 0.9% 1,000 ML IV SCH (23:00)
[2020-12-18] MEDS: methylPREDNISolone SOD SUCCI 125 MG/2 ML VIAL IV SCH (23:32)
[2020-12-19] MEDS: ALBUTEROL HFA INHALER INHALATION PRN ×3 (02:57→11:52)
[2020-12-19] MEDS ORDERED: hydrALAZINE HCL 50 MG TAB PO STA (03:38)
[2020-12-19] MEDS: KETOROLAC 15 MG/ML 1 ML VIAL IVP PRN ×2 (03:48→09:39)
[2020-12-19] MEDS: methylPREDNISolone SOD SUCCI 125 MG/2 ML VIAL IV SCH ×3 (05:53→23:42)
[2020-12-19] MEDS: LEVOTHYROXINE 75 MCG TAB PO SCH (05:53)
[2020-12-19 07:45] LABS: Basophils % (A) 0 %; Eosinophils % (A) 0 %; HCT 35.7 % (34.0-46.0); Lymphocytes # (A) 0.7 k/uL (1.0-4.8); Lymphocytes % (A) 11 %; MCH 31.5 pg (25.0-35.0); MCHC 33.6 g/dL (31.0-37.0); MCV 93.8 fL (80.0-100.0); Mean Platelet Volume 7.6; Monocytes # (A) 0.2 k/uL (0-1.0); Monocytes % (A) 3 %; Neutrophils # (A) 5.5 k/uL (1.3-7.7); Neutrophils % (A) 86 %; Platelet Count 290 k/uL (150-450); RBC 3.81 m/uL (3.80-5.40); RDW 15.3 % (11.5-15.5); WBC 6.4 k/uL (3.8-10.6)
[2020-12-19 08:09] LABS: African American GFR (CKD) >90 (>60 ml/min/1.73 sqM); Anion Gap 11 mmol/L; Blood Urea Nitrogen 13 mg/dL (7-17); Calcium 8.7 mg/dL (8.4-10.2); Carbon Dioxide 26 mmol/L (22-30); Chloride 102 mmol/L (98-107); Glucose 199 mg/dL (74-99); Non-African American GFR(CKD) >90 (>60 ml/min/1.73 sqM); Potassium 3.4 mmol/L (3.5-5.1); Sodium 139 mmol/L (137-145)
[2020-12-19] MEDS: SYMBICORT 80-4.5 MCG INHALER INHALATION SCH ×2 (08:45→20:35)
[2020-12-19] MEDS ORDERED: AZITHROMYCIN 500 MG TAB PO SCH (09:00)
[2020-12-19] MEDS: busPIRone HCl 5 MG TAB PO SCH ×3 (09:18→22:08)
[2020-12-19] MEDS: DOXYCYCLINE 100 MG CAP PO SCH ×2 (09:18→20:41)
[2020-12-19] MEDS: VERAPAMIL SR 240 MG TABLET.ER PO SCH (09:19)
[2020-12-19] MEDS: FAMOTIDINE 20 MG/2 ML VIAL IV SCH ×2 (09:19→20:40)
[2020-12-19] MEDS: OXYBUTYNIN CHLORIDE 5 MG TAB PO SCH (09:19)
[2020-12-19] MEDS: PARoxetine 20 MG TAB PO SCH (09:19)
[2020-12-19] MEDS: HEPARIN SODIUM,PORCINE/PF 5,000 UNIT/0.5 ML SYRINGE SQ SCH ×2 (09:19→20:40)
[2020-12-19] MEDS: lisinopriL 20 MG TAB PO SCH (09:19)
[2020-12-19] MEDS: ACETAMINOPHEN TAB 325 MG TAB PO PRN (09:38)
[2020-12-19] MEDS: PANTOPRAZOLE 40 MG TABLET PO SCH (11:08)
[2020-12-19] MEDS: GABAPENTIN 300 MG CAP PO SCH ×3 (11:08→22:08)
[2020-12-19] MEDS: HYDROcodone/APAP 10-325MG 1 EACH TAB PO PRN ×2 (11:26→19:52)
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
[2020-12-19 14:07] VITALS: BMI 36.8
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
[2020-12-19] MEDS: ALBUTEROL HFA INHALER INHALATION SCH ×2 (16:29→20:35)
--- NOTE | 2020-12-19 18:23 | CT ---
EXAMINATION TYPE: CT chest angio for PE DATE OF EXAM: 12/19/2020 COMPARISON: Radiographs 12/18/2020. HISTORY: Dyspnea, viral pneumonia CT DLP: 456.40 mGycm Automated exposure control for dose reduction was used. CONTRAST: CT Chest for pulmonary embolism performed with with IV Contrast, patient injected with 100 mL of Isov ue 370. FINDINGS: LUNGS: There are bilateral diffuse moderate groundglass opacities with confluent and patchy areas. No pleural effusion or pneumothorax. The airways are patent. MEDIASTINUM: There is satisfactory enhancement of the pulmonary artery and its branches, there is no CT evidence for pulmonary embolism. There are scattered multiple borderline to mildly enlarged media stinal lymph nodes, may be reactive. No pericardial effusion is seen. OTHER: No additional significant abnormality is seen. IMPRESSION: No acute PE. Diffuse groundglass opacities, concerning for atypical pneumonia to include Covid pneumonia.
[2020-12-19] MEDS: FUROSEMIDE 10 MG/ML 2 ML VIAL IV SCH (20:40)
[2020-12-19] MEDS: PRAZOSIN 1 MG CAP PO SCH (20:41)
[2020-12-19] MEDS: traZODone HCL 100 MG TAB PO SCH (20:42)
[2020-12-19] MEDS: methocarbamoL 500 MG TAB PO SCH (20:42)
[2020-12-19] MEDS: ARIPiprazole 10 MG TAB PO SCH (20:42)
[2020-12-19] MEDS: MONTELUKAST 10 MG TAB PO SCH (20:42)
[2020-12-19] MEDS ORDERED: methylPREDNISolone SOD SUCCI 40 MG/ML 1 ML VIAL IV SCH (21:00)
[2020-12-20] MEDS: methylPREDNISolone SOD SUCCI 125 MG/2 ML VIAL IV SCH ×4 (05:48→23:30)
[2020-12-20] MEDS: LEVOTHYROXINE 75 MCG TAB PO SCH (05:52)
[2020-12-20] MEDS: HYDROcodone/APAP 10-325MG 1 EACH TAB PO PRN ×2 (05:55→20:53)
[2020-12-20] MEDS: PANTOPRAZOLE 40 MG TABLET PO SCH (06:02)
[2020-12-20 06:10] LABS: Mycoplasma IgG Antibody (EIA) 1.51 INDEX (<=0.90); Mycoplasma IgM Antibody 0.49 INDEX (<=0.90)
[2020-12-20 07:46] LABS: ALT 13 U/L (4-34); AST 20 U/L (14-36); African American GFR (CKD) >90 (>60 ml/min/1.73 sqM); Albumin 3.3 g/dL (3.5-5.0); Alkaline Phosphatase 33 U/L (38-126); Anion Gap 8 mmol/L; Blood Urea Nitrogen 20 mg/dL (7-17); Carbon Dioxide 28 mmol/L (22-30); Chloride 102 mmol/L (98-107); Glucose 195 mg/dL (74-99); Non-African American GFR(CKD) 87 (>60 ml/min/1.73 sqM); Potassium 3.9 mmol/L (3.5-5.1); Sodium 138 mmol/L (137-145); Total Bilirubin 0.3 mg/dL (0.2-1.3); Total Protein 6.2 g/dL (6.3-8.2)
[2020-12-20] MEDS: lisinopriL 20 MG TAB PO SCH (07:58)
[2020-12-20] MEDS: VERAPAMIL SR 240 MG TABLET.ER PO SCH (07:58)
[2020-12-20] MEDS: LORATADINE 10 MG TAB PO SCH (07:58)
[2020-12-20] MEDS: DOXYCYCLINE 100 MG CAP PO SCH ×2 (07:58→20:54)
[2020-12-20] MEDS: busPIRone HCl 5 MG TAB PO SCH ×3 (07:58→20:54)
[2020-12-20] MEDS: FUROSEMIDE 10 MG/ML 2 ML VIAL IV SCH ×2 (07:59→20:55)
[2020-12-20] MEDS: GABAPENTIN 300 MG CAP PO SCH ×3 (07:59→21:02)
[2020-12-20] MEDS: OXYBUTYNIN CHLORIDE 5 MG TAB PO SCH (07:59)
[2020-12-20] MEDS: PARoxetine 20 MG TAB PO SCH (07:59)
[2020-12-20] MEDS: FAMOTIDINE 20 MG/2 ML VIAL IV SCH ×2 (08:00→20:55)
[2020-12-20] MEDS: HEPARIN SODIUM,PORCINE/PF 5,000 UNIT/0.5 ML SYRINGE SQ SCH ×2 (08:02→20:55)
[2020-12-20] MEDS: ALBUTEROL HFA INHALER INHALATION SCH ×4 (08:53→19:20)
[2020-12-20] MEDS: SYMBICORT 80-4.5 MCG INHALER INHALATION SCH ×2 (08:53→19:18)
--- NOTE | 2020-12-20 12:24 | P.PN ---
Subjective 50-year-old female came with complaints of shortness of breath does have wheezing on exam. Patient had a chest x-ray which is showing the some atypical infiltrate patient was tested negative for Covid 19 which is not a PCR testing will order a COVID-19 PCR. Urine Legionella antigen and plasma IgM antibodies will be ordered as well. Patient is complaining of cough without any significant sputum production. Patient had fever patient did not take her covid vaccine yet patient's symptoms started about 3 days ago. 12/20/2020 Patient's COVID-19 PCR, urinary Legionella antigen are all negative. Patient was started on low-dose of Lasix. Patient had a CT angios the chest which he showing groundglass opacity may have pulmonary edema from a chronic diastolic dysfunction with acute exacerbation her BNP is only 900. Constitutional: Denied any fatigue denied any fever. Cardio vascular: denied any chest pain, palpitations Gastrointestinal denied any nausea vomiting Pulmonary: Continues to have shortness of breath Neurologic denied any new focal deficits All inpatient medications were reviewed and appropriate changes in these medications as dictated in the interval history and assessment and plan. Objective - Vital Signs Vital signs: Vital Signs Temp 97.4 F L 12/20/20 08:00 Pulse 68 12/20/20 09:23 Resp 22 12/20/20 08:00 BP 152/93 12/20/20 08:00 Pulse Ox 97 12/20/20 09:23 Intake & Output 12/19/20 12/20/20 12/20/20 18:59 06:59 18:59 Intake Total 1820 Output Total 400 2900 950 Balance -400 -1080 -950 Weight 77.3 kg 80 kg Intake: Intake, IV Titration 220 Amount Sodium Chloride 0.9% 1, 220 000 ml @ 75 mls/hr IV . [id number] [facility] Rx#:[id number] Oral 1600 Output: Urine 400 2900 950 Other: Voiding Method Toilet Toilet Toilet # Voids 1 - Exam PHYSICAL EXAMINATION: GENERAL: The patient is alert and oriented x3, not in any acute distress. Well developed, well nourished. HEENT: Pupils are round and equally reacting to light. EOMI. No scleral icterus. No conjunctival pallor. Normocephalic, atraumatic. No pharyngeal erythema. No thyromegaly. CARDIOVASCULAR: S1 and S2 present. No murmurs, rubs, or gallops. PULMONARY: Expiratory wheezing on exam ABDOMEN: Soft, nontender, nondistended, normoactive bowel sounds. No palpable organomegaly. MUSCULOSKELETAL: No joint swelling or deformity. EXTREMITIES: No cyanosis, clubbing, or pedal edema. NEUROLOGICAL: Gross neurological examination did not reveal any focal deficits. SKIN: No rashes. - Labs CBC & Chem 7: 12/19/20 06:19 12/20/20 05:50 Labs: Abnormal Lab Results - Last 24 Hours (Table) 12/19/20 12/20/20 Range/Units 06:19 05:50 BUN 20 H (7-17) mg/dL Glucose 195 H (74-99) mg/dL Alkaline Phosphatase 33 L (38-126) U/L Total Protein 6.2 L (6.3-8.2) g/dL Albumin 3.3 L (3.5-5.0) g/dL Mycoplasma pneumon IgG 1.51 H (<=0.90) INDEX Assessment and Plan Plan: -Shortness of breath: Secondary to COPD exacerbation. There is a possibility of chronic diastolic dysfunction congestive heart failure with acute exacerbation. Patient will be continued on IV Lasix. Patient has negative to urinary Legionella antigen Covid 19 is negative as well. Patient is on IV Lasix which was started by pulmonary. Patient is on doxycycline patient had known history of MRSA in the sputum -Ruled out Covid 19 -Moderate pulmonary hypertension -Gastro esophageal reflux disease -Hypertension -Sleep apnea -Hyperthyroidism -Chronic hep C -Depression - continued nicotine use. -DVT prophylaxis subcutaneous heparin
--- NOTE | 2020-12-20 12:45 | P.PN ---
Subjective Progress Note Date: 12/20/20 49-year-old female patient, known history of COPD, diastolic heart failure, hypertension, DOROTHY, hep C, hypothyroidism and previous history of MRSA infection, who carries an FEV1 of 77% of predicted at baseline. The patient is known to us from previous hospitalizations for shortness of breath and COPD related complications. Noted the patient also has obstructive sleep apnea and she does not utilize a CPAP machine. The patient came into the hospital because of worsening shortness of breath and wheeze. Chest x-ray that was done in the emergency department showed cardiomegaly and pulmonary edema and bilateral pulmonary fullface/opacities perihilar most consistent with CHF. The patient had a white cell count of 6.4 with a hemoglobin of 12 and a platelet of 290. She had a lymphopenia with a lymphocyte count of 0.7. The BUN was 13 with a creatinine of 0.5 and a sodium level of 139. COVID-19 testing 2 was negative. The rest of the vital screen was also negative. The patient was accordingly hospitalized the morning consultation was requested. For now, the patient is on Symbicort 2 puffs twice a day, DuoNeb the regimen [id number] 4 times a day, started on IV Solu Medrol 40 mg IV every 12 hours and doxycycline 100 mg by mouth twice a day. 12/20/2020, the patient's is feeling slightly better compared to yesterday. She is less short of breath and last bronchus spastic and wheezy compared to yesterday.And the CAT scan showed bilateral diffuse groundglass opacities with confluent areas of patchy consolidation bilaterally. No evidence of any pleural effusion. Note that these changes were also present on previous CAT scan of the chest back in 2009 which makes her wonder whether the patient has an underlying interstitial lung disease rather than acute infection. Also, the patient has no evidence of any pulmonary embolism. The patient was brought is Lasix. The patient is producing adequate amount of urine output. The patient is on IV Solu-Medrol. She has no new complaints otherwise for now. As a screen was negative. COVID-19 screen was negative. Mycoplasma IgM antibodies were negative, Legionella urine antigen was negative. Objective - Vital Signs Vital signs: Vital Signs Temp 97.4 F L 12/20/20 08:00 Pulse 68 12/20/20 09:23 Resp 22 12/20/20 08:00 BP 152/93 12/20/20 08:00 Pulse Ox 97 12/20/20 09:23 Intake & Output 12/19/20 12/20/20 12/20/20 18:59 06:59 18:59 Intake Total 1820 Output Total 400 2900 950 Balance -400 -1080 -950 Weight 77.3 kg 80 kg Intake: Intake, IV Titration 220 Amount Sodium Chloride 0.9% 1, 220 000 ml @ 75 mls/hr IV . [id number] [facility] Rx#:[id number] Oral 1600 Output: Urine 400 2900 950 Other: Voiding Method Toilet Toilet Toilet # Voids 1 - Exam Calm and comfortable and the patient is in mild degree of respiratory distress at rest. Not using excessive muscle breathing. Head exam was generally normal. There was no scleral icterus or corneal arcus. Mucous membranes were moist. Neck was supple and without jugular venous distension, thyromegaly, or carotid bruits. Carotids were easily palpable bilaterally. There was no adenopathy. The patient has a slight enlargement of the thyroid gland/goiter without evidence of any lesions or masses. She has significant crowding of the posterior oropharynx with a Mallampati class IV and the uvula is not seen. Lungs are diminished and the patient had diffuse expiratory wheezes throughout the lung morel bilaterally and prolongation of expiration phase of breathing Cardiac exam revealed the PMI to be normally situated and sized. The rhythm was regular and no extrasystoles were noted during several minutes of auscultation. The first and second heart sounds were normal and physiologic splitting of the second heart sound was noted. There were no murmurs, rubs, clicks, or gallops. Abdomen is obese soft nontender. Organs cannot be accurately palpated. There is no direct tenderness or rebound tensile guarding. Extremities reveal trace edema and there is no cyanosis or clubbing. Neurologically the patient is awake and alert and is no focal neurological defic it. Examination of the skin revealed no evidence of significant rashes, suspicious appearing nevi or other concerning lesions. - Labs CBC & Chem 7: 12/19/20 06:19 12/20/20 05:50 Labs: Abnormal Lab Results - Last 24 Hours (Table) 12/19/20 12/20/20 Range/Units 06:19 05:50 BUN 20 H (7-17) mg/dL Glucose 195 H (74-99) mg/dL Alkaline Phosphatase 33 L (38-126) U/L Total Protein 6.2 L (6.3-8.2) g/dL Albumin 3.3 L (3.5-5.0) g/dL Mycoplasma pneumon IgG 1.51 H (<=0.90) INDEX Assessment and Plan Plan: #1. Acute COPD exacerbation with bilateral pulmonary infiltrates/opacities and cardiomegaly. Consider acute exacerbation of diastolic heart failure. COVID-19 is felt to be less likely as the patient check negative on PCR 2. ProBNP level is mildly elevated at 884. Troponins are negative. Echocardiogram from 2020 showing moderate to severe concentric hypertrophy with a preserved LV function and ejection fraction of 50-55%. The patient is currently on 2 L nasal cannula. Clinically improving. Responding to diuretics. Responding to steroids. Follow-up chest x-ray will be done tomorrow. The patient has bipolar illness pulmonary infiltrates, most likely noninfectious in nature. Consider underlying ILD such as smoking reduced RB ILD versus hypersensitivity pneumonia. Also, interstitial edema/fluid is considered and the patient is based on that is being diuresed. Clinically improving. #2. COPD, based on FEV1 of 77% of predicted #3. Obstructive sleep apnea, not utilizing a CPAP therapy #4. Diastolic heart failure with a previous echocardiogram showed moderate concentric LVH, preserved LV function with an EF of 50-55%, mild aortic stenosis, mild mitral regurg, mild tricuspid regurg, moderate pulmonary hyperte nsion with PA pressure 49.4 mmHg #5. Chronic hypoxic respiratory failure related to COPD, patient usually wears 2 L of oxygen #6. Hypothyroidism #7. Hypertension #8. Past medical history of hepatitis C, treated, currently in remission #9. Chronic back pain #10. History of overactive bladder #11. GERD/reflux #12. Osteoarthritis Plan The patient was need DuoNeb nebulized treatments around the clock IV Solu Medrol 60 mg every 6 hours IV fluids to KVO Computed tomography scan of the chest with contrast reviewed and the patient has bilateral groundglass pulmonary infiltrates Lasix 20 mg IV every 12 hours Continue doxycycline Repeat chest x-ray in the morning Clinically improving We'll continue to follow
[2020-12-20] MEDS ORDERED: ALBUTEROL HFA INHALER INHALATION PRN (12:48)
[2020-12-20] MEDS: methocarbamoL 500 MG TAB PO SCH (20:54)
[2020-12-20] MEDS: ARIPiprazole 10 MG TAB PO SCH (20:54)
[2020-12-20] MEDS: traZODone HCL 100 MG TAB PO SCH (20:54)
[2020-12-20] MEDS: PRAZOSIN 1 MG CAP PO SCH (20:55)
[2020-12-20] MEDS: MONTELUKAST 10 MG TAB PO SCH (20:55)
[2020-12-21] MEDS: methylPREDNISolone SOD SUCCI 125 MG/2 ML VIAL IV SCH ×4 (06:49→23:51)
[2020-12-21] MEDS: PANTOPRAZOLE 40 MG TABLET PO SCH (06:49)
[2020-12-21] MEDS: LEVOTHYROXINE 75 MCG TAB PO SCH (06:49)
[2020-12-21 06:53] LABS: Glucose,Whole Blood 178 mg/dL (75-99)
--- NOTE | 2020-12-21 07:43 | XR ---
EXAMINATION TYPE: XR chest 1V portable DATE OF EXAM: 12/21/2020 CLINICAL HISTORY: Difficulty breathing and pneumonia progress study. TECHNIQUE: Single AP portable upright view of the chest is obtained. COMPARISON: Chest x-ray from 3 days earlier FINDINGS: Persistent cardiomegaly. Improving bilateral multifocal opacities. Osseous structures are intact. IMPRESSION: Cardiomegaly with improving bilateral multifocal opacities.
[2020-12-21] MEDS: INSULIN ASPART (NovoLOG) 100 UNIT/ML VIAL SQ SCH ×4 (07:48→23:49)
[2020-12-21] MEDS: FUROSEMIDE 10 MG/ML 2 ML VIAL IV SCH (08:37)
[2020-12-21] MEDS: HEPARIN SODIUM,PORCINE/PF 5,000 UNIT/0.5 ML SYRINGE SQ SCH ×2 (08:38→20:43)
[2020-12-21] MEDS: LORATADINE 10 MG TAB PO SCH (08:39)
[2020-12-21] MEDS: GABAPENTIN 300 MG CAP PO SCH ×3 (08:39→20:41)
[2020-12-21] MEDS: OXYBUTYNIN CHLORIDE 5 MG TAB PO SCH (08:39)
[2020-12-21] MEDS: HYDROcodone/APAP 10-325MG 1 EACH TAB PO PRN ×3 (08:39→23:51)
[2020-12-21] MEDS: DOXYCYCLINE 100 MG CAP PO SCH ×2 (08:39→20:41)
[2020-12-21] MEDS: VERAPAMIL SR 240 MG TABLET.ER PO SCH (08:40)
[2020-12-21] MEDS: lisinopriL 20 MG TAB PO SCH (08:40)
[2020-12-21] MEDS: PARoxetine 20 MG TAB PO SCH (08:40)
[2020-12-21] MEDS: busPIRone HCl 5 MG TAB PO SCH ×3 (08:41→20:40)
[2020-12-21] MEDS: SYMBICORT 80-4.5 MCG INHALER INHALATION SCH ×2 (08:42→22:26)
[2020-12-21] MEDS: ALBUTEROL HFA INHALER INHALATION SCH ×4 (08:42→22:26)
--- NOTE | 2020-12-21 12:09 | P.PN ---
Subjective 50-year-old female came with complaints of shortness of breath does have wheezing on exam. Patient had a chest x-ray which is showing the some atypical infiltrate patient was tested negative for Covid 19 which is not a PCR testing will order a COVID-19 PCR. Urine Legionella antigen and plasma IgM antibodies will be ordered as well. Patient is complaining of cough without any significant sputum production. Patient had fever patient did not take her covid vaccine yet patient's symptoms started about 3 days ago. 12/20/2020 Patient's COVID-19 PCR, urinary Legionella antigen are all negative. Patient was started on low-dose of Lasix. Patient had a CT angios the chest which he showing groundglass opacity may have pulmonary edema from a chronic diastolic dysfunction with acute exacerbation her BNP is only 900. 12/21/2020 As per the recommendations patient appears to be still for positive fluid balance because of which I'll increase the dose of Lasix. Patient is still wheezing with wheezing appears to have improved. All the workup for atypical pneumonia and Covid 19 is negative. Patient has positive IgG antibody for mycoplasma which doesn't mean active infection or acute infection. Patient is complaining of chest pain musculoskeletal from coughing. Constitutional: Denied any fatigue denied any fever. Cardio vascular: denied any palpitations Gastrointestinal denied any nausea vomiting Pulmonary: Continues to have shortness of breath Neurologic denied any new focal deficits All inpatient medications were reviewed and appropriate changes in these medications as dictated in the interval history and assessment and plan. Objective - Vital Signs Vital signs: Vital Signs Temp 97.1 F L 12/21/20 09:00 Pulse 58 L 12/21/20 08:58 Resp 20 12/21/20 08:58 BP 157/78 12/21/20 08:58 Pulse Ox 99 12/21/20 10:14 Intake & Output 12/20/20 12/21/20 12/21/20 18:59 06:59 18:59 Intake Total 1362 200 Output Total 2350 1650 850 Balance -371 -4717 -008 Weight 79.7 kg Intake: Oral 1362 200 Output: Urine 2350 1650 850 Other: Voiding Method Toilet Toilet Bedside Commode # Voids 1 1 - Exam PHYSICAL EXAMINATION: GENERAL: The patient is alert and oriented x3, not in any acute distress. Well developed, well nourished. HEENT: Pupils are round and equally reacting to light. EOMI. No scleral icterus. No conjunctival pallor. Normocephalic, atraumatic. No pharyngeal erythema. No thyromegaly. CARDIOVASCULAR: S1 and S2 present. No murmurs, rubs, or gallops. PULMONARY: Expiratory wheezing on exam which appears to be better compared to yesterday ABDOMEN: Soft, nontender, nondistended, normoactive bowel sounds. No palpable organomegaly. MUSCULOSKELETAL: No joint swelling or deformity. EXTREMITIES: No cyanosis, clubbing, or pedal edema. NEUROLOGICAL: Gross neurological examination did not reveal any focal deficits. SKIN: No rashes. - Labs CBC & Chem 7: 12/19/20 06:19 12/20/20 05:50 Labs: Abnormal Lab Results - Last 24 Hours (Table) 12/21/20 Range/Units 06:51 POC Glucose (mg/dL) 178 H (75-99) mg/dL Assessment and Plan Plan: -Shortness of breath: Secondary to COPD exacerbation. There is a possibility of chronic diastolic dysfunction congestive heart failure with acute exacerbation. Patient will be continued on IV Lasix reason the dose. Patient has negative to urinary Legionella antigen Covid 19, mycoplasma IgM antibody are negative as well. Patient is on IV Lasix which was started by pulmonary. Patient is on doxycycline patient had known history of MRSA in the sputum and patient is also on IV steroids for severe COPD -Ruled out Covid 19 -Moderate pulmonary hypertension -Gastro esophageal reflux disease -Hypertension -Sleep apnea -Hyperthyroidism -Chronic hep C -Depression - continued nicotine use. -DVT prophylaxis subcutaneous heparin
[2020-12-21 12:12] LABS: Glucose,Whole Blood 139 mg/dL (75-99)
--- NOTE | 2020-12-21 12:21 | P.PN ---
Subjective Progress Note Date: 12/21/20 49-year-old female patient, known history of COPD, diastolic heart failure, hypertension, DOROTHY, hep C, hypothyroidism and previous history of MRSA infection, who carries an FEV1 of 77% of predicted at baseline. The patient is known to us from previous hospitalizations for shortness of breath and COPD related complications. Noted the patient also has obstructive sleep apnea and she does not utilize a CPAP machine. The patient came into the hospital because of worsening shortness of breath and wheeze. Chest x-ray that was done in the emergency department showed cardiomegaly and pulmonary edema and bilateral pulmonary fullface/opacities perihilar most consistent with CHF. The patient had a white cell count of 6.4 with a hemoglobin of 12 and a platelet of 290. She had a lymphopenia with a lymphocyte count of 0.7. The BUN was 13 with a creatinine of 0.5 and a sodium level of 139. COVID-19 testing 2 was negative. The rest of the vital screen was also negative. The patient was accordingly hospitalized the morning consultation was requested. For now, the patient is on Symbicort 2 puffs twice a day, DuoNeb the regimen [id number] 4 times a day, started on IV Solu Medrol 40 mg IV every 12 hours and doxycycline 100 mg by mouth twice a day. 12/20/2020, the patient's is feeling slightly better compared to yesterday. She is less short of breath and last bronchus spastic and wheezy compared to yesterday.And the CAT scan showed bilateral diffuse groundglass opacities with confluent areas of patchy consolidation bilaterally. No evidence of any pleural effusion. Note that these changes were also present on previous CAT scan of the chest back in 2009 which makes her wonder whether the patient has an underlying interstitial lung disease rather than acute infection. Also, the patient has no evidence of any pulmonary embolism. The patient was brought is Lasix. The patient is producing adequate amount of urine output. The patient is on IV Solu-Medrol. She has no new complaints otherwise for now. As a screen was negative. COVID-19 screen was negative. Mycoplasma IgM antibodies were negative, Legionella urine antigen was negative. 12/21/2020, the patient is being seen for a follow-up. As mentioned earlier, she was Hospital as for an acute COPD exacerbation the patient was found to have bilateral interstitial pulmonary infiltrates. Associated with antibiotics and steroids and diuretics. The follow-up chest x-ray done today showing cardiomegaly with improvement in the bilateral pulmonary infiltrates. As such, there is a possibility that the patient is responding to diuretics and his infiltrates could potentially represent interstitial edema. Otherwise, no new complaints for today. She is stable for now. Objective - Vital Signs Vital signs: Vital Signs Temp 97.1 F L 12/21/20 09:00 Pulse 58 L 12/21/20 08:58 Resp 20 12/21/20 08:58 BP 157/78 12/21/20 08:58 Pulse Ox 99 12/21/20 10:14 Intake & Output 12/20/20 12/21/20 12/21/20 18:59 06:59 18:59 Intake Total 1362 200 Output Total 2350 1650 850 Balance -988 -1450 -850 Weight 79.7 kg Intake: Oral 1362 200 Output: Urine 2350 1650 850 Other: Voiding Method Toilet Toilet Bedside Commode # Voids 1 1 - Exam Calm and comfortable and the patient is in mild degree of respiratory distress at rest. Not using excessive muscle breathing. Head exam was generally normal. There was no scleral icterus or corneal arcus. Mucous membranes were moist. Neck was supple and without jugular venous distension, thyromegaly, or carotid bruits. Carotids were easily palpable bilaterally. There was no adenopathy. The patient has a slight enlargement of the thyroid gland/goiter without evidence of any lesions or masses. She has significant crowding of the posterior oropharynx with a Mallampati class IV and the uvula is not seen. Lungs are diminished and the patient had diffuse expiratory wheezes throughout the lung morel bilaterally and prolongation of expiration phase of breathing Cardiac exam revealed the PMI to be normally situated and sized. The rhythm was regular and no extrasystoles were noted during several minutes of auscultation. The first and second heart sounds were normal and physiologic splitting of the second heart sound was noted. There were no murmurs, rubs, clicks, or gallops. Abdomen is obese soft nontender. Organs cannot be accurately palpated. There is no direct tenderness or rebound tensile guarding. Extremities reveal trace edema and there is no cyanosis or clubbing. Neurologically the patient is awake and alert and is no focal neurological deficit. Examination of the skin revealed no evidence of significant rashes, suspicious appearing nevi or other concerning lesions. - Labs CBC & Chem 7: 12/19/20 06:19 12/20/20 05:50 Labs: Abnormal Lab Results - Last 24 Hours (Table) 12/21/20 12/21/20 Range/Units 06:51 12:05 POC Glucose (mg/dL) 178 H 139 H (75-99) mg/dL Assessment and Plan Plan: #1. Acute COPD exacerbation with bilateral pulmonary infiltrates/opacities and cardiomegaly. Consider acute exacerbation of diastolic heart failure. COVID-19 is felt to be less likely as the patient check negative on PCR 2. ProBNP level is mildly elevated at 884. Troponins are negative. Echocardiogram from 2019 showing moderate to severe concentric hypertrophy with a preserved LV function and ejection fraction of 50-55%. The patient is currently on 2 L nasal cannula. Clinically improving. Responding to diuretics. Responding to steroids. Follow-up chest x-ray will be done tomorrow. The patient has bipolar illness pulmonary infiltrates, most likely noninfectious in nature. Consider underlying ILD such as smoking reduced RB ILD versus hypersensitivity pneumonia. Also, interstitial edema/fluid is considered and the patient is based on that is being diuresed. on today's evaluation, the patient is feeling better. The chest x-ray also showing improvement in bilateral pulmonary infiltrates. As such, I think she is responding to diuretics and the bronchodilators and the steroids. We'll continue treatment for another 24 hours here in the hospital. Improvement of the chest x-ray was noted. #2. COPD, based on FEV1 of 77% of predicted #3. Obstructive sleep apnea, not utilizing a CPAP therapy #4. Diastolic heart failure with a previous echocardiogram showed moderate concentric LVH, preserved LV function with an EF of 50-55%, mild aortic stenosis, mild mitral regurg, mild tricuspid regurg, moderate pulmonary hypertension with PA pressure 49.4 mmHg #5. Chronic hypoxic respiratory failure related to COPD, patient usually wears 2 L of oxygen #6. Hypothyroidism #7. Hypertension #8. Past medical history of hepatitis C, treated, currently in remission #9. Chronic back pain #10. History of overactive bladder #11. GERD/reflux #12. Osteoarthritis Plan we'll keep the same treatment for now. The patient was need DuoNeb nebulized treatments around the clock IV Solu Medrol 60 mg every 6 hours IV fluids to KVO Computed tomography scan of the chest with contrast reviewed and the patient has bilateral groundglass pulmonary infiltrates Lasix 20 mg IV every 12 hours Continue doxycycline Repeat chest x-ray in the morning to assess the progression of the pulmonary infiltrates while the patient is being treated Clinically improving We'll continue to follow
[2020-12-21 17:03] LABS: Glucose,Whole Blood 185 mg/dL (75-99)
[2020-12-21] MEDS: PRAZOSIN 1 MG CAP PO SCH (20:40)
[2020-12-21] MEDS: traZODone HCL 100 MG TAB PO SCH (20:40)
[2020-12-21] MEDS: FUROSEMIDE 10 MG/ML 4 ML VIAL IV SCH (20:40)
[2020-12-21 20:41] LABS: Glucose,Whole Blood 161 mg/dL (75-99)
[2020-12-21] MEDS: ARIPiprazole 10 MG TAB PO SCH (20:41)
[2020-12-21] MEDS: methocarbamoL 500 MG TAB PO SCH (20:41)
[2020-12-21] MEDS: MONTELUKAST 10 MG TAB PO SCH (20:41)
[2020-12-22 05:55] LABS: Basophils % (A) 0 %; Eosinophils % (A) 0 %; HCT 35.1 % (34.0-46.0); HGB 11.5 gm/dL (11.4-16.0); Lymphocytes # (A) 0.8 k/uL (1.0-4.8); Lymphocytes % (A) 7 %; MCH 30.5 pg (25.0-35.0); MCHC 32.7 g/dL (31.0-37.0); MCV 93.4 fL (80.0-100.0); Mean Platelet Volume 7.4; Monocytes # (A) 0.4 k/uL (0-1.0); Monocytes % (A) 4 %; Neutrophils # (A) 9.2 k/uL (1.3-7.7); Neutrophils % (A) 88 %; Platelet Count 350 k/uL (150-450); RBC 3.75 m/uL (3.80-5.40); RDW 15.3 % (11.5-15.5); WBC 10.5 k/uL (3.8-10.6)
[2020-12-22 06:17] LABS: African American GFR (CKD) >90 (>60 ml/min/1.73 sqM); Anion Gap 6 mmol/L; Blood Urea Nitrogen 29 mg/dL (7-17); Calcium 8.9 mg/dL (8.4-10.2); Carbon Dioxide 38 mmol/L (22-30); Chloride 95 mmol/L (98-107); Glucose 158 mg/dL (74-99); Non-African American GFR(CKD) 89 (>60 ml/min/1.73 sqM); Potassium 3.1 mmol/L (3.5-5.1); Sodium 139 mmol/L (137-145)
[2020-12-22] MEDS: PANTOPRAZOLE 40 MG TABLET PO SCH (06:48)
[2020-12-22] MEDS: methylPREDNISolone SOD SUCCI 125 MG/2 ML VIAL IV SCH ×4 (06:48→23:35)
[2020-12-22] MEDS: LEVOTHYROXINE 75 MCG TAB PO SCH (06:48)
[2020-12-22 06:53] LABS: Glucose,Whole Blood 163 mg/dL (75-99)
[2020-12-22] MEDS: INSULIN ASPART (NovoLOG) 100 UNIT/ML VIAL SQ SCH ×4 (06:53→19:40)
--- NOTE | 2020-12-22 07:17 | XR ---
EXAMINATION TYPE: XR chest 2V DATE OF EXAM: 12/22/2020 COMPARISON: Chest x-ray from yesterday and older studies HISTORY: Pneumonia, abnormal x-ray. TECHNIQUE: Frontal and lateral views of the chest are obtained. FINDINGS: Stable mild cardiomegaly. Persistent faint bilateral multifocal opacities. No pleural effu harsha or pneumothorax noted. Spine is straightened on lateral view. IMPRESSION: Mild cardiomegaly with persistent faint bilateral multifocal opacities.
[2020-12-22] MEDS: ALBUTEROL HFA INHALER INHALATION SCH ×4 (09:27→19:41)
[2020-12-22] MEDS: SYMBICORT 80-4.5 MCG INHALER INHALATION SCH ×2 (09:27→19:41)
[2020-12-22] MEDS ORDERED: Potassium Replacement Protocol 1 EACH MISC MISCELLANE PRN (09:31)
[2020-12-22] MEDS: HEPARIN SODIUM,PORCINE/PF 5,000 UNIT/0.5 ML SYRINGE SQ SCH ×2 (09:34→20:16)
[2020-12-22] MEDS: PARoxetine 20 MG TAB PO SCH (09:35)
[2020-12-22] MEDS: GABAPENTIN 300 MG CAP PO SCH ×3 (09:35→21:07)
[2020-12-22] MEDS: VERAPAMIL SR 240 MG TABLET.ER PO SCH (09:35)
[2020-12-22] MEDS: LORATADINE 10 MG TAB PO SCH (09:35)
[2020-12-22] MEDS: OXYBUTYNIN CHLORIDE 5 MG TAB PO SCH (09:36)
[2020-12-22] MEDS: busPIRone HCl 5 MG TAB PO SCH ×3 (09:36→21:07)
[2020-12-22] MEDS: FUROSEMIDE 10 MG/ML 4 ML VIAL IV SCH (09:37)
[2020-12-22] MEDS: DOXYCYCLINE 100 MG CAP PO SCH ×2 (09:37→20:16)
[2020-12-22] MEDS: HYDROcodone/APAP 10-325MG 1 EACH TAB PO PRN ×3 (09:49→23:37)
[2020-12-22] MEDS: POTASSIUM CHLORIDE ER 20 MEQ TAB.ER PO SCH ×4 (10:23→14:12)
[2020-12-22] MEDS: lisinopriL 20 MG TAB PO SCH (10:39)
[2020-12-22] MEDS: guaiFENesin-DM 100-10MG/5ML 10 ML CUP PO PRN ×2 (11:49→20:49)
[2020-12-22 12:28] LABS: Glucose,Whole Blood 170 mg/dL (75-99)
--- NOTE | 2020-12-22 12:41 | P.PN ---
Subjective Progress Note Date: 12/22/20 49-year-old female patient, known history of COPD, diastolic heart failure, hypertension, DOROTHY, hep C, hypothyroidism and previous history of MRSA infection, who carries an FEV1 of 77% of predicted at baseline. The patient is known to us from previous hospitalizations for shortness of breath and COPD related complications. Noted the patient also has obstructive sleep apnea and she does not utilize a CPAP machine. The patient came into the hospital because of worsening shortness of breath and wheeze. Chest x-ray that was done in the emergency department showed cardiomegaly and pulmonary edema and bilateral pulmonary fullface/opacities perihilar most consistent with CHF. The patient had a white cell count of 6.4 with a hemoglobin of 12 and a platelet of 290. She had a lymphopenia with a lymphocyte count of 0.7. The BUN was 13 with a creatinine of 0.5 and a sodium level of 139. COVID-19 testing 2 was negative. The rest of the vital screen was also negative. The patient was accordingly hospitalized the morning consultation was requested. For now, the patient is on Symbicort 2 puffs twice a day, DuoNeb the regimen rlnzxg-pry-[id number] 4 times a day, started on IV Solu Medrol 40 mg IV every 12 hours and doxycycline 100 mg by mouth twice a day. 12/20/2020, the patient's is feeling slightly better compared to yesterday. She is less short of breath and last bronchus spastic and wheezy compared to yesterday.And the CAT scan showed bilateral diffuse groundglass opacities with confluent areas of patchy consolidation bilaterally. No evidence of any pleural effusion. Note that these changes were also present on previous CAT scan of the chest back in 2009 which makes her wonder whether the patient has an underlying interstitial lung disease rather than acute infection. Also, the patient has no evidence of any pulmonary embolism. The patient was brought is Lasix. The patient is producing adequate amount of urine output. The patient is on IV Solu-Medrol. She has no new complaints otherwise for now. As a screen was negative. COVID-19 screen was negative. Mycoplasma IgM antibodies were negative, Legionella urine antigen was negative. 12/21/2020, the patient is being seen for a follow-up. As mentioned earlier, she was Hospital as for an acute COPD exacerbation the patient was found to have bilateral interstitial pulmonary infiltrates. Associated with antibiotics and steroids and diuretics. The follow-up chest x-ray done today showing cardiomegaly with improvement in the bilateral pulmonary infiltrates. As such, there is a possibility that the patient is responding to diuretics and his infiltrates could potentially represent interstitial edema. Otherwise, no new complaints for today. She is stable for now. Jamel 2020, the patient is being seen for a follow-up. The patient is being treated for COPD exacerbation. At the same time the patient is being diuresis. I suspect an underlying interstitial lung disease as mentioned. Possibility of a interstitial edema/fluid cannot be completely ruled out. The patient has been diuresed with IV Lasix. She remains in negative fluid balance. For example, over the past 24 hours the patient has been in negative fluid balance of around 3.5 L. I repeated the chest x-ray today and the patient was found to have some persistent but faint bilateral interstitial pulmonary infiltrates. Clinically, she is feeling better. No new complaints otherwise for now.She has electrolyte disturbance consistent with diuresis. Potassium level is down to 3.1 and needs to be replaced and a serum bicarbonate of 38. As such, she may be potentially getting contracted. Lasix was admitted used to 20 mg IV every 12 hours. Objective - Vital Signs Vital signs: Vital Signs Temp 97.4 F L 12/22/20 09:15 Pulse 60 12/22/20 09:45 Resp 16 12/22/20 09:15 BP 166/82 12/22/20 09:15 Pulse Ox 98 12/22/20 09:15 Intake & Output 12/21/20 12/22/20 12/22/20 18:59 06:59 18:59 Output Total 1750 1800 1200 Balance -1750 -1800 -1200 Weight 79.6 kg Output: Urine 1750 1800 1200 Other: Voiding Method Toilet Bedside Commode # Voids 2 1 # Bowel Movements 1 - Exam Calm and comfortable and the patient is in mild degree of respiratory distress at rest. Not using excessive muscle breathing. Head exam was generally normal. There was no scleral icterus or corneal arcus. Mucous membranes were moist. Neck was supple and without jugular venous distension, thyromegaly, or carotid bruits. Carotids were easily palpable bilaterally. There was no adenopathy. The patient has a slight enlargement of the thyroid gland/goiter without evidence of any lesions or masses. She has significant crowding of the posterior oropharynx with a Mallampati class IV and the uvula is not seen. Lungs are diminished and the patient had diffuse expiratory wheezes throughout the lung morel bilaterally and prolongation of expiration phase of breathing Cardiac exam revealed the PMI to be normally situated and sized. The rhythm was regular and no extrasystoles were noted during several minutes of auscultation. The first and second heart sounds were normal and physiologic splitting of the second heart sound was noted. There were no murmurs, rubs, clicks, or gallops. Abdomen is obese soft nontender. Organs cannot be accurately palpated. There is no direct tenderness or rebound tensile guarding. Extremities reveal trace edema and there is no cyanosis or clubbing. Neurologically the patient is awake and alert and is no focal neurological deficit. Examination of the skin revealed no evidence of significant rashes, suspicious appearing nevi or other concerning lesions. - Labs CBC & Chem 7: 12/22/20 05:42 12/22/20 05:42 Labs: Abnormal Lab Results - Last 24 Hours (Table) 12/21/20 12/21/20 12/22/20 Range/Units 17:02 20:39 05:42 RBC (3.80-5.40) m/uL Neutrophils # (1.3-7.7) k/uL Lymphocytes # (1.0-4.8) k/uL Potassium 3.1 L (3.5-5.1) mmol/L Chloride 95 L (98-107) mmol/L Carbon Dioxide 38 H (22-30) mmol/L BUN 29 H (7-17) mg/dL Glucose 158 H (74-99) mg/dL POC Glucose (mg/dL) 185 H 161 H (75-99) mg/dL 12/22/20 12/22/20 12/22/20 Range/Units 05:42 06:51 12:26 RBC 3.75 L (3.80-5.40) m/uL Neutrophils # 9.2 H (1.3-7.7) k/uL Lymphocytes # 0.8 L (1.0-4.8) k/uL Potassium (3.5-5.1) mmol/L Chloride (98-107) mmol/L Carbon Dioxide (22-30) mmol/L BUN (7-17) mg/dL Glucose (74-99) mg/dL POC Glucose (mg/dL) 163 H 170 H (75-99) mg/dL Assessment and Plan Plan: #1. Acute COPD exacerbation with bilateral pulmonary infiltrates/opacities and cardiomegaly. Consider acute exacerbation of diastolic heart failure. COVID-19 is felt to be less likely as the patient check negative on PCR 2. ProBNP level is mildly elevated at 884. Troponins are negative. Echocardiogram from 2019 showing moderate to severe concentric hypertrophy with a preserved LV function and ejection fraction of 50-55%. The patient is currently on 2 L nasal cannula. Clinically improving. Responding to diuretics. Responding to stero ids. Is not fully recovered. She remains bronchospastic and wheezy. Her chest x-ray still showing some residual bilateral pulmonary infiltrates although less faint. She has been negative fluid balance along with diuresis. on today's evaluation, the patient is feeling better. The chest x-ray also showing improvement in bilateral pulmonary infiltrates. As such, I think she is responding to diuretics and the bronchodilators and the steroids. We'll continue treatment for another 24 hours here in the hospital. Improvement of the chest x-ray was noted. #2. COPD, based on FEV1 of 77% of predicted #3. Obstructive sleep apnea, not utilizing a CPAP therapy #4. Diastolic heart failure with a previous echocardiogram showed moderate concentric LVH, preserved LV function with an EF of 50-55%, mild aortic stenosis, mild mitral regurg, mild tricuspid regurg, moderate pulmonary hypertension with PA pressure 49.4 mmHg #5. Chronic hypoxic respiratory failure related to COPD, patient usually wears 2 L of oxygen #6. Hypothyroidism #7. Hypertension #8. Past medical history of hepatitis C, treated, currently in remission #9. Chronic back pain #10. History of overactive bladder #11. GERD/reflux #12. Osteoarthritis Plan we'll keep the same treatment for now. The patient was need DuoNeb nebulized treatments around the clock IV Solu Medrol 60 mg every 6 hours IV fluids to KVO Computed tomography scan of the chest with contrast reviewed and the patient has bilateral groundglass pulmonary infiltrates Lasix 20 mg IV every 12 hours Continue doxycycline Repeat chest x-ray in the morning still showing some faint infiltration and ultimately the patient may need an outpatient evaluation and biopsy and infiltrates remain unchanged and the patient continues to have bilateral pulmonary interstitial infiltration suggestive of an underlying ILD. Clinically improving replace potassium We'll continue to follow
[2020-12-22] MEDS ORDERED: POTASSIUM CHLORIDE ER 20 MEQ TAB.ER PO STA (13:57)
--- NOTE | 2020-12-22 15:07 | P.PN ---
Subjective Progress Note Date: 12/22/20 50-year-old female came with complaints of shortness of breath does have wheezing on exam. Patient had a chest x-ray which is showing the some atypical infiltrate patient was tested negative for Covid 19 which is not a PCR testing will order a COVID-19 PCR. Urine Legionella antigen and plasma IgM antibodies will be ordered as well. Patient is complaining of cough without any significant sputum production. Patient had fever patient did not take her covid vaccine yet patient's symptoms started about 3 days ago. 12/20/2020 Patient's COVID-19 PCR, urinary Legionella antigen are all negative. Patient was started on low-dose of Lasix. Patient had a CT angios the chest which he showing groundglass opacity may have pulmonary edema from a chronic diastolic dysfunction with acute exacerbation her BNP is only 900. 12/21/2020 As per the recommendations patient appears to be still for positive fluid balance because of which I'll increase the dose of Lasix. Patient is still wheezing with wheezing appears to have improved. All the workup for atypical pneumonia and Covid 19 is negative. Patient has positive IgG antibody for mycoplasma which doesn't mean active infection or acute infection. Patient is complaining of chest pain musculoskeletal from coughing. 12/22/2020 Patient is seen in follow-up this morning continued on IV Lasix and will decrease the dosage to 20 mg twice a day and monitor closely. Electrolytes abnormal and potassium is 3.1 and will replace per protocol. Repeat this afternoon was 3.0 and will continue to replace and repeat a.m. labs. Pulmonary following and patient is maintained on DuoNeb's along with doxycycline and IV steroids and will continue. Patient is currently 97-98% on 2 L via nasal cannula. Constitutional: Denied any fatigue denied any fever. Cardio vascular: denied any palpitations Gastrointestinal denied any nausea vomiting Pulmonary: Continues to have shortness of breath and cough Neurologic denied any new focal deficits All inpatient medications were reviewed and appropriate changes in these medications as dictated in the interval history and assessment and plan. Objective - Vital Signs Vital signs: Vital Signs Temp 97.4 F L 12/22/20 09:15 Pulse 59 L 12/22/20 09:15 Resp 16 12/22/20 09:15 BP 166/82 12/22/20 09:15 Pulse Ox 98 12/22/20 09:15 Intake & Output 12/21/20 12/22/20 12/22/20 18:59 06:59 18:59 Output Total 1750 1800 Balance -1750 -1800 Weight 79.6 kg Output: Urine 175 1800 Other: Voiding Method Toilet Bedside Commode # Voids 2 1 - Exam GENERAL: The patient is alert and oriented x3, not in any acute distress. Well developed, well nourished. HEENT: Pupils are round and equally reacting to light. EOMI. No scleral icterus. No conjunctival pallor. Normocephalic, atraumatic. No pharyngeal erythema. No thyromegaly. CARDIOVASCULAR: S1 and S2 present. No murmurs, rubs, or gallops. PULMONARY: Diminished breath sounds bilaterally with some added crackles and Expiratory wheezing on exam which appears to be better compared to yesterday ABDOMEN: Soft, nontender, nondistended, normoactive bowel sounds. No palpable organomegaly. MUSCULOSKELETAL: No joint swelling or deformity. EXTREMITIES: No cyanosis, clubbing, or pedal edema. NEUROLOGICAL: Gross neurological examination did not reveal any focal deficits. SKIN: No rashes. - Labs CBC & Chem 7: 12/22/20 05:42 12/22/20 12:02 Labs: Abnormal Lab Results - Last 24 Hours (Table) 12/21/20 12/21/20 12/21/20 Range/Units 12:05 17:02 20:39 RBC (3.80-5.40) m/uL Neutrophils # (1.3-7.7) k/uL Lymphocytes # (1.0-4.8) k/uL Potassium (3.5-5.1) mmol/L Chloride (98-107) mmol/L Carbon Dioxide (22-30) mmol/L BUN (7-17) mg/dL Glucose (74-99) mg/dL POC Glucose (mg/dL) 139 H 185 H 161 H (75-99) mg/dL 12/22/20 12/22/20 12/22/20 Range/Units 05:42 05:42 06:51 RBC 3.75 L (3.80-5.40) m/uL Neutrophils # 9.2 H (1.3-7.7) k/uL Lymphocytes # 0.8 L (1.0-4.8) k/uL Potassium 3.1 L (3.5-5.1) mmol/L Chloride 95 L (98-107) mmol/L Carbon Dioxide 38 H (22-30) mmol/L BUN 29 H (7-17) mg/dL Glucose 158 H (74-99) mg/dL POC Glucose (mg/dL) 163 H (75-99) mg/dL Assessment and Plan Assessment: -Shortness of breath: Secondary to COPD exacerbation. There is a possibility of chronic diastolic dysfunction congestive heart failure with acute exacerbation. Patient will be continued on IV Lasix and will decrease the dose to 20 mg twice daily for another 24 hours and repeat a.m. labs. Patient has negative to urinary Legionella antigen Covid 19, mycoplasma IgM antibody are negative as well. Patient is on doxycycline patient had known history of MRSA in the sputum and patient is also on IV steroids for severe COPD -Ruled out Covid 19 -Moderate pulmonary hypertension -Mild hypokalemia, replacing per protocol and current potassium is 3.0 patient received 40 mEq earlier today and will continue with protocol and order an additional 40 mEq and repeat a.m. labs -Gastro esophageal reflux disease -Hypertension -Sleep apnea -Hyperthyroidism -Chronic hep C -Depression -continued nicotine use. -DVT prophylaxis subcutaneous heparin Plan: Continue with DuoNeb's and IV steroids and oral doxycycline. Patient's potassium is 3.0 on being replaced and will repeat a.m. labs. Pulmonary following. Patient is maintained on IV Lasix and will decrease the dose to 20 mg twice daily for another 24 hours and monitor. Possible discharge in 24-48 hours.
[2020-12-22 17:04] LABS: Glucose,Whole Blood 144 mg/dL (75-99)
[2020-12-22 19:41] LABS: Glucose,Whole Blood 136 mg/dL (75-99)
[2020-12-22] MEDS: FUROSEMIDE 10 MG/ML 2 ML VIAL IV SCH (20:06)
[2020-12-22] MEDS: methocarbamoL 500 MG TAB PO SCH (20:16)
[2020-12-22] MEDS: MONTELUKAST 10 MG TAB PO SCH (20:16)
[2020-12-22] MEDS: PRAZOSIN 1 MG CAP PO SCH (20:16)
[2020-12-22] MEDS: traZODone HCL 100 MG TAB PO SCH (20:16)
[2020-12-22] MEDS: ARIPiprazole 10 MG TAB PO SCH (20:16)
[2020-12-23] MEDS: LEVOTHYROXINE 75 MCG TAB PO SCH (05:55)
[2020-12-23] MEDS: methylPREDNISolone SOD SUCCI 125 MG/2 ML VIAL IV SCH ×2 (05:55→12:12)
[2020-12-23 06:39] LABS: Glucose,Whole Blood 139 mg/dL (75-99)
[2020-12-23] MEDS: INSULIN ASPART (NovoLOG) 100 UNIT/ML VIAL SQ SCH ×2 (06:40→12:46)
[2020-12-23] MEDS: PANTOPRAZOLE 40 MG TABLET PO SCH (06:41)
[2020-12-23] MEDS: HYDROcodone/APAP 10-325MG 1 EACH TAB PO PRN ×2 (06:41→14:00)
[2020-12-23 06:46] LABS: African American GFR (CKD) >90 (>60 ml/min/1.73 sqM); Blood Urea Nitrogen 32 mg/dL (7-17); Calcium 8.4 mg/dL (8.4-10.2); Chloride 93 mmol/L (98-107); Glucose 145 mg/dL (74-99); Non-African American GFR(CKD) 87 (>60 ml/min/1.73 sqM); Potassium 3.8 mmol/L (3.5-5.1); Sodium 138 mmol/L (137-145)
[2020-12-23 06:53] LABS: Anion Gap 9 mmol/L; Carbon Dioxide 36 mmol/L (22-30)
[2020-12-23] MEDS: ALBUTEROL HFA INHALER INHALATION SCH ×3 (07:45→15:40)
[2020-12-23] MEDS: SYMBICORT 80-4.5 MCG INHALER INHALATION SCH (07:45)
[2020-12-23] MEDS ORDERED: POTASSIUM CHLORIDE ER 20 MEQ TAB.ER PO STA (07:59)
[2020-12-23] MEDS: busPIRone HCl 5 MG TAB PO SCH ×2 (08:15→14:52)
[2020-12-23] MEDS: DOXYCYCLINE 100 MG CAP PO SCH (08:15)
[2020-12-23] MEDS: GABAPENTIN 300 MG CAP PO SCH ×2 (08:16→14:52)
[2020-12-23] MEDS: LORATADINE 10 MG TAB PO SCH (08:16)
[2020-12-23] MEDS: FUROSEMIDE 10 MG/ML 2 ML VIAL IV SCH (08:16)
[2020-12-23] MEDS: HEPARIN SODIUM,PORCINE/PF 5,000 UNIT/0.5 ML SYRINGE SQ SCH (08:16)
[2020-12-23] MEDS: lisinopriL 20 MG TAB PO SCH (08:16)
[2020-12-23] MEDS: OXYBUTYNIN CHLORIDE 5 MG TAB PO SCH (08:16)
[2020-12-23] MEDS: guaiFENesin-DM 100-10MG/5ML 10 ML CUP PO PRN ×2 (08:17→14:59)
[2020-12-23] MEDS: PARoxetine 20 MG TAB PO SCH (08:17)
[2020-12-23] MEDS: VERAPAMIL SR 240 MG TABLET.ER PO SCH (08:17)
[2020-12-23 12:12] VITALS: BP 120/67; TEMP 98.2
[2020-12-23 12:18] VITALS: RESP 22
[2020-12-23 12:26] LABS: Glucose,Whole Blood 179 mg/dL (75-99)
--- NOTE | 2020-12-23 13:03 | P.DS ---
Providers Date of admission: 12/18/20 21:10 Attending physician: Arnaldo Giles MD Consults: 12/18/20 21:10 Consult Physician Routine Consulting Provider: Diana Floyd Consult Reason/Comments: COPD exacerbation, viral pneumonia Do you want consulting provider notified?: Yes Primary care physician: Gaston Carpio [facility] Heart Course: 50-year-old female came with complaints of shortness of breath does have wheezing on exam. Patient had a chest x-ray which is showing the some atypical infiltrate patient was tested negative for Covid 19 which is not a PCR testing will order a COVID-19 PCR. Urine Legionella antigen and plasma IgM antibodies will be ordered as well. Patient is complaining of cough without any significant sputum production. Patient had fever patient did not take her covid vaccine yet patient's symptoms started about 3 days ago. 12/20/2020 Patient's COVID-19 PCR, urinary Legionella antigen are all negative. Patient was started on low-dose of Lasix. Patient had a CT angios the chest which he showing groundglass opacity may have pulmonary edema from a chronic diastolic dysfunction with acute exacerbation her BNP is only 900. 12/21/2020 As per the recommendations patient appears to be still for positive fluid balance because of which I'll increase the dose of Lasix. Patient is still wheezing with wheezing appears to have improved. All the workup for atypical pneumonia and Covid 19 is negative. Patient has positive IgG antibody for mycoplasma which doesn't mean active infection or acute infection. Patient is complaining of chest pain musculoskeletal from coughing. 12/22/2020 Patient is seen in follow-up this morning continued on IV Lasix and will decrease the dosage to 20 mg twice a day and monitor closely. Electrolytes abnormal and potassium is 3.1 and will replace per protocol. Repeat this afternoon was 3.0 and will continue to replace and repeat a.m. labs. Pulmonary following and patient is maintained on DuoNeb's along with doxycycline and IV s teroids and will continue. Patient is currently 97-98% on 2 L via nasal cannula. 12/21/2020 Patient has significant improvement in wheezing. Patient desaturates to 89% upon ablation without oxygen. Patient still had mild wheezing. Patient is willing to quit smoking but patient has a lot of family members that smoke inside her house. Extensive counseling regarding this was provided. Patient appears to have some pulmonary edema and chronic diastolic dysfunction with acute exacerbation patient will be started on scheduled Lasix 20 mg twice a day, potassium supplementation. Rule out atypical pneumonia and Covid 19 pneumonia - Exam GENERAL: The patient is alert and oriented x3, not in any acute distress. Well developed, well nourished. HEENT: Pupils are round and equally reacting to light. EOMI. No scleral icterus. No conjunctival pallor. Normocephalic, atraumatic. No pharyngeal erythema. No thyromegaly. CARDIOVASCULAR: S1 and S2 present. No murmurs, rubs, or gallops. PULMONARY: Diminished breath sounds bilaterally with some added crackles and Expiratory wheezing on exam which appears to be better compared to yesterday ABDOMEN: Soft, nontender, nondistended, normoactive bowel sounds. No palpable organomegaly. MUSCULOSKELETAL: No joint swelling or deformity. EXTREMITIES: No cyanosis, clubbing, or pedal edema. NEUROLOGICAL: Gross neurological examination did not reveal any focal deficits. SKIN: No rashes. Assessment and Plan Assessment: -Shortness of breath: Secondary to COPD exacerbation and congestive heart failure chronic diastolic dysfunction congestive heart failure with acute exacerbation. Patient has negative to urinary Legionella antigen Covid 19, mycoplasma IgM antibody are negative as well. Patient is on doxycycline patient had known history of MRSA in the sputum and patient is also on IV steroids for severe COPD -Ruled out Covid 19 -Moderate pulmonary hypertension -Gastro esophageal reflux disease -Hypertension -Sleep apnea -Hyperthyroidism -Chronic hep C -Depression -continued nicotine use. Plan - Discharge Summary Discharge Rx Participant: No New Discharge Prescriptions: New guaiFENesin-DM 100-10MG/5ML [Robitussin DM] 10 ml PO Q6H PRN #250 ml PRN Reason: Cough Doxycycline [Vibramycin] 100 mg PO BID #4 cap Continue Oxybutynin Chloride [Ditropan] 5 mg PO DAILY Loratadine [Claritin] 10 mg PO DAILY traZODone HCL 300 mg PO HS Levothyroxine Sodium [Synthroid] 75 mcg PO DAILY HYDROcodone/APAP 10-325MG [[place] 10-325] 1 tab PO TID PRN PRN Reason: Pain Montelukast [Singulair] 10 mg PO HS Omeprazole 40 mg PO DAILY Albuterol Sulfate [Proair Hfa] 2 puff INHALATION RT-Q6H PRN PRN Reason: Shortness Of Breath ARIPiprazole [Abilify] 10 mg PO HS busPIRone HCL 15 mg PO TID Fluticasone/Salmeterol [Advair 250-50 Diskus] 1 puff INHALATION RT-BID Gabapentin [Neurontin] 300 mg PO TID lisinopriL 40 mg PO DAILY methocarbamoL [Robaxin] 500 mg PO HS PARoxetine HCL [Paxil] 60 mg PO DAILY Prazosin [Minipress] 5 mg PO HS Ipratropium-Albuterol Nebulize [Duoneb 0.5 mg-3 mg/3 ml Soln] 3 ml INHALATION RT-QID PRN PRN Reason: Shortness Of Breath Meloxicam [Mobic] 7.5 mg PO DAILY Diclofenac Sodium Gel [Voltaren Gel] 2 gm TOPICAL BID PRN PRN Reason: Pain Changed Furosemide [Lasix] 20 mg PO BID #60 tab Verapamil HCl [Verapamil ER] 120 mg PO DAILY #0 Discharge Medication List Loratadine [Claritin] 10 mg PO DAILY 01/24/14 [History] Oxybutynin Chloride [Ditropan] 5 mg PO DAILY 01/24/14 [History] Levothyroxine Sodium [Synthroid] 75 mcg PO DAILY 08/27/19 [History] traZODone HCL 300 mg PO HS 08/27/19 [History] HYDROcodone/APAP 10-325MG [[place] 10-325] 1 tab PO TID PRN 05/15/20 [History] Montelukast [Singulair] 10 mg PO HS 05/24/20 [History] Omeprazole 40 mg PO DAILY 05/24/20 [History] ARIPiprazole [Abilify] 10 mg PO HS 11/02/20 [History] Albuterol Sulfate [Proair Hfa] 2 puff INHALATION RT-Q6H PRN 11/02/20 [History] Fluticasone/Salmeterol [Advair 250-50 Diskus] 1 puff INHALATION RT-BID 11/02/20 [History] Gabapentin [Neurontin] 300 mg PO TID 11/02/20 [History] PARoxetine HCL [Paxil] 60 mg PO DAILY 11/02/20 [History] Prazosin [Minipress] 5 mg PO HS 11/02/20 [History] busPIRone HCL 15 mg PO TID 11/02/20 [History] lisinopriL 40 mg PO DAILY 11/02/20 [History] methocarbamoL [Robaxin] 500 mg PO HS 11/02/20 [History] Diclofenac Sodium Gel [Voltaren Gel] 2 gm TOPICAL BID PRN 12/18/20 [History] Ipratropium-Albuterol Nebulize [Duoneb 0.5 mg-3 mg/3 ml Soln] 3 ml INHALATION RT-QID PRN 12/18/20 [History] Meloxicam [Mobic] 7.5 mg PO DAILY 12/18/20 [History] Doxycycline [Vibramycin] 100 mg PO BID #4 cap 12/23/20 [Rx] Furosemide [Lasix] 20 mg PO BID #60 tab 12/23/20 [Rx] Verapamil HCl [Verapamil ER] 120 mg PO DAILY #0 12/23/20 [Rx] guaiFENesin-DM 100-10MG/5ML [Robitussin DM] 10 ml PO Q6H PRN #250 ml 12/23/20 [Rx] Follow up Appointment(s)/Referral(s): Jamee Feldman MD [Primary Care Provider] - 3 Days [facility], [NON-STAFF] - 1 Week Diana Floyd MD [STAFF PHYSICIAN] - 1 Week
[2020-12-23 13:31] VITALS: PULSE 60
--- NOTE | 2020-12-23 13:46 | P.PN ---
Subjective Progress Note Date: 12/23/20 49-year-old female patient, known history of COPD, diastolic heart failure, hypertension, DOROTHY, hep C, hypothyroidism and previous history of MRSA infection, who carries an FEV1 of 77% of predicted at baseline. The patient is known to us from previous hospitalizations for shortness of breath and COPD related complications. Noted the patient also has obstructive sleep apnea and she does not utilize a CPAP machine. The patient came into the hospital because of worsening shortness of breath and wheeze. Chest x-ray that was done in the emergency department showed cardiomegaly and pulmonary edema and bilateral pulmonary fullface/opacities perihilar most consistent with CHF. The patient had a white cell count of 6.4 with a hemoglobin of 12 and a platelet of 290. She had a lymphopenia with a lymphocyte count of 0.7. The BUN was 13 with a creatinine of 0.5 and a sodium level of 139. COVID-19 testing 2 was negative. The rest of the vital screen was also negative. The patient was accordingly hospitalized the morning consultation was requested. For now, the patient is on Symbicort 2 puffs twice a day, DuoNeb the regimen [id number] 4 times a day, started on IV Solu Medrol 40 mg IV every 12 hours and doxycycline 100 mg by mouth twice a day. 12/20/2020, the patient's is feeling slightly better compared to yesterday. She is less short of breath and last bronchus spastic and wheezy compared to yesterday.And the CAT scan showed bilateral diffuse groundglass opacities with confluent areas of patchy consolidation bilaterally. No evidence of any pleural effusion. Note that these changes were also present on previous CAT scan of the chest back in 2009 which makes her wonder whether the patient has an underlying interstitial lung disease rather than acute infection. Also, the patient has no evidence of any pulmonary embolism. The patient was brought is Lasix. The patient is producing adequate amount of urine output. The patient is on IV Solu-Medrol. She has no new complaints otherwise for now. As a screen was negative. COVID-19 screen was negative. Mycoplasma IgM antibodies were negative, Legionella urine antigen was negative. 12/21/2020, the patient is being seen for a follow-up. As mentioned earlier, she was Hospital as for an acute COPD exacerbation the patient was found to have bilateral interstitial pulmonary infiltrates. Associated with antibiotics and steroids and diuretics. The follow-up chest x-ray done today showing cardiomegaly with improvement in the bilateral pulmonary infiltrates. As such, there is a possibility that the patient is responding to diuretics and his infiltrates could potentially represent interstitial edema. Otherwise, no new complaints for today. She is stable for now. Jamel 2020, the patient is being seen for a follow-up. The patient is being treated for COPD exacerbation. At the same time the patient is being diuresis. I suspect an underlying interstitial lung disease as mentioned. Possibility of a interstitial edema/fluid cannot be completely ruled out. The patient has been diuresed with IV Lasix. She remains in negative fluid balance. For example, over the past 24 hours the patient has been in negative fluid balance of around 3.5 L. I repeated the chest x-ray today and the patient was found to have some persistent but faint bilateral interstitial pulmonary infiltrates. Clinically, she is feeling better. No new complaints otherwise for now.She has electrolyte disturbance consistent with diuresis. Potassium level is down to 3.1 and needs to be replaced and a serum bicarbonate of 38. As such, she may be potentially getting contracted. Lasix was admitted used to 20 mg IV every 12 hours. 12/23/2020, the patient is improving. She is on room air oxygen. Less short of breath. She is a negative fluid balance. Less bronchospastic and less wheezy. No other new complaints otherwise for now. No chest pain. No angina. No palpitation. Bronchospasm wheezing has improved. The patient has no new labs from today. Remains on IV Lasix. Remains on IV Solu-Medrol. He remains on bronchodilators. Objective - Vital Signs Vital signs: Vital Signs Temp 98.2 F 12/23/20 12:11 Pulse 60 12/23/20 13:30 Resp 22 12/23/20 12:11 BP 120/67 12/23/20 12:11 Pulse Ox 96 12/23/20 13:30 Intake & Output 12/22/20 12/23/20 12/23/20 18:59 06:59 18:59 Intake Total 240 1400 960 Output Total 3075 2150 1050 Balance -2835 -750 -90 Weight 80.4 kg Intake: Oral 240 1400 960 Output: Urine 3075 2150 1050 Other: Voiding Method Toilet Toilet # Bowel Movements 1 - Exam Calm and comfortable and the patient is in mild degree of respiratory distress at rest. Not using excessive muscle breathing. Head exam was generally normal. There was no scleral icterus or corneal arcus. Mucous membranes were moist. Neck was supple and without jugular venous distension, thyromegaly, or carotid bruits. Carotids were easily palpable bilaterally. There was no adenopathy. The patient has a slight enlargement of the thyroid gland/goiter without evidence of any lesions or masses. She has significant crowding of the posterior oropharynx with a Mallampati class IV and the uvula is not seen. Lungs are diminished and the patient had diffuse expiratory wheezes throughout the lung morel bilaterally and prolongation of expiration phase of breathing Cardiac exam revealed the PMI to be normally situated and sized. The rhythm was regular and no extrasystoles were noted during several minutes of auscultation. The first and second heart sounds were normal and physiologic splitting of the second heart sound was noted. There were no murmurs, rubs, clicks, or gallops. Abdomen is obese soft nontender. Organs cannot be accurately palpated. There is no direct tenderness or rebound tensile guarding. Extremities reveal trace edema and there is no cyanosis or clubbing. Neurologically the patient is awake and alert and is no focal neurological deficit. Examination of the skin revealed no evidence of significant rashes, suspicious appearing nevi or other concerning lesions. - Labs CBC & Chem 7: 12/22/20 05:42 12/23/20 06:08 Labs: Abnormal Lab Results - Last 24 Hours (Table) 12/22/20 12/22/20 12/23/20 Range/Units 17:01 19:37 06:08 Chloride 93 L (98-107) mmol/L Carbon Dioxide 36 H (22-30) mmol/L BUN 32 H (7-17) mg/dL Glucose 145 H (74-99) mg/dL POC Glucose (mg/dL) 144 H 136 H (75-99) mg/dL 12/23/20 12/23/20 Range/Units 06:37 12:15 Chloride (98-107) mmol/L Carbon Dioxide (22-30) mmol/L BUN (7-17) mg/dL Glucose (74-99) mg/dL POC Glucose (mg/dL) 139 H 179 H (75-99) mg/dL Assessment and Plan Plan: #1. Acute COPD exacerbation with bilateral pulmonary infiltrates/opacities and cardiomegaly. Consider acute exacerbation of diastolic heart failure. COVID-19 is felt to be less likely as the patient check negative on PCR 2. ProBNP level is mildly elevated at 884. Troponins are negative. Echocardiogram from 2020 showing moderate to severe concentric hypertrophy with a preserved LV function and ejection fraction of 50-55%. The patient is currently on 2 L nasal cannula. Clinically improving. Responding to diuretics. Responding to steroids. Is not fully recovered. She remains bronchospastic and wheezy. Her chest x-ray still showing some residual bilateral pulmonary infiltrates although less faint. She has been negative fluid balance along with diuresis. on today's evaluation, the patient is feeling better. The chest x-ray also showing improvement in bilateral pulmonary infiltrates. As such, I think she is responding to diuretics and the bronchodilators and the steroids. We'll continue treatment for another 24 hours here in the hospital. Improvement of the chest x-ray was noted. #2. COPD, based on FEV1 of 77% of predicted #3. Obstructive sleep apnea, not utilizing a CPAP therapy #4. Diastolic heart failure with a previous echocardiogram showed moderate concentric LVH, preserved LV function with an EF of 50-55%, mild aortic stenosis, mild mitral regurg, mild tricuspid regurg, moderate pulmonary hypertension with PA pressure 49.4 mmHg #5. Chronic hypoxic respiratory failure related to COPD, patient usually wears 2 L of oxygen #6. Hypothyroidism #7. Hypertension #8. Past medical history of hepatitis C, treated, currently in remission #9. Chronic back pain #10. History of overactive bladder #11. GERD/reflux #12. Osteoarthritis Plan This continued IV Solu Medrol and put the patient on prednisone burst taper May continue diuretics for 24 hours Repeat chest x-ray at a later stage to assess presence of pulmonary infiltrates. If the pulmonary infiltrates remain unchanged, and open lung biopsy or a wedge lung biopsy of the lungs will be needed at a later evaluation. Clinically improving We'll continue to follow Will need outpatient follow-up If the plan is to discharge this patient home today, will suggest continuing Lasix and his oral 20 mg by mouth twice a day an outpatient follow-up will be needed.
[2020-12-23] MEDS: ACETAMINOPHEN TAB 325 MG TAB PO PRN (13:59)
== END 2020-12-23 17:00 | disposition home or self-care (01) | DRG 190 ==
LOC: EC 15:55 → 6PED 21:10
PROVIDERS: ADMIT Internal Medicine; ATTEND Internal Medicine
DX: J44.1 Chronic obstructive pulmonary disease with (acute) exacerbation (principal); I50.33 Acute on chronic diastolic (congestive) heart failure; I27.20 Pulmonary hypertension, unspecified; I11.0 Hypertensive heart disease with heart failure; K21.9 Gastro-esophageal reflux disease without esophagitis; Z20.822 Contact with and (suspected) exposure to COVID-19; B18.2 Chronic viral hepatitis C; D72.810 Lymphocytopenia; E03.9 Hypothyroidism, unspecified; M54.9 Dorsalgia, unspecified; F17.210 Nicotine dependence, cigarettes, uncomplicated; F31.9 Bipolar disorder, unspecified; F41.0 Panic disorder [episodic paroxysmal anxiety]; F43.10 Post-traumatic stress disorder, unspecified; G47.33 Obstructive sleep apnea (adult) (pediatric); M54.2 Cervicalgia; N32.81 Overactive bladder; G89.29 Other chronic pain; Z79.1 Long term (current) use of non-steroidal anti-inflammatories (NSAID); Z79.51 Long term (current) use of inhaled steroids; Z79.890 Hormone replacement therapy; Z79.899 Other long term (current) drug therapy; Z86.14 Personal history of Methicillin resistant Staphylococcus aureus infection; Z91.410 Personal history of adult physical and sexual abuse; Z87.01 Personal history of pneumonia (recurrent); Z99.81 Dependence on supplemental oxygen
CPT/HCPCS: 36415; 71045; 71046; 71275; 80048; 80053; 83605; 83880; 84132; 84484; 85025; 85610; 85730; 86738; 87449; 87636; 93005; 94640; 96365; 96375; 99291

== ENCOUNTER → 2020-12-27 | Outpatient (CLI) | payer OTHER ==
[2020-12-27 09:33] VITALS: BP 132/85; PULSE 91; RESP 18; TEMP 98.8
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
== END ==
LOC: PNWHC3 09:16
PROVIDERS: ATTEND Hospitalist
DX: M47.812 Spondylosis without myelopathy or radiculopathy, cervical region (principal); J44.9 Chronic obstructive pulmonary disease, unspecified; K21.9 Gastro-esophageal reflux disease without esophagitis; I10 Essential (primary) hypertension; M19.90 Unspecified osteoarthritis, unspecified site; F31.9 Bipolar disorder, unspecified; F41.9 Anxiety disorder, unspecified; F17.210 Nicotine dependence, cigarettes, uncomplicated; Z99.81 Dependence on supplemental oxygen; Z86.718 Personal history of other venous thrombosis and embolism; Z79.51 Long term (current) use of inhaled steroids; Z79.899 Other long term (current) drug therapy
CPT/HCPCS: 99211

== ENCOUNTER → 2021-01-09 | Outpatient (CLI) | payer OTHER ==
--- NOTE | 2021-01-09 11:15 | US ---
EXAMINATION TYPE: US venous doppler duplex LE LT DATE OF EXAM: 01/09/2021 10:52 AM COMPARISON: US 05/2020 CLINICAL HISTORY: M25.552 Pain in L hip. SIDE PERFORMED: Left TECHNIQUE: The lower extremity deep venous system is examined utilizing real time linear array sonog georgina with graded compression, doppler sonography and color-flow sonography. VESSELS IMAGED: Common Femoral Vein Deep Femoral Vein Greater Saphenous Vein * Femoral Vein Popliteal Vein Small Saphenous Vein * Proximal Calf Veins (* superficial vessels) Left Leg: Negative for DVT IMPRESSION: 1. No evidence of deep venous thrombosis of the left lower extremity veins.
== END | disposition home or self-care (01) ==
LOC: RADUSWWP 10:31
PROVIDERS: ATTEND Orthopaedic Surgery
DX: M25.552 Pain in left hip (principal)

== ENCOUNTER 2021-01-19 11:00 | Day surgery (SDC) | payer OTHER ==
[2021-01-17 11:33] VITALS: BMI 38.9
[2021-01-19] MEDS ORDERED: LACTATED RINGERS 1,000 ML IV ONE (11:20)
[2021-01-19] MEDS ORDERED: LIDOCAINE 1% (10MG/ML) FOR IV START INTRADERMA ONE (11:20)
[2021-01-19 11:40] LABS: Glucose,Whole Blood 101 mg/dL (75-99)
[2021-01-19 11:42] VITALS: RESP 16; TEMP 97.5
[2021-01-19] MEDS ORDERED: MIDAZOLAM 2 MG/2 ML VIAL ONE (12:27)
[2021-01-19] MEDS ORDERED: fentaNYL (PF) 50 MCG/ML 2 ML AMP ONE (12:27)
[2021-01-19] MEDS ORDERED: ROPIVACAINE 5MG/ML 20ML VIAL ONE (12:29)
[2021-01-19] MEDS ORDERED: DEXAMETHASONE SOD PHOSPHATE 10 MG/ML 1 ML VIAL ONE (12:29)
[2021-01-19] MEDS ORDERED: IOPAMIDOL M200 10 ML VIAL ONE (12:29)
--- NOTE | 2021-01-19 12:48 | P.PCN ---
Date of Procedure: 01/19/21 Description of Procedure: PREOPERATIVE DIAGNOSIS : Cervicalgia with Facet Arthropathy without myelopathy POSTOPERATIVE DIAGNOSIS: same PROCEDURE: first Diagnostic cervical medial branch block with fluoroscopy at TON, C3, C4, C5 [bilateral] which covers facets C2-C3 and C3-C4 and C4-C5 ANESTHESIA: Local anesthetic; moderate IV sedation with anesthesia team Fluoroscopy was used for the procedure and images were saved in the radiology portion of the chart. Surgeon: Lowell Yao MD PROCEDURE INDICATION: Cervical pain without radiculopathy, not responsive to conservative management. PROCEDURE DESCRIPTION: the patient was seen and identified in the preop holding area , risks and benefits and possible complications of the procedure and alternatives were discussed with the patient, and the patient agreed to proceed with the procedure and signed the consent . IV was started , vital signs were monitored during the procedure and fluoroscopy was used to maximize the benefit and accuracy of the needle placement, and sedation was given to decrease patient anxiety. Patient was taken to the procedure room and placed in prone position. An AP fluoroscopic salmon troll fisher film was taken to identify the dens, the C2, C3, C4 C5 vertebral bodies, and the waists of the articular pillars at the aforementioned levels. A lateral view was utilized to highlight the waists of the articular pillars at these levels. The skin was prepped with chlorhexidine and draped in the usual sterile fashion. The skin and subcutaneous tissue overlying the above levels were anesthetized using a 25-gauge 1-1/2-inch needle with 1% preservative free lidocaine for a total volume of 1 ml per level. An AP fluoroscopic salmon troll fisher film was taken to identify the dens, the C2 C3 C4 C5 vertebral bodies, and the center of the centroid at the aforementioned levels. A lateral view was utilized to highlight the centroids at these levels. The skin was prepped with chlorhexidine and draped in the usual sterile fashion. The skin and subcutaneous tissue overlying the above levels were anesthetized using a 25-gauge 1-1/2-inch needle with 1% preservative free lidocaine for a total volume of 1 ml per level. An 25-gauge 3.5" Quinke needle was advanced, coaxially, in the lateral view until the needle tip was noted to slide into the center of the centroid. The needles were advanced until bony contact was felt and the tip of the Quinke needle was confirmed to be in the center of the articular pillars at the afore mentioned levels. The needle positions were confirmed with AP and lateral fluoroscopic views. 0.2 mL of Isovue 200 per level was injected which revealed no vascular uptake and after negative aspiration, 0.5 mL of ropivacaine along with Kenalog 40 mg was injected at each level and the needle subsequently removed . Total of 40 mg kenalog used. At the end of the procedure and the needles were removed and a bandage applied after the skin was cleaned. The patient was taken to recovery room in stable condition and monitors in the recovery room for 20-30 minutes and discharged home in stable condition after discharge criteria met and patient will follow up in clinic in 2 weeks EBL: Minimal COMPLICATION: None.
[2021-01-19] MEDS ORDERED: IV FLUID CONTINUATION 1,000 ML IV ONE (12:53)
--- NOTE | 2021-01-19 13:02 | FL ---
EXAMINATION TYPE: FL guided pain mgmt statistic DATE OF EXAM: 01/19/2021 CLINICAL HISTORY: Neck pain. TECHNIQUE: Fluoroscopy. COMPARISON: None. FINDINGS: Fluoroscopic guidance was provided during pain relief procedure performed by Dr. Yao . A total of 14 seconds of fluoroscopic time was utilized during the procedure and 7 spot images are a cquired. Images acquired shows needle localization at several levels in the cervical spine. IMPRESSION: As Above.
[2021-01-19 13:11] VITALS: BP 155/90; PULSE 69
== END 2021-01-19 13:27 | disposition home or self-care (01) ==
LOC: ORPAIN 11:00
PROVIDERS: ATTEND Anesthesiology
DX: M47.812 Spondylosis without myelopathy or radiculopathy, cervical region (principal)
CPT/HCPCS: 64490; 64491; 64492; J2250; J1100; J3010; Q9966; J2795

== ENCOUNTER → 2021-02-09 | Day surgery (SDC) | payer OTHER ==
[2021-02-07 16:01] VITALS: BMI 37.8
[~2021-02-09] MED LIST changes: -ACETAMINOPHEN TAB 500 MG TAB PO ONE; -DEXAMETHASONE SOD PHOSPHATE 10 MG/ML 1 ML VIAL IV ONE; -GABAPENTIN 300 MG CAP PO ONE; -HYDROmorphone 0.5 MG/0.5 ML SYRINGE IVP PRN; +LACTATED RINGERS 1,000 ML IV SCH; -MELOXICAM 7.5 MG TAB PO ONE; -MIDAZOLAM 2 MG/2 ML VIAL IV PRN; +MIDAZOLAM 2 MG/2 ML VIAL ONE; -ONDANSETRON 4 MG/2 ML VIAL IVP ONE; +ROPIVACAINE 5MG/ML 20ML VIAL ONE; -TRANEXAMIC ACID 1,000 MG in SODIUM CHLORIDE 0.9% 100 ML IVPB ONE; +fentaNYL (PF) 50 MCG/ML 2 ML AMP ONE; +methylPREDNISolone ACETATE 40 MG/ML 1 ML VIAL ONE
[2021-02-09 09:29] VITALS: TEMP 96.8
[2021-02-09] MEDS: LACTATED RINGERS 1,000 ML IV SCH ×2 (09:33→09:40)
--- NOTE | 2021-02-09 10:07 | P.PCN ---
Date of Procedure: 02/09/21 Procedure(s) Performed: PREOPERATIVE DIAGNOSIS: Cervical Spondylosis with Facet Arthropathy.without myelopathy POSTOPERATIVE DIAGNOSIS: Cervical Spondylosis Facet Arthropathy. Without myelopathy PROCEDURES: Diagnostic Bilateral C2 , C3, C4 , C5 medial branch blocks, with fluoroscopic guidance (fluoroscopy images available in radiology department ) ( to target the facet joint at Bilateral C2-3 , C3-4 , C4- 5 ) ANESTHESIa= monitered anesthesia care as per anesthesia department EBL: Minimal PROCEDURE INDICATION: The patient with neck pain secondary to cervical arthropathy unresponsive to more conservative treatments. PROCEDURE DESCRIPTION / TECHNIQUE: The patient was seen and identified in the preoperative area. Risks, benefits, complications, and alternatives were discussed with the patient, the patient agreed to proceed with the procedure and signed the consent. IV was started. Vital signs remained stable throughout the procedure. Patient was taken to the OR and time out was completed. The patient was placed in the supine position on the procedure table.. The cervical area was prepped and draped in the usual sterile fashion. Critical pause was taken. Vital signs were closely monitored during the procedure. Conscious sedation was used during the procedure to decrease patients anxiety. Using cross-table lateral fluoroscopy, the centroid of the trapezoid of right C2 , C3, C4 , C5 was identified, marked, and localized with 1% lidocaine 1 ml at each level for skin and Sub Q infiltrations . Subsequently, a 22 G 4 spinal needle was advanced guided by fluoroscopy to the centroid of the trapezoid of Right C2 , C3, C4 , C5,. [place] tip position was confirmed at the centroid of the trapezoids of Right C2 , C3 , C4 , C5 with anteroposterior fluoroscopy. Subsequently, 2 ml of preservative-free Ropivacaine 0.5% mixed with Depo- Medrol 20 mg and half ml of the mixture was injected after negative aspiration for blood and CSF. [place] was then removed intact the same procedure was repeated at the left C2 ,C3 , C4 , C5 ,levels. COMPLICATIONS: No acute complications. DISPOSITION / PLANS: The patient was placed in a supine position and transferred to the recovery area in a stable condition for observation and was discharged from the recovery room after meeting discharge criteria. Home discharge instructions given to the patient by the staff. The patient was reexamined prior to discharge. The patient will schedule a follow up in the clinic in 2-4 weeks.
[2021-02-09 10:10] VITALS: RESP 17
[2021-02-09 10:26] VITALS: BP 155/82; PULSE 62
--- NOTE | 2021-02-09 11:02 | FL ---
Fluoroscopy INDICATION: Pain FINDINGS: Fluoroscopy time: 15 seconds. Images obtained: 2. IMPRESSIONS: 1. Documentation of fluoroscopy.
== END ==
LOC: ORPAIN 09:01
PROVIDERS: ATTEND Specialist
DX: I10 Essential (primary) hypertension (principal); J44.9 Chronic obstructive pulmonary disease, unspecified; F17.200 Nicotine dependence, unspecified, uncomplicated; E07.9 Disorder of thyroid, unspecified; Z97.2 Presence of dental prosthetic device (complete) (partial); Z79.890 Hormone replacement therapy; Z79.51 Long term (current) use of inhaled steroids; Z79.52 Long term (current) use of systemic steroids; Z79.899 Other long term (current) drug therapy; G47.33 Obstructive sleep apnea (adult) (pediatric)
CPT/HCPCS: 81025; 64490; 64491; 64492; J2250; J1030; J3010; J2795

== ENCOUNTER → 2021-03-05 | Outpatient (CLI) | payer OTHER ==
[2021-03-05 08:27] VITALS: BP 148/83; PULSE 81; RESP 16; TEMP 98
--- NOTE | 2021-03-05 08:34 | P.PN ---
Subjective Progress Note Date: 03/05/21 This is a 50-year-old lady with history of headache, neck pain, right shoulder pain and occasional numbness in the right hand. The patient received cervical medial branch block for C2, C3 and C4 laterally which gave her 70-80% of pain relief especially of her headache. The patient has a history of right shoulder injury with surgery on the rotator cuff and she fell on her right shoulder few days after her surgical procedure and she is having increasing pain in the right shoulder at this point. By MRI she does have large disc herniation at the C5-6 level towards the right side. Patient denies new-onset weakness, bowel/bladder incontinence, or any other signs or symptoms of cauda equina syndrome. There are no signs of acute intoxication, and no indications of medication diversion or overuse. In addition to above, 13-point review of systems is also negative for chest pain, shortness of breath, changes in vision, changes in hearing, new onset weakness, abdominal pain, diarrhea, extreme fatigue, malaise, fever, skin changes, homicidal or suicidal ideation, or bowel or bladder incontinence. Vital Signs: Reviewed in EMR Gen: AAOx3, NAD HEENT: PERRLA,hearing grossly normal Pulm: resp unlabored Neck: supple, trachea midline Neuro exam of the lower extremities: Normal muscle strength except for decreased right deltoid muscle strength due to increasing shoulder pain Straight leg raising test: Wyatt's test: Range of motion of the lumbar spine: Facet loading test: Tenderness in the paravertebral musculature: Positive in the cervical area on the right side and also on the anterior aspect of the right shoulder joint. Decreased range of motion of the right shoulder joint to 90 abduction due to her recent fall . Neuro: CN II-XII grossly intact, Imaging: Reviewed in EMR/chart Assessment: Cervical spondylosis without myelopathy Right cervical radiculopathy due to large disc herniation at the C5 6 level was the right side Cervicogenic headache Morbid obesity Plan: 1. Explanation: Opioid and psychological risk scores were reviewed. Diagnoses, prognoses, and multiple treatment options including but not limited to physical therapy, interventional therapies, adjuvant medical therapies, narcotic medication therapies, and surgery were discussed with the patient and all questions were answered to the patient's satisfaction. 2. Opioid agreement: Signed with the patient and the patient is warned not to use opioids while driving or before driving and not to combine opioids with benzodiazepines or alcohol. 3. Counseling: The patient was counseled extensively on SMOKING CESSATION, BODY MASS INDEX, EXERCISE. Specifically, the patient was instructed regarding the importance of smoking cessation, obesity, and exercise in the context of both chronic pain and overall health. 4. Procedures: We will proceed with cervical medial branch RFA on the right side only at the C2, C3, third occipital nerve and C4 medial branches under fluoroscopic guidance. The procedure was explained to the patient and she was agreeable to it. The patient may need a cervical epidural steroid injection in the future of her right arm pain and paresthesia get worse. 5. Consultations: None 6. Investigations: None 7. Medications: The patient received Stringer from her primary care physician. 8. Disposition: Proceed with the above-mentioned procedure as soon as possible 9. Maps were reviewed and were appropriate. Objective - Vital Signs Vital signs: Vital Signs Temp 98.0 F 03/05/21 08:22 Pulse 81 03/05/21 08:22 Resp 16 03/05/21 08:22 BP 148/83 03/05/21 08:22 Pulse Ox 97 03/05/21 08:22
== END ==
LOC: PNWHC3 08:11
PROVIDERS: ATTEND Anesthesiology
DX: M50.122 Cervical disc disorder at C5-C6 level with radiculopathy (principal); M47.22 Other spondylosis with radiculopathy, cervical region; R51.9 Headache, unspecified; E66.01 Morbid (severe) obesity due to excess calories; Z68.37 Body mass index [BMI] 37.0-37.9, adult
CPT/HCPCS: 99211

== ENCOUNTER 2021-03-30 12:06 | Day surgery (SDC) | payer OTHER ==
[2021-03-30 12:22] VITALS: TEMP 97.4
[2021-03-30] MEDS ORDERED: LIDOCAINE 1% (10MG/ML) FOR IV START INTRADERMA ONE (12:26)
[2021-03-30] MEDS ORDERED: LACTATED RINGERS 1,000 ML IV ONE ×3 (12:26→12:57)
[2021-03-30] MEDS ORDERED: LIDOCAINE 1% INJ 10MG/ML (20 ML MDV) ONE (12:27)
[2021-03-30] MEDS ORDERED: MIDAZOLAM 2 MG/2 ML VIAL ONE (12:27)
[2021-03-30] MEDS ORDERED: fentaNYL (PF) 50 MCG/ML 2 ML AMP ONE (12:27)
[2021-03-30] MEDS ORDERED: ROPIVACAINE 5MG/ML 20ML VIAL ONE (12:27)
--- NOTE | 2021-03-30 12:53 | P.PCN ---
Date of Procedure: 03/30/21 Description of Procedure: PREOPERATIVE DIAGNOSIS: Cervicalgia POSTOPERATIVE DIAGNOSIS: Same Surgeon: Lowell Yao M.D. PROCEDURE PERFORMED: Cervical Medial Branch Radiofrequency Ablation, at the following levels: right TON C3 C4 ANESTHESIA: Lidocaine 1% 5 mL, Monitored anesthesia care with anesthesia team ESTIMATED BLOOD LOSS: Minimal Fluoroscopy was used for the procedure and images were saved in the radiology portion of the chart. PROCEDURE INDICATION: The patient with neck pain secondary to cervical facet arthropathy who had more than 50% relief of pain with previous diagnostic lumbar medial branch block X2. PROCEDURE DESCRIPTION / TECHNIQUE: The patient was seen and identified in the preoperative area. Risks, benefits, complications, including but not limited to risk of infection ,bleeding , allergic reactions to the medications and incomplete pain relief , and alternatives were discussed with the patient, the patient agreed to proceed with the procedure and signed the consent. IV was started. The operative site was marked. Patient was taken to the OR and time out was completed. The patient was placed in the prone position on the procedure table. The lumbar area was prepped and draped in the usual sterile fashion. . Vital signs were closely monitored during the procedure .IV sedation was used during the procedure to decrease patients anxiety. An AP fluoroscopic webbing seamer pound net film was taken to identify the dens, the C2 C3 C4 vertebral bodies, and the waists of the articular pillars at the aforementioned levels [] levels. A pillar (caudal tilt) view was utilized to highlight the waists of the articular pillars at these levels. The skin was prepped with chlorhexidine and draped in the usual sterile fashion. The skin and subcutaneous tissue overlying the above levels were anesthetized using a 25-gauge 1-1/2-inch needle with 1% preservative free lidocaine for a total volume of 1 ml per level. An 18-gauge and 100 mm SMK needle with a 10 mm active tip was advanced, coaxially, in the pillar view until the needle tip was noted to slide into the groove of the articular pillar. A true lateral view was obtained and the needle tips were advanced to cover to the lateral aspect C2-3 joint line [TON], lateral aspect of the articular pillar at right C3 C4, for corresponding medial branch ablation. . The needles were advanced until bony contact was felt and the tip of the SMK needle was confirmed to be in the groove of the rightwaist of the articular pillars at the aforementioned levels. The needle positions were confirmed with AP and lateral fluoroscopic views. Motor stimulation was then performed at 2 Hz and up to 2V with only paraspinal muscle contraction noted at each level and no upper extremity stimulation. At this point, after negative aspiration, Bupivacaine 0.5% x 0.5 mL was injected at each level prior to radiofrequency ablation. Lesioning was then carried out at 85 degrees Celsius times 90 seconds with 2 cycles per level. Following lesioning the needles were removed. COMPLICATIONS: No acute complications. DISPOSITION / PLANS: The patient was placed in a supine position and transferred to the recovery area in a stable condition for observation and was discharged from the recovery room after meeting discharge criteria. Home discharge instructions given to the patient by the staff. The patient will follow up in clinic in 4 weeks.
[2021-03-30] MEDS ORDERED: KETOROLAC 15 MG/ML 1 ML VIAL ONE (13:10)
[2021-03-30] MEDS ORDERED: HYDROcodone/APAP 5-325MG 1 EACH TAB ONE (13:10)
[2021-03-30] MEDS ORDERED: HYDROcodone/APAP 5-325MG 1 EACH TAB PO ONE (13:11)
[2021-03-30] MEDS ORDERED: KETOROLAC 15 MG/ML 1 ML VIAL IVP ONE (13:13)
[2021-03-30 13:17] VITALS: BP 129/84; PULSE 68; RESP 16
[2021-03-30] MEDS ORDERED: IV FLUID CONTINUATION 900 ML IV ONE (13:28)
--- NOTE | 2021-03-30 13:38 | FL ---
EXAMINATION TYPE: FL guided pain mgmt statistic DATE OF EXAM: 03/30/2021 CLINICAL HISTORY: Neck pain. TECHNIQUE: Fluoroscopy. COMPARISON: None. FINDINGS: Fluoroscopic guidance was provided during pain relief procedure performed by Dr. Yao . A total of 15 seconds of fluoroscopic time was utilized during the procedure and two spot images are acquired. Images acquired shows needle localization at several levels in the upper to mid cervical spine off the midline. IMPRESSION: As Above.
== END 2021-03-30 13:42 | disposition home or self-care (01) ==
LOC: ORPAIN 12:06
PROVIDERS: ATTEND Anesthesiology
DX: M54.2 Cervicalgia (principal); I10 Essential (primary) hypertension; G47.33 Obstructive sleep apnea (adult) (pediatric); J44.9 Chronic obstructive pulmonary disease, unspecified; F17.210 Nicotine dependence, cigarettes, uncomplicated; E07.9 Disorder of thyroid, unspecified; K21.9 Gastro-esophageal reflux disease without esophagitis
CPT/HCPCS: 81025; 64633; 64634; J2250; J2001; J3010; J1885; J2795

== ENCOUNTER 2021-04-07 15:27 | Observation (INO) | payer OTHER ==
[2021-04-07] MEDS ORDERED: IPRATROPIUM-ALBUTEROL 3 ML NEB INHALATION STA (15:50)
[2021-04-07] MEDS ORDERED: ALBUTEROL NEBULIZED 2.5 MG/3 ML INHALATION STA (15:50)
[2021-04-07] MEDS ORDERED: DEXAMETHASONE SOD PHOSPHATE 10 MG/ML 1 ML VIAL IV STA (15:50)
[2021-04-07] MEDS ORDERED: DIPH,PERTUS(ACELL)TETVAC-LF 0.5 ML VIAL IM ONE (16:01)
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
[2021-04-07 16:37] LABS: Basophils % (A) 0 %; Eosinophils # (A) 0.1 k/uL (0-0.7); Eosinophils % (A) 1 %; HCT 34.7 % (34.0-46.0); HGB 11.6 gm/dL (11.4-16.0); Lymphocytes # (A) 1.7 k/uL (1.0-4.8); Lymphocytes % (A) 20 %; MCH 32.6 pg (25.0-35.0); MCHC 33.3 g/dL (31.0-37.0); MCV 97.8 fL (80.0-100.0); Mean Platelet Volume 7.6; Monocytes # (A) 0.4 k/uL (0-1.0); Monocytes % (A) 5 %; Neutrophils # (A) 6.2 k/uL (1.3-7.7); Neutrophils % (A) 72 %; Platelet Count 285 k/uL (150-450); RBC 3.55 m/uL (3.80-5.40); WBC 8.6 k/uL (3.8-10.6)
[2021-04-07 16:49] LABS: ALT 14 U/L (4-34); AST 24 U/L (14-36); African American GFR (CKD) >90 (>60 ml/min/1.73 sqM); Albumin 3.5 g/dL (3.5-5.0); Alkaline Phosphatase 35 U/L (38-126); Anion Gap 8 mmol/L; Blood Urea Nitrogen 10 mg/dL (7-17); Carbon Dioxide 23 mmol/L (22-30); Chloride 106 mmol/L (98-107); Glucose 141 mg/dL (74-99); Non-African American GFR(CKD) >90 (>60 ml/min/1.73 sqM); Potassium 3.7 mmol/L (3.5-5.1); Sodium 137 mmol/L (137-145); Total Bilirubin 0.1 mg/dL (0.2-1.3); Total Protein 5.8 g/dL (6.3-8.2)
[2021-04-07] MEDS ORDERED: MORPHINE SULFATE 4 MG/ML SYRINGE IVP STA (17:13)
[2021-04-07] MEDS ORDERED: TOPICAL SKIN ADHESIVE 1 EACH AMP TOPICAL ONE (17:22)
[2021-04-07] MEDS ORDERED: cefTRIAXone IN SWFI 1,000 MG/10 ML SYRINGE IVP STA (18:05)
[2021-04-07] MEDS ORDERED: AZITHROMYCIN 500 MG in SODIUM CHLORIDE 0.9% 250 ML IVPB STA (18:05)
[2021-04-07] MEDS ORDERED: IPRATROPIUM-ALBUTEROL 3 ML NEB INHALATION PRN (18:05)
[2021-04-07] MEDS: IPRATROPIUM-ALBUTEROL 3 ML NEB INHALATION SCH (20:56)
[2021-04-08] MEDS: methylPREDNISolone SOD SUCCI 125 MG/2 ML VIAL IV SCH ×5 (04:48→23:46)
[2021-04-08] MEDS: IPRATROPIUM-ALBUTEROL 3 ML NEB INHALATION SCH ×4 (07:34→20:08)
[2021-04-08] MEDS ORDERED: MELOXICAM 7.5 MG TAB PO PRN (09:41)
[2021-04-08] MEDS ORDERED: POTASSIUM CHLORIDE ER 10 MEQ TAB.ER.PRT PO PRN (09:41)
[2021-04-08] MEDS ORDERED: IPRATROPIUM-ALBUTEROL 3 ML NEB INHALATION PRN (09:41)
[2021-04-08] MEDS ORDERED: ALBUTEROL HFA INHALER INHALATION PRN (09:41)
[2021-04-08] MEDS ORDERED: methocarbamoL 500 MG TAB PO PRN (09:41)
[2021-04-08] MEDS ORDERED: FUROSEMIDE 20 MG TAB PO PRN (09:41)
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
--- NOTE | 2021-04-08 10:45 | PN ---
PROGRESS NOTE CHIEF COMPLAINT: Laceration, left ear and head injury with COPD. HISTORY OF PRESENT ILLNESS: This lady is still complaining of a headache but she has had no nausea, vomiting, and she has had no progression of neurologic symptoms. She is still quite dyspneic. PHYSICAL EXAM: Left ear laceration is dry. Chest demonstrates decreased breath sounds with only occasional rales. Cardiac exam is normal. IMPRESSION: 1. Closed head injury. 2. Laceration, left ear. 3. Chronic obstructive pulmonary disease. PLAN: Continue with IV fluids and updrafts and gradually increase activity and diet. MMODL / IJN: [id number] /
[2021-04-08] MEDS: HYDROcodone/APAP 5-325MG 1 EACH TAB PO PRN ×2 (10:50→21:16)
[2021-04-08] MEDS: clonazePAM 0.5 MG TAB PO PRN (10:50)
[2021-04-08] MEDS: SODIUM CHLORIDE 0.9% 1,000 ML IV SCH ×4 (12:44→14:48)
[2021-04-08] MEDS: GABAPENTIN 300 MG CAP PO SCH ×2 (14:48→21:16)
[2021-04-08] MEDS: SYMBICORT 160-4.5 MCG INHALER INHALATION SCH (20:08)
[2021-04-08 20:59] LABS: Glucose,Whole Blood 170 mg/dL (75-99)
[2021-04-08] MEDS ORDERED: PRAZOSIN 1 MG CAP PO SCH (21:00)
[2021-04-08] MEDS ORDERED: ARIPiprazole 10 MG TAB PO SCH (21:00)
[2021-04-08] MEDS ORDERED: traZODone HCL 100 MG TAB PO SCH (21:00)
[2021-04-08] MEDS ORDERED: VERAPAMIL SR 120 MG TABLET.ER PO SCH (21:00)
[2021-04-08] MEDS: INSULIN ASPART (NovoLOG) 100 UNIT/ML VIAL SQ SCH (21:16)
[2021-04-08] MEDS: OXYBUTYNIN CHLORIDE 5 MG TAB PO SCH (21:17)
[2021-04-09] MEDS: SODIUM CHLORIDE 0.9% 1,000 ML IV SCH ×2 (01:13→10:17)
[2021-04-09] MEDS: methylPREDNISolone SOD SUCCI 125 MG/2 ML VIAL IV SCH ×2 (05:17→13:10)
[2021-04-09] MEDS ORDERED: LEVOTHYROXINE 75 MCG TAB PO SCH (06:30)
[2021-04-09] MEDS: IPRATROPIUM-ALBUTEROL 3 ML NEB INHALATION SCH ×2 (07:07→11:12)
[2021-04-09] MEDS: SYMBICORT 160-4.5 MCG INHALER INHALATION SCH (07:07)
[2021-04-09] MEDS ORDERED: PANTOPRAZOLE 40 MG TABLET PO SCH (07:30)
[2021-04-09 08:07] LABS: Glucose,Whole Blood 134 mg/dL (75-99)
[2021-04-09] MEDS: GABAPENTIN 300 MG CAP PO SCH (08:19)
[2021-04-09] MEDS: OXYBUTYNIN CHLORIDE 5 MG TAB PO SCH (08:19)
[2021-04-09 08:26] VITALS: TEMP 98.3
[2021-04-09] MEDS: HYDROcodone/APAP 5-325MG 1 EACH TAB PO PRN (08:26)
[2021-04-09] MEDS: clonazePAM 0.5 MG TAB PO PRN (08:27)
[2021-04-09] MEDS: INSULIN ASPART (NovoLOG) 100 UNIT/ML VIAL SQ SCH ×2 (08:27→13:10)
[2021-04-09] MEDS ORDERED: LORATADINE 10 MG TAB PO SCH (09:00)
[2021-04-09] MEDS ORDERED: PARoxetine 20 MG TAB PO SCH (09:00)
[2021-04-09 11:56] LABS: Glucose,Whole Blood 159 mg/dL (75-99)
[2021-04-09 14:47] VITALS: BP 148/78; PULSE 71; RESP 16
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
== END 2021-04-09 14:55 | disposition home or self-care (01) ==
LOC: EC 15:27 → 6NMEDSUR 18:05
PROVIDERS: ADMIT Family Medicine; ATTEND Family Medicine
DX: S09.90XA Unspecified injury of head, initial encounter (principal); S01.312A Laceration without foreign body of left ear, initial encounter; Y00.XXXA Assault by blunt object, initial encounter; J18.9 Pneumonia, unspecified organism; J44.1 Chronic obstructive pulmonary disease with (acute) exacerbation; J44.0 Chronic obstructive pulmonary disease with (acute) lower respiratory infection; Z20.822 Contact with and (suspected) exposure to COVID-19; Z23 Encounter for immunization; F17.200 Nicotine dependence, unspecified, uncomplicated; B19.20 Unspecified viral hepatitis C without hepatic coma; I10 Essential (primary) hypertension; G47.30 Sleep apnea, unspecified; K21.9 Gastro-esophageal reflux disease without esophagitis; M19.90 Unspecified osteoarthritis, unspecified site; E07.9 Disorder of thyroid, unspecified; N32.81 Overactive bladder; G89.29 Other chronic pain; M54.2 Cervicalgia; M54.9 Dorsalgia, unspecified; F31.9 Bipolar disorder, unspecified; F41.0 Panic disorder [episodic paroxysmal anxiety]; F43.10 Post-traumatic stress disorder, unspecified; Z79.890 Hormone replacement therapy; Z79.899 Other long term (current) drug therapy; Z98.51 Tubal ligation status; Z98.891 History of uterine scar from previous surgery; Z86.711 Personal history of pulmonary embolism; Z86.14 Personal history of Methicillin resistant Staphylococcus aureus infection; Z80.9 Family history of malignant neoplasm, unspecified
CPT/HCPCS: 99285; 96372 ×3; 96365; 96375; 36415; 94640 ×5; 80053; 83605; 85025; 87040; 87635; 71046; 70450; 90715; 90471; G0378 ×3; J2270; J1100; J2930 ×2; J0456; J0696

== ENCOUNTER 2021-04-20 13:34 | Emergency (ER) | payer OTHER ==
[2021-04-20 13:39] VITALS: BP 180/98; PULSE 85; RESP 16; TEMP 98
[2021-04-20] MEDS ORDERED: KETOROLAC 15 MG/ML 1 ML VIAL IM STA (15:27)
[2021-04-20] MEDS ORDERED: ACET/COD 300 MG/30 MG STARTER PACK 6 TAB BTL PO STA (15:52)
[2021-04-20] MEDS ORDERED: traMADol 50 MG STARTER PACK 3 TAB BTL PO STA (15:52)
--- NOTE | 2021-04-20 15:57 | ED ---
Upper Extremity HPI - General Chief Complaint: Extremity Injury, Upper Stated Complaint: R Arm Pain Time Seen by Provider: 04/20/21 14:45 Source: patient Mode of arrival: wheelchair Limitations: no limitations - History of Present Illness Initial Comments: Patient is a 50-year-old female presenting to the emergency Department with complaints of right shoulder pain over the past week. She states she's had a previous rotator cuff repair many years ago. She fell onto the ground about a month ago and has been having continuous right shoulder pain. She did have x- rays shortly after the fall, no acute fracture dislocations. States over the past week she's been having increase in soreness and difficulty using the shoulder. She's also been having intermittent tingling into her second and third digits. She does have history of cervical radiculopathy this is not unusual for her. She denies any more recent falls or trauma. She is right-hand dominant. She has not followed up with her primary care or orthopedic doctor for her right shoulder pain. She denies any fevers or chills. She states to having a hard time sleeping secondary to the pain. She hurt he takes Idanha's, she states she is almost out of them. She gets these filled by her primary care. She has no further complaints at this time. - Related Data Home Medications Medication Instructions Recorded Confirmed Loratadine [Claritin] 10 mg PO DAILY 01/24/14 04/07/21 Oxybutynin Chloride [Ditropan] 5 mg PO BID 01/24/14 04/07/21 Levothyroxine Sodium [Synthroid] 75 mcg PO DAILY 08/27/19 04/07/21 traZODone HCL 300 mg PO HS 08/27/19 04/07/21 Omeprazole 40 mg PO DAILY 05/24/20 04/07/21 ARIPiprazole [Abilify] 10 mg PO HS 11/02/20 04/07/21 Albuterol Sulfate [Proair Hfa] 2 puff INHALATION RT-Q6H PRN 11/02/20 04/07/21 PARoxetine HCL [Paxil] 60 mg PO DAILY 11/02/20 04/07/21 busPIRone HCL 15 mg PO TID 11/02/20 04/07/21 Ipratropium-Albuterol Nebulize 3 ml INHALATION RT-QID PRN 12/18/20 04/07/21 [Duoneb 0.5 mg-3 mg/3 ml Soln] Verapamil HCl [Verapamil ER] 120 mg PO HS 01/19/21 04/07/21 HYDROcodone/APAP 5-325MG [Idanha 1 tab PO Q6H PRN 03/02/21 04/07/21 5-325] Ergocalciferol (Vitamin D2) 1,250 mcg PO WEEKLY 04/07/21 04/07/21 [Drisdol (50,000 Iu)] Fluticasone/Salmeterol [Advair 1 puff INHALATION RT-BID 04/07/21 04/07/21 500-50 Diskus] Furosemide [Lasix] 20 mg PO DAILY PRN 04/07/21 04/07/21 Meloxicam [Mobic] 7.5 mg PO BID PRN 04/07/21 04/07/21 Potassium Chloride 10 meq PO DAILY PRN 04/07/21 04/07/21 Prazosin HCl 5 mg PO HS 04/07/21 04/07/21 clonazePAM [KlonoPIN] 0.5 mg PO TID PRN 04/07/21 04/07/21 methocarbamoL [Robaxin] 500 mg PO BID PRN 04/07/21 04/07/21 polyethylene glycoL 3350 [Miralax] 17 gm PO DAILY PRN 04/07/21 04/07/21 Previous Rx's Medication Instructions Recorded Gabapentin [Neurontin] 300 mg PO TID #90 cap 12/27/20 Allergies Allergy/AdvReac Type Severity Reaction Status Date / Time No Known Allergies Allergy Verified 04/20/21 13:39 Review of Systems ROS Statement: Those systems with pertinent positive or pertinent negative responses have been documented in the HPI. ROS Other: All systems not noted in ROS Statement are negative. Past Medical History Past Medical History: Asthma, COPD, GERD/Reflux, Hypertension, Liver Disease, Osteoarthritis (OA), Pneumonia, Pulmonary Embolus (PE), Sleep Apnea/CPAP/BIPAP, Thyroid Disorder Additional Past Medical History / Comment(s): Chronic bronchitis, hepatitis C - remission, chronic back/neck pain, overactive bladder, hx fungal pneumonia - home oxygen 2L HS, doesn't use CPAP, DVT Lt arm r/t PICC line, edema BLE, tripped & fell last week on Rt shoulder/elbow - awaiting results. History of Any Multi-Drug Resistant Organisms: MRSA Date of last positivie culture/infection: 05/25/20 MDRO Source:: Sputum Past Surgical History: Section, Orthopedic Surgery, Tubal Ligation, Uterine Ablation Additional Past Surgical History / Comment(s): C-S x3, Arthroscopy left knee, ORIF (metal plate/screws) right tibia, liver biopsies, right rotator cuff repair, pain procedures, Total left hip arthroscopy. Past Anesthesia/Blood Transfusion Reactions: No Reported Reaction Additional Past Anesthesia/Blood Transfusion Reaction / Comment(s): Denies previous reactions. Past Psychological History: Anxiety, Bipolar, Depression, Panic Disorder, PTSD Smoking Status: Current every day smoker Past Alcohol Use History: None Reported Past Drug Use History: Marijuana - Past Family History Sister(s) Family Medical History: Cancer General Exam - General Exam Comments Initial Comments: GENERAL: Patient is well-developed and well-nourished. Patient is nontoxic and in no acute distress. HEAD: Atraumatic, normocephalic. EYES: Pupils equal round and reactive to light, extraocular movements intact, sclera anicteric, conjunctiva are normal. Eyelids were unremarkable. ENT: Moist mucous membranes. NECK: Normal range of motion, supple without lymphadenopathy or JVD. LUNGS: Unlabored respirations. Breath sounds clear to auscultation bilaterally and equal. No wheezes rales or rhonchi. HEART: Regular rate and rhythm without murmurs, rubs or gallops. ABDOMEN: Soft, nontender, normoactive bowel sounds. No guarding, no rebound. No masses appreciated. : Deferred MUSCULOSKELETAL: Patient has some mild discomfort of the lateral and anterior aspect of the right shoulder, decreased range of motion secondary to pain, positive impingement sign and pain with resisted internal and external range of motion. She is neurovascular intact. No obvious deformity or signs of infection. Swelling. No clubbing or cyanosis. NEUROLOGICAL: Patient is alert and oriented x 3. Normal speech, normal gait. PSYCH: Normal mood, normal affect. SKIN: Warm, Dry, normal turgor, no rashes or lesions noted. Limitations: no limitations Course Vital Signs 04/20/21 13:36 Temperature 98 F Pulse Rate 85 Respiratory 16 Rate Blood Pressure 180/98 O2 Sat by Pulse 98 Oximetry Procedures - Orthopedic Splinting/Casting Injury #1 Side: right Upper Extremity Injury Location: shoulder Upper Extremity Immobilizer: sling/shoulder immobilizer Medical Decision Making - Medical Decision Making Patient is a 50-year-old female here with right shoulder pain has been increasing over the past week. She had a fall about a month ago, had normal x-r ays. She has previous rotator cuff repair many years ago. She has yet to follow up with her primary care or orthopedics. She is requesting pain medicine. She takes Idanha as at home which is refilled by her primary care. I will give her a Toradol shot today, tramadol starter pack to go home with. I discussed with her that she most likely injured her rotator cuff in this fall. Recommend following up with her orthopedic doctor. She had previous surgery in [place] and is reported requesting a new orthopedic. Patient is stable for discharge. She'll follow up with orthopedics. I will give her a sling for comfort. She is agreeable to this and is stable for discharge. Disposition Clinical Impression: Right shoulder pain Disposition: HOME SELF-CARE Condition: Stable Instructions (If sedation given, give patient instructions): Shoulder Pain (ED) Additional Instructions: Please return to the Emergency Department if symptoms worsen or any other concerns. Wear sling for comfort. Apply ice to the shoulder. Alternate between ibuprofen and Tylenol for any discomfort. Please follow-up with your orthopedic doctor. Is patient prescribed a controlled substance at d/c from ED?: No Referrals: Kofi García MD [Primary Care Provider] - 1-2 days Abdi Jha MD [Medical Doctor] - 1-2 days Time of Disposition: 15:56
== END 2021-04-20 16:21 | disposition home or self-care (01) ==
LOC: EC 13:34
DX: M25.511 Pain in right shoulder (principal); I10 Essential (primary) hypertension; J45.909 Unspecified asthma, uncomplicated; K21.9 Gastro-esophageal reflux disease without esophagitis; M19.90 Unspecified osteoarthritis, unspecified site; E07.9 Disorder of thyroid, unspecified; F41.9 Anxiety disorder, unspecified; F31.9 Bipolar disorder, unspecified; F43.12 Post-traumatic stress disorder, chronic; F17.200 Nicotine dependence, unspecified, uncomplicated; F12.90 Cannabis use, unspecified, uncomplicated; Z98.51 Tubal ligation status; Z86.711 Personal history of pulmonary embolism
CPT/HCPCS: 99283; 96372; J1885

== ENCOUNTER 2021-05-12 16:25 | Emergency (ER) | payer OTHER ==
[2021-05-12 16:47] VITALS: TEMP 98.4
[2021-05-12] MEDS ORDERED: MORPHINE SULFATE 4 MG/ML SYRINGE IVP STA (17:56)
[2021-05-12] MEDS ORDERED: ORPHENADRINE 30 MG/ML 2 ML VIAL IVP STA (17:56)
--- NOTE | 2021-05-12 18:51 | XR ---
EXAMINATION TYPE: XR cervical spine comp DATE OF EXAM: 05/12/2021 COMPARISON: NONE HISTORY: Neck pain TECHNIQUE: 6 views FINDINGS: There is some straightening of the cervical spine. There is anterior spurring from C4 to C7 . There is mild disc space narrowing at C5-6 and C6-7. Posterior elements are intact. Atlantoaxial fa cet joint is normal. There are no cervical ribs. IMPRESSION: Spondylotic changes in the lower cervical spine. No fracture seen.
[2021-05-12] MEDS ORDERED: HYDROmorphone 1 MG/ML 1 ML SYRINGE IVP STA (18:58)
--- NOTE | 2021-05-12 19:00 | ED ---
General Adult HPI - General Chief complaint: Back Pain/Injury Stated complaint: Back Pain/Neck Numbness Time Seen by Provider: 05/12/21 17:51 Source: patient, RN notes reviewed Mode of arrival: ambulatory Limitations: no limitations - History of Present Illness Initial comments: Patient is a 50-year-old female that presents to the emergency department with chronic neck pain and radicular symptoms down her right arm. She notes that her at home medications and not been helping for the past several days. She denied any new injury or trauma to her neck. She was otherwise a well-appearing 50-year-old female. She was in moderate amounts of emotional distress while laying in bed during the exam. She denied chest pain shortness of breath headache nausea vomiting diarrhea constipation fever fatigue chills. - Related Data Home Medications Medication Instructions Recorded Confirmed Loratadine [Claritin] 10 mg PO DAILY 01/24/14 04/24/21 Oxybutynin Chloride [Ditropan] 5 mg PO BID 01/24/14 04/24/21 Levothyroxine Sodium [Synthroid] 75 mcg PO DAILY 08/27/19 04/24/21 traZODone HCL 300 mg PO HS 08/27/19 04/24/21 Omeprazole 40 mg PO DAILY 05/24/20 04/24/21 ARIPiprazole [Abilify] 10 mg PO HS 11/02/20 04/24/21 Albuterol Sulfate [Proair Hfa] 2 puff INHALATION RT-Q6H PRN 11/02/20 04/24/21 PARoxetine HCL [Paxil] 60 mg PO DAILY 11/02/20 04/24/21 busPIRone HCL 15 mg PO TID 11/02/20 04/24/21 Ipratropium-Albuterol Nebulize 3 ml INHALATION RT-QID PRN 12/18/20 04/24/21 [Duoneb 0.5 mg-3 mg/3 ml Soln] Verapamil HCl [Verapamil ER] 120 mg PO HS 01/19/21 04/24/21 HYDROcodone/APAP 5-325MG [M[place]na 1 tab PO Q6H PRN 03/02/21 04/24/21 5-325] Ergocalciferol (Vitamin D2) 1,250 mcg PO WEEKLY 04/07/21 04/24/21 [Drisdol (50,000 Iu)] Fluticasone/Salmeterol [Advair 1 puff INHALATION RT-BID 04/07/21 04/24/21 500-50 Diskus] Furosemide [Lasix] 20 mg PO DAILY PRN 04/07/21 04/24/21 Meloxicam [Mobic] 7.5 mg PO BID PRN 04/07/21 04/24/21 Potassium Chloride 10 meq PO DAILY PRN 04/07/21 04/24/21 Prazosin HCl 5 mg PO HS 04/07/21 04/24/21 clonazePAM [KlonoPIN] 0.5 mg PO TID PRN 04/07/21 04/24/21 methocarbamoL [Robaxin] 500 mg PO BID PRN 04/07/21 04/24/21 polyethylene glycoL 3350 [Miralax] 17 gm PO DAILY PRN 04/07/21 04/24/21 Previous Rx's Medication Instructions Recorded Gabapentin [Neurontin] 300 mg PO TID #90 cap 12/27/20 Cyclobenzaprine HCl 10 mg PO TID 7 Days #21 tab 05/12/21 HYDROcodone/APAP 10-325MG [Marianna 1 tab PO Q4HR PRN 3 Days #18 tab 05/12/21 10-325] Allergies Allergy/AdvReac Type Severity Reaction Status Date / Time No Known Allergies Allergy Verified 04/24/21 11:00 Review of Systems ROS Statement: Those systems with pertinent positive or pertinent negative responses have been documented in the HPI. ROS Other: All systems not noted in ROS Statement are negative. Past Medical History Past Medical History: Asthma, COPD, GERD/Reflux, Hypertension, Liver Disease, Osteoarthritis (OA), Pneumonia, Pulmonary Embolus (PE), Sleep Apnea/CPAP/BIPAP, Thyroid Disorder Additional Past Medical History / Comment(s): Chronic bronchitis, hepatitis C - remission, chronic back/neck pain, overactive bladder, hx fungal pneumonia - home oxygen 2L HS, doesn't use CPAP, DVT Lt arm r/t PICC line, edema BLE, tripped & fell last week on Rt shoulder/elbow - awaiting results. History of Any Multi-Drug Resistant Organisms: MRSA Date of last positivie culture/infection: 05/25/20 MDRO Source:: Sputum Past Surgical History: Section, Orthopedic Surgery, Tubal Ligation, Uterine Ablation Additional Past Surgical History / Comment(s): C-S x3, Arthroscopy left knee, ORIF (metal plate/screws) right tibia, liver biopsies, right rotator cuff repair, pain procedures, Total left hip arthroscopy. Past Anesthesia/Blood Transfusion Reactions: No Reported Reaction Additional Past Anesthesia/Blood Transfusion Reaction / Comment(s): Denies previous reactions. Past Psychological History: Anxiety, Bipolar, Depression, Panic Disorder, PTSD Smoking Status: Current every day smoker Past Alcohol Use History: None Reported Past Drug Use History: Marijuana - Past Family History Sister(s) Family Medical History: Cancer General Exam Limitations: no limitations General appearance: alert, in no apparent distress Head exam: Present: atraumatic, normocephalic, normal inspection Eye exam: Present: normal appearance, PERRL, EOMI. Absent: scleral icterus, conjunctival injection, periorbital swelling ENT exam: Present: normal exam, mucous membranes moist Neck exam: Present: normal inspection, tenderness (Right side), full ROM. Absent: meningismus, lymphadenopathy Respiratory exam: Present: normal lung sounds bilaterally. Absent: respiratory distress, wheezes, rales, rhonchi, stridor Cardiovascular Exam: Present: regular rate, normal rhythm, normal heart sounds. Absent: systolic murmur, diastolic murmur, rubs, gallop, clicks GI/Abdominal exam: Present: soft, normal bowel sounds. Absent: distended, tenderness, guarding, rebound, rigid Extremities exam: Present: normal inspection, full ROM, normal capillary refill. Absent: tenderness, pedal edema, joint swelling, calf tenderness Neurological exam: Present: alert, oriented X3 Psychiatric exam: Present: normal affect, normal mood Skin exam: Present: warm, dry, intact, normal color. Absent: rash Course Vital Signs 05/12/21 16:44 Temperature 98.4 F Pulse Rate 82 Respiratory 16 Rate Blood Pressure 165/54 O2 Sat by Pulse 98 Oximetry Medical Decision Making - Medical Decision Making 50-year-old female chronic neck pain worse today, no injury or trauma. X-ray of the cervical spine, 4 g of morphine, 60 mg of Norflex ordered. X-ray negative for any acute fractures. Upon reevaluation patient states that she still having pain, 1 mg of Dilaudid ordered. Patient will be sent Marianna tends to her pharmacy until she can follow-up with her pain management doctor. Patient has cervical radiculopathy with herniated disks. Case discussed with Dr. Nelson, patient can discharge home. - Radiology Data Radiology results: report reviewed, image reviewed X-rays cervical spine: Spondylitic changes in the lower cervical spine. No fracture seen. Disposition Clinical Impression: Cervical radiculopathy, Neck pain Disposition: HOME SELF-CARE Condition: Stable Instructions (If sedation given, give patient instructions): Cervical Radiculopathy (ED), Neck Pain (ED) Additional Instructions: Please return to the Emergency Department if symptoms worsen or any other concerns. Follow-up with primary care 1-2 days. Follow-up with pain medicine doctor as soon as possible. Take Marianna tends as prescribed. Take other home medications as prescribed also. Avoid any strenuous activity or exercise. Is patient prescribed a controlled substance at d/c from ED?: No Referrals: Kofi García MD [Primary Care Provider] - 1-2 days Time of Disposition: 19:00
[2021-05-12 19:55] VITALS: BP 160/91; PULSE 81; RESP 18
== END 2021-05-12 19:55 | disposition home or self-care (01) ==
LOC: EC 16:25
DX: M54.12 Radiculopathy, cervical region (principal); G89.29 Other chronic pain; I10 Essential (primary) hypertension; J44.9 Chronic obstructive pulmonary disease, unspecified; K21.9 Gastro-esophageal reflux disease without esophagitis; M19.90 Unspecified osteoarthritis, unspecified site; E07.9 Disorder of thyroid, unspecified; F41.9 Anxiety disorder, unspecified; F31.9 Bipolar disorder, unspecified; F43.12 Post-traumatic stress disorder, chronic; F17.200 Nicotine dependence, unspecified, uncomplicated; F12.90 Cannabis use, unspecified, uncomplicated; Z86.711 Personal history of pulmonary embolism; Z86.19 Personal history of other infectious and parasitic diseases; Z98.51 Tubal ligation status
CPT/HCPCS: 99283; 96374; 96375 ×2; 72050; J2270; J2360; J1170

== ENCOUNTER → 2021-05-21 | Outpatient (CLI) | payer OTHER ==
[2021-05-21 12:57] VITALS: BP 188/126; PULSE 95; RESP 24; TEMP 97.6
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
== END ==
LOC: PNWHC3 12:34
DX: M47.22 Other spondylosis with radiculopathy, cervical region (principal); R29.898 Other symptoms and signs involving the musculoskeletal system; M79.18 Myalgia, other site; F41.9 Anxiety disorder, unspecified; F32.9 Major depressive disorder, single episode, unspecified; F17.200 Nicotine dependence, unspecified, uncomplicated
CPT/HCPCS: 99211

== ENCOUNTER → 2021-05-22 | Outpatient (CLI) | payer OTHER ==
[2021-05-22 14:38] LABS: Basophils % (A) 0 %; Eosinophils # (A) 0.1 k/uL (0-0.7); Eosinophils % (A) 1 %; HCT 35.2 % (34.0-46.0); HGB 11.3 gm/dL (11.4-16.0); Lymphocytes # (A) 0.8 k/uL (1.0-4.8); Lymphocytes % (A) 6 %; MCH 31.1 pg (25.0-35.0); MCV 97.3 fL (80.0-100.0); Mean Platelet Volume 8.2; Monocytes # (A) 0.3 k/uL (0-1.0); Monocytes % (A) 2 %; Neutrophils # (A) 11.4 k/uL (1.3-7.7); Neutrophils % (A) 90 %; Platelet Count 332 k/uL (150-450); RBC 3.62 m/uL (3.80-5.40); RDW 14.6 % (11.5-15.5); WBC 12.6 k/uL (3.8-10.6)
[2021-05-22 14:51] LABS: INR 0.9 (<1.2); Partial Thromboplastin Time 21.3 sec (22.0-30.0)
[2021-05-22 14:55] LABS: Appearance,Urine Clear (Clear); Bacteria,Urine Rare /hpf; Bilirubin,Urine Negative (Negative); Blood,Urine Negative (Negative); Color,Urine Yellow; Glucose,Urine (UA) Negative (Negative); Hyaline Casts,Urine 4 /lpf (0-2); Ketones,Urine Negative (Negative); Leukocyte Esterase,Urine Negative (Negative); Mucus,Urine Few /hpf; Nitrite,Urine Negative (Negative); PH, Urine 5.5 (5.0-8.0); Protein,Urine 1+ (Negative); RBC,Urine <1 /hpf (0-5); Specific Gravity,Urine 1.031 (1.001-1.035); Squamous Epithelial Cell,Urine 4 /hpf (0-4); WBC,Urine 1 /hpf (0-5)
[2021-05-22 14:57] LABS: African American GFR (CKD) >90 (>60 ml/min/1.73 sqM); Anion Gap 10 mmol/L; Blood Urea Nitrogen 18 mg/dL (7-17); Carbon Dioxide 22 mmol/L (22-30); Chloride 105 mmol/L (98-107); Glucose 130 mg/dL (74-99); Non-African American GFR(CKD) >90 (>60 ml/min/1.73 sqM); Potassium 3.8 mmol/L (3.5-5.1); Sodium 137 mmol/L (137-145)
--- NOTE | 2021-05-22 15:41 | XR ---
EXAMINATION TYPE: XR chest 2V DATE OF EXAM: 05/22/2021 COMPARISON: 04/07/2021 INDICATION: Presurgical clearance TECHNIQUE: Frontal and lateral views of the chest are obtained. FINDINGS: The heart size is normal. The pulmonary vasculature is normal. The lungs are clear. IMPRESSION: 1. No acute pulmonary process.
== END | disposition home or self-care (01) ==
LOC: LABPAT 13:31
PROVIDERS: ATTEND Orthopaedic Surgery Orthopaedic Surgery of the Spine
DX: Z01.812 Encounter for preprocedural laboratory examination (principal)
CPT/HCPCS: 36415; 71046; 80048; 81001; 85025; 85610; 85730

== ENCOUNTER 2021-05-30 05:58 | Observation (INO) | payer OTHER ==
[~2021-05-30 05:58] MED LIST changes: -LACTATED RINGERS 1,000 ML IV SCH; -LIDOCAINE 1% (10MG/ML) FOR IV START INTRADERMA PRN; -MIDAZOLAM 2 MG/2 ML VIAL ONE; -ROPIVACAINE 5MG/ML 20ML VIAL ONE; +ceFAZolin 1,000 MG in SODIUM CHLORIDE 0.9% IRRIGATIO 1,000 ML IRRIGATION PRN; -fentaNYL (PF) 50 MCG/ML 2 ML AMP ONE; -methylPREDNISolone ACETATE 40 MG/ML 1 ML VIAL ONE
[2021-05-30] MEDS ORDERED: ONDANSETRON 4 MG/2 ML VIAL ONE (06:27)
[2021-05-30] MEDS ORDERED: LIDOCAINE 1% (10MG/ML) FOR IV START INTRADERMA PRN (06:32)
[2021-05-30] MEDS ORDERED: DEXAMETHASONE SOD PHOSPHATE 4 MG/ML 1 ML VIAL IV ONE (06:32)
[2021-05-30] MEDS ORDERED: MIDAZOLAM 2 MG/2 ML VIAL IV PRN (06:32)
[2021-05-30] MEDS ORDERED: ONDANSETRON 4 MG/2 ML VIAL IVP ONE (06:32)
[2021-05-30 06:55] LABS: Glucose,Whole Blood 102 mg/dL (75-99)
[2021-05-30] MEDS: LACTATED RINGERS 1,000 ML IV SCH (06:58)
[2021-05-30] MEDS ORDERED: fentaNYL (PF) 50 MCG/ML 2 ML AMP IVP ONE (07:00)
[2021-05-30] MEDS ORDERED: GLYCOPYRROLATE 0.2 MG/ML 2 ML VIAL ONE (07:24)
[2021-05-30] MEDS ORDERED: PHENYLEPHRINE-0.9% NACL SYG 1,000 MCG/10 ML SYRINGE ONE (07:24)
[2021-05-30] MEDS ORDERED: LIDOCAINE 1% INJ 10MG/ML (20 ML MDV) ONE (07:24)
[2021-05-30] MEDS ORDERED: ROCURONIUM 10 MG/ML (5 ML VIAL) IV ONE (07:24)
[2021-05-30] MEDS ORDERED: PROPOFOL 10 MG/ML 20 ML VIAL IV ONE (07:24)
[2021-05-30] MEDS ORDERED: ceFAZolin 1,000 MG VIAL ONE (07:24)
[2021-05-30] MEDS ORDERED: SUCCINYLCHOLINE CHLORIDE 100 MG/5 ML SYR IV ONE (07:24)
[2021-05-30] MEDS ORDERED: NEOSTIGMINE 1 MG/ML 10 ML VIAL ONE (07:24)
[2021-05-30] MEDS ORDERED: fentaNYL (PF) 50 MCG/ML 2 ML AMP ONE (07:24)
[2021-05-30] MEDS ORDERED: KETAMINE 10 MG/ML 20 ML VIAL ONE (07:24)
[2021-05-30] MEDS ORDERED: SODIUM CHLORIDE 0.9% 100 ML BAG ONE (07:24)
[2021-05-30] MEDS ORDERED: LIDOCAINE 0.5%-EPI 1:200,000 50 ML VIAL SQ ONE (07:33)
[2021-05-30] MEDS ORDERED: GELATIN SPONGE,ABSORB (LARGE) 1 EACH SPONGE TOPICAL ONE (07:33)
[2021-05-30] MEDS ORDERED: THROMBIN (BOVINE) 5,000 UNIT VIAL TOPICAL ONE (07:33)
[2021-05-30] MEDS ORDERED: ceFAZolin 1,000 MG VIAL IVPB ONE (07:42)
--- NOTE | 2021-05-30 09:09 | XR ---
Lateral cervical spine HISTORY: Needle placement Single lateral view the cervical spine correlated prior exam 05/12/2021 Endotracheal tube is in place. Degenerative disc changes are noted. There is a needle present at the T6-7 level. IMPRESSION: Orthopedic localization
[2021-05-30] MEDS ORDERED: HYDROcodone/APAP 5-325MG 1 EACH TAB PO PRN (09:33)
[2021-05-30] MEDS ORDERED: methocarbamoL 750 MG TAB PO PRN (09:33)
[2021-05-30] MEDS ORDERED: ONDANSETRON 4 MG/2 ML VIAL IVP PRN (09:33)
[2021-05-30] MEDS ORDERED: FUROSEMIDE 20 MG TAB PO PRN (09:34)
[2021-05-30] MEDS ORDERED: HYDROcodone/APAP 10-325MG 1 EACH TAB PO PRN (09:34)
[2021-05-30] MEDS ORDERED: IPRATROPIUM-ALBUTEROL 3 ML NEB INHALATION PRN (09:34)
[2021-05-30] MEDS ORDERED: ALBUTEROL NEBULIZED 2.5 MG/3 ML INHALATION PRN (09:34)
[2021-05-30] MEDS ORDERED: polyethylene glycoL 3350 17 GM POWD.PACK PO PRN (09:34)
[2021-05-30] MEDS ORDERED: methocarbamoL 500 MG TAB PO PRN (09:34)
[2021-05-30] MEDS ORDERED: POTASSIUM CHLORIDE ER 10 MEQ TAB.ER.PRT PO PRN (09:34)
[2021-05-30] MEDS ORDERED: clonazePAM 0.5 MG TAB PO PRN (09:34)
--- NOTE | 2021-05-30 09:40 | P.OP ---
Date of Procedure: 05/30/21 Preoperative Diagnosis: Herniated nucleus pulposis C5 6 C6 7, neck pain, upper extremity radiculopathy, upper extremity weakness, degenerative disc disease Postoperative Diagnosis: Same Anesthesia: GETA Pathology: none sent Condition: stable Disposition: PACU Description of Procedure: BRIEF OPERATIVE NOTE Preoperative Diagnosis:Herniated nucleus pulposis C5 6 C6 7, neck pain, upper extremity radiculopathy, upper extremity weakness, degenerative disc disease Postoperative Diagnosis:Herniated nucleus pulposis C5 6 C6 7, neck pain, upper extremity radiculopathy, upper extremity weakness, degenerative disc disease Procedure: Anterior cervical decompression with discectomy and fusion C5 6 C6 7 Placement of interbody graft C5 6 C6 7 Application of anterior cervical plate C5 6 and 7 Surgeon: Dr. Godwin Cellophane Press Operator: Ernesto Moses is present throughout the entire the case persistence during positioning, dissection, exposure, visualization, and all crucial elements of the case as well as closure. Anesthesia: General anesthesia Estimated blood loss: Approximately 50 mL Complications: None apparent Components implanted: K2M Cascade anterior cervical plate system with vikos interbody allograft bone graft and 1 mL of DBX bone putty Disposition: To recovery room in good stable condition. OPERATIVE INDICATIONS The patient has had long-standing issues in their neck and upper extremities. She's been having severe worsening since number of incidents that happened to her and had increased problems with her upper extremities with radiculopathy and some weakness worse on the right side than left. She is found to have severe disc changes and disc herniation at C56 and C6 7 which correlated well with her neck and upper extremity symptoms. The patient has been through conservative treatment. She is not having any benefit despite aggressive conservative care We discussed various treatment options including surgery, and the patient wishes to proceed with surgery We discussed the risk, patient's alternatives and benefits of surgery including but not limited to, risk of bleeding risk of infection, risk of need for further surgery, risk of decreased, loss of motion, muscle function, malunion nonunion, hardware failure, nerve damage, paralysis, heart attack, and . OPERATIVE SUMMARY After discussing all the risks, patient alternatives and benefits at length, the patient elected to proceed with surgical intervention, signed informed consent, and presented for their procedure. The patient was seen and examined in the preoperative holding area and the surgical site was marked. The patient was given antibiotics and brought to the operating room. The patient was positioned on the operating room table in a supine position being careful to pad any bony prominences and pressure points. The patient was sedated and intubated by anesthesia in standard fashion. Once the airway and C- spine were stabilized the patient's arms were padded and tucked at her side, with her shoulders gently taped. The head was placed in a donut pad with the neck in good neutral alignment and position. We were careful to maintain the patient's cervical spine and good neutral alignment and position throughout. The patient was prepped and draped in a normal standard fashion. An appropriate timeout and keystone protocol performed. We were able to proceed with the surgery. The local wound area was infiltrated with local anesthetic. An incision was made transversely approximately 2-1/2 cm over the appropriate levels at C6. Dissection was taken down subcutaneously to the level of the platysma which was split in line with its fibers. Dissection was taken with a carotid approach, with the trachea and esophagus medial and the carotid sheath laterally. We dissected down to the anterior surface of the vertebral bodies. Intraoperative x-ray was taken which showed a marker at the appropriate level at C6 7. With the appropriate level positively confirmed, we were able to proceed with discectomy at the appropriate levels. All of the operative levels were exposed appropriately. The patient had all their twitches back, and there was no evidence of recurrent laryngeal issue. The wound was copiously irrigated and suctioned dry as had been done periodically throughout the case. At the appropriate level/levels, starting at C5 6 and then moving to C6 7 I established an annulotomy with an 11 blade scalpel. A discectomy was performed with a combination of pituitary rongeurs, curettes, a high-speed bur, and Kerrison rongeurs. The posterior longitudinal ligament was taken down as were any posterior osteophytes. No was made of significant disc herniation at each level with significant compression. This was able to be resolved with the decompression and discectomy. This gave good central and bilateral foraminal decompression. There is no evidence of any dural tear or leak. The endplates were prepared with a high-speed bur. With the endplates in good parallel position, I was able to size for the appropriate size interbody graft. The wound was irrigated and suctioned dry the graft was prepared and malleted into position. It had good alignment and position with the anterior surface flush with the anterior surface of the vertebral bodies. This was done similarly the appropriate levels at C5 6 and then at C6 7. With the grafts intact, I was able to measure and contour and appropriate sized plate. The plate was positioned at the midline over the appropriate levels at C5 6 and 7. Screw holes were established with a hand drill and drill guide. Screws were placed in good alignment and position with excellent bony purchase. They were seated under the locking device. The construct was checked and found to be stable. Intraoperative x-ray was taken which showed good alignment and position of the implants at the appropriate levels. There was no evidence of any dural tear or leak. Good hemostasis was maintained. The wound was copiously irrigated and suctioned dry as had been done periodically throughout the case. The platysma was closed with absorbable suture. The subcutaneous tissue was closed. The subcuticular tissue was closed with absorbable suture. The wound was cleaned and dried and dressed appropriately. A soft cervical collar was placed appropriately. The patient was woken up by anesthesia, extubated, transferred back gently to their hospital bed and brought to the recovery room in good stable condition. The patient will be admitted to the hospital for appropriate postoperative care, medical management and monitoring. We will continue to follow them closely about the postoperative course.
[2021-05-30] MEDS: HYDROmorphone 0.5 MG/0.5 ML SYRINGE IVP PRN ×4 (10:09→23:42)
[2021-05-30] MEDS ORDERED: LACTATED RINGERS 1,000 ML IV ONE ×2 (10:18)
--- NOTE | 2021-05-30 12:16 | XR ---
Cervical spine HISTORY: Hardware placement Single lateral view of the cervical spine submitted and correlated prior exam same dated earlier time There has been interval anterior cervical fusion and discectomy at C5-C7, intervertebral spacing bloc ks are present. There is anatomic alignment. C7-T1 not well seen. Endotracheal tube is in place. IMPRESSION: Orthopedic follow-up.
[2021-05-30] MEDS: busPIRone HCl 5 MG TAB PO SCH ×2 (15:44→21:07)
[2021-05-30] MEDS: GABAPENTIN 300 MG CAP PO SCH ×2 (15:44→21:06)
[2021-05-30] MEDS: SYMBICORT 160-4.5 MCG INHALER INHALATION SCH (19:58)
[2021-05-30] MEDS ORDERED: PRAZOSIN 1 MG CAP PO SCH (21:00)
[2021-05-30] MEDS ORDERED: VERAPAMIL SR 120 MG TABLET.ER PO SCH (21:00)
[2021-05-30] MEDS ORDERED: ARIPiprazole 10 MG TAB PO SCH (21:00)
[2021-05-30] MEDS: OXYBUTYNIN CHLORIDE 5 MG TAB PO SCH (21:08)
[2021-05-30 21:11] VITALS: RESP 20
[2021-05-30] MEDS: BENZOCAINE/MENTHOL LOZENG 1 EACH LOZENGE MUCOUS MEM PRN (23:46)
[2021-05-31] MEDS: BENZOCAINE/MENTHOL LOZENG 1 EACH LOZENGE MUCOUS MEM PRN (05:11)
[2021-05-31 05:16] VITALS: BP 143/88; PULSE 100; TEMP 99.8
[2021-05-31] MEDS ORDERED: LEVOTHYROXINE 75 MCG TAB PO SCH (06:30)
[2021-05-31] MEDS: SYMBICORT 160-4.5 MCG INHALER INHALATION SCH (07:19)
[2021-05-31] MEDS: OXYBUTYNIN CHLORIDE 5 MG TAB PO SCH (08:45)
[2021-05-31] MEDS: GABAPENTIN 300 MG CAP PO SCH (08:45)
[2021-05-31] MEDS: busPIRone HCl 5 MG TAB PO SCH (08:45)
[2021-05-31] MEDS: LACTATED RINGERS 1,000 ML IV SCH (08:46)
[2021-05-31] MEDS: HYDROmorphone 0.5 MG/0.5 ML SYRINGE IVP PRN (08:50)
[2021-05-31] MEDS ORDERED: SENNOSIDES-DOCUSATE SODIUM 1 EACH TAB PO SCH (09:00)
[2021-05-31] MEDS ORDERED: PARoxetine 20 MG TAB PO SCH (09:00)
[2021-05-31] MEDS ORDERED: PANTOPRAZOLE 40 MG TABLET PO SCH (09:00)
[2021-05-31] MEDS ORDERED: LORATADINE 10 MG TAB PO SCH (09:00)
--- NOTE | 2021-05-31 10:26 | P.DS ---
Providers Date of admission: 05/31/21 04:31 Attending physician: Hyacinth Godwin Primary care physician: Kofi Gillettehven Hospital Course: The patient presented on the day of admission as per their operative note. She had severe cervical spinal stenosis due to disc herniations and underwent her procedure as per her operative note for anterior cervical decompression and discectomy and fusion. She feels her arms have made good improvement. She is sore around her neck but she is tolerating some diet. Physical Exam The incision site is clean dry and intact. There is no erythema no drainage. There is no purulence no evidence of infection. Her neck is soft and supple. Abdomen soft and nontender. Chest has good excursion with deep inspiration and expiration. The patient has active and passive range of motion intact at the upper and lower extremities. There is no acute change in neurologic status. She has good motion in her bilateral upper extremities. Hospital Course Postoperative day #1 status post anterior cervical decompression with discectomy and fusion C5 6 C6 7 for her disc herniations with severe stenosis and upper extremity radiculopathy. The patient has been making good progress postoperatively. They have completed the prophylactic antibiotics without any signs or symptoms of infection. The patient has been able to advance their diet, and is tolerating diet adequately. The pain was initially controlled with IV medications and is now controlled appropriately with oral medications. The patient has been able to increase their mobilization. The patient has progressed appropriately. I think they are in good stable con dition for discharge today. They will be sent home with appropriate prescriptions. She is currently living in a motel but says she has help they're and will be able to manage for her meals and bathroom and care of the site. I answered their questions to the best of my ability in a language that they can understand and they are agreeable with the plan. They will follow up as directed. In approximately 2 weeks or sooner if she is having any problems Patient Condition at Discharge: Good Plan - Discharge Summary New Discharge Prescriptions: New HYDROcodone/APAP 10-325MG [[place] 10-325] 1 tab PO Q6HR PRN #28 tab PRN Reason: Pain Gabapentin [Neurontin] 300 mg PO TID #21 cap Methocarbamol [Robaxin-750] 750 mg PO Q12HR PRN #60 tablet PRN Reason: Spasms No Action Oxybutynin Chloride [Ditropan] 5 mg PO BID Loratadine [Claritin] 10 mg PO DAILY traZODone HCL 300 mg PO HS Levothyroxine Sodium [Synthroid] 75 mcg PO DAILY Omeprazole 40 mg PO DAILY Albuterol Sulfate [Proair Hfa] 2 puff INHALATION RT-Q6H PRN PRN Reason: Shortness Of Breath ARIPiprazole [Abilify] 10 mg PO HS busPIRone HCL 15 mg PO TID PARoxetine HCL [Paxil] 60 mg PO DAILY Ipratropium-Albuterol Nebulize [Duoneb 0.5 mg-3 mg/3 ml Soln] 3 ml INHALATION RT-QID PRN PRN Reason: Shortness Of Breath Gabapentin [Neurontin] 300 mg PO TID #90 cap Verapamil HCl [Verapamil ER] 120 mg PO HS polyethylene glycoL 3350 [Miralax] 17 gm PO DAILY PRN PRN Reason: Constipation Ergocalciferol (Vitamin D2) [Drisdol (50,000 Iu)] 1,250 mcg PO WEEKLY Potassium Chloride 10 meq PO DAILY PRN PRN Reason: WITH LASIX methocarbamoL [Robaxin] 500 mg PO BID PRN PRN Reason: Muscle Pain Prazosin HCl 5 mg PO HS HYDROcodone/APAP 10-325MG [[place] 10-325] 1 tab PO Q4HR PRN 3 Days #18 tab PRN Reason: Pain Meloxicam [Mobic] 7.5 mg PO BID PRN PRN Reason: Pain clonazePAM [KlonoPIN] 0.5 mg PO TID PRN PRN Reason: Anxiety Furosemide [Lasix] 20 mg PO DAILY PRN PRN Reason: Edema Fluticasone/Salmeterol [Advair 500-50 Diskus] 1 puff INHALATION RT-BID Discharge Medication List Loratadine [Claritin] 10 mg PO DAILY 01/24/14 [History] Oxybutynin Chloride [Ditropan] 5 mg PO BID 01/24/14 [History] Levothyroxine Sodium [Synthroid] 75 mcg PO DAILY 08/27/19 [History] traZODone HCL 300 mg PO HS 08/27/19 [History] Omeprazole 40 mg PO DAILY 05/24/20 [History] ARIPiprazole [Abilify] 10 mg PO HS 11/02/20 [History] Albuterol Sulfate [Proair Hfa] 2 puff INHALATION RT-Q6H PRN 11/02/20 [History] PARoxetine HCL [Paxil] 60 mg PO DAILY 11/02/20 [History] busPIRone HCL 15 mg PO TID 11/02/20 [History] Ipratropium-Albuterol Nebulize [Duoneb 0.5 mg-3 mg/3 ml Soln] 3 ml INHALATION RT-QID PRN 12/18/20 [History] Gabapentin [Neurontin] 300 mg PO TID #90 cap 12/27/20 [Rx] Verapamil HCl [Verapamil ER] 120 mg PO HS 01/19/21 [History] Ergocalciferol (Vitamin D2) [Drisdol (50,000 Iu)] 1,250 mcg PO WEEKLY 04/07/21 [History] Fluticasone/Salmeterol [Advair 500-50 Diskus] 1 puff INHALATION RT-BID 04/07/21 [History] Furosemide [Lasix] 20 mg PO DAILY PRN 04/07/21 [History] Meloxicam [Mobic] 7.5 mg PO BID PRN 04/07/21 [History] Potassium Chloride 10 meq PO DAILY PRN 04/07/21 [History] Prazosin HCl 5 mg PO HS 04/07/21 [History] clonazePAM [KlonoPIN] 0.5 mg PO TID PRN 04/07/21 [History] methocarbamoL [Robaxin] 500 mg PO BID PRN 04/07/21 [History] polyethylene glycoL 3350 [Miralax] 17 gm PO DAILY PRN 04/07/21 [History] HYDROcodone/APAP 10-325MG [[place] 10-325] 1 tab PO Q4HR PRN 3 Days #18 tab 05/12/21 [Rx] Gabapentin [Neurontin] 300 mg PO TID #21 cap 05/30/21 [Rx] HYDROcodone/APAP 10-325MG [[place] 10-325] 1 tab PO Q6HR PRN #28 tab 05/30/21 [Rx] Methocarbamol [Robaxin-750] 750 mg PO Q12HR PRN #60 tablet 05/30/21 [Rx] Follow up Appointment(s)/Referral(s): Hyacinth Godwin DO [Doctor of Osteopathic Medicine] - 2 Weeks Activity/Diet/Wound Care/Special Instructions: Keep site clean. May shower with waterproof Tegaderm intact. Do not soak in a tub. After 72 hours postoperatively, patient May remove dressing and then may shower with area uncovered. Leave glue intact and allow it to fray off on its own. May ambulate as tolerated. Avoid heavy or rigorous activity. No repetitive bending twisting or lifting. No overhead work. Discharge Disposition: HOME SELF-CARE
--- NOTE | 2021-05-31 16:17 | PN ---
PROGRESS NOTE DATE OF SERVICE: 05/31/2021 CHIEF COMPLAINT: Herniated nucleus pulposus. HISTORY OF PRESENT ILLNESS: This lady is doing well. She has had no fever, chills, excessive pain, etc. The right arm is already beginning to feel better with decrease in radicular pain and hypesthesias. PHYSICAL EXAMINATION: Her chest is clear. Cardiac exam is normal. Abdomen is soft, nontender. IMPRESSION: Status post herniated nucleus pulposus, diskectomy. PLAN: Progress activity and she can go home anytime. MMODL / IJN: [id number] /
--- NOTE | 2021-05-31 17:02 | CONS ---
CONSULTATION CHIEF COMPLAINT: Herniated nucleus pulposus. HISTORY OF PRESENT ILLNESS: Details of this lady's history can be found in her admitting summary. She has been having increasing difficulty with intractable pain and hypesthesias as well as weakness in the right arm and she was brought in for an elective diskectomy. REVIEW OF SYSTEMS: She has had no recent neurologic problems, chest pain, shortness of breath, abdominal pain, nausea, vomiting, melena, hematochezia, dysuria, frequency, urgency, vaginal discharge or bleeding, chills, fever, etc. Past medical history, family history, personal and social histories reveal that she is NOT ALLERGICTO ANY MEDICATION. She takes oxybutynin 5 mg twice a day, levothyroxine 0.075 once a day, omeprazole 40 mg once a day, Vicodin 10/325 p.r.n., methocarbamol 500 mg twice a day, gabapentin 300 mg 3 times a day, Advair 500/50 one puff twice a day, Klonopin 0.5 t.i.d. p.r.n., vitamin D, updrafts with DuoNeb, ProAir inhaler, aripiprazole 10 mg once a day, verapamil 240 mg once a day, trazodone 100 mg at bedtime for sleep, prazosin 5 mg at bedtime, loratadine 10 mg a day, potassium 10 mEq once a day, lisinopril 40 mg once a day. The remainder of her history is unremarkable and can be found in detail in her admitting summary. She does smoke every day. PHYSICAL EXAMINATION: Blood pressure is 154/80, pulse of 85 and regular, respirations of 18 and temperature 97.1. In general she appeared to be slightly overweight and in no acute distress. Skin color is normal. Skin is warm and dry. Lymph nodes are not enlarged. Head, ears, eyes, nose, mouth and throat were unremarkable other than facial scarring from a prior injury. Carotids are normal. The chest is clear to auscultation and percussion with decreased breath sounds throughout. The cardiac exam demonstrates sinus rhythm and no murmurs or extra sounds. The abdomen is slightly protuberant, soft and nontender without any visceromegaly or masses. Bowel sounds are present. Extremities are normal except for discomfort and slight weakness in the right arm. IMPRESSION: 1. Herniated nucleus pulposus with radiculopathy affecting the right upper extremity. 2. Hypertension. 3. Chronic obstructive pulmonary disease. 4. Hypothyroidism. PLAN: Proceed with her procedure. She is an acceptable candidate. Thank you. Respectfully, Kofi García II, M.D. MARILYN / NANCY: [id number] /
--- NOTE | 2021-06-04 19:05 | CONS ---
CONSULTATION CHIEF COMPLAINT: Cervical spondylosis. HISTORY OF PRESENT ILLNESS: This lady has come in for an elective surgical spine procedure due to osteoarthritis and disk disease of cervical spine with radiculopathy affecting predominantly the right arm. REVIEW OF SYSTEMS: She has had no recent headaches, neurologic changes, difficulty with vision or hearing, chest pain, palpitations, syncope, orthopnea, PND, abdominal pain, vomiting, hematemesis, melena, hematochezia, jaundice, renal failure, dysuria, frequency, urgency, nocturia, incontinence, etc. She has had no fever or chills. Past medical history, family history and personal and social histories demonstrates that she has been being treated for carpal tunnel syndrome, anxiety, depression, COPD, hypertension and her current cervical spine issues. She is on oxybutynin 5 mg twice a day, levothyroxine 0.075 once a day, omeprazole 40 mg once a day, Vicodin p.r.n., methocarbamol 500 mg twice a day, gabapentin 300 mg 3 times a day, Advair Diskus, Klonopin 0.5 t.i.d. p.r.n., vitamin D 50,000 units a month, DuoNeb updrafts, ProAir inhaler, aripiprazole 10 mg once a day, verapamil 240 mg once a day, trazodone 100 q.h.s., prazosin 5 mg HS, paroxetine 30 mg once a day, lisinopril 40 daily, and furosemide 20 mg twice a day. The remainder of her history is unremarkable. She does continue to smoke. Drinks alcohol occasionally. PHYSICAL EXAMINATION: Blood pressure 132/88 with a pulse of 79, respirations of 32, and she is afebrile. In general, she appeared to be overweight and uncomfortable. Head, ears, eyes, nose, mouth and throat were unremarkable. Neck veins cannot be assessed. Chest is clear to auscultation. Cardiac exam demonstrated what sounds like sinus rhythm and there are no murmurs or extra sounds. Abdomen is protuberant, soft and nontender and there are no masses. Extremities are normal and neurologically she was intact other than the complaints of weakness and dysesthesias as well as pain in particularly the right arm. IMPRESSIONS: 1. Cervical spondylosis and radiculopathy affecting the right upper extremity. 2. Hypertension. 3. Nicotine abuse. 4. Depression. 5. Bipolar disorder. RECOMMENDATIONS: None. MMVINNYL / IJN: [id number] /
[2021-06-06] MEDS ORDERED: ERGOCALCIFEROL 1,250 MCG (50,000 IU) CAPSULE PO SCH (09:00)
== END 2021-05-31 12:22 | disposition home or self-care (01) ==
LOC: OR 05:58 → 5NMEDONC 09:39 → OR 05-31 04:31
PROVIDERS: ADMIT Orthopaedic Surgery Orthopaedic Surgery of the Spine; ATTEND Orthopaedic Surgery Orthopaedic Surgery of the Spine
DX: M50.122 Cervical disc disorder at C5-C6 level with radiculopathy (principal); M48.02 Spinal stenosis, cervical region; M25.78 Osteophyte, vertebrae; I10 Essential (primary) hypertension; E03.9 Hypothyroidism, unspecified; J43.9 Emphysema, unspecified; F31.9 Bipolar disorder, unspecified; K21.9 Gastro-esophageal reflux disease without esophagitis; M19.90 Unspecified osteoarthritis, unspecified site; B19.20 Unspecified viral hepatitis C without hepatic coma; E78.5 Hyperlipidemia, unspecified; F43.10 Post-traumatic stress disorder, unspecified; F41.9 Anxiety disorder, unspecified; F17.210 Nicotine dependence, cigarettes, uncomplicated; Z79.890 Hormone replacement therapy; Z79.52 Long term (current) use of systemic steroids; Z79.899 Other long term (current) drug therapy; Z86.711 Personal history of pulmonary embolism; Z97.3 Presence of spectacles and contact lenses; Z98.891 History of uterine scar from previous surgery; Z96.642 Presence of left artificial hip joint; Z98.890 Other specified postprocedural states; Z87.11 Personal history of peptic ulcer disease; Z82.49 Family history of ischemic heart disease and other diseases of the circulatory system
CPT/HCPCS: 22551; 22552; 22845; 20930; 20931; 94640 ×3; 81025; 86900; 86901; 86850; 87635; 72020; G0378; C1713 ×2; C1762 ×2; J2710; J0690 ×2; J2405; J2001; J3010; J2370; J0330; J2704; J1170 ×2

== ENCOUNTER 2021-07-29 12:53 | Inpatient (IN) | payer OTHER ==
[2021-07-29] MEDS ORDERED: methylPREDNISolone SOD SUCCI 125 MG/2 ML VIAL IV STA (13:32)
[2021-07-29] MEDS ORDERED: ALBUTEROL HFA INHALER INHALATION STA (13:32)
--- NOTE | 2021-07-29 13:36 | ED ---
General Adult HPI - General Chief complaint: Shortness of Breath Stated complaint: YAHAIRA Time Seen by Provider: 07/29/21 13:05 Source: patient, RN notes reviewed Mode of arrival: wheelchair Limitations: no limitations - History of Present Illness Initial comments: Patient is a pleasant 50-year-old female presenting to the emergency department with difficulty breathing. Onset of symptoms was around 3 weeks ago. Patient has had intermittent fevers. Patient is a cough with yellow sputum. Patient has history of similar symptoms previously associated with COPD. Patient is using her nebulizer up to 7 sometimes a times a day with transient improvement. No leg pain or leg swelling. Patient has some discomfort with cough. Otherwise no chest discomfort. Minimal sinus congestion. Patient has been on outpatient antibiotics and finished without improvement. - Related Data Home Medications Medication Instructions Recorded Confirmed Loratadine [Claritin] 10 mg PO DAILY 01/24/14 07/29/21 Oxybutynin Chloride [Ditropan] 10 mg PO HS 01/24/14 07/29/21 Levothyroxine Sodium [Synthroid] 75 mcg PO DAILY 08/27/19 07/29/21 traZODone HCL 300 mg PO HS 08/27/19 07/29/21 Omeprazole 40 mg PO DAILY 05/24/20 07/29/21 ARIPiprazole [Abilify] 10 mg PO HS 11/02/20 07/29/21 Albuterol Sulfate [Proair Hfa] 2 puff INHALATION RT-Q6H PRN 11/02/20 07/29/21 PARoxetine HCL [Paxil] 60 mg PO DAILY 11/02/20 07/29/21 busPIRone HCL 15 mg PO BID 11/02/20 07/29/21 Ipratropium-Albuterol Nebulize 3 ml INHALATION RT-QID PRN 12/18/20 07/29/21 [Duoneb 0.5 mg-3 mg/3 ml Soln] Ergocalciferol (Vitamin D2) 1,250 mcg PO Q28D 04/07/21 07/29/21 [Drisdol (50,000 Iu)] Fluticasone/Salmeterol [Advair 1 puff INHALATION RT-BID 04/07/21 07/29/21 500-50 Diskus] Prazosin HCl 5 mg PO HS 04/07/21 07/29/21 clonazePAM [KlonoPIN] 0.5 mg PO TID 04/07/21 07/29/21 Gabapentin [Neurontin] 300 mg PO TID 07/29/21 07/29/21 HYDROcodone/APAP 5-325MG [Bude 1 tab PO TID 07/29/21 07/29/21 5-325] methocarbamoL [Robaxin] 500 mg PO TID 07/29/21 07/29/21 Allergies Allergy/AdvReac Type Severity Reaction Status Date / Time No Known Allergies Allergy Verified 07/29/21 14:39 Review of Systems ROS Statement: Those systems with pertinent positive or pertinent negative responses have been documented in the HPI. ROS Other: All systems not noted in ROS Statement are negative. Constitutional: Reports: fever, chills Eyes: Denies: eye pain ENT: Denies: ear pain Respiratory: Reports: cough, dyspnea Cardiovascular: Reports: as per HPI Endocrine: Reports: fatigue Gastrointestinal: Denies: abdominal pain Genitourinary: Denies: dysuria Musculoskeletal: Denies: back pain Skin: Denies: rash Neurological: Denies: weakness Past Medical History Past Medical History: Asthma, COPD, GERD/Reflux, Hypertension, Liver Disease, Osteoarthritis (OA), Pneumonia, Pulmonary Embolus (PE), Sleep Apnea/CPAP/BIPAP, Thyroid Disorder Additional Past Medical History / Comment(s): Chronic bronchitis, hepatitis C - remission, chronic back/neck pain, overactive bladder, hx fungal pneumonia - home oxygen 2L HS, doesn't use CPAP, DVT Lt arm r/t PICC line, edema BLE, tripped & fell last week on Rt shoulder/elbow - awaiting results. History of Any Multi-Drug Resistant Organisms: MRSA Date of last positivie culture/infection: 05/25/20 MDRO Source:: Sputum Past Surgical History: Section, Orthopedic Surgery, Tubal Ligation, Uterine Ablation Additional Past Surgical History / Comment(s): C-S x3, Arthroscopy left knee, ORIF (metal plate/screws) right tibia, liver biopsies, right rotator cuff repair, pain procedures, Total left hip arthroscopy. Past Anesthesia/Blood Transfusion Reactions: No Reported Reaction Additional Past Anesthesia/Blood Transfusion Reaction / Comment(s): Denies previous reactions. Past Psychological History: Anxiety, Bipolar, Depression, Panic Disorder, PTSD Smoking Status: Current every day smoker Past Alcohol Use History: None Reported Past Drug Use History: Marijuana - Past Family History Sister(s) Family Medical History: Cancer General Exam Limitations: no limitations General appearance: alert, in no apparent distress Head exam: Present: normocephalic Eye exam: Present: normal appearance Neck exam: Present: normal inspection Respiratory exam: Present: wheezes, decreased breath sounds Cardiovascular Exam: Present: tachycardia GI/Abdominal exam: Present: soft. Absent: tenderness Extremities exam: Present: normal inspection. Absent: pedal edema, calf tenderness Back exam: Present: normal inspection Neurological exam: Present: alert Psychiatric exam: Present: normal affect, normal mood Skin exam: Present: normal color Course Vital Signs 07/29/21 07/29/21 12:55 14:58 Temperature 97.9 F Pulse Rate 104 H 89 Respiratory 28 H 20 Rate Blood Pressure 194/105 156/98 O2 Sat by Pulse 93 L 95 Oximetry - Reevaluation(s) Reevaluation #1: 07/29/21 14:49 Patient is on 2 L oxygen at home. 07/29/21 15:43 Patient does meet sepsis criteria diagnosed at 1540. Blood culture and lactic acid and IV antibiotics will also be ordered. EKG Findings - EKG Comments: EKG Findings:: Sinus rhythm with rate of 97. Short P-R 94. QRS 96. QT 364. QTC 462. Normal axis. Normal QRS. No acute ST change. Medical Decision Making - Medical Decision Making Patient reevaluated and resting comfortably in bed. Patient updated on results and plan. COVID-19 test still pending. Patient does have elevation of d-dimer and computed tomography scan of the chest will be ordered. Case was discussed in detail with Dr. García who will admit his patient with consult Dr. Schultz. - Lab Data Result diagrams: 07/29/21 14:28 07/29/21 14:28 Lab Results 07/29/21 07/29/21 07/29/21 Range/Units 14:28 14:28 14:28 WBC 8.7 (3.8-10.6) k/uL RBC 3.84 (3.80-5.40) m/uL Hgb 12.2 (11.4-16.0) gm/dL Hct 38.0 (34.0-46.0) % MCV 98.9 (80.0-100.0) fL MCH 31.7 (25.0-35.0) pg MCHC 32.0 (31.0-37.0) g/dL RDW 16.7 H (11.5-15.5) % Plt Count 312 (150-450) k/uL MPV 7.2 Neutrophils % 72 % Lymphocytes % 19 % Monocytes % 5 % Eosinophils % 2 % Basophils % 0 % Neutrophils # 6.3 (1.3-7.7) k/uL Lymphocytes # 1.6 (1.0-4.8) k/uL Monocytes # 0.5 (0-1.0) k/uL Eosinophils # 0.1 (0-0.7) k/uL Basophils # 0.0 (0-0.2) k/uL Hypochromasia Slight Anisocytosis Slight Macrocytosis Slight PT 9.7 (9.0-12.0) sec INR 0.9 (<1.2) APTT 22.8 (22.0-30.0) sec D-Dimer 1.26 H (<0.60) mg/L FEU Sodium 140 (137-145) mmol/L Potassium 4.0 (3.5-5.1) mmol/L Chloride 105 (98-107) mmol/L Carbon Dioxide 27 (22-30) mmol/L Anion Gap 8 mmol/L BUN 9 (7-17) mg/dL Creatinine 0.60 (0.52-1.04) mg/dL Est GFR (CKD-EPI)AfAm >90 (>60 ml/min/1.73 sqM) Est GFR (CKD-EPI)NonAf >90 (>60 ml/min/1.73 sqM) Glucose 109 H (74-99) mg/dL Plasma Lactic Acid Tobin (0.7-2.0) mmol/L Calcium 9.3 (8.4-10.2) mg/dL Total Bilirubin 0.3 (0.2-1.3) mg/dL AST 31 (14-36) U/L ALT 17 (4-34) U/L Alkaline Phosphatase 34 L (38-126) U/L Troponin I (0.000-0.034) ng/mL NT-Pro-B Natriuret Pep pg/mL Total Protein 6.9 (6.3-8.2) g/dL Albumin 4.0 (3.5-5.0) g/dL 07/29/21 07/29/21 07/29/21 Range/Units 14:28 14:28 14:28 WBC (3.8-10.6) k/uL RBC (3.80-5.40) m/uL Hgb (11.4-16.0) gm/dL Hct (34.0-46.0) % MCV (80.0-100.0) fL MCH (25.0-35.0) pg MCHC (31.0-37.0) g/dL RDW (11.5-15.5) % Plt Count (150-450) k/uL MPV Neutrophils % % Lymphocytes % % Monocytes % % Eosinophils % % Basophils % % Neutrophils # (1.3-7.7) k/uL Lymphocytes # (1.0-4.8) k/uL Monocytes # (0-1.0) k/uL Eosinophils # (0-0.7) k/uL Basophils # (0-0.2) k/uL Hypochromasia Anisocytosis Macrocytosis PT (9.0-12.0) sec INR (<1.2) APTT (22.0-30.0) sec D-Dimer (<0.60) mg/L FEU Sodium (137-145) mmol/L Potassium (3.5-5.1) mmol/L Chloride (98-107) mmol/L Carbon Dioxide (22-30) mmol/L Anion Gap mmol/L BUN (7-17) mg/dL Creatinine (0.52-1.04) mg/dL Est GFR (CKD-EPI)AfAm (>60 ml/min/1.73 sqM) Est GFR (CKD-EPI)NonAf (>60 ml/min/1.73 sqM) Glucose (74-99) mg/dL Plasma Lactic Acid Tobin 1.0 (0.7-2.0) mmol/L Calcium (8.4-10.2) mg/dL Total Bilirubin (0.2-1.3) mg/dL AST (14-36) U/L ALT (4-34) U/L Alkaline Phosphatase (38-126) U/L Troponin I <0.012 (0.000-0.034) ng/mL NT-Pro-B Natriuret Pep 1720 pg/mL Total Protein (6.3-8.2) g/dL Albumin (3.5-5.0) g/dL - Radiology Data Radiology results: image reviewed (Suspected right lower lobe airspace disease) Critical Care Time Critical Care Time: Yes Total Critical Care Time: 32 Disposition Clinical Impression: COPD exacerbation, Pneumonia, Sepsis Disposition: ADMITTED IP TO THIS HOSP Is patient prescribed a controlled substance at d/c from ED?: No Referrals: Kofi García MD [Primary Care Provider] - 1-2 days Decision Time: 15:44
--- NOTE | 2021-07-29 13:56 | XR ---
EXAMINATION TYPE: XR chest 2V DATE OF EXAM: 07/29/2021 1:48 PM COMPARISON:Chest radiographs from May 22 2021 CLINICAL INDICATION:Female, 50 years old with history of difficulty breathing; TECHNIQUE: Frontal view of the chest. FINDINGS: Lungs/Pleura: Airspace opacities which are more consolidative on today's exam within the right lower lung. There is no evidence of pleural effusion, or pneumothorax. Pulmonary vascularity:Unremarkable. Heart/mediastinum: Cardiomediastinal silhouette is prominent in size. Musculoskeletal: No acute osseous pathology. Surgical changes in the lower cervical spine and hardwar e which appears intact. IMPRESSION: Suspected right lower lobe airspace disease.
[2021-07-29 14:41] LABS: Anisocytosis Slight; Basophils % (A) 0 %; Eosinophils # (A) 0.1 k/uL (0-0.7); Eosinophils % (A) 2 %; HGB 12.2 gm/dL (11.4-16.0); Hypochromasia Slight; Lymphocytes # (A) 1.6 k/uL (1.0-4.8); Lymphocytes % (A) 19 %; MCH 31.7 pg (25.0-35.0); MCV 98.9 fL (80.0-100.0); Macrocytosis Slight; Mean Platelet Volume 7.2; Monocytes # (A) 0.5 k/uL (0-1.0); Monocytes % (A) 5 %; Neutrophils # (A) 6.3 k/uL (1.3-7.7); Neutrophils % (A) 72 %; Platelet Count 312 k/uL (150-450); RBC 3.84 m/uL (3.80-5.40); RDW 16.7 % (11.5-15.5); WBC 8.7 k/uL (3.8-10.6)
[2021-07-29 14:49] LABS: Sodium 140 mmol/L (137-145)
[2021-07-29 14:51] LABS: ALT 17 U/L (4-34); AST 31 U/L (14-36); African American GFR (CKD) >90 (>60 ml/min/1.73 sqM); Alkaline Phosphatase 34 U/L (38-126); Anion Gap 8 mmol/L; Blood Urea Nitrogen 9 mg/dL (7-17); Calcium 9.3 mg/dL (8.4-10.2); Carbon Dioxide 27 mmol/L (22-30); Chloride 105 mmol/L (98-107); Glucose 109 mg/dL (74-99); Non-African American GFR(CKD) >90 (>60 ml/min/1.73 sqM); Total Bilirubin 0.3 mg/dL (0.2-1.3); Total Protein 6.9 g/dL (6.3-8.2)
[2021-07-29 15:04] LABS: INR 0.9 (<1.2); Partial Thromboplastin Time 22.8 sec (22.0-30.0); Prothrombin Time 9.7 sec (9.0-12.0)
[2021-07-29] MEDS ORDERED: PNEUMONIA PROTOCOL UTILIZED 1 EACH MISC PO PRN (15:44)
[2021-07-29] MEDS ORDERED: AZITHROMYCIN 500 MG in SODIUM CHLORIDE 0.9% 250 ML IVPB STA (15:44)
--- NOTE | 2021-07-29 16:14 | CT ---
EXAMINATION TYPE: CT angio chest DATE OF EXAM: 07/29/2021 COMPARISON: 12/19/2020 HISTORY: YAHAIRA CT DLP: 547.3 mGycm Automated exposure control for dose reduction was used. CONTRAST: Performed with IV Contrast, patient injected with 95 mL of Isovue 370. There are 3-D post processed images. The lungs are clear of infiltrate. There is no evidence of pleural effusion. There is no pericardial effusion. Heart appears slightly enlarged. There is no mediastinal adenopathy. There are no hilar masses. Thoracic aorta is intact. There is no aneurysm or dissection. There is normal contrast opacification of the pulmonary arteries. There are no filling defects. There is intact thoracic spine. I see no bony destructive process. IMPRESSION: No evidence of pulmonary embolism. There is clearing of the patchy groundglass interstitial pulmonary infiltrates compared to old exam. Mild cardiomegaly.
[2021-07-29] MEDS: IPRATROPIUM-ALBUTEROL 3 ML NEB INHALATION SCH ×2 (17:27→20:41)
[2021-07-29] MEDS: SODIUM CHLORIDE 0.9% 1,000 ML IV SCH (17:37)
[2021-07-29] MEDS: methylPREDNISolone SOD SUCCI 125 MG/2 ML VIAL IV SCH ×2 (17:37→22:56)
[2021-07-29] MEDS ORDERED: IPRATROPIUM-ALBUTEROL 3 ML NEB INHALATION PRN (18:26)
[2021-07-29] MEDS ORDERED: ALBUTEROL NEBULIZED 2.5 MG/3 ML INHALATION PRN (18:26)
[2021-07-29] MEDS: OXYBUTYNIN CHLORIDE 5 MG TAB PO SCH (20:21)
[2021-07-29] MEDS: VERAPAMIL SR 240 MG TABLET.ER PO SCH (20:22)
[2021-07-29] MEDS: GABAPENTIN 300 MG CAP PO SCH (20:22)
[2021-07-29] MEDS: ARIPiprazole 10 MG TAB PO SCH (20:22)
[2021-07-29] MEDS: HYDROcodone/APAP 5-325MG 1 EACH TAB PO PRN (20:22)
[2021-07-29] MEDS: PRAZOSIN 1 MG CAP PO SCH (20:22)
[2021-07-29] MEDS: lisinopriL 20 MG TAB PO SCH (20:23)
[2021-07-29] MEDS: traZODone HCL 100 MG TAB PO SCH (20:23)
[2021-07-30] MEDS: IPRATROPIUM-ALBUTEROL 3 ML NEB INHALATION PRN (00:12)
[2021-07-30] MEDS: SODIUM CHLORIDE 0.9% 1,000 ML IV SCH ×3 (01:53→21:29)
[2021-07-30] MEDS: LEVOTHYROXINE 75 MCG TAB PO SCH (05:13)
[2021-07-30] MEDS: methylPREDNISolone SOD SUCCI 125 MG/2 ML VIAL IV SCH ×3 (05:13→17:45)
[2021-07-30] MEDS: IPRATROPIUM-ALBUTEROL 3 ML NEB INHALATION SCH ×4 (06:29→20:21)
--- NOTE | 2021-07-30 08:36 | XR ---
EXAMINATION TYPE: XR chest 2V DATE OF EXAM: 07/30/2021 COMPARISON: 07/29/2021 HISTORY: 50-year-old female pneumonia, cough, shortness of breath TECHNIQUE: Frontal and lateral views FINDINGS: ACDF hardware. Heart upper limits of normal in size. Mild hyperinflation. Some hazy lower lung densit ies likely relate to overlying soft tissue. No kashmir consolidation. IMPRESSION: Some hazy bibasilar opacities likely related to overlying soft tissue. No definite acute process. Sim ilar borderline heart size.
[2021-07-30] MEDS: NICOTINE 21MG/24HR PATCH TRANSDERM SCH (08:58)
[2021-07-30] MEDS: HYDROcodone/APAP 5-325MG 1 EACH TAB PO PRN ×2 (08:59→16:10)
[2021-07-30] MEDS: PANTOPRAZOLE 40 MG TABLET PO SCH (08:59)
[2021-07-30] MEDS: AZITHROMYCIN 500 MG TAB PO SCH (08:59)
[2021-07-30] MEDS: PARoxetine 20 MG TAB PO SCH (09:01)
[2021-07-30] MEDS: LORATADINE 10 MG TAB PO SCH (09:01)
[2021-07-30] MEDS: lisinopriL 20 MG TAB PO SCH (09:01)
[2021-07-30] MEDS: GABAPENTIN 300 MG CAP PO SCH ×3 (09:01→20:50)
--- NOTE | 2021-07-30 12:01 | ECHOF ---
Referral Reason:CHF MEASUREMENTS -------- HEIGHT: 149.9 cm WEIGHT: 78.0 kg BP: RVIDd: 2.9 cm (< 3.3) IVSd: 1.3 cm (0.6 - 1.1) LVIDd: 4.6 cm (3.9 - 5.3) LVPWd: 1.3 cm (0.6 - 1.1) IVSs: 1.9 cm LVIDs: 3.2 cm LVPWs: 1.9 cm LA Diam: 3.2 cm (2.7 - 3.8) LAESV Index (A-L): 33.01 ml/m Ao Diam: 2.5 cm (2.0 - 3.7) AV Cusp: 1.8 cm (1.5 - 2.6) MV EXCURSION: 12.039 mm (> 18.000) MV EF SLOPE: 45 mm/s (70 - 150) EPSS: 1.1 cm MV E Hung: 1.45 m/s MV DecT: 221 ms MV A Hung: 0.77 m/s MV E/A Ratio: 1.89 AV maxP.41 mmHg AV meanP.43 mmHg RAP: 5.00 mmHg RVSP: 42.90 mmHg FINDINGS -------- Sinus rhythm. This was a technically adequate study. The left ventricular size is normal. There is mild concentric left ventricular hypertrophy. Overa ll left ventricular systolic function is normal with, an EF between 60 - 65 %. The right ventricle is normal in size. LA is midly dilated 29-33ml/m2. The right atrium is normal in size. Interatrial and interventricular septum intact. There is mild aortic stenosis present. Peak/mean gradient across the Aortic Valve is 23.41mmHg / 14 .43mmHg. There is trace to mild mitral regurgitation. Mild tricuspid regurgitation present. There is mild pulmonary hypertension. The right ventricular systolic pressure, as measured by Doppler, is 42.90mmHg. The pulmonic valve was not well visualized. The aortic root size is normal. Normal inferior vena cava with normal inspiratory collapse consistent with estimated right atrial pre ssure of 5 mmHg. There is no pericardial effusion. CONCLUSIONS -------- 1. The left ventricular size is normal. 2. There is mild concentric left ventricular hypertrophy. 3. Overall left ventricular systolic function is normal with, an EF between 60 - 65 %. 4. LA is midly dilated 29-33ml/m2. 5. There is mild aortic stenosis present. 6. Peak/mean gradient across the Aortic Valve is 23.41mmHg / 14.43mmHg. 7. There is trace to mild mitral regurgitation. 8. Mild tricuspid regurgitation present. 9. There is mild pulmonary hypertension. 10. The right ventricular systolic pressure, as measured by Doppler, is 42.90mmHg. 11. There is no pericardial effusion. HV[employer] FIELD SERVICE TECHNICIAN: Rosa Maria Jones RDCS
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
--- NOTE | 2021-07-30 18:50 | HP ---
HISTORY AND PHYSICAL CHIEF COMPLAINT: Chills, fever, cough and shortness of breath for 3 weeks. HISTORY OF PRESENT ILLNESS: This is another admission for this 50-year-old obese white female with COPD. She presented to the emergency room, where her blood pressure was elevated. She also had a BNP of 1720. She was admitted with pneumonia. REVIEW OF SYSTEMS: She has had no hemoptysis, confusion, sepsis, neurologic problems, heart problems or angina, abdominal pain, nausea, vomiting, melena, hematochezia, colitis, renal failure, frequency, urgency, dysuria, etc. Past medical history, family history, and personal and social histories reveal that she is taking oxybutynin 5 mg twice a day, omeprazole 40 mg once a day, levothyroxine 0.075 mg once a day, Advair Diskus 500/50 one puff twice a day, updrafts with DuoNeb, vitamin D, Vicodin, methocarbamol 500 mg twice a day, gabapentin 300 mg 3 times a day, Klonopin 0.5 t.i.d. p.r.n., ProAir inhaler, aripiprazole 10 mg once a day, verapamil 240 mg once a day, trazodone 100 mg 3 at bedtime, prazosin 5 mg one at night, KCl 10 mEq once a day, Lasix 20 mg twice a day, and lisinopril 40 mg once a day. The remainder of her history is unremarkable and unchanged from previous admissions. She does continue to smoke. PHYSICAL EXAMINATION: Blood pressure 195/105 with a pulse of 104 and regular. Respirations were 36. Temperature 97.9. In general she appeared to be overweight. She was short of breath. Skin color is normal. Skin is warm and dry. Lymph nodes were not enlarged. Head, ears, eyes, nose, mouth and throat were normal and neck veins cannot be assessed. Chest demonstrated decreased breath sounds with scattered rales and rhonchi throughout. Cardiac exam demonstrated sinus tachycardia with no murmurs or extra sounds. Abdomen is protuberant, soft and nontender without visceromegaly or masses. Bowel sounds are present. Extremities are normal. Neurologically she is intact. She is admitted to the hospital with the diagnoses: 1. Bronchial pneumonia. 2. Congestive heart failure. 3. Hypertension. 4. Chronic obstructive pulmonary disease. PLAN: 1. Bedrest. 2. IV fluids. 3. Updrafts. 4. IV antibiotics. 5. Echocardiogram. 6. Control hypertension. MMODL / IJN: [id number] /
[2021-07-30] MEDS ORDERED: SYMBICORT 160-4.5 MCG INHALER INHALATION SCH (20:00)
--- NOTE | 2021-07-30 20:14 | PN ---
PROGRESS NOTE DATE OF SERVICE: 07/30/2021 CHIEF COMPLAINT: Bronchopneumonia and respiratory failure. HISTORY OF PRESENT ILLNESS: This lady is doing a little better and feels that she is a little bit less short of breath. She denies any chest pain. PHYSICAL EXAMINATION: Blood pressure is improved and she is afebrile. Chest exam demonstrates scattered rales and rhonchi with decreased breath sounds in the bases. Her cardiac exam is normal. IMPRESSION: 1. Bronchopneumonia. 2. Chronic obstructive pulmonary disease. 3. Congestive heart failure. 4. Hypertension. PLAN: Echocardiogram. [facility]. IV fluids and IV antibiotics. MMODL / IJN: [id number] /
[2021-07-30] MEDS: FORMOTEROL FUMARATE 20 MCG/2 ML NEBU INHALATION SCH (20:21)
[2021-07-30] MEDS: BUDESONIDE 1 MG/2 ML NEBU INHALATION SCH (20:21)
[2021-07-30] MEDS: PRAZOSIN 1 MG CAP PO SCH (20:50)
[2021-07-30] MEDS: VERAPAMIL SR 240 MG TABLET.ER PO SCH (20:50)
[2021-07-30] MEDS: ARIPiprazole 10 MG TAB PO SCH (20:51)
[2021-07-30] MEDS: OXYBUTYNIN CHLORIDE 5 MG TAB PO SCH (20:51)
[2021-07-30] MEDS: traZODone HCL 100 MG TAB PO SCH (20:51)
[2021-07-30] MEDS: VANCOMYCIN 1,500 MG in SODIUM CHLORIDE 0.9% 250 ML IVPB SCH (21:28)
[2021-07-31] MEDS: methylPREDNISolone SOD SUCCI 125 MG/2 ML VIAL IV SCH ×4 (00:02→16:59)
[2021-07-31] MEDS: HYDROcodone/APAP 5-325MG 1 EACH TAB PO PRN ×3 (00:17→16:59)
[2021-07-31] MEDS: LEVOTHYROXINE 75 MCG TAB PO SCH (05:51)
[2021-07-31 05:55] LABS: African American GFR (CKD) >90 (>60 ml/min/1.73 sqM); Non-African American GFR(CKD) >90 (>60 ml/min/1.73 sqM)
[2021-07-31] MEDS: BUDESONIDE 1 MG/2 ML NEBU INHALATION SCH ×2 (08:42→20:17)
[2021-07-31] MEDS: FORMOTEROL FUMARATE 20 MCG/2 ML NEBU INHALATION SCH ×2 (08:42→20:17)
[2021-07-31] MEDS: IPRATROPIUM-ALBUTEROL 3 ML NEB INHALATION SCH ×4 (08:42→20:17)
[2021-07-31] MEDS: NICOTINE 21MG/24HR PATCH TRANSDERM SCH (09:10)
[2021-07-31] MEDS: GABAPENTIN 300 MG CAP PO SCH ×3 (09:11→19:54)
[2021-07-31] MEDS: lisinopriL 20 MG TAB PO SCH (09:11)
[2021-07-31] MEDS: SODIUM CHLORIDE 0.9% 1,000 ML IV SCH ×2 (09:11→16:57)
[2021-07-31] MEDS: LORATADINE 10 MG TAB PO SCH (09:11)
[2021-07-31] MEDS: PANTOPRAZOLE 40 MG TABLET PO SCH (09:11)
[2021-07-31] MEDS: PARoxetine 20 MG TAB PO SCH (09:12)
[2021-07-31] MEDS: AZITHROMYCIN 500 MG TAB PO SCH (09:12)
[2021-07-31] MEDS: VANCOMYCIN 1,500 MG in SODIUM CHLORIDE 0.9% 250 ML IVPB SCH ×2 (10:15→19:52)
--- NOTE | 2021-07-31 11:42 | P.PN ---
Subjective Progress Note Date: 07/31/21 50-year-old female with history of COPD, who continues to smoke cigarettes, who comes in with complaints of shortness of breath, cough, wheezing, chest tightness, and phlegm production. The phlegm has a yellow color to it. The patient as I mentioned does continue to smoke cigarettes. The patient was in itially seen in the emergency department on July 29. She was admitted with a diagnosis of COPD exacerbation. Her coronavirus testing was negative. She has a history of hypothyroidism, GERD, hypertension, liver disease, osteoarthritis, pneumonia, pulmonary embolism, sleep apnea, hepatitis C, chronic back pain, and overactive bladder. Currently she is on 3 L nasal cannula saturations are 94%. She's getting a basic IV of saline. White count 8.7, hemoglobin 12.2, hematocrit 38, platelet count 312,000. D-dimer is 1.26. Sodium potassium chloride CO2 normal. Anion gap is normal. BUN and creatinine were 9 and 0.6. N-terminal proBNP was 1720. Troponin was negative. Chest x- ray showed possible right lower lobe pneumonia. CT angiogram showed no evidence of pulmonary embolism. And there is a patchy infiltrate, noted at the right lung base. Most recent chest x-ray looks improved. She is currently on azithromycin and ceftriaxone. The patient is seen today 07/31/2021 in follow-up on the regular medical floor. She is currently resting fairly comfortably in bed. Awake and alert in no acute distress. Still dyspneic with conversation. Still dyspneic with exertion. She is maintaining O2 saturations in the low 90s on 3 L/m per nasal cannula. Still with some bronchospasm and wheezing. Dry nonproductive cough. Cultures are revealing presumptive MRSA. Creatinine 0.76. Pro-calcitonin 0.04. She is continued on vancomycin, tracks home, DuoNeb inhalations, Pulmicort and Perforomist inhalations, IV Solu-Medrol. NicoDerm patches in place. Objective - Vital Signs Vital signs: Vital Signs Temp 98.6 F 07/31/21 07:00 Pulse 99 07/31/21 09:05 Resp 20 07/31/21 07:00 BP 128/79 07/31/21 07:00 Pulse Ox 91 L 07/31/21 08:45 Intake & Output 07/30/21 07/31/21 07/31/21 18:59 06:59 18:59 Intake Total 477 118 Balance 477 118 Intake: Oral 477 118 Other: # Voids 2 2 # Bowel Movements 1 - Exam GENERAL EXAM: Alert, pleasant 50-year-old female patient, on 3 L nasal cannula, fairly comfortable in no apparent distress. HEAD: Normocephalic. EYES: Normal reaction of pupils, equal size. NOSE: Clear with pink turbinates. THROAT: No erythema or exudates. NECK: No masses, no JVD. CHEST: No chest wall deformity. LUNGS: Equal air entry with bilateral end expiratory wheeze, diminished. CVS: S1 and S2 normal with no audible murmur, regular rhythm. ABDOMEN: No hepatosplenomegaly, normal bowel sounds, no guarding or rigidity. SPINE: No scoliosis or deformity SKIN: No rashes CENTRAL NERVOUS SYSTEM: No focal deficits, tone is normal in all 4 extremities. EXTREMITIES: There is no peripheral edema. No clubbing, no cyanosis. Peripheral pulses are intact. - Labs CBC & Chem 7: 07/29/21 14:28 07/31/21 04:57 Labs: Microbiology - Last 24 Hours (Table) 07/29/21 15:55 Blood Culture Gram Stain - Preliminary Blood Blood Culture - Preliminary Presumptive MRSA 07/29/21 15:58 Blood Culture Gram Stain - Preliminary Blood Blood Culture - Preliminary Staphylococcus aureus 07/29/21 15:58 Blood Culture - Final Blood 07/29/21 15:55 Blood Culture - Final Blood Assessment and Plan Assessment: 1 Acute exacerbation of COPD, complicated by purulent tracheobronchitis and/or possible bronchopneumonia right lower lobe. Pro-calcitonin 0.04. Blood cultures also revealing presumptive MRSA. She is currently on ceftriaxone and vancomycin. 2 History of ongoing tobacco use with nicotine addiction. 3 Obesity. 4 History of stress urinary incontinence. 5 History of hypothyroidism. 6 History of gastroesophageal reflux disease. 7 History of hepatitis C. 8 History of hypertension. 9 History of postural arthritis. 10 History of pulmonary embolism. 11 History of obstructive sleep apnea syndrome. 12 History of anxiety/depression. Plan: The patient was seen and evaluated Still somewhat bronchospastic and wheezing Continue bronchodilators, IV Solu-Medrol Blood cultures with presumptive MRSA Continue vancomycin, ceftriaxone Repeat pro-calcitonin Again educated regarding the importance of complete smoking cessation We will continue to follow and make further recommendations based on her clinical status I, the cosigning physician, performed a history & physical examination of the patient. Lungs sounds with bilateral end expiratory wheeze, diminished. Kavitha ntaining good O2 saturations in the 90s on 3 L/m per nasal cannula. I discussed the assessment and plan of care with my nurse practitioner, Zeynep Grier. I attest to the above note as dictated by her.
[2021-07-31] MEDS: PRAZOSIN 1 MG CAP PO SCH ×2 (19:53→19:54)
[2021-07-31] MEDS: OXYBUTYNIN CHLORIDE 5 MG TAB PO SCH (19:54)
[2021-07-31] MEDS: ARIPiprazole 10 MG TAB PO SCH (19:54)
[2021-07-31] MEDS: traZODone HCL 100 MG TAB PO SCH (19:55)
[2021-07-31] MEDS: VERAPAMIL SR 240 MG TABLET.ER PO SCH (19:55)
[2021-08-01] MEDS: methylPREDNISolone SOD SUCCI 125 MG/2 ML VIAL IV SCH ×5 (00:39→23:58)
[2021-08-01] MEDS: SODIUM CHLORIDE 0.9% 1,000 ML IV SCH ×3 (04:47→23:59)
[2021-08-01] MEDS: LEVOTHYROXINE 75 MCG TAB PO SCH (05:09)
[2021-08-01] MEDS: HYDROcodone/APAP 5-325MG 1 EACH TAB PO PRN ×2 (05:09→13:51)
[2021-08-01] MEDS: BUDESONIDE 1 MG/2 ML NEBU INHALATION SCH ×2 (07:44→20:47)
[2021-08-01] MEDS: FORMOTEROL FUMARATE 20 MCG/2 ML NEBU INHALATION SCH ×2 (07:44→20:47)
[2021-08-01] MEDS: IPRATROPIUM-ALBUTEROL 3 ML NEB INHALATION SCH ×6 (07:45→20:47)
[2021-08-01] MEDS ORDERED: VANCOMYCIN TROUGH DUE 1 EACH MISC MISCELLANE ONE (08:00)
[2021-08-01] MEDS: NICOTINE 21MG/24HR PATCH TRANSDERM SCH (08:27)
[2021-08-01] MEDS: PANTOPRAZOLE 40 MG TABLET PO SCH (08:29)
[2021-08-01] MEDS: GABAPENTIN 300 MG CAP PO SCH ×3 (08:29→22:15)
[2021-08-01] MEDS: LORATADINE 10 MG TAB PO SCH (08:30)
[2021-08-01] MEDS: lisinopriL 20 MG TAB PO SCH (08:30)
[2021-08-01] MEDS: PARoxetine 20 MG TAB PO SCH (08:30)
[2021-08-01 08:51] LABS: African American GFR (CKD) >90 (>60 ml/min/1.73 sqM); Non-African American GFR(CKD) 89 (>60 ml/min/1.73 sqM)
[2021-08-01] MEDS: VANCOMYCIN 1,500 MG in SODIUM CHLORIDE 0.9% 250 ML IVPB SCH ×2 (09:18→19:27)
--- NOTE | 2021-08-01 11:11 | PN ---
PROGRESS NOTE CHIEF COMPLAINT: Pneumonitis, COPD and shortness of breath. HISTORY OF PRESENT ILLNESS: This lady is still having some difficulty with shortness of breath, but does feel better. Temperature is down. She has grown out positive blood culture for Staph and she is on vancomycin. REVIEW OF SYSTEMS: She is feeling well otherwise and she has not had any abdominal pain, chest pain, confusion, fever, chills, etc. PHYSICAL EXAMINATION: She awake and alert. Chest demonstrates decreased breath sounds with rales and rhonchi bilaterally. Cardiac exam is normal. The abdomen is soft and nontender. Extremities are normal. IMPRESSION: 1. Bronchial pneumonia. 2. Staph septicemia. 3. Chronic obstructive pulmonary disease. PLAN: Continue with IV antibiotics and updrafts and continue to monitor pulmonary findings. MMODL / IJN: [id number] /
[2021-08-01] MEDS ORDERED: LORATADINE-PSEUDOEPH 5-120 MG 1 EACH TAB.ER.12H PO PRN (13:27)
--- NOTE | 2021-08-01 13:29 | CDI ---
Documentation Clarification Form Date: 08/01/2021 12:55:29 PM From: Gwen Go RN, CCDS Admit Date: 07/31/2021 11:04:00 AM Patient Name: Abena Pendleton Visit Number: [id number] Discharge Date: ATTENTION: The Clinical Documentation Specialists (CDI) and [facility] Coding Staff appreciate your assistance in clarifying documentation. Please respond to the clarification below the line at the bottom and electronically sign. The CDI & [facility] Coding staff will review the response and follow-up if needed. Please note: Queries are made part of the Legal Health Record. If you have any questions, please contact the author of this message via ITS. Dr. Kofi García The patient presented with the following clinical indicators. Additional clarification regarding the etiology/cause of the clinical indicators is requested. 07/29 ED assessment: COPD exacerbation, Pneumonia, Sepsis History/Risk Factors: Asthma, COPD, Gerd, Hypertension, Liver disease Hepatitis C, Home oxygen 2/L HS; PE, Current every day smoker Clinical Indicators: 50-year-old female present to ED with shortness of breath 07/29 WBC: 8.7, 07/29 Lactic acid: 1.0 07/29 Blood cultures: Presumptive MRSA, Preliminary Staphylococcus aureus 07/29 Vital signs: 194/105 104 28 97.9 93 % RA Treatment: Azithromycin 500 MG IVPB Once, then PO Daily Rocephin 2 GM IVPB Q 24 HR Vancomycin 1,500 MG IVPB Q 10 HRS (PTD) Monitor Vital signs per protocol In your professional opinion, please clarify if these findings signify one of the following conditions: [ ] Sepsis POA [ ] Sepsis ruled out [ ] Other, please specify [ ] Unable to determine SIRS Criteria: 2 or more of the following may indicate SIRS -Temperature < 96.8F (36C) or > 101.0F (38.3C) -Heart Rate > 90 bpm -Respiratory Rate > 20 breaths/min or PaCO2 < 32 mmHg -White Blood Cell Count > 12,000 or < 4,000 cells/mm3 or > 10% bands (Template Last Reviewed: September 2020) MTDD
--- NOTE | 2021-08-01 14:11 | CDI ---
Documentation Clarification Form Date: 08/01/2021 From: Gwen Go RN,CCDS Admit Date: 07/31/2021 11:04:00 AM Patient Name: Abena Pendleton Visit Number: [id number] Discharge Date: ATTENTION: The Clinical Documentation Specialists (CDI) and [facility] Coding Staff appreciate your assistance in clarifying documentation. Please respond to the clarification below the line at the bottom and electronically sign. The CDI & [facility] Coding staff will review the response and follow-up if needed. Please note: Queries are made part of the Legal Health Record. If you have any questions, please contact the author of this message via ITS. Dr. Kofi García Your patient has the documented diagnosis of unspecified CHF in your H/P and subsequent progress notes. Additional information regarding the type, acuity of CHF is requested. History/Risk Factors: Asthma, COPD, Gerd, Hypertension, Liver disease Hepatitis C, Home oxygen 2/L HS; PE, Current every day smoker Clinical Indicators: 50-year-old female present to ED with shortness of breath 07/29 Vital signs: 194/105 104 28 97.9, 93 % RA 07/29 BNP: 1720 07/30 Echocardiogram Results: Overall left ventricular systolic function is normal with, an EF 60-65 % 07/29 Chest X Ray: Suspect right lower lobe airspace disease. 07/29 Chest CTA: No evidence of pulmonary embolism. There is clearing of the patchy groundglass interstitial pulmonary infiltrates compared to old exam. 07/30 Chest x-ray: Some hazy bibasilar opacities likely related to overlying soft tissue. No definite acute process Treatment: Monitor vital signs, Sat's per orders Duoneb 0.5 mg-3gm/3 ml hesham QID Zestril 40MG PO Daily Minipress 5 MG PO HS Verapamil Hcl 240 MG PO HS Lasix 20 MG BID (NOT ORDERED) In your professional opinion, can you please clarify the acuity and type of CHF if known? [ ]Chronic Diastolic Heart Failure (preserved EF) [ ] Other, please specify [ ] Unable to determine (Template Last Revised: September 2020) MTDD
--- NOTE | 2021-08-01 14:20 | PN ---
PROGRESS NOTE DATE OF SERVICE: 08/01/2021 CHIEF COMPLAINT: Pneumonitis. HISTORY OF PRESENT ILLNESS: This lady is still quite dyspneic. She does feel like she does a little bit better after the updrafts. She has also had quite a bit of nasal congestion and slight nausea. She has had no fever or chills. PHYSICAL EXAMINATION: Her face is slightly flushed. Neck veins cannot be assessed. Chest demonstrates scattered rales and rhonchi and the lungs really do not sound any better. Cardiac exam is normal. Abdomen is protuberant, soft and nontender. IMPRESSION: 1. Pneumonitis. 2. Chronic obstructive pulmonary disease. 3. Nasal congestion. PLAN: 1. Continue with current treatment. 2. Claritin D once a day. 3. Nasalide or Nasacort once a day. MMODL / IJN: [id number] /
--- NOTE | 2021-08-01 16:14 | P.PN ---
Subjective Progress Note Date: 08/01/21 Principal diagnosis: Shortness of breath. 50-year-old female with history of COPD, who continues to smoke cigarettes, who comes in with complaints of shortness of breath, cough, wheezing, chest tightness, and phlegm production. The phlegm has a yellow color to it. The patient as I mentioned does continue to smoke cigarettes. The patient was initially seen in the emergency department on July 29. She was admitted with a diagnosis of COPD exacerbation. Her coronavirus testing was negative. She has a history of hypothyroidism, GERD, hypertension, liver disease, ost eoarthritis, pneumonia, pulmonary embolism, sleep apnea, hepatitis C, chronic back pain, and overactive bladder. Currently she is on 3 L nasal cannula saturations are 94%. She's getting a basic IV of saline. White count 8.7, hemoglobin 12.2, hematocrit 38, platelet count 312,000. D-dimer is 1.26. Sodium potassium chloride CO2 normal. Anion gap is normal. BUN and creatinine were 9 and 0.6. N-terminal proBNP was 1720. Troponin was negative. Chest x- ray showed possible right lower lobe pneumonia. CT angiogram showed no evidence of pulmonary embolism. And there is a patchy infiltrate, noted at the right lung base. Most recent chest x-ray looks improved. She is currently on azithromycin and ceftriaxone. The patient is seen today 07/31/2021 in follow-up on the regular medical floor. She is currently resting fairly comfortably in bed. Awake and alert in no acute distress. Still dyspneic with conversation. Still dyspneic with exertion. She is maintaining O2 saturations in the low 90s on 3 L/m per nasal cannula. Still with some bronchospasm and wheezing. Dry nonproductive cough. Cultures are revealing presumptive MRSA. Creatinine 0.76. Pro-calcitonin 0.04. She is c ontinued on vancomycin, tracks home, DuoNeb inhalations, Pulmicort and Perforomist inhalations, IV Solu-Medrol. NicoDerm patches in place. Progress note dated 08/01/2021. 50-year-old female with a diagnosis of COPD exacerbation. Currently, the patient's doing reasonably well. She would like some nasal spray, and something for her thick pulmonary secretions. Likely will add some Flonase nasal spray and some Mucinex. Creatinine 0.79. Pro-calcitonin is 0.05. Vancomycin level is noted. No recent chest x-rays to review. Currently, she is on 3 L nasal cannula with saturation 98%. Blood pressure 151/85, heart rate 86, respiratory rate 18, and temperature 98.2. Objective - Vital Signs Vital signs: Vital Signs Temp 98.2 F 08/01/21 14:45 Pulse 86 08/01/21 14:45 Resp 18 08/01/21 14:45 BP 151/85 08/01/21 14:45 Pulse Ox 98 08/01/21 14:45 Intake & Output 07/31/21 08/01/21 08/01/21 18:59 06:59 18:59 Intake Total 340 776 Balance 340 776 Intake: Oral 340 776 Other: # Voids 4 2 7 - Exam No acute distress, oriented 3. Currently on 3 L nasal cannula. Saturations 98%. HEENT examination is grossly unremarkable. Neck supple. Full range of motion. No adenopathy thyromegaly or neck vein distention. Cardiovascular examination reveals regular rhythm rate. S1-S2 normal. No S3 or S4. No discernible murmur noted. Heart rate 86 bpm. Lungs reveal scattered bilateral rhonchi and wheezes. Breath sounds equal but diminished throughout. No crackles. Abdomen soft bowel sounds are heard. No masses or tenderness. Extremities are intact. No cyanosis clubbing or edema. Skin is without rash or lesion. Neurologic examination is brief but nonfocal. - Labs CBC & Chem 7: 07/29/21 14:28 08/01/21 08:13 Labs: Microbiology - Last 24 Hours (Table) 07/29/21 15:55 Blood Culture Gram Stain - Final Blood Blood Culture - Final Methicillin resist S. aureus Coagulase Negative Staph 07/29/21 15:58 Blood Culture Gram Stain - Final Blood Blood Culture - Final Methicillin resist S. aureus Assessment and Plan Assessment: Acute exacerbation of COPD, complicated bronchopneumonia, right lower lobe, secondary to methicillin-resistant staph aureus. Methicillin-resistant staph aureus bacteremia. History of ongoing tobacco use with nicotine addiction. Obesity. History of stress urinary incontinence. History of hypothyroidism. History of gastroesophageal reflux disease. History of hepatitis C. History of hypertension. History of postural arthritis. History of pulmonary embolism. History of obstructive sleep apnea syndrome. History of anxiety/depression. Plan: Plan dated 07/30/2021. The patient continues on azithromycin and ceftriaxone. The patient is also on Pulmicort 1 mg mixed with formoterol 20 g twice a day. The patient is getting albuterol sulfate and ipratropium bromide updrafts, 4 times a day and when nec essary. In addition, the patient is on Solu-Medrol 60 mg every 6 hours. She is placed on a nicotine patch. All these medications are appropriate at this time. Follow. It appears that her chest x-rays improving. No additional recommendations are made. The patient is counseled about the importance of smoking cessation. Plan dated 08/01/2021. The patient remains on Pulmicort 1 mg twice a day, formoterol 20 g twice a day, duo nebs, 4 times a day and when necessary, and Solu-Medrol 60 mg every 6. The patient is currently on vancomycin. Rocephin can be discontinued. Additional recommendations and suggestions are forthcoming. Prognosis is guarded. The patient is counseled about the importance of smoking cessation. Time with Patient: Less than 30
[2021-08-01] MEDS: FLUTICASONE 50MCG/SPRAY NASAL 16GM EA NOSTRIL SCH (16:21)
[2021-08-01] MEDS: traZODone HCL 100 MG TAB PO SCH (20:41)
[2021-08-01] MEDS: guaiFENesin 600 MG TABLET.ER PO SCH (20:41)
[2021-08-01] MEDS: PRAZOSIN 1 MG CAP PO SCH (20:42)
[2021-08-01] MEDS: VERAPAMIL SR 240 MG TABLET.ER PO SCH (20:42)
[2021-08-01] MEDS: OXYBUTYNIN CHLORIDE 5 MG TAB PO SCH (20:42)
[2021-08-01] MEDS: ARIPiprazole 10 MG TAB PO SCH (22:15)
[2021-08-02] MEDS: IPRATROPIUM-ALBUTEROL 3 ML NEB INHALATION PRN (02:32)
[2021-08-02] MEDS: VANCOMYCIN 1,500 MG in SODIUM CHLORIDE 0.9% 250 ML IVPB SCH ×2 (04:36→13:33)
[2021-08-02] MEDS: methylPREDNISolone SOD SUCCI 125 MG/2 ML VIAL IV SCH (05:47)
[2021-08-02] MEDS: LEVOTHYROXINE 75 MCG TAB PO SCH (05:47)
[2021-08-02] MEDS: HYDROcodone/APAP 5-325MG 1 EACH TAB PO PRN ×2 (06:00→16:02)
[2021-08-02 07:40] LABS: African American GFR (CKD) >90 (>60 ml/min/1.73 sqM); Non-African American GFR(CKD) >90 (>60 ml/min/1.73 sqM)
[2021-08-02] MEDS: lisinopriL 20 MG TAB PO SCH (08:24)
[2021-08-02] MEDS: GABAPENTIN 300 MG CAP PO SCH ×3 (08:24→21:11)
[2021-08-02] MEDS: PARoxetine 20 MG TAB PO SCH (08:24)
[2021-08-02] MEDS: PANTOPRAZOLE 40 MG TABLET PO SCH (08:24)
[2021-08-02] MEDS: LORATADINE 10 MG TAB PO SCH (08:25)
[2021-08-02] MEDS: guaiFENesin 600 MG TABLET.ER PO SCH ×2 (08:25→21:12)
[2021-08-02] MEDS: NICOTINE 21MG/24HR PATCH TRANSDERM SCH (08:27)
[2021-08-02] MEDS: FLUTICASONE 50MCG/SPRAY NASAL 16GM EA NOSTRIL SCH (08:27)
[2021-08-02] MEDS: IPRATROPIUM-ALBUTEROL 3 ML NEB INHALATION SCH ×4 (08:29→21:22)
[2021-08-02] MEDS: FORMOTEROL FUMARATE 20 MCG/2 ML NEBU INHALATION SCH (08:29)
[2021-08-02] MEDS: BUDESONIDE 1 MG/2 ML NEBU INHALATION SCH (08:29)
--- NOTE | 2021-08-02 10:12 | P.PN ---
Subjective Progress Note Date: 08/02/21 Principal diagnosis: Shortness of breath. 50-year-old female with history of COPD, who continues to smoke cigarettes, who comes in with complaints of shortness of breath, cough, wheezing, chest tightness, and phlegm production. The phlegm has a yellow color to it. The patient as I mentioned does continue to smoke cigarettes. The patient was initially seen in the emergency department on July 29. She was admitted with a diagnosis of COPD exacerbation. Her coronavirus testing was negative. She has a history of hypothyroidism, GERD, hypertension, liver disease, ost eoarthritis, pneumonia, pulmonary embolism, sleep apnea, hepatitis C, chronic back pain, and overactive bladder. Currently she is on 3 L nasal cannula saturations are 94%. She's getting a basic IV of saline. White count 8.7, hemoglobin 12.2, hematocrit 38, platelet count 312,000. D-dimer is 1.26. Sodium potassium chloride CO2 normal. Anion gap is normal. BUN and creatinine were 9 and 0.6. N-terminal proBNP was 1720. Troponin was negative. Chest x- ray showed possible right lower lobe pneumonia. CT angiogram showed no evidence of pulmonary embolism. And there is a patchy infiltrate, noted at the right lung base. Most recent chest x-ray looks improved. She is currently on azithromycin and ceftriaxone. The patient is seen today 07/31/2021 in follow-up on the regular medical floor. She is currently resting fairly comfortably in bed. Awake and alert in no acute distress. Still dyspneic with conversation. Still dyspneic with exertion. She is maintaining O2 saturations in the low 90s on 3 L/m per nasal cannula. Still with some bronchospasm and wheezing. Dry nonproductive cough. Cultures are revealing presumptive MRSA. Creatinine 0.76. Pro-calcitonin 0.04. She is c ontinued on vancomycin, tracks home, DuoNeb inhalations, Pulmicort and Perforomist inhalations, IV Solu-Medrol. NicoDerm patches in place. Progress note dated 08/01/2021. 50-year-old female with a diagnosis of COPD exacerbation. Currently, the patient's doing reasonably well. She would like some nasal spray, and something for her thick pulmonary secretions. Likely will add some Flonase nasal spray and some Mucinex. Creatinine 0.79. Pro-calcitonin is 0.05. Vancomycin level is noted. No recent chest x-rays to review. Currently, she is on 3 L nasal cannula with saturation 98%. Blood pressure 151/85, heart rate 86, respiratory rate 18, and temperature 98.2. Progress note dated 08/02/2021. 50-year-old female, admitted with a diagnosis of COPD exacerbation. Currently, she is resting comfortably. She's on 2 L nasal cannula. She's getting saline at 100 mL I told her nurse, that the IV could be discontinued, and the patient could be considered for possible discharge. The patient is feeling much better. Yesterday we added some Flonase nasal spray, and some Mucinex as an expe ctorant. No new labs today other than a creatinine of 0.76. Objective - Vital Signs Vital signs: Vital Signs Temp 97.7 F 08/02/21 07:00 Pulse 89 08/02/21 08:46 Resp 22 08/02/21 07:00 BP 169/100 08/02/21 07:00 Pulse Ox 99 08/02/21 07:00 Intake & Output 08/01/21 08/02/21 08/02/21 18:59 06:59 18:59 Intake Total 776 118 Balance 776 118 Intake: Oral 776 118 Other: # Voids 7 2 - Exam No acute distress, oriented 3. Currently on 2 L nasal cannula. Saturations 98%. HEENT examination is grossly unremarkable. Neck supple. Full range of motion. No adenopathy thyromegaly or neck vein distention. Cardiovascular examination reveals regular rhythm rate. S1-S2 normal. No S3 or S4. No discernible murmur noted. Heart rate 89 bpm. Lungs reveal scattered bilateral rhonchi and wheezes. Breath sounds equal but diminished throughout. No crackles. Abdomen soft bowel sounds are heard. No masses or tenderness. Extremities are intact. No cyanosis clubbing or edema. Skin is without rash or lesion. Neurologic examination is brief but nonfocal. - Labs CBC & Chem 7: 07/29/21 14:28 08/02/21 06:32 Labs: Microbiology - Last 24 Hours (Table) 08/01/21 07:47 Sputum Culture - Preliminary Sputum 07/29/21 15:55 Blood Culture Gram Stain - Final Blood Blood Culture - Final Methicillin resist S. aureus Coagulase Negative Staph 07/29/21 15:58 Blood Culture Gram Stain - Final Blood Blood Culture - Final Methicillin resist S. aureus Assessment and Plan Assessment: Acute exacerbation of COPD, complicated bronchopneumonia, right lower lobe, secondary to methicillin-resistant staph aureus. Methicillin-resistant staph aureus bacteremia. History of ongoing tobacco use with nicotine addiction. Obesity. History of stress urinary incontinence. History of hypothyroidism. History of gastroesophageal reflux disease. History of hepatitis C. History of hypertension. History of postural arthritis. History of pulmonary embolism. History of obstructive sleep apnea syndrome. History of anxiety/depression. Plan: Plan dated 07/30/2021. The patient continues on azithromycin and ceftriaxone. The patient is also on Pulmicort 1 mg mixed with formoterol 20 g twice a day. The patient is getting albuterol sulfate and ipratropium bromide updrafts, 4 times a day and when necessary. In addition, the patient is on Solu-Medrol 60 mg every 6 hours. She is placed on a nicotine patch. All these medications are appropriate at this time. Follow. It appears that her chest x-rays improving. No additional recommendations are made. The patient is counseled about the importance of smoking cessation. Plan dated 08/01/2021. The patient remains on Pulmicort 1 mg twice a day, formoterol 20 g twice a day, duo nebs, 4 times a day and when necessary, and Solu-Medrol 60 mg every 6. The patient is currently on vancomycin. Rocephin can be discontinued. Additional recommendations and suggestions are forthcoming. Prognosis is guarded. The patient is counseled about the importance of smoking cessation. Plan dated 08/02/2021. The patient could be considered for possible discharge. We'll leave that up to the primary. Her IVs can be discontinued. She is on 2 L. Saturations are in the mid to high 90s. She appears in no acute distress at this time. Microbiology did show methicillin-resistant staph aureus in the blood. The patient may need a midline or PICC line, and outpatient antibiotics. On the pulmonary standpoint though, the patient is stable. Pulmicort, and formoterol are discontinued in favor of Symbicort. Solu-Medrol was discontinued in favor ofprednisone, 30 mg a day. Time with Patient: Less than 30
[2021-08-02 10:23] LABS: Basophils % (A) 0 %; Eosinophils % (A) 0 %; HCT 35.6 % (34.0-46.0); Hypochromasia Marked; Lymphocytes # (A) 0.4 k/uL (1.0-4.8); Lymphocytes % (A) 7 %; MCH 31.5 pg (25.0-35.0); MCHC 30.8 g/dL (31.0-37.0); MCV 102.4 fL (80.0-100.0); Macrocytosis Slight; Mean Platelet Volume 8.7; Monocytes # (A) 0.3 k/uL (0-1.0); Monocytes % (A) 4 %; Neutrophils # (A) 5.4 k/uL (1.3-7.7); Neutrophils % (A) 88 %; Platelet Count 206 k/uL (150-450); RBC 3.48 m/uL (3.80-5.40); RDW 15.8 % (11.5-15.5); WBC 6.2 k/uL (3.8-10.6)
[2021-08-02 10:52] LABS: ALT 15 U/L (4-34); AST 14 U/L (14-36); African American GFR (CKD) >90 (>60 ml/min/1.73 sqM); Albumin 3.5 g/dL (3.5-5.0); Albumin/Globulin Ratio 1.3; Alkaline Phosphatase 25 U/L (38-126); Anion Gap 5 mmol/L; Blood Urea Nitrogen 25 mg/dL (7-17); Calcium 8.7 mg/dL (8.4-10.2); Carbon Dioxide 32 mmol/L (22-30); Chloride 103 mmol/L (98-107); Globulin 2.7 g/dL; Glucose 150 mg/dL (74-99); Non-African American GFR(CKD) 89 (>60 ml/min/1.73 sqM); Potassium 4.6 mmol/L (3.5-5.1); Sodium 140 mmol/L (137-145); Total Bilirubin 0.2 mg/dL (0.2-1.3); Total Protein 6.2 g/dL (6.3-8.2)
[2021-08-02 11:33] VITALS: BMI 37.2
[2021-08-02] MEDS: SODIUM CHLORIDE 0.9% 1,000 ML IV SCH (11:35)
--- NOTE | 2021-08-02 15:48 | XR ---
EXAMINATION TYPE: XR chest 2V DATE OF EXAM: 08/02/2021 COMPARISON: Chest x-ray July 30, 2021 HISTORY: Cough and shortness of breath. TECHNIQUE: Frontal and lateral views of the chest are obtained. FINDINGS: There is no suspicious new focal air space opacity, pleural effusion, or pneumothorax seen . The cardiac silhouette size is mildly enlarged. Anterior fusion plate redemonstrated. IMPRESSION: Mild cardiomegaly without acute pulmonary process currently.
--- NOTE | 2021-08-02 20:36 | MISC ---
MISCELLANOUS REPORT QUERY: Sepsis present on admission. MMODL / IJN: [id number] /
--- NOTE | 2021-08-02 20:36 | MISC ---
MISCELLANOUS REPORT Unable to determine. MMODL / IJN: [id number] /
[2021-08-02] MEDS: PRAZOSIN 1 MG CAP PO SCH (21:11)
[2021-08-02] MEDS: traZODone HCL 100 MG TAB PO SCH (21:11)
[2021-08-02] MEDS: ARIPiprazole 10 MG TAB PO SCH (21:12)
[2021-08-02] MEDS: OXYBUTYNIN CHLORIDE 5 MG TAB PO SCH (21:12)
[2021-08-02] MEDS: VERAPAMIL SR 240 MG TABLET.ER PO SCH (21:12)
[2021-08-02] MEDS: SYMBICORT 160-4.5 MCG INHALER INHALATION SCH (21:23)
[2021-08-03] MEDS: VANCOMYCIN 1,500 MG in SODIUM CHLORIDE 0.9% 250 ML IVPB SCH ×3 (00:20→16:07)
[2021-08-03] MEDS: SODIUM CHLORIDE 0.9% 1,000 ML IV SCH ×3 (02:30→15:27)
[2021-08-03] MEDS: LEVOTHYROXINE 75 MCG TAB PO SCH (05:46)
[2021-08-03] MEDS: HYDROcodone/APAP 5-325MG 1 EACH TAB PO PRN ×2 (05:49→16:07)
[2021-08-03] MEDS: IPRATROPIUM-ALBUTEROL 3 ML NEB INHALATION SCH ×4 (07:45→20:39)
[2021-08-03] MEDS: SYMBICORT 160-4.5 MCG INHALER INHALATION SCH ×2 (07:45→20:39)
[2021-08-03] MEDS ORDERED: VANCOMYCIN TROUGH DUE 1 EACH MISC MISCELLANE ONE (09:00)
[2021-08-03] MEDS: predniSONE 10 MG TAB PO SCH (09:04)
[2021-08-03] MEDS: PARoxetine 20 MG TAB PO SCH (09:04)
[2021-08-03] MEDS: PANTOPRAZOLE 40 MG TABLET PO SCH (09:05)
[2021-08-03] MEDS: lisinopriL 20 MG TAB PO SCH (09:06)
[2021-08-03] MEDS: guaiFENesin 600 MG TABLET.ER PO SCH ×2 (09:06→21:14)
[2021-08-03] MEDS: GABAPENTIN 300 MG CAP PO SCH ×3 (09:07→21:14)
[2021-08-03] MEDS: NICOTINE 21MG/24HR PATCH TRANSDERM SCH (09:07)
[2021-08-03] MEDS: LORATADINE 10 MG TAB PO SCH (09:07)
--- NOTE | 2021-08-03 12:07 | PN ---
PROGRESS NOTE DATE OF SERVICE: 08/02/2021 CHIEF COMPLAINT: Pneumonitis. HISTORY OF PRESENT ILLNESS: This lady is doing a little bit better each day. She is a little bit less short of breath. She has had no fever. PHYSICAL EXAMINATION: She still has occasional rhonchi and scattered rales, but chest is clearing. Cardiac exam is normal. Abdomen is soft, nontender. IMPRESSION: 1. Pneumonitis. 2. Chronic obstructive pulmonary disease. 3. MRSA. PLAN: Continue with updrafts, IV fluids and antibiotics until she is stable enough to be discharged. MMODL / IJN: [id number] /
--- NOTE | 2021-08-03 12:34 | P.PN ---
Subjective Progress Note Date: 08/03/21 50-year-old female with history of COPD, who continues to smoke cigarettes, who comes in with complaints of shortness of breath, cough, wheezing, chest tightness, and phlegm production. The phlegm has a yellow color to it. The patient as I mentioned does continue to smoke cigarettes. The patient was in itially seen in the emergency department on July 29. She was admitted with a diagnosis of COPD exacerbation. Her coronavirus testing was negative. She has a history of hypothyroidism, GERD, hypertension, liver disease, osteoarthritis, pneumonia, pulmonary embolism, sleep apnea, hepatitis C, chronic back pain, and overactive bladder. Currently she is on 3 L nasal cannula saturations are 94%. She's getting a basic IV of saline. White count 8.7, hemoglobin 12.2, hematocrit 38, platelet count 312,000. D-dimer is 1.26. Sodium potassium chloride CO2 normal. Anion gap is normal. BUN and creatinine were 9 and 0.6. N-terminal proBNP was 1720. Troponin was negative. Chest x- ray showed possible right lower lobe pneumonia. CT angiogram showed no evidence of pulmonary embolism. And there is a patchy infiltrate, noted at the right lung base. Most recent chest x-ray looks improved. She is currently on azithromycin and ceftriaxone. The patient is seen today 07/31/2021 in follow-up on the regular medical floor. She is currently resting fairly comfortably in bed. Awake and alert in no acute distress. Still dyspneic with conversation. Still dyspneic with exertion. She is maintaining O2 saturations in the low 90s on 3 L/m per nasal cannula. Still with some bronchospasm and wheezing. Dry nonproductive cough. Cultures are revealing presumptive MRSA. Creatinine 0.76. Pro-calcitonin 0.04. She is continued on vancomycin, tracks home, DuoNeb inhalations, Pulmicort and Perforomist inhalations, IV Solu-Medrol. NicoDerm patches in place. The patient is seen today 08/03/2021 in follow-up on the regular medical floor. She is currently resting fairly comfortably in bed. Awake and alert in no acute distress. Less cough and congestion. Maintaining good O2 saturations in the 90s on 2 L/m per nasal cannula. Blood cultures were positive for MRSA. Sputum culture is positive for presumptive staph aureus. Clarisse. She remains on vancomycin. Creatinine 0.90. Vancomycin trough 24.0. She is continued on DuoNeb inhalations, Symbicort, prednisone. We'll saline at 100 ML's per hour. NicoDerm patch in place. Yesterday's chest x-ray revealed mild cardiomegaly but no acute pulmonary process. Objective - Vital Signs Vital signs: Vital Signs Temp 98.3 F 08/03/21 07:15 Pulse 78 08/03/21 12:06 Resp 16 08/03/21 09:07 BP 133/85 08/03/21 07:15 Pulse Ox 98 08/03/21 07:15 Intake & Output 08/02/21 08/03/21 08/03/21 18:59 06:59 18:59 Intake Total 236 Balance 236 Weight 78.018 kg Intake: Oral 236 Other: # Voids 4 2 - Exam GENERAL EXAM: Alert, pleasant 50-year-old female patient, on 2 L nasal cannula, fairly comfortable in no apparent distress. HEAD: Normocephalic. EYES: Normal reaction of pupils, equal size. NOSE: Clear with pink turbinates. THROAT: No erythema or exudates. NECK: No masses, no JVD. CHEST: No chest wall deformity. LUNGS: Equal air entry with bilateral end expiratory wheeze, diminished. CVS: S1 and S2 normal with no audible murmur, regular rhythm. ABDOMEN: No hepatosplenomegaly, normal bowel sounds, no guarding or rigidity. SPINE: No scoliosis or deformity SKIN: No rashes CENTRAL NERVOUS SYSTEM: No focal deficits, tone is normal in all 4 extremities. EXTREMITIES: There is no peripheral edema. No clubbing, no cyanosis. Peripheral pulses are intact. - Labs CBC & Chem 7: 08/02/21 06:32 08/03/21 09:30 Labs: Microbiology - Last 24 Hours (Table) 08/01/21 07:47 Gram Stain - Preliminary Sputum Sputum Culture - Preliminary Presumptive Staph aureus Clarisse albicans Assessment and Plan Assessment: 1 Acute exacerbation of COPD, complicated by purulent tracheobronchitis. Pro- calcitonin 0.04. Blood cultures also revealing MRSA. Also presumptive MRSA in the sputum. She is currently on vancomycin. 2 History of ongoing tobacco use with nicotine addiction. 3 Obesity. 4 History of stress urinary incontinence. 5 History of hypothyroidism. 6 History of gastroesophageal reflux disease. 7 History of hepatitis C. 8 History of hypertension. 9 History of postural arthritis. 10 History of pulmonary embolism. 11 History of obstructive sleep apnea syndrome. 12 History of anxiety/depression. Plan: The patient was seen and evaluated Follow-up chest x-ray revealed no acute pulmonary process Sputum and blood cultures with MRSA Continue vancomycin Pro calcitonin within normal limits Again educated regarding the importance of complete smoking cessation NicoDerm patch in place Titrate down the FiO2 as tolerated Increase her activity as tolerated We will continue to follow I, the cosigning physician, performed a history & physical examination of the patient. Lungs sounds with bilateral end expiratory wheeze, diminished. Maintaining good O2 saturations in the 90s on 2 L/m per nasal cannula. I discussed the assessment and plan of care with my nurse practitioner, Zeynep Grier. I attest to the above note as dictated by her.
--- NOTE | 2021-08-03 19:49 | PN ---
PROGRESS NOTE DATE OF SERVICE: 08/03/2021 CHIEF COMPLAINT: Pneumonitis and MRSA. HISTORY OF PRESENT ILLNESS: This lady is doing a lot better each day. Breathing is improving and she is not having any chest pain or significant shortness of breath. PHYSICAL EXAMINATION: She still has a bilateral rales and occasional rhonchi, but upper lobes are much more clear anteriorly and posteriorly today. Cardiac exam is normal. Abdomen is soft, nontender. IMPRESSION: 1. Bronchopneumonia. 2. MRSA. 3. Chronic obstructive pulmonary disease. PLAN: Continue with IV vancomycin and gradually increase activity. MMODL / IJN: [id number] /
[2021-08-03] MEDS: ARIPiprazole 10 MG TAB PO SCH (21:13)
[2021-08-03] MEDS: VERAPAMIL SR 240 MG TABLET.ER PO SCH (21:14)
[2021-08-03] MEDS: OXYBUTYNIN CHLORIDE 5 MG TAB PO SCH (21:14)
[2021-08-03] MEDS: traZODone HCL 100 MG TAB PO SCH (21:14)
[2021-08-04] MEDS: SODIUM CHLORIDE 0.9% 1,000 ML IV SCH ×3 (03:45→20:20)
[2021-08-04] MEDS: HYDROcodone/APAP 5-325MG 1 EACH TAB PO PRN ×3 (04:33→23:40)
[2021-08-04] MEDS: LEVOTHYROXINE 75 MCG TAB PO SCH (05:08)
[2021-08-04 05:16] LABS: African American GFR (CKD) >90 (>60 ml/min/1.73 sqM); Non-African American GFR(CKD) >90 (>60 ml/min/1.73 sqM)
[2021-08-04] MEDS: IPRATROPIUM-ALBUTEROL 3 ML NEB INHALATION SCH ×4 (07:43→21:17)
[2021-08-04] MEDS: SYMBICORT 160-4.5 MCG INHALER INHALATION SCH ×2 (07:44→21:17)
[2021-08-04] MEDS: guaiFENesin 600 MG TABLET.ER PO SCH ×2 (08:29→20:16)
[2021-08-04] MEDS: NICOTINE 21MG/24HR PATCH TRANSDERM SCH (08:29)
[2021-08-04] MEDS: GABAPENTIN 300 MG CAP PO SCH ×3 (08:30→21:09)
[2021-08-04] MEDS: predniSONE 10 MG TAB PO SCH (08:30)
[2021-08-04] MEDS: LORATADINE 10 MG TAB PO SCH (08:31)
[2021-08-04] MEDS: lisinopriL 20 MG TAB PO SCH (08:31)
[2021-08-04] MEDS: FLUTICASONE 50MCG/SPRAY NASAL 16GM EA NOSTRIL SCH (08:31)
[2021-08-04] MEDS: PARoxetine 20 MG TAB PO SCH (08:31)
[2021-08-04] MEDS: PANTOPRAZOLE 40 MG TABLET PO SCH (08:32)
[2021-08-04] MEDS: VANCOMYCIN 1,500 MG in SODIUM CHLORIDE 0.9% 250 ML IVPB SCH ×2 (08:43→23:41)
[2021-08-04] MEDS: NYSTATIN 100,000 UNIT/ML SUSP 500,000 UNIT/5 ML CUP PO SCH ×4 (09:43→21:09)
--- NOTE | 2021-08-04 11:40 | P.PN ---
Subjective Progress Note Date: 08/04/21 Principal diagnosis: Shortness of breath. 50-year-old female with history of COPD, who continues to smoke cigarettes, who comes in with complaints of shortness of breath, cough, wheezing, chest tightness, and phlegm production. The phlegm has a yellow color to it. The patient as I mentioned does continue to smoke cigarettes. The patient was initially seen in the emergency department on July 29. She was admitted with a diagnosis of COPD exacerbation. Her coronavirus testing was negative. She has a history of hypothyroidism, GERD, hypertension, liver disease, ost eoarthritis, pneumonia, pulmonary embolism, sleep apnea, hepatitis C, chronic back pain, and overactive bladder. Currently she is on 3 L nasal cannula saturations are 94%. She's getting a basic IV of saline. White count 8.7, hemoglobin 12.2, hematocrit 38, platelet count 312,000. D-dimer is 1.26. Sodium potassium chloride CO2 normal. Anion gap is normal. BUN and creatinine were 9 and 0.6. N-terminal proBNP was 1720. Troponin was negative. Chest x- ray showed possible right lower lobe pneumonia. CT angiogram showed no evidence of pulmonary embolism. And there is a patchy infiltrate, noted at the right lung base. Most recent chest x-ray looks improved. She is currently on azithromycin and ceftriaxone. The patient is seen today 07/31/2021 in follow-up on the regular medical floor. She is currently resting fairly comfortably in bed. Awake and alert in no acute distress. Still dyspneic with conversation. Still dyspneic with exertion. She is maintaining O2 saturations in the low 90s on 3 L/m per nasal cannula. Still with some bronchospasm and wheezing. Dry nonproductive cough. Cultures are revealing presumptive MRSA. Creatinine 0.76. Pro-calcitonin 0.04. She is c ontinued on vancomycin, tracks home, DuoNeb inhalations, Pulmicort and Perforomist inhalations, IV Solu-Medrol. NicoDerm patches in place. Progress note dated 08/01/2021. 50-year-old female with a diagnosis of COPD exacerbation. Currently, the patient's doing reasonably well. She would like some nasal spray, and something for her thick pulmonary secretions. Likely will add some Flonase nasal spray and some Mucinex. Creatinine 0.79. Pro-calcitonin is 0.05. Vancomycin level is noted. No recent chest x-rays to review. Currently, she is on 3 L nasal cannula with saturation 98%. Blood pressure 151/85, heart rate 86, respiratory rate 18, and temperature 98.2. Progress note dated 08/02/2021. 50-year-old female, admitted with a diagnosis of COPD exacerbation. Currently, she is resting comfortably. She's on 2 L nasal cannula. She's getting saline at 100 mL I told her nurse, that the IV could be discontinued, and the patient could be considered for possible discharge. The patient is feeling much better. Yesterday we added some Flonase nasal spray, and some Mucinex as an expe ctorant. No new labs today other than a creatinine of 0.76. Progress note dated 08/04/2021. 50-year-old female, admitted with a diagnosis of COPD exacerbation. She was also found to have staph aureus in the bloodstream. She is on IV vancomycin. From the pulmonary standpoint, the patient could be considered for possible discharge. The staph bacteremia is obviously holding that up. The patient's breathing is much improved. She denies any chest pain or chest discomfort. She does get short of breath on exertion. We did add some Flonase nasal spray, and some Mucinex. No new lab data today other than a creatinine of 0.77. Objective - Vital Signs Vital signs: Vital Signs Temp 98.5 F 08/04/21 07:52 Pulse 72 08/04/21 07:56 Resp 18 08/04/21 07:52 BP 137/74 08/04/21 07:52 Pulse Ox 99 08/04/21 07:52 Intake & Output 08/03/21 08/04/21 08/04/21 18:59 06:59 18:59 Intake Total 600 Balance 600 Intake: Oral 600 Other: Voiding Method Toilet # Voids 2 1 0 - Exam No acute distress, oriented 3. Currently on 2 L nasal cannula. Saturations 99%. HEENT examination is grossly unremarkable. Neck supple. Full range of motion. No adenopathy thyromegaly or neck vein distention. Cardiovascular examination reveals regular rhythm rate. S1-S2 normal. No S3 or S4. No discernible murmur noted. Heart rate 72 bpm. Lungs reveal scattered bilateral rhonchi and wheezes. Breath sounds equal but diminished throughout. No crackles. Breath sounds are much improved. Abdomen soft bowel sounds are heard. No masses or tenderness. Extremities are intact. No cyanosis clubbing or edema. Skin is without rash or lesion. Neurologic examination is brief but nonfocal. - Labs CBC & Chem 7: 08/02/21 06:32 08/04/21 04:15 Labs: Microbiology - Last 24 Hours (Table) 08/01/21 07:47 Gram Stain - Preliminary Sputum Sputum Culture - Preliminary Presumptive Staph aureus Clarisse albicans Assessment and Plan Assessment: Acute exacerbation of COPD, complicated bronchopneumonia, right lower lobe, secondary to methicillin-resistant staph aureus. Methicillin-resistant staph aureus bacteremia, currently on IV vancomycin. History of ongoing tobacco use with nicotine addiction. Obesity. History of stress urinary incontinence. History of hypothyroidism. History of gastroesophageal reflux disease. History of hepatitis C. History of hypertension. History of postural arthritis. History of pulmonary embolism. History of obstructive sleep apnea syndrome. History of anxiety/depression. Plan: Plan dated 07/30/2021. The patient continues on azithromycin and ceftriaxone. The patient is also on Pulmicort 1 mg mixed with formoterol 20 g twice a day. The patient is getting albuterol sulfate and ipratropium bromide updrafts, 4 times a day and when necessary. In addition, the patient is on Solu-Medrol 60 mg every 6 hours. She is placed on a nicotine patch. All these medications are appropriate at this time. Follow. It appears that her chest x-rays improving. No additional recommendations are made. The patient is counseled about the importance of smoking cessation. Plan dated 08/01/2021. The patient remains on Pulmicort 1 mg twice a day, formoterol 20 g twice a day, duo nebs, 4 times a day and when necessary, and Solu-Medrol 60 mg every 6. The patient is currently on vancomycin. Rocephin can be discontinued. Additional recommendations and suggestions are forthcoming. Prognosis is guarded. The patient is counseled about the importance of smoking cessation. Plan dated 08/02/2021. The patient could be considered for possible discharge. We'll leave that up to the primary. Her IVs can be discontinued. She is on 2 L. Saturations are in the mid to high 90s. She appears in no acute distress at this time. Microbiology did show methicillin-resistant staph aureus in the blood. The patient may need a midline or PICC line, and outpatient antibiotics. On the pulmonary standpoint though, the patient is stable. Pulmicort, and formoterol are discontinued in favor of Symbicort. Solu-Medrol was discontinued in favor ofprednisone, 30 mg a day. Plan dated 08/04/2021. The patient is stable from the pulmonary standpoint. She remains on IV vancomycin for her staph aureus bacteremia. She states that her breathing is much improved. Laboratory data is reviewed. Chest x-ray from 2 days ago is reviewed. 2 days ago, the patient was placed on prednisone, and Solu-Medrol was discontinued. Also, I placed the patient on Symbicort. Additional recommendations and suggestions are forthcoming. Time with Patient: Less than 30
--- NOTE | 2021-08-04 16:23 | PN ---
PROGRESS NOTE CHIEF COMPLAINT: Pneumonitis and COPD. HISTORY OF PRESENT ILLNESS: This lady is doing a little bit better each day. Breathing is slowly improving. She has developed thrush, and this will be treated. PHYSICAL EXAM: Head, ears, eyes, nose, mouth and throat are normal except for thrush on the tongue and cheeks. Chest is improving with fewer rhonchi and rales every day. Cardiac exam is normal. Abdomen is soft. IMPRESSION: 1. Pneumonitis. 2. MRSA. 3. Thrush. 4. Obesity. 5. Chronic obstructive pulmonary disease. PLAN: Mycostatin swish and swallow q.i.d. and continue with current medication management. She can probably go home in the next 2-3 days. MMODL / IJN: [id number] /
[2021-08-04] MEDS: OXYBUTYNIN CHLORIDE 5 MG TAB PO SCH (20:17)
[2021-08-04] MEDS: ARIPiprazole 10 MG TAB PO SCH (20:17)
[2021-08-04] MEDS: PRAZOSIN 1 MG CAP PO SCH (20:17)
[2021-08-04] MEDS: VERAPAMIL SR 240 MG TABLET.ER PO SCH (20:17)
[2021-08-04] MEDS: traZODone HCL 100 MG TAB PO SCH (20:18)
[2021-08-05] MEDS: LEVOTHYROXINE 75 MCG TAB PO SCH (05:47)
[2021-08-05] MEDS: SYMBICORT 160-4.5 MCG INHALER INHALATION SCH ×2 (07:42→20:24)
[2021-08-05] MEDS: IPRATROPIUM-ALBUTEROL 3 ML NEB INHALATION SCH ×4 (07:42→20:24)
[2021-08-05] MEDS: HYDROcodone/APAP 5-325MG 1 EACH TAB PO PRN ×2 (08:09→14:55)
[2021-08-05] MEDS: lisinopriL 20 MG TAB PO SCH (08:10)
[2021-08-05] MEDS: NICOTINE 21MG/24HR PATCH TRANSDERM SCH (08:10)
[2021-08-05] MEDS: PANTOPRAZOLE 40 MG TABLET PO SCH (08:10)
[2021-08-05] MEDS: guaiFENesin 600 MG TABLET.ER PO SCH ×2 (08:10→21:23)
[2021-08-05] MEDS: GABAPENTIN 300 MG CAP PO SCH ×3 (08:10→21:23)
[2021-08-05] MEDS: NYSTATIN 100,000 UNIT/ML SUSP 500,000 UNIT/5 ML CUP PO SCH ×4 (08:11→21:24)
[2021-08-05] MEDS: PARoxetine 20 MG TAB PO SCH (08:11)
[2021-08-05] MEDS: FLUTICASONE 50MCG/SPRAY NASAL 16GM EA NOSTRIL SCH (08:11)
[2021-08-05] MEDS: LORATADINE 10 MG TAB PO SCH (08:11)
[2021-08-05] MEDS: SODIUM CHLORIDE 0.9% 1,000 ML IV SCH ×2 (08:12→16:09)
[2021-08-05] MEDS: predniSONE 10 MG TAB PO SCH (08:12)
--- NOTE | 2021-08-05 13:51 | PN ---
PROGRESS NOTE DATE OF SERVICE: 08/05/2021 CHIEF COMPLAINT: Pneumonia. HISTORY OF PRESENT ILLNESS: This lady is doing a little bit better. Breathing is improving and she is starting to get up and move about. Temperature has been down. PHYSICAL EXAMINATION: Breath sounds are diminished and there are a few scattered rales. Cardiac exam is normal. Abdomen is soft, nontender. IMPRESSION: 1. Bronchopneumonia. 2. MRSA. 3. Chronic obstructive pulmonary disease. PLAN: Probably home in the next day or two. MMODL / IJN: [id number] /
[2021-08-05] MEDS ORDERED: VANCOMYCIN TROUGH DUE 1 EACH MISC MISCELLANE ONE (15:00)
[2021-08-05] MEDS: VANCOMYCIN 1,500 MG in SODIUM CHLORIDE 0.9% 250 ML IVPB SCH (16:08)
--- NOTE | 2021-08-05 16:32 | P.PN ---
Subjective Progress Note Date: 08/05/21 Principal diagnosis: Shortness of breath. 50-year-old female with history of COPD, who continues to smoke cigarettes, who comes in with complaints of shortness of breath, cough, wheezing, chest tightness, and phlegm production. The phlegm has a yellow color to it. The patient as I mentioned does continue to smoke cigarettes. The patient was initially seen in the emergency department on July 29. She was admitted with a diagnosis of COPD exacerbation. Her coronavirus testing was negative. She has a history of hypothyroidism, GERD, hypertension, liver disease, ost eoarthritis, pneumonia, pulmonary embolism, sleep apnea, hepatitis C, chronic back pain, and overactive bladder. Currently she is on 3 L nasal cannula saturations are 94%. She's getting a basic IV of saline. White count 8.7, hemoglobin 12.2, hematocrit 38, platelet count 312,000. D-dimer is 1.26. Sodium potassium chloride CO2 normal. Anion gap is normal. BUN and creatinine were 9 and 0.6. N-terminal proBNP was 1720. Troponin was negative. Chest x- ray showed possible right lower lobe pneumonia. CT angiogram showed no evidence of pulmonary embolism. And there is a patchy infiltrate, noted at the right lung base. Most recent chest x-ray looks improved. She is currently on azithromycin and ceftriaxone. The patient is seen today 07/31/2021 in follow-up on the regular medical floor. She is currently resting fairly comfortably in bed. Awake and alert in no acute distress. Still dyspneic with conversation. Still dyspneic with exertion. She is maintaining O2 saturations in the low 90s on 3 L/m per nasal cannula. Still with some bronchospasm and wheezing. Dry nonproductive cough. Cultures are revealing presumptive MRSA. Creatinine 0.76. Pro-calcitonin 0.04. She is c ontinued on vancomycin, tracks home, DuoNeb inhalations, Pulmicort and Perforomist inhalations, IV Solu-Medrol. NicoDerm patches in place. Progress note dated 08/01/2021. 50-year-old female with a diagnosis of COPD exacerbation. Currently, the patient's doing reasonably well. She would like some nasal spray, and something for her thick pulmonary secretions. Likely will add some Flonase nasal spray and some Mucinex. Creatinine 0.79. Pro-calcitonin is 0.05. Vancomycin level is noted. No recent chest x-rays to review. Currently, she is on 3 L nasal cannula with saturation 98%. Blood pressure 151/85, heart rate 86, respiratory rate 18, and temperature 98.2. Progress note dated 08/02/2021. 50-year-old female, admitted with a diagnosis of COPD exacerbation. Currently, she is resting comfortably. She's on 2 L nasal cannula. She's getting saline at 100 mL I told her nurse, that the IV could be discontinued, and the patient could be considered for possible discharge. The patient is feeling much better. Yesterday we added some Flonase nasal spray, and some Mucinex as an expe ctorant. No new labs today other than a creatinine of 0.76. Progress note dated 08/04/2021. 50-year-old female, admitted with a diagnosis of COPD exacerbation. She was also found to have staph aureus in the bloodstream. She is on IV vancomycin. From the pulmonary standpoint, the patient could be considered for possible discharge. The staph bacteremia is obviously holding that up. The patient's breathing is much improved. She denies any chest pain or chest discomfort. She does get short of breath on exertion. We did add some Flonase nasal spray, and some Mucinex. No new lab data today other than a creatinine of 0.77. Progress note dated 08/05/2021. 50-year-old female admitted with a diagnosis of COPD exacerbation. She was also found to have staph aureus bacteremia. She is on IV vancomycin. From the pulmonary standpoint, the patient's doing well. She is on 2 L. She's not receiving any IV fluids. No new labs today. No chest x-ray today. The patient is feeling well. She denies any significant shortness of breath, cough, wheezing, or phlegm production. Objective - Vital Signs Vital signs: Vital Signs Temp 98.1 F 08/05/21 14:00 Pulse 89 08/05/21 16:09 Resp 20 08/05/21 14:00 BP 150/80 08/05/21 14:00 Pulse Ox 94 L 08/05/21 14:00 Intake & Output 08/04/21 08/05/21 08/05/21 18:59 06:59 18:59 Intake Total 360 222 Balance 360 222 Intake: Oral 360 222 Other: # Voids 3 2 6 - Exam No acute distress, oriented 3. Currently on 2 L nasal cannula. Saturations 96%. HEENT examination is grossly unremarkable. Neck supple. Full range of motion. No adenopathy thyromegaly or neck vein distention. Cardiovascular examination reveals regular rhythm rate. S1-S2 normal. No S3 or S4. No discernible murmur noted. Heart rate 89 bpm. Lungs reveal scattered bilateral rhonchi and wheezes. Breath sounds equal but diminished throughout. No crackles. Breath sounds are much improved. Abdomen soft bowel sounds are heard. No masses or tenderness. Extremities are intact. No cyanosis clubbing or edema. Skin is without rash or lesion. Neurologic examination is brief but nonfocal. - Labs CBC & Chem 7: 08/02/21 06:32 08/04/21 04:15 Labs: Microbiology - Last 24 Hours (Table) 08/01/21 07:47 Gram Stain - Final Sputum Sputum Culture - Final Methicillin resist S. aureus Clarisse albicans Assessment and Plan Assessment: Acute exacerbation of COPD, complicated bronchopneumonia, right lower lobe, secondary to methicillin-resistant staph aureus. Methicillin-resistant staph aureus bacteremia, currently on IV vancomycin. History of ongoing tobacco use with nicotine addiction. Obesity. History of stress urinary incontinence. History of hypothyroidism. History of gastroesophageal reflux disease. History of hepatitis C. History of hypertension. History of postural arthritis. History of pulmonary embolism. History of obstructive sleep apnea syndrome. History of anxiety/depression. Plan: Plan dated 07/30/2021. The patient continues on azithromycin and ceftriaxone. The patient is also on Pulmicort 1 mg mixed with formoterol 20 g twice a day. The patient is getting albuterol sulfate and ipratropium bromide updrafts, 4 times a day and when necessary. In addition, the patient is on Solu-Medrol 60 mg every 6 hours. She is placed on a nicotine patch. All these medications are appropriate at this time. Follow. It appears that her chest x-rays improving. No additional recommendations are made. The patient is counseled about the importance of smoking cessation. Plan dated 08/01/2021. The patient remains on Pulmicort 1 mg twice a day, formoterol 20 g twice a day, duo nebs, 4 times a day and when necessary, and Solu-Medrol 60 mg every 6. The patient is currently on vancomycin. Rocephin can be discontinued. Additional recommendations and suggestions are forthcoming. Prognosis is guarded. The patient is counseled about the importance of smoking cessation. Plan dated 08/02/2021. The patient could be considered for possible discharge. We'll leave that up to the primary. Her IVs can be discontinued. She is on 2 L. Saturations are in the mid to high 90s. She appears in no acute distress at this time. Microbiology did show methicillin-resistant staph aureus in the blood. The patient may need a midline or PICC line, and outpatient antibiotics. On the pulmonary standpoint though, the patient is stable. Pulmicort, and formoterol are discontinued in favor of Symbicort. Solu-Medrol was discontinued in favor ofprednisone, 30 mg a day. Plan dated 08/04/2021. The patient is stable from the pulmonary standpoint. She remains on IV vancomycin for her staph aureus bacteremia. She states that her breathing is much improved. Laboratory data is reviewed. Chest x-ray from 2 days ago is reviewed. 2 days ago, the patient was placed on prednisone, and Solu-Medrol was discontinued. Also, I placed the patient on Symbicort. Additional recommendations and suggestions are forthcoming. Plan dated 08/05/2021. From the pulmonary standpoint, the patient's doing well. The patient remains on IV vancomycin. No additional blood work or chest x-ray today. Currently, the patient's on prednisone, Symbicort, and updrafts. We will continue to follow the patient and make recommendations where appropriate. Again pulmonary status is stable. Time with Patient: Less than 30
[2021-08-05] MEDS: PRAZOSIN 1 MG CAP PO SCH (21:23)
[2021-08-05] MEDS: OXYBUTYNIN CHLORIDE 5 MG TAB PO SCH (21:23)
[2021-08-05] MEDS: traZODone HCL 100 MG TAB PO SCH (21:23)
[2021-08-05] MEDS: VERAPAMIL SR 240 MG TABLET.ER PO SCH (21:23)
[2021-08-05] MEDS: ARIPiprazole 10 MG TAB PO SCH (21:24)
[2021-08-06] MEDS: HYDROcodone/APAP 5-325MG 1 EACH TAB PO PRN ×2 (01:25→09:58)
[2021-08-06] MEDS: SODIUM CHLORIDE 0.9% 1,000 ML IV SCH (03:59)
[2021-08-06] MEDS ORDERED: VANCOMYCIN 1,500 MG in SODIUM CHLORIDE 0.9% 250 ML IVPB SCH (04:00)
[2021-08-06 04:28] VITALS: RESP 18
[2021-08-06] MEDS: LEVOTHYROXINE 75 MCG TAB PO SCH (05:53)
[2021-08-06 07:52] VITALS: BP 109/71; TEMP 98.4
[2021-08-06] MEDS: SYMBICORT 160-4.5 MCG INHALER INHALATION SCH (08:24)
[2021-08-06] MEDS: IPRATROPIUM-ALBUTEROL 3 ML NEB INHALATION SCH ×3 (08:24→15:33)
[2021-08-06] MEDS: NICOTINE 21MG/24HR PATCH TRANSDERM SCH (08:44)
[2021-08-06] MEDS: NYSTATIN 100,000 UNIT/ML SUSP 500,000 UNIT/5 ML CUP PO SCH (08:44)
[2021-08-06] MEDS: lisinopriL 20 MG TAB PO SCH (08:45)
[2021-08-06] MEDS: PARoxetine 20 MG TAB PO SCH (08:46)
[2021-08-06] MEDS: GABAPENTIN 300 MG CAP PO SCH (08:46)
[2021-08-06] MEDS: guaiFENesin 600 MG TABLET.ER PO SCH (08:46)
[2021-08-06] MEDS: LORATADINE 10 MG TAB PO SCH (08:46)
[2021-08-06] MEDS: predniSONE 10 MG TAB PO SCH (08:47)
[2021-08-06] MEDS: PANTOPRAZOLE 40 MG TABLET PO SCH (08:47)
[2021-08-06] MEDS: FLUTICASONE 50MCG/SPRAY NASAL 16GM EA NOSTRIL SCH (08:47)
[2021-08-06 15:35] VITALS: PULSE 88
--- NOTE | 2021-08-06 19:19 | DS ---
DISCHARGE SUMMARY CHIEF COMPLAINT: Shortness of breath, pneumonitis, and COPD with CHF. HISTORY OF PRESENT ILLNESS AND PHYSICAL EXAMINATION: Details of this lady's history and physical can be found in the initial workup. LABORATORY STUDIES: While she was in the hospital she had laboratory studies, details of which can be found in the laboratory section of her chart. COURSE IN THE HOSPITAL: After admission she was placed on bedrest and started on intravenous fluids and was found to have MRSA septicemia. She was placed on vancomycin. She did well. She had no further fevers or chills. Her pulmonary function improved to what was her normal baseline. She was doing well and it was felt that she could go home on 08/06. She will go home on light activity about the house and many of her usual medications, including Bactrim DS. FINAL DIAGNOSES: 1. Bronchial pneumonia. 2. Exacerbation of chronic obstructive pulmonary disease. 3. MRSA septicemia. OPERATIONS: None. CONSULTATION: Pulmonology. She is improved. MMODL / IJN: [id number] /
[2021-08-06] MEDS ORDERED: SULFAMETHOX-TMP 400-80MG 1 EACH TAB PO SCH (21:00)
[2021-08-07] MEDS ORDERED: VANCOMYCIN TROUGH DUE 1 EACH MISC MISCELLANE ONE (15:00)
== END 2021-08-06 16:01 | disposition home health service (06) | DRG 871 ==
LOC: EC 12:53 → 6NMEDSUR 15:52 → OBSVTOIN 07-31 11:04
PROVIDERS: ADMIT Family Medicine; ATTEND Family Medicine
DX: A41.02 Sepsis due to Methicillin resistant Staphylococcus aureus (principal); J15.212 Pneumonia due to Methicillin resistant Staphylococcus aureus; J96.91 Respiratory failure, unspecified with hypoxia; B37.0 Candidal stomatitis; J44.0 Chronic obstructive pulmonary disease with (acute) lower respiratory infection; J44.1 Chronic obstructive pulmonary disease with (acute) exacerbation; E03.9 Hypothyroidism, unspecified; E66.9 Obesity, unspecified; F17.210 Nicotine dependence, cigarettes, uncomplicated; F31.9 Bipolar disorder, unspecified; F41.0 Panic disorder [episodic paroxysmal anxiety]; F43.10 Post-traumatic stress disorder, unspecified; I11.0 Hypertensive heart disease with heart failure; I50.9 Heart failure, unspecified; N32.81 Overactive bladder; M19.90 Unspecified osteoarthritis, unspecified site; Z20.822 Contact with and (suspected) exposure to COVID-19; Z79.890 Hormone replacement therapy; Z79.899 Other long term (current) drug therapy; Z86.711 Personal history of pulmonary embolism; Z91.410 Personal history of adult physical and sexual abuse; G89.29 Other chronic pain; G47.33 Obstructive sleep apnea (adult) (pediatric); M54.2 Cervicalgia; M54.9 Dorsalgia, unspecified; Z91.81 History of falling; Z86.19 Personal history of other infectious and parasitic diseases; Z87.01 Personal history of pneumonia (recurrent); Z98.890 Other specified postprocedural states; Z98.51 Tubal ligation status; Z80.9 Family history of malignant neoplasm, unspecified
CPT/HCPCS: 36415; 71046; 71275; 80053; 80202; 82565; 83605; 83880; 84145; 84484; 85025; 85379; 85610; 85730; 87040; 87070; 87077; 87186; 87205; 87636; 93005; 93306; 94640; 94667; 94760; 96374; 99291

== ENCOUNTER 2021-08-24 18:35 | Emergency (ER) | payer OTHER ==
[2021-08-24 18:46] VITALS: TEMP 98.5
[2021-08-24] MEDS ORDERED: IPRATROPIUM-ALBUTEROL 3 ML NEB INHALATION STA (18:49)
[2021-08-24 19:13] VITALS: RESP 18
[2021-08-24 19:26] LABS: Anisocytosis Slight; Basophils % (A) 0 %; Eosinophils # (A) 0.1 k/uL (0-0.7); Eosinophils % (A) 1 %; HCT 34.7 % (34.0-46.0); HGB 11.4 gm/dL (11.4-16.0); Lymphocytes % (A) 28 %; MCH 31.9 pg (25.0-35.0); MCHC 32.7 g/dL (31.0-37.0); Mean Platelet Volume 7.3; Monocytes # (A) 0.5 k/uL (0-1.0); Monocytes % (A) 7 %; Neutrophils # (A) 4.5 k/uL (1.3-7.7); Neutrophils % (A) 63 %; Platelet Count 376 k/uL (150-450); RBC 3.57 m/uL (3.80-5.40); RDW 16.1 % (11.5-15.5); WBC 7.2 k/uL (3.8-10.6)
[2021-08-24 19:36] LABS: MCV 97.4 fL (80.0-100.0)
[2021-08-24 19:40] LABS: ALT 22 U/L (4-34); AST 43 U/L (14-36); African American GFR (CKD) >90 (>60 ml/min/1.73 sqM); Albumin 4.3 g/dL (3.5-5.0); Alkaline Phosphatase 21 U/L (38-126); Anion Gap 9 mmol/L; Blood Urea Nitrogen 15 mg/dL (7-17); Calcium 9.5 mg/dL (8.4-10.2); Carbon Dioxide 24 mmol/L (22-30); Chloride 104 mmol/L (98-107); Glucose 114 mg/dL (74-99); Non-African American GFR(CKD) >90 (>60 ml/min/1.73 sqM); Potassium 4.8 mmol/L (3.5-5.1); Sodium 137 mmol/L (137-145); Total Bilirubin 0.7 mg/dL (0.2-1.3); Total Protein 7.2 g/dL (6.3-8.2)
--- NOTE | 2021-08-24 19:51 | XR ---
EXAMINATION TYPE: XR chest 2V DATE OF EXAM: 08/24/2021 COMPARISON: 08/20/2021 HISTORY: Pneumonia short of breath TECHNIQUE: FINDINGS: There is no heart failure no confluent pneumonic infiltrate. Costophrenic angles are clear. There are no hilar masses. There is cervical spine fusion surgery. Bony thorax is intact. IMPRESSION: No active cardiopulmonary disease. No change.
[2021-08-24 20:28] LABS: INR 0.9 (<1.2); Prothrombin Time 9.6 sec (9.0-12.0)
[2021-08-24 20:32] LABS: Partial Thromboplastin Time 18.4 sec (22.0-30.0)
--- NOTE | 2021-08-24 20:55 | ED ---
SOB HPI - General Chief Complaint: Shortness of Breath Stated Complaint: SOB,Cough,Dizzy Time Seen by Provider: 08/24/21 18:47 Source: patient, RN notes reviewed Mode of arrival: ambulatory Limitations: no limitations - History of Present Illness Initial Comments: 51-year-old female presented emergency department complaining of increased shortness of breath and a dry hacking cough. She notes she was discharged from the hospital mid July due to Covid pneumonia. She no she finished all the antibiotics. She notes that she will the primary care who told her to come emergency room to get reevaluated. Patient was well-appearing. Her vital signs were stable upon arrival. Patient denied any other issues or complaints patient notes she wanted get reevaluated. Patient denied chest pain headache nausea vomiting diarrhea constipation fever fatigue chills. - Related Data Home Medications Medication Instructions Recorded Confirmed Loratadine [Claritin] 10 mg PO DAILY 01/24/14 07/29/21 Oxybutynin Chloride [Ditropan] 10 mg PO HS 01/24/14 07/29/21 Levothyroxine Sodium [Synthroid] 75 mcg PO DAILY 08/27/19 07/29/21 traZODone HCL 300 mg PO HS 08/27/19 07/29/21 Omeprazole 40 mg PO DAILY 05/24/20 07/29/21 ARIPiprazole [Abilify] 10 mg PO HS 11/02/20 07/29/21 Albuterol Sulfate [Proair Hfa] 2 puff INHALATION RT-Q6H PRN 11/02/20 07/29/21 PARoxetine HCL [Paxil] 60 mg PO DAILY 11/02/20 07/29/21 busPIRone HCL 15 mg PO BID 11/02/20 07/29/21 Ipratropium-Albuterol Nebulize 3 ml INHALATION RT-QID PRN 12/18/20 07/29/21 [Duoneb 0.5 mg-3 mg/3 ml Soln] Ergocalciferol (Vitamin D2) 1,250 mcg PO Q28D 04/07/21 07/29/21 [Drisdol (50,000 Iu)] Fluticasone/Salmeterol [Advair 1 puff INHALATION RT-BID 04/07/21 07/29/21 500-50 Diskus] Prazosin HCl 5 mg PO HS 04/07/21 07/29/21 Gabapentin [Neurontin] 300 mg PO TID 07/29/21 07/29/21 HYDROcodone/APAP 5-325MG [[place] 1 tab PO TID 07/29/21 07/29/21 5-325] Verapamil HCl [Verapamil ER] 240 mg PO HS 07/29/21 07/29/21 lisinopriL 40 mg PO DAILY 07/29/21 07/29/21 methocarbamoL [Robaxin] 500 mg PO TID 07/29/21 07/29/21 Previous Rx's Medication Instructions Recorded Budesonide-Formot 160-4.5 Mcg 2 puff INHALATION RT-BID 30 Days 08/06/21 [Symbicort 160-4.5 Mcg Inhaler] #1 dispenser Ipratropium-Albuterol Nebulize 3 ml INHALATION RT-QID #120 ml 08/06/21 [Duoneb 0.5 mg-3 mg/3 ml Soln] Nystatin 100,000 Unit/ml Susp 500,000 unit PO QID 7 Days #1 oz 08/06/21 [Mycostatin Oral Susp] Sulfamethox-Tmp 400-80Mg [Bactrim 1 each PO BID #20 tab 08/06/21 SS 400-80 mg] methylPREDNISolone Dose Pack 4 mg PO DIRECTED #1 packet 08/06/21 [Medrol Dose Pack] Allergies Allergy/AdvReac Type Severity Reaction Status Date / Time No Known Allergies Allergy Verified 08/24/21 18:46 Review of Systems ROS Statement: Those systems with pertinent positive or pertinent negative responses have been documented in the HPI. ROS Other: All systems not noted in ROS Statement are negative. Past Medical History Past Medical History: Asthma, COPD, GERD/Reflux, Hypertension, Liver Disease, Osteoarthritis (OA), Pneumonia, Pulmonary Embolus (PE), Sleep Apnea/CPAP/BIPAP, Thyroid Disorder Additional Past Medical History / Comment(s): Chronic bronchitis, hepatitis C - remission, chronic back/neck pain, overactive bladder, hx fungal pneumonia - home oxygen 2L HS, doesn't use CPAP, DVT Lt arm r/t PICC line, edema BLE, tripped & fell last week on Rt shoulder/elbow - awaiting results. History of Any Multi-Drug Resistant Organisms: MRSA Date of last positivie culture/infection: 08/01/21 MDRO Source:: Sputum Past Surgical History: Section, Orthopedic Surgery, Tubal Ligation, Uterine Ablation Additional Past Surgical History / Comment(s): C-S x3, Arthroscopy left knee, ORIF (metal plate/screws) right tibia, liver biopsies, right rotator cuff repair, pain procedures, Total left hip arthroscopy. plate put in neck due to discs c5-c7 being on a nerve. Past Anesthesia/Blood Transfusion Reactions: No Reported Reaction Additional Past Anesthesia/Blood Transfusion Reaction / Comment(s): Denies previous reactions. Past Psychological History: Anxiety, Bipolar, Depression, Panic Disorder, PTSD Smoking Status: Current every day smoker - Past Family History Sister(s) Family Medical History: Cancer General Exam Limitations: no limitations General appearance: alert, in no apparent distress, obese Head exam: Present: atraumatic, normocephalic, normal inspection Eye exam: Present: normal appearance, PERRL, EOMI. Absent: scleral icterus, conjunctival injection, periorbital swelling ENT exam: Present: normal exam, mucous membranes moist Neck exam: Present: normal inspection Respiratory exam: Present: normal lung sounds bilaterally. Absent: respiratory distress, wheezes, rales, rhonchi, stridor Cardiovascular Exam: Present: regular rate, normal rhythm, normal heart sounds. Absent: systolic murmur, diastolic murmur, rubs, gallop, clicks GI/Abdominal exam: Present: soft, normal bowel sounds. Absent: distended, tenderness, guarding, rebound, rigid Extremities exam: Present: normal inspection, full ROM, normal capillary refill. Absent: tenderness, pedal edema, joint swelling, calf tenderness Neurological exam: Present: alert, oriented X3 Psychiatric exam: Present: normal affect, normal mood Skin exam: Present: warm, dry, intact, normal color. Absent: rash Course Vital Signs 08/24/21 08/24/21 08/24/21 18:43 19:12 19:18 Temperature 98.5 F Pulse Rate 108 H 72 73 Respiratory 24 18 18 Rate Blood Pressure 182/92 O2 Sat by Pulse 97 Oximetry Procedures - [place] Protocol (Time Out) Nurse: Evelyn Blevins Medical Decision Making - Medical Decision Making 51-year-old female complaining of increased shortness of breath. Labs, EKG, chest x-ray, DuoNeb ordered. Labs: Elevated d-dimer 0.7 on his turning down from last 1, rest of labs are unremarkable. Chest x-ray shows no acute card up on her process. No change. Patient was informed of results informed that she will be discharged home. Case discussed with Dr. Bello. - Lab Data Result diagrams: 08/24/21 19:13 08/24/21 19:13 Lab Results 08/24/21 08/24/21 08/24/21 Range/Units 19:13 19:13 19:13 WBC 7.2 (3.8-10.6) k/uL RBC 3.57 L (3.80-5.40) m/uL Hgb 11.4 (11.4-16.0) gm/dL Hct 34.7 (34.0-46.0) % MCV 97.4 D (80.0-100.0) fL MCH 31.9 (25.0-35.0) pg MCHC 32.7 (31.0-37.0) g/dL RDW 16.1 H (11.5-15.5) % Plt Count 376 (150-450) k/uL MPV 7.3 Neutrophils % 63 % Lymphocytes % 28 % Monocytes % 7 % Eosinophils % 1 % Basophils % 0 % Neutrophils # 4.5 (1.3-7.7) k/uL Lymphocytes # 2.0 (1.0-4.8) k/uL Monocytes # 0.5 (0-1.0) k/uL Eosinophils # 0.1 (0-0.7) k/uL Basophils # 0.0 (0-0.2) k/uL Anisocytosis Slight PT 9.6 (9.0-12.0) sec INR 0.9 (<1.2) APTT 18.4 L (22.0-30.0) sec D-Dimer 0.79 H (<0.60) mg/L FEU Sodium 137 (137-145) mmol/L Potassium 4.8 (3.5-5.1) mmol/L Chloride 104 (98-107) mmol/L Carbon Dioxide 24 (22-30) mmol/L Anion Gap 9 mmol/L BUN 15 (7-17) mg/dL Creatinine 0.65 (0.52-1.04) mg/dL Est GFR (CKD-EPI)AfAm >90 (>60 ml/min/1.73 sqM) Est GFR (CKD-EPI)NonAf >90 (>60 ml/min/1.73 sqM) Glucose 114 H (74-99) mg/dL Plasma Lactic Acid Tobin (0.7-2.0) mmol/L Calcium 9.5 (8.4-10.2) mg/dL Total Bilirubin 0.7 (0.2-1.3) mg/dL AST 43 H (14-36) U/L ALT 22 (4-34) U/L Alkaline Phosphatase 21 L (38-126) U/L Troponin I (0.000-0.034) ng/mL NT-Pro-B Natriuret Pep pg/mL Total Protein 7.2 (6.3-8.2) g/dL Albumin 4.3 (3.5-5.0) g/dL Influenza Type A (PCR) (Not Detectd) Influenza Type B (PCR) (Not Detectd) RSV (PCR) (Not Detectd) SARS-CoV-2 (PCR) (Not Detectd) 08/24/21 08/24/21 08/24/21 Range/Units 19:13 19:13 19:13 WBC (3.8-10.6) k/uL RBC (3.80-5.40) m/uL Hgb (11.4-16.0) gm/dL Hct (34.0-46.0) % MCV (80.0-100.0) fL MCH (25.0-35.0) pg MCHC (31.0-37.0) g/dL RDW (11.5-15.5) % Plt Count (150-450) k/uL MPV Neutrophils % % Lymphocytes % % Monocytes % % Eosinophils % % Basophils % % Neutrophils # (1.3-7.7) k/uL Lymphocytes # (1.0-4.8) k/uL Monocytes # (0-1.0) k/uL Eosinophils # (0-0.7) k/uL Basophils # (0-0.2) k/uL Anisocytosis PT (9.0-12.0) sec INR (<1.2) APTT (22.0-30.0) sec D-Dimer (<0.60) mg/L FEU Sodium (137-145) mmol/L Potassium (3.5-5.1) mmol/L Chloride (98-107) mmol/L Carbon Dioxide (22-30) mmol/L Anion Gap mmol/L BUN (7-17) mg/dL Creatinine (0.52-1.04) mg/dL Est GFR (CKD-EPI)AfAm (>60 ml/min/1.73 sqM) Est GFR (CKD-EPI)NonAf (>60 ml/min/1.73 sqM) Glucose (74-99) mg/dL Plasma Lactic Acid Tobin 1.8 (0.7-2.0) mmol/L Calcium (8.4-10.2) mg/dL Total Bilirubin (0.2-1.3) mg/dL AST (14-36) U/L ALT (4-34) U/L Alkaline Phosphatase (38-126) U/L Troponin I <0.012 (0.000-0.034) ng/mL NT-Pro-B Natriuret Pep 718 pg/mL Total Protein (6.3-8.2) g/dL Albumin (3.5-5.0) g/dL Influenza Type A (PCR) (Not Detectd) Influenza Type B (PCR) (Not Detectd) RSV (PCR) (Not Detectd) SARS-CoV-2 (PCR) (Not Detectd) 08/24/21 Range/Units 19:13 WBC (3.8-10.6) k/uL RBC (3.80-5.40) m/uL Hgb (11.4-16.0) gm/dL Hct (34.0-46.0) % MCV (80.0-100.0) fL MCH (25.0-35.0) pg MCHC (31.0-37.0) g/dL RDW (11.5-15.5) % Plt Count (150-450) k/uL MPV Neutrophils % % Lymphocytes % % Monocytes % % Eosinophils % % Basophils % % Neutrophils # (1.3-7.7) k/uL Lymphocytes # (1.0-4.8) k/uL Monocytes # (0-1.0) k/uL Eosinophils # (0-0.7) k/uL Basophils # (0-0.2) k/uL Anisocytosis PT (9.0-12.0) sec INR (<1.2) APTT (22.0-30.0) sec D-Dimer (<0.60) mg/L FEU Sodium (137-145) mmol/L Potassium (3.5-5.1) mmol/L Chloride (98-107) mmol/L Carbon Dioxide (22-30) mmol/L Anion Gap mmol/L BUN (7-17) mg/dL Creatinine (0.52-1.04) mg/dL Est GFR (CKD-EPI)AfAm (>60 ml/min/1.73 sqM) Est GFR (CKD-EPI)NonAf (>60 ml/min/1.73 sqM) Glucose (74-99) mg/dL Plasma Lactic Acid Tobin (0.7-2.0) mmol/L Calcium (8.4-10.2) mg/dL Total Bilirubin (0.2-1.3) mg/dL AST (14-36) U/L ALT (4-34) U/L Alkaline Phosphatase (38-126) U/L Troponin I (0.000-0.034) ng/mL NT-Pro-B Natriuret Pep pg/mL Total Protein (6.3-8.2) g/dL Albumin (3.5-5.0) g/dL Influenza Type A (PCR) Not Detected (Not Detectd) Influenza Type B (PCR) Not Detected (Not Detectd) RSV (PCR) Not Detected (Not Detectd) SARS-CoV-2 (PCR) Not Detected (Not Detectd) - EKG Data -: EKG Interpreted by Pa EKG shows normal: sinus rhythm Rate: normal EKG Comments: Ventricular rate 88 bpm, SD interval 96 ms, QRS duration 100 ms, QTC 464 ms, sinus rhythm with short SD, possible lateral infarct age undetermined, abnormal ECG. - Radiology Data Radiology results: report reviewed, image reviewed Chest x-ray: No acute cardiopulmonary process. No change. Disposition Clinical Impression: Shortness of breath Disposition: HOME SELF-CARE Condition: Stable Instructions (If sedation given, give patient instructions): Chronic Bronchitis (ED) Additional Instructions: Please return to the Emergency Department if symptoms worsen or any other concerns. Follow-up with primary care in 1-2 days. Continue conservative management home. Is patient prescribed a controlled substance at d/c from ED?: No Referrals: Kofi García MD [Primary Care Provider] - 1-2 days Time of Disposition: 20:53
[2021-08-24 21:55] VITALS: BP 154/87; PULSE 97
== END 2021-08-24 22:04 | disposition home or self-care (01) ==
LOC: EC 18:35
DX: R06.02 Shortness of breath (principal); J44.9 Chronic obstructive pulmonary disease, unspecified; K21.9 Gastro-esophageal reflux disease without esophagitis; I10 Essential (primary) hypertension; M19.90 Unspecified osteoarthritis, unspecified site; E07.9 Disorder of thyroid, unspecified; F41.9 Anxiety disorder, unspecified; F31.9 Bipolar disorder, unspecified; F43.12 Post-traumatic stress disorder, chronic; F17.200 Nicotine dependence, unspecified, uncomplicated; Z20.822 Contact with and (suspected) exposure to COVID-19; Z86.711 Personal history of pulmonary embolism; Z98.51 Tubal ligation status
CPT/HCPCS: 36415; 71046; 80053; 83605; 83880; 84484; 85025; 85379; 85610; 85730; 87636; 94640; 99285